=== PATIENT | male | born 1940 | race Caucasian/White ===

== ENCOUNTER → 2017-01-09 | Outpatient (CLI) | payer MEDICARE, OTHER ==
[~2017-01-09] MED LIST: ASPI-892 PO; HYDR-34 PO; HYDR1CAP2 PO; HYDR1TAB66 PO; LORTAB PO; PRAV40TA PO; PRV20T PO; REGADENOSON 0.4 MG/5 ML SYR (LEXISCAN) IV ONE; TRZ100T PO; VENL150C PO
[2017-01-09] MEDS: CATHETER FLUSH 10 ML SYR IV PRN ×2 (07:09→08:26)
[2017-01-09 08:24] VITALS: BP 135/83
--- NOTE | 2017-01-12 01:46 | STRESS TEST ---
PROCEDURE PHYSICIAN: KUN REY DATE OF PROCEDURE: 01/09/2017 MYOCARDIAL PERFUSION IMAGING: PRIMARY PHYSICIAN: Dr. Ian Arauz. DIAGNOSES: I25.10 coronary artery disease. PROCEDURE DETAILS:,: Please referred to Dr. Arauz's note for the stress testing portion. Myocardial perfusion imaging was performed with 10.95 mCi of Myoview for rest and 30.1 mCi of Myoview for stress imaging. TID was 1.09. EF: Is 32%. There is a large moderate intensity lateral infarct with jamaal-infarct ischemia, which is a moderate size. There is global hypokinesis. SSS 26, SRS 22, SDS 2. IMPRESSION/CONCLUSION: 1. Large lateral infarct with jamaal-infarct ischemia. 2. Severe LV systolic dysfunction. 3. Global hypokinesis. Job ID: [id number] Dictated Date: 01/09/2017 17:14:51 Paper Sealer Date: 01/12/2017 01:43:36 / blane
== END ==
LOC: CARD 06:42
PROVIDERS: ATTEND Internal Medicine
DX: I25.10 Atherosclerotic heart disease of native coronary artery without angina pectoris (principal)
CPT/HCPCS: 78452; 93017

== ENCOUNTER → 2017-01-12 | Outpatient (CLI) | payer MEDICARE, OTHER ==
[~2017-01-12] MED LIST changes: -REGADENOSON 0.4 MG/5 ML SYR (LEXISCAN) IV ONE; +RT-ALBUTEROL SULF 2.5 MG/3 ML PRE-MIX VIAL IH ONE
== END ==
LOC: RT 15:17
PROVIDERS: ATTEND Internal Medicine
DX: J44.9 Chronic obstructive pulmonary disease, unspecified (principal)
CPT/HCPCS: 94060; 94640; 94726; 94729

== ENCOUNTER → 2017-01-23 | Outpatient (CLI) | payer MEDICARE, OTHER ==
[~2017-01-23] MED LIST changes: -RT-ALBUTEROL SULF 2.5 MG/3 ML PRE-MIX VIAL IH ONE
[2017-01-23 11:29] LABS: ALBUMIN 3.7 GM/DL (3.2-4.5); ANION GAP 8 MMOL/L (5-14); BLOOD UREA NITROGEN 12 MG/DL (7-18); BUN/CREATININE RATIO 11; CALCIUM 9.3 MG/DL (8.5-10.1); CARBON DIOXIDE 28 MMOL/L (21-32); CHLORIDE 106 MMOL/L (98-107); CREATININE SERUM 1.09 MG/DL (0.60-1.30); GFR ESTIMATED > 60; GLUCOSE 124 MG/DL (70-105); PHOSPHORUS 3.2 MG/DL (2.3-4.7); POTASSIUM 4.1 MMOL/L (3.6-5.0); SODIUM 142 MMOL/L (135-145)
== END ==
LOC: LAB 10:51
PROVIDERS: ATTEND Internal Medicine Cardiovascular Disease
DX: Z79.899 Other long term (current) drug therapy (principal)
CPT/HCPCS: 36415; 80069

== ENCOUNTER 2019-04-01 02:29 | Emergency (ER) | payer MEDICARE, OTHER ==
[~2019-04-01] VITALS: Ht 175 cm; Wt 83.0 kg
[2019-04-01 02:46] LABS: BASOPHILS % (AUTO) 0 % (0-10); EOSINOPHILS # (AUTO) 0.1 10^3/uL (0.0-0.3); EOSINOPHILS % (AUTO) 1 % (0-10); HEMATOCRIT 46 % (40-54); HEMOGLOBIN 14.9 G/DL (13.3-17.7); LYMPHOCYTES # (AUTO) 0.2 X 10^3 (1.0-4.0); LYMPHOCYTES % (AUTO) 2 % (12-44); MEAN CORPUSCULAR HEMOGLOBIN 28 PG (25-34); MEAN CORPUSCULAR HGB CONC 32 G/DL (32-36); MEAN CORPUSCULAR VOLUME 86 FL (80-99); MEAN PLATELET VOLUME 9.5 FL (7.4-10.4); MONOCYTES # (AUTO) 0.1 X 10^3 (0.0-1.0); MONOCYTES % (AUTO) 1 % (0-12); NEUTROPHILS # (AUTO) 9.8 X 10^3 (1.8-7.8); NEUTROPHILS % (AUTO) 96 % (42-75); PLATELET COUNT 192 10^3/uL (130-400); RED CELL DISTRIBUTION WIDTH 13.4 % (10.0-14.5); WHITE BLOOD COUNT 10.2 10^3/uL (4.3-11.0)
[2019-04-01 02:58] LABS: INR 1.1 (0.8-1.4); PROTHROMBIN TIME PATIENT 14.3 SEC (12.2-14.7)
[2019-04-01 03:05] LABS: BAND NEUTROPHILS 5 %; LYMPHOCYTES % (MANUAL) 2 %; MONOCYTES % (MANUAL) 1 %; NEUTROPHILS % (MANUAL) 92 %; RBC MORPH NORMAL
[2019-04-01 03:08] LABS: ALBUMIN 3.5 GM/DL (3.2-4.5); BILIRUBIN,TOTAL 0.6 MG/DL (0.1-1.0); CREATININE SERUM 1.19 MG/DL (0.60-1.30); MAGNESIUM 1.8 MG/DL (1.6-2.4); POTASSIUM 4.5 MMOL/L (3.6-5.0); TOTAL PROTEIN 6.6 GM/DL (6.4-8.2)
--- NOTE | 2019-04-01 03:55 | ED Chest Pain ---
General Chief Complaint: Chest Pain Stated Complaint: CP,DIZZY Source: patient Exam Limitations: no limitations History of Present Illness Date Seen by Provider: Apr 01, 2019 Time Seen by Provider: 02:25 Initial Comments This 79-year-old gentleman presents to the emergency room via EMS with complaints of chest pain and shortness of breath since 23:00. EMS reports his oxygen saturation on room air was 88 percent. Oxygen saturation resuscitated to 95 percent on 4 L nasal cannula. He received 324 mg of aspirin prior to arrival. Chest pain had resolved by the time he was roomed at [facility]. Patient has extensive history of coronary artery disease including CABG and multiple stent placements. He sees Dr. Light in [place]. 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 He was last evaluated with stress test at this hospital in 2017. He had severe LV dysfunction and large lateral infarct noted on the stress test. His primary care providers Dr. Arauz. He denies any cough or fever. Allergies and Home Medications Allergies Coded Allergies: No Known Drug Allergies (Unverified , 04/29/11) Home Medications Aspirin 81 Mg Tabec, 81 MG PO DAILY, (Reported) Hydrocodone Bit/Acetaminophen 1 Ea Tablet, 1-2 EA PO Q 4 - 6 HR PRN PRN, (Reported) NEW PRESCRIPTION CALLED TO [facility] Pravastatin Sodium 20 Mg Tablet, 1 TAB PO DAILY, (Reported) Trazodone Hcl 100 Mg Tablet, 100 MG PO HS, (Reported) Venlafaxine Hcl 150 Mg Cap.sr.24h, 1 EACH PO DAILY, (Reported) Patient Home Medication List Home Medication List Reviewed: Yes Review of Systems Review of Systems Constitutional: no symptoms reported EENTM: No Symptoms Reported Respiratory: See HPI Cardiovascular: See HPI Gastrointestinal: No Symptoms Reported Genitourinary: No Symptoms Reported Musculoskeletal: no symptoms reported Skin: no symptoms reported Psychiatric/Neurological: No Symptoms Reported Endocrine: No Symptoms Reported Hematologic/Lymphatic: No Symptoms Reported Past Uxdefox-Gmchlw-Skuwmk Hx Past Med/Social Hx: Reviewed and Corrections made Patient Social History Recent Foreign Travel: No Contact w/Someone Who Travel: No Immunizations Up To Date Date of Pneumonia Vaccine: Mar 29, 2012 Past Medical History Surgeries: Yes (Fernanda gland resection) CABG, Coronary Stent, Gallbladder Respiratory: Yes (suspected asbestosis) COPD Cardiac: Yes Coronary Artery Disease, High Cholesterol, Hypertension Neurological: No Reproductive Disorders: No Genitourinary: No Gastrointestinal: Yes Gastroesophageal Reflux, Pancreatitis Musculoskeletal: Yes Arthritis, Fractures Endocrine: No HEENT: No Cancer: No Psychosocial: Yes Depression Physical Exam Vital Signs Vital Signs - First Documented 04/01/19 02:30 Temp 38.2 Pulse 91 Resp 18 B/P (MAP) 91/70 (77) Pulse Ox 95 O2 Delivery Nasal Cannula O2 Flow Rate 4.00 FiO2 95 Capillary Refill : Height, Weight, BMI Height: '" Weight: 195lbs. oz. 88.693962mc; BMI Method: General Appearance: No Apparent Distress, WD/WN HEENT: PERRL/EOMI, Normal ENT Inspection Neck: Normal Inspection Respiratory: No Accessory Muscle Use, No Respiratory Distress, Crackles (bibasilar crackles, right greater than left) Cardiovascular: Regular Rate, Rhythm, No Edema, No Murmur, Normal Peripheral Pulses Extremity: Normal Capillary Refill, Normal Inspection, No Calf Tenderness, No Pedal Edema Neurologic/Psychiatric: Alert, Oriented x3, No Motor/Sensory Deficits, Normal Mood/Affect, director stage II-XII Norm as Tested Skin: Normal Color, Warm/Dry Focused Exam Lactate Level 04/01/19 03:40: Lactic Acid Level 2.35*H Lactic Acid Level Laboratory Tests Test 04/01/19 03:40 Lactic Acid Level 2.35 MMOL/L (0.50-2.00) *H Progress/Results/Core Measures Results/Orders Lab Results Laboratory Tests Test 04/01/19 02:35 04/01/19 03:40 04/01/19 04:44 Range/Units White Blood Count 10.2 4.3-11.0 10^3/uL Red Blood Count 5.39 4.35-5.85 10^6/uL Hemoglobin 14.9 13.3-17.7 G/DL Hematocrit 46 40-54 % Mean Corpuscular Volume 86 80-99 FL Mean Corpuscular Hemoglobin 28 25-34 PG Mean Corpuscular Hemoglobin Concent 32 32-36 G/DL Red Cell Distribution Width 13.4 10.0-14.5 % Platelet Count 192 130-400 10^3/uL Mean Platelet Volume 9.5 7.4-10.4 FL Neutrophils (%) (Auto) 96 H 42-75 % Lymphocytes (%) (Auto) 2 L 12-44 % Monocytes (%) (Auto) 1 0-12 % Eosinophils (%) (Auto) 1 0-10 % Basophils (%) (Auto) 0 0-10 % Neutrophils # (Auto) 9.8 H 1.8-7.8 X 10^3 Lymphocytes # (Auto) 0.2 L 1.0-4.0 X 10^3 Monocytes # (Auto) 0.1 0.0-1.0 X 10^3 Eosinophils # (Auto) 0.1 0.0-0.3 10^3/uL Basophils # (Auto) 0.0 0.0-0.1 10^3/uL Neutrophils % (Manual) 92 % Lymphocytes % (Manual) 2 % Monocytes % (Manual) 1 % Band Neutrophils 5 % Blood Morphology Comment NORMAL Prothrombin Time 14.3 12.2-14.7 SEC INR Comment 1.1 0.8-1.4 Activated Partial Thromboplast Time 25 24-35 SEC Sodium Level 139 135-145 MMOL/L Potassium Level 4.5 3.6-5.0 MMOL/L Chloride Level 104 98-107 MMOL/L Carbon Dioxide Level 26 21-32 MMOL/L Anion Gap 9 5-14 MMOL/L Blood Urea Nitrogen 12 7-18 MG/DL Creatinine 1.19 0.60-1.30 MG/DL Estimat Glomerular Filtration Rate 59 BUN/Creatinine Ratio 10 Glucose Level 115 H 70-105 MG/DL Calcium Level 9.0 8.5-10.1 MG/DL Corrected Calcium 9.4 8.5-10.1 MG/DL Magnesium Level 1.8 1.6-2.4 MG/DL Total Bilirubin 0.6 0.1-1.0 MG/DL Aspartate Amino Transf (AST/SGOT) 20 5-34 U/L Alanine Aminotransferase (ALT/SGPT) 14 0-55 U/L Alkaline Phosphatase 114 40-136 U/L Myoglobin 80.2 10.0-92.0 NG/ML Troponin I 0.042 H <0.028 NG/ML C-Reactive Protein High Sensitivity 0.52 H 0.00-0.50 MG/DL B-Type Natriuretic Peptide 347.6 H <100.0 PG/ML Total Protein 6.6 6.4-8.2 GM/DL Albumin 3.5 3.2-4.5 GM/DL Lipase 29 8-78 U/L Lactic Acid Level 2.35 *H 0.50-2.00 MMOL/L Urine Color YELLOW Urine Clarity CLEAR Urine pH 5 5-9 Urine Specific [place] 1.020 1.016-1.022 Urine Protein 2+ H NEGATIVE Urine Glucose (UA) NEGATIVE NEGATIVE Urine Ketones NEGATIVE NEGATIVE Urine Nitrite NEGATIVE NEGATIVE Urine Bilirubin NEGATIVE NEGATIVE Urine Urobilinogen 1 NORMAL MG/DL Urine Leukocyte Esterase 3+ H NEGATIVE Urine RBC (Auto) NEGATIVE NEGATIVE Urine RBC NONE /HPF Urine WBC >100 H /HPF Urine Squamous Epithelial Cells 2-5 /HPF Urine Crystals NONE /LPF Urine Bacteria MODERATE H /HPF Urine Casts NONE /LPF Urine Mucus LARGE H /LPF Urine Culture Indicated CULTURE PENDING My Orders Orders - FABIO HILLS MD Cbc With Automated Diff (04/01/19 02:37) Magnesium (04/01/19 02:37) Chest 1 View, Ap/Pa Only (04/01/19 02:37) Ekg Tracing (04/01/19 02:37) Cardiac Profile 1 (04/01/19 02:37) Comprehensive Metabolic Panel (04/01/19 02:37) Myoglobin Serum (04/01/19 02:37) Protime With Inr (04/01/19 02:37) Partial Thromboplastin Time (04/01/19 02:37) O2 (04/01/19 02:37) Monitor-Rhythm Ecg Trace Only (04/01/19 02:37) Lipid Panel (04/02/19 06:00) Ed Iv/Invasive Line Start (04/01/19 02:37) BNP (04/01/19 02:37) Hs C Reactive Protein (04/01/19 02:37) Manual Differential (04/01/19 02:35) Lipase (04/01/19 02:56) Blood Culture (04/01/19 03:17) Sputum Culture (04/01/19 03:17) Urinalysis (04/01/19 03:17) Urine Culture (04/01/19 03:17) Ed Iv/Invasive Line Start (04/01/19 03:17) Vital Signs Adult Sepsis Patie Q15M (04/01/19 03:17) O2 (04/01/19 03:17) Remove Rings In Anticipation O (04/01/19 03:17) Lactic Acid Analyzer (04/01/19 03:17) Albuterol/Ipra Inhalation Soln (Duoneb I (04/01/19 04:00) Svn Small Volume Nebulizer (04/01/19 03:56) Ed Iv/Invasive Line Start (04/01/19 04:09) Ns Iv 1000 Ml (Sodium Chloride 0.9%) (04/01/19 04:09) Medications Given in ED Current Medications Medications Dose Ordered Sig/Husam Route Start Time Stop Time Status Last Admin Dose Admin Albuterol/ Ipratropium 3 ml ONCE ONCE INH 04/01/19 04:00 04/01/19 04:01 DC 04/01/19 04:05 3 ML Sodium Chloride 1,000 ml @ 0 mls/hr Q0M ONCE IV 04/01/19 04:09 04/01/19 04:10 DC 04/01/19 04:17 1,000 MLS/HR Vital Signs/I&O 04/01/19 04/01/19 04/01/19 02:30 02:30 02:35 Temp 38.2 38.2 Pulse 91 91 Resp 18 18 B/P (MAP) 91/70 (77) 91/70 Pulse Ox 95 93 93 O2 Delivery Nasal Cannula Nasal Cannula O2 Flow Rate 4.00 4.00 FiO2 95 Progress Progress Note #1: Time: 03:58 Progress Note Chest pain had resolved by the time of my assessment. He remains pain-free at this time. Oxygen saturation remains in the upper 90s on 4 L by nasal cannula. We will try a DuoNeb treatment. Troponin returned minimally elevated. Given his extensive cardiac history and the lack of bed availability on the cardiac step down unit and in the ICU, transfer to his primary marketing database consultant in [place] was felt most appropriate. Dr. Light happens to be station cleaning porter and excepts the transfer. Blood pressure has been marginal and bordering on hypotensive. Fluid resuscitation has been cautiously considered given his history of severe LV d ysfunction and crackles on exam. BNP returned only mildly elevated. We will give a liter of IV normal saline. Progress Note #2: Time: 05:02 Progress Note Patient's blood pressures continued to be marginal. He is receiving a liter of IV fluids at present. Patient reassures me that his blood pressures are typically low. He states a normal systolic blood pressure is 85 for him. Initial ECG Impression Date: Apr 01, 2019 Initial ECG Impression Time: 02:44 Initial ECG Rate: 87 Initial ECG Rhythm: Normal Sinus Initial ECG Intervals: Normal Initial ECG Impression: Normal Comment Normal sinus rhythm with no ST elevation or depression. No abnormal intervals or axis deviation. Diagnostic Imaging Diagonstic Imaging: Xray Plain Films/CT/US/NM/MRI: chest Comments X-ray viewed by me. Extensive interstitial markings suggestive of asbestosis, perhaps slightly worse than prior. Report not yet available. Departure Impression Primary Impression: Chest pain Qualified Codes: R07.9 - Chest pain, unspecified Additional Impressions: Hypoxia Elevated troponin Disposition: XFER SHT-TRM HOSP Condition: Improved Transfer Time Spoke to Accepting Phy: 03:35 Transfer Progress Notes Transfer accepted by Dr. Light. Transfer Time: 05:30 Transfer Facility: [facility] Method of Transfer: EMS Departure-Patient Inst. Referrals: LAURA ARAUZ DO (PCP/Family) Primary Care Physician FABIO HILLS MD Apr 01, 2019 03:55
[2019-04-01] MEDS ORDERED: RT-ALBUTEROL/IPRATROPIUM 3 ML (DUONEB) VIAL INH ONE (04:00)
[2019-04-01] MEDS ORDERED: NS IV 1000 ML 1,000 ML IV ONE (04:09)
[2019-04-01 04:55] LABS: BILIRUBIN,URINE NEGATIVE (NEGATIVE); CLARITY,URINE CLEAR; COLOR,URINE YELLOW; GLUCOSE, URINE (UA) NEGATIVE (NEGATIVE); KETONES,URINE NEGATIVE (NEGATIVE); LEUKOCYTE ESTERASE ,URINE 3+ (NEGATIVE); NITRITE,URINE NEGATIVE (NEGATIVE); PH,URINE 5 (5-9); PROTEIN,URINE 2+ (NEGATIVE); UROBILINOGEN,URINE 1 MG/DL (NORMAL)
[2019-04-01 05:02] LABS: BACTERIA,URINE MODERATE /HPF; WBC,URINE >100 /HPF
[2019-04-01 05:30] VITALS: BP 83/58
--- NOTE | 2019-04-01 05:59 | Diagnostic Imaging Report ---
INDICATION: Chest pain. Dizziness. COMPARISON: 12/16/2013 FINDINGS: Single frontal radiographic view of the chest was obtained and demonstrates interval development of patchy and confluent alveolar appearing infiltrates within the bilateral mid and lower lung bustillos concerning for pneumonia. No large effusion or pneumothorax is seen on either side. Cardiac silhouette is heavily obscured, but appears to be within normal limits. Pulmonary vasculature is unremarkable. Sternotomy wires are noted. Osseous structures show no gross acute abnormalities. IMPRESSION: 1. Findings concerning for bibasilar pneumonia. Follow-up to resolution is recommended. Dictated by: Dictated on workstation # [id number]
[2019-04-02] MEDS ORDERED: CEFD300C3 PO (18:27)
== END 2019-04-01 05:34 | disposition short-term general hospital (02) ==
LOC: EDUNIT# 02:29 → ER 02:30
DX: R07.9 Chest pain, unspecified (principal); R09.02 Hypoxemia; R79.89 Other specified abnormal findings of blood chemistry; I25.10 Atherosclerotic heart disease of native coronary artery without angina pectoris; I10 Essential (primary) hypertension; E78.00 Pure hypercholesterolemia, unspecified; J44.9 Chronic obstructive pulmonary disease, unspecified; K21.9 Gastro-esophageal reflux disease without esophagitis; F32.9 Major depressive disorder, single episode, unspecified; Z95.5 Presence of coronary angioplasty implant and graft; Z95.1 Presence of aortocoronary bypass graft; Z79.82 Long term (current) use of aspirin
CPT/HCPCS: 36415; 71045; 80053; 81000; 83605; 83690; 83735; 83874; 83880; 84484; 85007; 85027; 85610; 85730; 86141; 87040; 87077; 87088; 87186; 93005; 93041

== ENCOUNTER 2019-04-02 15:06 | Emergency (ER) | payer MEDICARE, OTHER ==
[~2019-04-02] VITALS: Ht 175 cm; Wt 79.5 kg
--- NOTE | 2019-04-02 15:14 | NUR ---
RT CONTACTED FOR BREATHING TX.
[2019-04-02] MEDS ORDERED: RT-ALBUTEROL/IPRATROPIUM 3 ML (DUONEB) VIAL INH ONE (15:15)
[2019-04-02] MEDS ORDERED: RT-ALBUTEROL/IPRATROPIUM 3 ML (DUONEB) VIAL ONE (15:18)
--- NOTE | 2019-04-02 15:21 | NUR ---
RT IN ROOM AT THIS TIME.
[2019-04-02 15:25] LABS: BASOPHILS % (AUTO) 0 % (0-10); EOSINOPHILS % (AUTO) 0 % (0-10); HEMATOCRIT 45 % (40-54); HEMOGLOBIN 14.8 G/DL (13.3-17.7); LYMPHOCYTES # (AUTO) 0.4 X 10^3 (1.0-4.0); LYMPHOCYTES % (AUTO) 6 % (12-44); MEAN CORPUSCULAR HEMOGLOBIN 28 PG (25-34); MEAN CORPUSCULAR HGB CONC 33 G/DL (32-36); MEAN CORPUSCULAR VOLUME 87 FL (80-99); MEAN PLATELET VOLUME 10.1 FL (7.4-10.4); MONOCYTES # (AUTO) 0.3 X 10^3 (0.0-1.0); MONOCYTES % (AUTO) 4 % (0-12); NEUTROPHILS # (AUTO) 6.3 X 10^3 (1.8-7.8); NEUTROPHILS % (AUTO) 91 % (42-75); PLATELET COUNT 133 10^3/uL (130-400); RED CELL DISTRIBUTION WIDTH 13.6 % (10.0-14.5)
[2019-04-02 15:36] LABS: ALANINE AMINOTRANSFERASE 25 U/L (0-55); ALBUMIN 3.3 GM/DL (3.2-4.5); ALKALINE PHOSPHATASE 130 U/L (40-136); BILIRUBIN,TOTAL 0.7 MG/DL (0.1-1.0); BUN/CREATININE RATIO 11; CALCIUM 8.1 MG/DL (8.5-10.1); CARBON DIOXIDE 26 MMOL/L (21-32); CHLORIDE 107 MMOL/L (98-107); CREATININE SERUM 1.04 MG/DL (0.60-1.30); GFR ESTIMATED > 60; GLUCOSE 125 MG/DL (70-105); SODIUM 141 MMOL/L (135-145); TOTAL PROTEIN 6.3 GM/DL (6.4-8.2)
[2019-04-02 15:44] LABS: BAND NEUTROPHILS 1 %; BASOPHILS % (MANUAL) 0 %; EOSINOPHILS % (MANUAL) 0 %; LYMPHOCYTES % (MANUAL) 5 %; MONOCYTES % (MANUAL) 3 %; NEUTROPHILS % (MANUAL) 89 %; RBC MORPH NORMAL; REACTIVE LYMPHOCYTES 2 %
--- NOTE | 2019-04-02 16:22 | Diagnostic Imaging Report ---
Indication: Dyspnea. Comparison: 04/01/2019. Discussion: Two views of the chest were obtained. Significantly improved aeration of the lungs with decreased consolidation. Some residual opacities are present, bilaterally. Calcified pleural plaques are again noted. Normal heart size. Median sternotomy is present. No pleural fluid or pneumothorax. Impression: Decreasing bilateral consolidation. Dictated by: Dictated on workstation # [id number]
--- NOTE | 2019-04-02 16:34 | NUR ---
IN ROOM TALKING TO PT AT THIS TIME.
[2019-04-02 17:30] LABS: BILIRUBIN,URINE NEGATIVE (NEGATIVE); CLARITY,URINE CLEAR; COLOR,URINE YELLOW; GLUCOSE, URINE (UA) NEGATIVE (NEGATIVE); KETONES,URINE NEGATIVE (NEGATIVE); LEUKOCYTE ESTERASE ,URINE 1+ (NEGATIVE); NITRITE,URINE NEGATIVE (NEGATIVE); PH,URINE 7 (5-9); PROTEIN,URINE 2+ (NEGATIVE); UROBILINOGEN,URINE 12 MG/DL (NORMAL)
[2019-04-02 17:36] LABS: BACTERIA,URINE TRACE /HPF; RBC,URINE 0-2 /HPF; SQUAMOUS EPITHELIAL CELL,UR RARE /HPF; WBC,URINE 0-2 /HPF
[2019-04-02] MEDS ORDERED: RX-ALBUTEROL INHALER (PROAIR) 8.5 GM IH STA (18:05)
--- NOTE | 2019-04-02 18:05 | ED Respiratory ---
General Chief Complaint: Respiratory Problems Stated Complaint: SOB Nursing Triage Note: ARRIVED VIA EMS FROM HOME. STATES HE HAD A HEART STENT PLACED YESTERDAY AT [place] AND AT NOON TODAY HE STARTED HAVING SOME SOA. DENIES CHEST PAIN. Source: patient Exam Limitations: no limitations History of Present Illness Date Seen by Provider: Apr 02, 2019 Time Seen by Provider: 15:07 Initial Comments This 79-year-old gentleman presents to the emergency room with primary complaint of shortness of breath. He presented yesterday with chest pain and had a subtle bump in his troponin. ICU beds were not available at [facility]. 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 Light, at [place]. A stent was placed and he was discharged home. Patient developed shortness of breath this afternoon. On assessment he appears to have accessory muscle involvement with abdominal wall contractions. He is wheezing as well. Patient probably has COPD and appears to have chronic lung disease, possibly asbestosis. He has very prominent chronic findings on his chest x-rays historically. Patient is afebrile at present. He denies having any chest pain at any point after his heart catheter. Blood cultures from yesterday were noted to be positive. Allergies and Home Medications Allergies Coded Allergies: No Known Drug Allergies (Unverified , 04/29/11) Home Medications Aspirin 81 Mg Tabec, 81 MG PO DAILY, (Reported) Cefdinir 300 Mg Capsule, 300 MG PO BID Prescribed by: FABIO ADAME on 04/02/191826 Hydrocodone Bit/Acetaminophen 1 Ea Tablet, 1-2 EA PO Q 4 - 6 HR PRN PRN, (Reported) NEW PRESCRIPTION CALLED TO [facility] Pravastatin Sodium 20 Mg Tablet, 1 TAB PO DAILY, (Reported) Trazodone Hcl 100 Mg Tablet, 100 MG PO HS, (Reported) Venlafaxine Hcl 150 Mg Cap.sr.24h, 1 EACH PO DAILY, (Reported) Patient Home Medication List Home Medication List Reviewed: Yes Review of Systems Review of Systems Constitutional: no symptoms reported EENTM: no symptoms reported Respiratory: see HPI Cardiovascular: see HPI Gastrointestinal: no symptoms reported Genitourinary: see HPI Musculoskeletal: no symptoms reported Skin: no symptoms reported Psychiatric/Neurological: No Symptoms Reported Hematologic/Lymphatic: No Symptoms Reported Past Xqxbary-Tmohmm-Mcgwbd Hx Past Med/Social Hx: Reviewed Nursing Past Med/Soc Hx Patient Social History 2nd Hand Smoke Exposure: No Recent Foreign Travel: No Contact w/Someone Who Travel: No Recent Infectious Disease Expo: No Recent Hopitalizations: No (heart procedures, gall bladder, knee surgery) Immunizations Up To Date Date of Pneumonia Vaccine: Mar 29, 2012 Past Medical History Surgeries: Yes (Fernanda gland resection) CABG, Coronary Stent, Gallbladder Respiratory: Yes (suspected asbestosis) COPD Cardiac: Yes Coronary Artery Disease, High Cholesterol, Hypertension Neurological: No Reproductive Disorders: No Genitourinary: No Gastrointestinal: Yes Gastroesophageal Reflux, Pancreatitis Musculoskeletal: Yes Arthritis, Fractures Endocrine: No HEENT: No Cancer: No Psychosocial: Yes Depression Integumentary: No Blood Disorders: No Physical Exam Vital Signs - First Documented 04/02/19 15:10 Temp 36.7 Pulse 76 Resp 16 B/P (MAP) 112/69 (83) Pulse Ox 94 O2 Delivery Room Air Capillary Refill : Less Than 3 Seconds Height: '" Weight: 195lbs. oz. 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-XII nml as tested, no motor/sensory deficits, alert, normal mood/affect, oriented x 3 Skin: normal color, warm/dry Progress/Results/Core Measures Suspected Sepsis Recent Fever Within 48 Hours: No Infection Criteria Present: Suspected New Infection New/Unexplained Altered Menta: No Sepsis Screen: No Definite Risk SIRS Temperature: Pulse: 76 Respiratory Rate: 16 Laboratory Tests 04/02/19 15:10: White Blood Count 7.0 Blood Pressure 112 /69 Mean: 83 Laboratory Tests 04/02/19 15:10: Creatinine 1.04, Platelet Count 133, Total Bilirubin 0.7 Results/Orders Lab Results Laboratory Tests Test 04/02/19 15:10 04/02/19 16:45 04/02/19 17:12 Range/Units White Blood Count 7.0 4.3-11.0 10^3/uL Red Blood Count 5.22 4.35-5.85 10^6/uL Hemoglobin 14.8 13.3-17.7 G/DL Hematocrit 45 40-54 % Mean Corpuscular Volume 87 80-99 FL Mean Corpuscular Hemoglobin 28 25-34 PG Mean Corpuscular Hemoglobin Concent 33 32-36 G/DL Red Cell Distribution Width 13.6 10.0-14.5 % Platelet Count 133 130-400 10^3/uL Mean Platelet Volume 10.1 7.4-10.4 FL Neutrophils (%) (Auto) 91 H 42-75 % Lymphocytes (%) (Auto) 6 L 12-44 % Monocytes (%) (Auto) 4 0-12 % Eosinophils (%) (Auto) 0 0-10 % Basophils (%) (Auto) 0 0-10 % Neutrophils # (Auto) 6.3 1.8-7.8 X 10^3 Lymphocytes # (Auto) 0.4 L 1.0-4.0 X 10^3 Monocytes # (Auto) 0.3 0.0-1.0 X 10^3 Eosinophils # (Auto) 0.0 0.0-0.3 10^3/uL Basophils # (Auto) 0.0 0.0-0.1 10^3/uL Neutrophils % (Manual) 89 % Lymphocytes % (Manual) 5 % Monocytes % (Manual) 3 % Eosinophils % (Manual) 0 % Basophils % (Manual) 0 % Band Neutrophils 1 % Reactive Lymphocytes 2 % Blood Morphology Comment NORMAL Sodium Level 141 135-145 MMOL/L Potassium Level 4.0 3.6-5.0 MMOL/L Chloride Level 107 98-107 MMOL/L Carbon Dioxide Level 26 21-32 MMOL/L Anion Gap 8 5-14 MMOL/L Blood Urea Nitrogen 11 7-18 MG/DL Creatinine 1.04 0.60-1.30 MG/DL Estimat Glomerular Filtration Rate > 60 BUN/Creatinine Ratio 11 Glucose Level 125 H 70-105 MG/DL Calcium Level 8.1 L 8.5-10.1 MG/DL Corrected Calcium 8.7 8.5-10.1 MG/DL Total Bilirubin 0.7 0.1-1.0 MG/DL Aspartate Amino Transf (AST/SGOT) 32 5-34 U/L Alanine Aminotransferase (ALT/SGPT) 25 0-55 U/L Alkaline Phosphatase 130 40-136 U/L Troponin I 0.252 H 0.223 H <0.028 NG/ML C-Reactive Protein High Sensitivity 7.87 H 0.00-0.50 MG/DL B-Type Natriuretic Peptide 707.8 H <100.0 PG/ML Total Protein 6.3 L 6.4-8.2 GM/DL Albumin 3.3 3.2-4.5 GM/DL Urine Color YELLOW Urine Clarity CLEAR Urine pH 7 5-9 Urine Specific [place] 1.020 1.016-1.022 Urine Protein 2+ H NEGATIVE Urine Glucose (UA) NEGATIVE NEGATIVE Urine Ketones NEGATIVE NEGATIVE Urine Nitrite NEGATIVE NEGATIVE Urine Bilirubin NEGATIVE NEGATIVE Urine Urobilinogen 12 H NORMAL MG/DL Urine Leukocyte Esterase 1+ H NEGATIVE Urine RBC (Auto) 2+ H NEGATIVE Urine RBC 0-2 /HPF Urine WBC 0-2 /HPF Urine Squamous Epithelial Cells RARE /HPF Urine Crystals NONE /LPF Urine Bacteria TRACE /HPF Urine Casts NONE /LPF Urine Mucus SMALL H /LPF Urine Culture Indicated NO My Orders Orders - FABIO HILLS MD Ed Iv/Invasive Line Start (04/02/19 15:15) Ekg Tracing (04/02/19 15:15) Monitor-Rhythm Ecg Trace Only (04/02/19 15:15) Cbc With Automated Diff (04/02/19 15:15) Comprehensive Metabolic Panel (04/02/19 15:15) Hs C Reactive Protein (04/02/19 15:15) Troponin I (04/02/19 15:15) Albuterol/Ipra Inhalation Soln (Duoneb I (04/02/19 15:15) Chest Pa/Lat (2 View) (04/02/19 15:15) Svn Small Volume Nebulizer (04/02/19 15:15) BNP (04/02/19 15:15) Albuterol/Ipra Inhalation Soln (Duoneb I (04/02/19 15:18) Manual Differential (04/02/19 15:10) Troponin I (04/02/19 17:10) Ua Culture If Indicated (04/02/19 17:27) Blood Culture (04/02/19 18:05) Rx-Albuterol Inhaler (Rx-Proair) (04/02/19 18:05) Ceftriaxone For Iv Use (Rocephin For I (04/02/19 18:15) Medications Given in ED Current Medications Medications Dose Ordered Sig/Husam Route Start Time Stop Time Status Last Admin Dose Admin Albuterol/ Ipratropium 3 ml ONCE ONCE INH 04/02/19 15:15 04/02/19 15:17 DC 04/02/19 15:19 3 ML Ceftriaxone Sodium 1000 mg/ Sterile Water 10 ml @ 200 mls/hr ONCE ONCE IV 04/02/19 18:15 04/02/19 18:17 DC 04/02/19 18:37 200 MLS/HR Vital Signs/I&O 04/02/19 04/02/19 15:10 15:47 Temp 36.7 Pulse 76 Resp 16 B/P (MAP) 112/69 (83) Pulse Ox 94 94 O2 Delivery Room Air Room Air Capillary Refill : Less Than 3 Seconds Blood Pressure Mean: 83 Progress Note : Progress Note Multiple issues were addressed during this ER visit. First the shortness of breath was treated with DuoNeb. This completely resolved his symptoms. Troponin and EKG had been drawn due to patient's recent stent. There was no evidence of ischemia on the EKG. Troponin was elevated and was repeated at 2 hours. It was trending downward. Patient denied ever having any chest pain after his stent placement. He felt completely back to baseline after DuoNeb treatment. We will provide him with an albuterol inhaler and spacer with education from respiratory therapy. The second issue addressed was report of positive blood cultures from his workup yesterday. Patient is afebrile today. He has no leukocytosis. He has no tachycardia or hypotension. Today he is presenting aseptic. There is no clear source of infection. Chest x-rays improved from yesterday. Urine does not appear infected. Overall patient looks improved over yesterday. He does not appear ill. I discussed the dilemma of what to do with these positive blood cultures with patient and family. Patient was offered admission for observatio n. He was definitely opposed to admission. He prefers to observe as an outpatient. As a precaution, we will repeat blood cultures and empirically treat with Rocephin followed by outpatient antibiotics. Patient commits to returning to the hospital if he becomes febrile or is otherwise feeling ill. ECG Initial ECG Impression Date: Apr 02, 2019 Initial ECG Impression Time: 15:12 Initial ECG Rate: 74 Initial ECG Rhythm: Normal Sinus Initial ECG Intervals: Normal Initial ECG Impression: Normal Comment Sinus rhythm with no ST elevation or depression. No abnormal intervals or axis deviation. PVCs noted. Diagnostic Imaging Diagonstic Imaging: Xray Plain Films/CT/US/NM/MRI: chest Comments Chest x-ray viewed by me and report reviewed. Compared with prior. See report below: NAME: [facility] REC#: [id number] PT STATUS: REG ER : 1940 PHYSICIAN: FABIO HILLS MD ADMIT DATE: 04/02/19/ER Signed Date of Exam: 04/02/19 CHEST PA/LAT (2 VIEW) Indication: Dyspnea. Comparison: 04/01/2019. Discussion: Two views of the chest were obtained. Significantly improved aeration of the lungs with decreased consolidation. Some residual opacities are present, bilaterally. Calcified pleural plaques are again noted. Normal heart size. Median sternotomy is present. No pleural fluid or pneumothorax. Impression: Decreasing bilateral consolidation. Dictated by: Dictated on workstation # [id number] Dict: 04/02/19 1620 Trans: 04/02/19 170 Interpreted by: DEANDRE PARRA MD Electronically signed by: DEANDRE PARRA MD 04/02/191700 Departure Impression Primary Impression: COPD exacerbation Additional Impression: Coronary artery disease Qualified Codes: I25.10 - Atherosclerotic heart disease of [place] coronary artery without angina pectoris Disposition: HOME, SELF-CARE Condition: Improved Departure-Patient Inst. Referrals: LAURA FRAZIER DO (PCP/Family) Primary Care Physician Patient Instructions: Exacerbation of COPD Add. Discharge Instructions: Use your medications as prescribed. Follow-up with your primary care provider as soon as possible. Take 2-4 puffs of your inhaler with a spacer for shortness of breath or wheezing. Return to the emergency room if you have worsening symptoms including shortness of breath that does not resolve with your inhaler, fevers over 100, chest pain, or any other concerning symptoms. All discharge instructions reviewed with patient and/or family. Voiced understanding. Scripts Cefdinir (Cefdinir) 300 Mg Capsule 300 MG PO BID, #14 CAP Prov: FABIO HILLS MD 04/02/19 Copy Copies To 1: LAURA FRAZIER JOSHUA T MD Apr 02, 2019 18:04
--- NOTE | 2019-04-02 18:10 | NUR ---
RT CONTACTED FOR ALBUTEROL AND SPACER TRAINING.
[2019-04-02] MEDS ORDERED: cefTRIAXone FOR IV USE 1,000 MG in WATER (STERILE) FOR INJECTION 10 ML IV ONE (18:15)
--- NOTE | 2019-04-02 18:24 | NUR ---
RT IN ROOM WITH PT AT THIS TIME.
[2019-04-02] MEDS ORDERED: CEFD300C3 PO (18:27)
[2019-04-02 18:45] VITALS: BP 127/81
== END 2019-04-02 18:45 | disposition home or self-care (01) ==
LOC: EDUNIT# 15:06 → ER 15:07
DX: J44.1 Chronic obstructive pulmonary disease with (acute) exacerbation (principal); I25.10 Atherosclerotic heart disease of native coronary artery without angina pectoris; I10 Essential (primary) hypertension; E78.00 Pure hypercholesterolemia, unspecified; F32.9 Major depressive disorder, single episode, unspecified; K21.9 Gastro-esophageal reflux disease without esophagitis; Z95.5 Presence of coronary angioplasty implant and graft; Z79.82 Long term (current) use of aspirin; Z95.1 Presence of aortocoronary bypass graft
CPT/HCPCS: 36415; 71046; 80053; 81000; 83880; 84484; 85007; 85027; 86141; 87040; 93041; 94640; 94664

== ENCOUNTER 2019-05-30 01:21 | Emergency (ER) | payer MEDICARE, OTHER ==
[~2019-05-30] VITALS: Ht 175 cm; Wt 75.3 kg
[~2019-05-30 01:21] MED LIST changes: +CEFD300C3 PO
[2019-05-30] MEDS ORDERED: CARV6.252 (01:32)
[2019-05-30] MEDS ORDERED: CLOP75TA28 (01:32)
[2019-05-30] MEDS ORDERED: RT-ALBUTEROL/IPRATROPIUM 3 ML (DUONEB) VIAL INH ONE (01:45)
[2019-05-30] MEDS ORDERED: traZODone 100 MG (DESYREL) TAB PO ONE (01:45)
[2019-05-30 01:51] LABS: BASOPHILS # (AUTO) 0.1 10^3/uL (0.0-0.1); BASOPHILS % (AUTO) 1 % (0-10); EOSINOPHILS # (AUTO) 0.4 10^3/uL (0.0-0.3); EOSINOPHILS % (AUTO) 4 % (0-10); HEMATOCRIT 45 % (40-54); HEMOGLOBIN 14.8 G/DL (13.3-17.7); LYMPHOCYTES # (AUTO) 2.4 X 10^3 (1.0-4.0); LYMPHOCYTES % (AUTO) 26 % (12-44); MEAN CORPUSCULAR HEMOGLOBIN 28 PG (25-34); MEAN CORPUSCULAR HGB CONC 33 G/DL (32-36); MEAN CORPUSCULAR VOLUME 85 FL (80-99); MEAN PLATELET VOLUME 10.1 FL (7.4-10.4); MONOCYTES # (AUTO) 0.8 X 10^3 (0.0-1.0); MONOCYTES % (AUTO) 9 % (0-12); NEUTROPHILS # (AUTO) 5.6 X 10^3 (1.8-7.8); NEUTROPHILS % (AUTO) 61 % (42-75); PLATELET COUNT 249 10^3/uL (130-400); RED CELL DISTRIBUTION WIDTH 13.7 % (10.0-14.5); WHITE BLOOD COUNT 9.2 10^3/uL (4.3-11.0)
[2019-05-30 02:10] LABS: CHLORIDE 107 MMOL/L (98-107); POTASSIUM 4.4 MMOL/L (3.6-5.0); SODIUM 143 MMOL/L (135-145)
[2019-05-30 02:11] LABS: ALANINE AMINOTRANSFERASE 11 U/L (0-55); ALBUMIN 3.7 GM/DL (3.2-4.5); ALKALINE PHOSPHATASE 108 U/L (40-136); BILIRUBIN,TOTAL 0.6 MG/DL (0.1-1.0); BUN/CREATININE RATIO 13; CALCIUM 9.1 MG/DL (8.5-10.1); CARBON DIOXIDE 24 MMOL/L (21-32); CREATININE SERUM 1.18 MG/DL (0.60-1.30); GFR ESTIMATED 60; GLUCOSE 102 MG/DL (70-105); MAGNESIUM 2.1 MG/DL (1.6-2.4); TOTAL PROTEIN 7.1 GM/DL (6.4-8.2)
--- NOTE | 2019-05-30 02:23 | ED General ---
General Chief Complaint: Psych/Social Disorder Stated Complaint: INSOMNIA Nursing Triage Note: difficulty sleeping x2 days, anxiety. out of trazadone. Nursing Sepsis Screen: No Definite Risk Source of Information: Patient Exam Limitations: No Limitations History of Present Illness Date Seen by Provider: May 30, 2019 Time Seen by Provider: 01:30 Initial Comments This 79-year-old gentleman presents to the emergency room with primary complaint of insomnia and feeling anxious. He has only been able to sleep in small intervals and estimates only a few hours of sleep over the past 2 nights. He reports running out of trazodone several days ago and has been unable to get it renewed due to the holiday week. He also reports recent history of cardiac stenting for coronary artery disease when he was transferred to [place] in March when [address] [place] was on diversion. He is noted to have an oxygen saturation around 91 percent on assessment. He has wheezing and a much prolonged expiratory phase. He reports history of asbestosis but denies COPD. Allergies and Home Medications Allergies Coded Allergies: No Known Drug Allergies (Unverified , 04/29/11) Home Medications Aspirin 81 Mg Tabec, 81 MG PO DAILY, (Reported) Cefdinir 300 Mg Capsule, 300 MG PO BID Prescribed by: FABIO ADAME on 04/02/197 Pravastatin Sodium 20 Mg Tablet, 1 TAB PO DAILY, (Reported) Trazodone Hcl 100 Mg Tablet, 100 MG PO HS, (Reported) Patient Home Medication List Home Medication List Reviewed: Yes Review of Systems Review of Systems Constitutional: no symptoms reported EENTM: no symptoms reported Respiratory: see HPI Cardiovascular: no symptoms reported Gastrointestinal: no symptoms reported Genitourinary: no symptoms reported Musculoskeletal: no symptoms reported Skin: no symptoms reported Psychiatric/Neurological: See HPI Hematologic/Lymphatic: No Symptoms Reported Immunological/Allergic: no symptoms reported Past Cwxsivk-Tavkga-Cprosk Hx Patient Social History Alcohol Use: Denies Use Recreational Drug Use: No Smoking Status: Former Smoker 2nd Hand Smoke Exposure: No Recent Foreign Travel: No Contact w/Someone Who Travel: No Recent Infectious Disease Expo: No Recent Hopitalizations: No Physical Abuse: No Sexual Abuse: No Mistreated: No Fear: No Immunizations Up To Date Date of Pneumonia Vaccine: Mar 29, 2012 Past Medical History Surgeries: Yes CABG, Coronary Stent, Gallbladder Respiratory: Yes (suspected asbestosis exposure) COPD Cardiac: Yes Coronary Artery Disease, High Cholesterol, Hypertension Neurological: No Reproductive Disorders: No Genitourinary: No Gastrointestinal: Yes Gastroesophageal Reflux, Pancreatitis Musculoskeletal: Yes Arthritis, Fractures Endocrine: No HEENT: No Cancer: No Psychosocial: Yes Sleep Difficulties, Anxiety, Depression Integumentary: No Blood Disorders: No Physical Exam Vital Signs Vital Signs - First Documented 05/30/19 01:28 Temp 36.7 Pulse 63 Resp 18 B/P (MAP) 131/85 (100) Pulse Ox 96 O2 Delivery Nasal Cannula O2 Flow Rate 2.00 Capillary Refill : Less Than 3 Seconds Height, Weight, BMI Height: '" Weight: 195lbs. oz. 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 Skin: Normal Color, Warm/Dry Progress/Results/Core Measures Suspected Sepsis Recent Fever Within 48 Hours: No Infection Criteria Present: None New/Unexplained Altered Menta: No Sepsis Screen: No Definite Risk SIRS Temperature: Pulse: 63 Respiratory Rate: 18 Laboratory Tests 05/30/19 01:40: White Blood Count 9.2 Blood Pressure 131 /85 Mean: 100 Laboratory Tests 05/30/19 01:40: Creatinine 1.18, Platelet Count 249, Total Bilirubin 0.6 Results/Orders Lab Results Laboratory Tests Test 05/30/19 01:40 Range/Units White Blood Count 9.2 4.3-11.0 10^3/uL Red Blood Count 5.25 4.35-5.85 10^6/uL Hemoglobin 14.8 13.3-17.7 G/DL Hematocrit 45 40-54 % Mean Corpuscular Volume 85 80-99 FL Mean Corpuscular Hemoglobin 28 25-34 PG Mean Corpuscular Hemoglobin Concent 33 32-36 G/DL Red Cell Distribution Width 13.7 10.0-14.5 % Platelet Count 249 130-400 10^3/uL Mean Platelet Volume 10.1 7.4-10.4 FL Neutrophils (%) (Auto) 61 42-75 % Lymphocytes (%) (Auto) 26 12-44 % Monocytes (%) (Auto) 9 0-12 % Eosinophils (%) (Auto) 4 0-10 % Basophils (%) (Auto) 1 0-10 % Neutrophils # (Auto) 5.6 1.8-7.8 X 10^3 Lymphocytes # (Auto) 2.4 1.0-4.0 X 10^3 Monocytes # (Auto) 0.8 0.0-1.0 X 10^3 Eosinophils # (Auto) 0.4 H 0.0-0.3 10^3/uL Basophils # (Auto) 0.1 0.0-0.1 10^3/uL Sodium Level 143 135-145 MMOL/L Potassium Level 4.4 3.6-5.0 MMOL/L Chloride Level 107 98-107 MMOL/L Carbon Dioxide Level 24 21-32 MMOL/L Anion Gap 12 5-14 MMOL/L Blood Urea Nitrogen 15 7-18 MG/DL Creatinine 1.18 0.60-1.30 MG/DL Estimat Glomerular Filtration Rate 60 BUN/Creatinine Ratio 13 Glucose Level 102 70-105 MG/DL Calcium Level 9.1 8.5-10.1 MG/DL Corrected Calcium 9.3 8.5-10.1 MG/DL Magnesium Level 2.1 1.6-2.4 MG/DL Total Bilirubin 0.6 0.1-1.0 MG/DL Aspartate Amino Transf (AST/SGOT) 20 5-34 U/L Alanine Aminotransferase (ALT/SGPT) 11 0-55 U/L Alkaline Phosphatase 108 40-136 U/L Troponin I < 0.028 <0.028 NG/ML Total Protein 7.1 6.4-8.2 GM/DL Albumin 3.7 3.2-4.5 GM/DL TSH [place] Testing 1.98 0.35-4.94 UIU/ML My Orders Orders - FABIO HILLS MD Chest Pa/Lat (2 View) (05/30/19 01:36) Ekg Tracing (05/30/19 01:36) Monitor-Rhythm Ecg Trace Only (05/30/19 01:36) Ed Iv/Invasive Line Start (05/30/19 01:36) Cbc With Automated Diff (05/30/19 01:36) Comprehensive Metabolic Panel (05/30/19 01:36) Magnesium (05/30/19 01:36) Thyroid Analyzer (05/30/19 01:36) Troponin I (05/30/19 01:36) Albuterol/Ipra Inhalation Soln (Duoneb I (05/30/19 01:45) Svn Small Volume Nebulizer (05/30/19 01:36) Trazodone Tablet (Desyrel Tablet) (05/30/19 01:45) Medications Given in ED Current Medications Medications Dose Ordered Sig/Husam Route Start Time Stop Time Status Last Admin Dose Admin Albuterol/ Ipratropium 3 ml ONCE ONCE INH 05/30/19 01:45 05/30/19 01:46 DC 05/30/19 02:05 3 ML Trazodone HCl 100 mg ONCE ONCE PO 05/30/19 01:45 05/30/19 01:46 DC 05/30/19 01:50 100 MG Vital Signs/I&O 05/30/19 05/30/19 01:28 02:05 Temp 36.7 Pulse 63 Resp 18 B/P (MAP) 131/85 (100) Pulse Ox 96 100 O2 Delivery Nasal Cannula Nasal Cannula O2 Flow Rate 2.00 2.00 Capillary Refill : Less Than 3 Seconds Blood Pressure Mean: 100 POS Progress Note : Time: 02:24 Progress Note Patient was seen and examined. DuoNeb treatment was ordered for the wheezing. He feels better after the treatment. Trazodone was ordered at his usual dose. EKG showed PVCs. ECG Initial ECG Impression Date: May 30, 2019 Initial ECG Impression Time: 01:43 Initial ECG Rate: 64 Comment Sinus rhythm with no ST elevation or depression. Frequent PVCs. No abnormal intervals or axis deviation. Diagnostic Imaging Diagonstic Imaging: Xray Plain Films/CT/US/NM/MRI: chest Comments Chronic scattered opacity likely secondary to asbestosis. Unchanged from prior. Report not yet available. Departure Impression Primary Impression: Insomnia Qualified Codes: G47.00 - Insomnia, unspecified Additional Impressions: Anxiousness COPD exacerbation Disposition: 01 HOME, SELF-CARE Condition: Improved Departure-Patient Inst. Decision time for Depature: 02:35 Referrals: LAURA FRAZIER DO (PCP/Family) Primary Care Physician Patient Instructions: Insomnia, Exacerbation of COPD Add. Discharge Instructions: Resume taking trazodone as previously prescribed. This will likely greatly improve your ability to sleep. If you are still having trouble sleeping after resuming trazodone, consider add ing a low dose of melatonin purchased [id number]. Use your inhaler as prescribed if you're feeling short of breath and before going to bed. This should improve your breathing and makes sleeping more comfortable. Follow-up with your primary care provider to discuss maintenance treatment of COPD. Return to the emergency room if you have worsening symptoms. All discharge instructions reviewed with patient and/or family. Voiced understanding. Scripts Albuterol Sulfate (PROAIR HFA) 1 Puff Puff 2 PUFF IH Q4H PRN for SHORTNESS OF BREATH, #1 PUFF 1 PUFF = 90 MCG Prov: FABIO HILLS MD 05/30/19 Copy Copies To 1: LAURA FRAZIER JOSHUA T MD May 30, 2019 02:23 POS
[2019-05-30 02:31] LABS: TSH (THYROID ANALYZER) 1.98 UIU/ML (0.35-4.94)
[2019-05-30 02:43] VITALS: BP 115/67
[2019-05-30] MEDS ORDERED: RT-ALBUINH IH (02:44)
--- NOTE | 2019-05-30 05:39 | Diagnostic Imaging Report ---
EXAMINATION: Chest, PA and lateral views INDICATION: Difficulty sleeping. Trouble breathing. History of asbestos exposure. COMPARISON: Multiple priors, most recent performed on 04/02/2019. FINDINGS: There are calcified pleural plaques noted bilaterally. There is mild interstitial prominence and hazy opacities in the mid and lower lungs, similar in appearance to multiple prior exams and felt to be on a chronic basis. There is no new/superimposed airspace disease expected. There is no pneumothorax or large pleural effusion. The cardiomediastinal silhouette is unchanged. There is unchanged discontinuity of the two inferior most median sternotomy wires. No acute osseous abnormality is appreciated. IMPRESSION: Chronic changes in the lungs, as detailed above. No radiographic evidence of acute chest disease. Dictated by: Dictated on workstation # [id number]
== END 2019-05-30 02:45 | disposition home or self-care (01) ==
LOC: EDUNIT# 01:21 → ER 01:24
DX: G47.00 Insomnia, unspecified (principal); F41.9 Anxiety disorder, unspecified; J44.1 Chronic obstructive pulmonary disease with (acute) exacerbation; I25.10 Atherosclerotic heart disease of native coronary artery without angina pectoris; I10 Essential (primary) hypertension; E78.00 Pure hypercholesterolemia, unspecified; K21.9 Gastro-esophageal reflux disease without esophagitis; F32.9 Major depressive disorder, single episode, unspecified; Z95.5 Presence of coronary angioplasty implant and graft; Z79.82 Long term (current) use of aspirin; Z87.891 Personal history of nicotine dependence; Z95.1 Presence of aortocoronary bypass graft
CPT/HCPCS: 36415; 71046; 80053; 83735; 84443; 84484; 85025; 93005; 93041; 94640

== ENCOUNTER 2019-06-25 04:23 | Emergency (ER) | payer MEDICARE, OTHER ==
[~2019-06-25] VITALS: Ht 175 cm; Wt 74.8 kg
[~2019-06-25 04:23] MED LIST changes: +CARV6.252; +CLOP75TA28; +RT-ALBUINH IH
[2019-06-25] MEDS ORDERED: RT-ALBUTEROL/IPRATROPIUM 3 ML (DUONEB) VIAL ONE (04:41)
[2019-06-25] MEDS ORDERED: RT-ALBUTEROL/IPRATROPIUM 3 ML (DUONEB) VIAL INH ONE (04:45)
[2019-06-25 05:10] LABS: BASOPHILS % (AUTO) 0 % (0-10); EOSINOPHILS # (AUTO) 0.3 10^3/uL (0.0-0.3); EOSINOPHILS % (AUTO) 3 % (0-10); HEMATOCRIT 45 % (40-54); HEMOGLOBIN 14.3 G/DL (13.3-17.7); LYMPHOCYTES # (AUTO) 1.7 X 10^3 (1.0-4.0); LYMPHOCYTES % (AUTO) 18 % (12-44); MEAN CORPUSCULAR HEMOGLOBIN 27 PG (25-34); MEAN CORPUSCULAR HGB CONC 32 G/DL (32-36); MEAN CORPUSCULAR VOLUME 87 FL (80-99); MEAN PLATELET VOLUME 9.9 FL (7.4-10.4); MONOCYTES # (AUTO) 0.7 X 10^3 (0.0-1.0); MONOCYTES % (AUTO) 7 % (0-12); NEUTROPHILS # (AUTO) 7.2 X 10^3 (1.8-7.8); NEUTROPHILS % (AUTO) 72 % (42-75); PLATELET COUNT 227 10^3/uL (130-400); RED CELL DISTRIBUTION WIDTH 13.6 % (10.0-14.5)
[2019-06-25 05:28] LABS: BILIRUBIN,TOTAL 0.6 MG/DL (0.1-1.0); CALCIUM 8.9 MG/DL (8.5-10.1); CREATININE SERUM 1.18 MG/DL (0.60-1.30); POTASSIUM 4.1 MMOL/L (3.6-5.0)
[2019-06-25 05:29] LABS: ALBUMIN 3.6 GM/DL (3.2-4.5)
[2019-06-25 05:33] LABS: FIBRIN DEGRADATION PRODUCTS 1.27 UG/ML (0.00-0.49); INR 1.1 (0.8-1.4); PROTHROMBIN TIME PATIENT 14.7 SEC (12.2-14.7)
[2019-06-25] MEDS ORDERED: ASPIRIN 81 MG CHEW (CHILDREN'S ASA) ONE (05:52)
[2019-06-25] MEDS ORDERED: ASPIRIN 81 MG CHEW (CHILDREN'S ASA) PO ONE (06:00)
--- NOTE | 2019-06-25 06:24 | ED Chest Pain ---
General Chief Complaint: Respiratory Problems Stated Complaint: SOB Nursing Triage Note: STARTED HAVING SOB AROUND 2200 LAST EDNA. DENIES COUGH OR COLD SYMPTOMS DENIES PAINWITH SOB Nursing Sepsis Screen: No Definite Risk Source: patient, old records Exam Limitations: no limitations History of Present Illness Date Seen by Provider: Jun 25, 2019 Time Seen by Provider: 04:35 Initial Comments This 79-year-old gentleman with history of coronary artery disease, COPD, and asbestosis presents to the emergency room with dyspnea and chest pain that s tarted around 21:00 last night. He arrives with an oxygen saturation of 70 percent on room air. He reports his chest pain was mild and resolved after starting oxygen therapy. He does not usually use oxygen at home. He was last seen in this ER in March and was transferred to [facility] after having an elevated troponin measurement. His waist cutter is Dr. Light. He reports s tent placement during that admission. Allergies and Home Medications Allergies Coded Allergies: No Known Drug Allergies (Unverified , 04/29/11) Home Medications Albuterol Sulfate 1 Puff Puff, 2 PUFF IH Q4H PRN for SHORTNESS OF BREATH 1 PUFF = 90 MCG Prescribed by: ROBERT CELIS on 05/30/19 0244 Aspirin 81 Mg Tabec, 81 MG PO DAILY, (Reported) Cefdinir 300 Mg Capsule, 300 MG PO BID Prescribed by: ROBERT CELIS on 04/02/19 1827 Pravastatin Sodium 20 Mg Tablet, 1 TAB PO DAILY, (Reported) Trazodone Hcl 100 Mg Tablet, 100 MG PO HS, (Reported) Patient Home Medication List Home Medication List Reviewed: Yes Review of Systems Review of Systems Constitutional: no symptoms reported EENTM: No Symptoms Reported Respiratory: See HPI Cardiovascular: See HPI Gastrointestinal: No Symptoms Reported Genitourinary: No Symptoms Reported Musculoskeletal: no symptoms reported Skin: no symptoms reported Psychiatric/Neurological: No Symptoms Reported Endocrine: No Symptoms Reported Hematologic/Lymphatic: No Symptoms Reported Past [id number]-[id number] Hx Past Med/Social Hx: Reviewed Nursing Past Med/Soc Hx Patient Social History Alcohol Use: Denies Use Recreational Drug Use: No 2nd Hand Smoke Exposure: No Recent Foreign Travel: No Contact w/Someone Who Travel: No Recent Infectious Disease Expo: No Recent Hopitalizations: No Physical Abuse: No Sexual Abuse: No Mistreated: No Fear: No Immunizations Up To Date Date of Pneumonia Vaccine: Mar 29, 2012 Date of Influenza Vaccine: Mar 29, 2019 Past Medical History Surgeries: Yes CABG, Coronary Stent, Gallbladder Respiratory: Yes (suspected asbestosis exposure) COPD Cardiac: Yes ("5 HEART ATTACKS") Coronary Artery Disease, Heart Attack, High Cholesterol, Hypertension Neurological: No Reproductive Disorders: No Genitourinary: No Gastrointestinal: Yes Gastroesophageal Reflux, Pancreatitis Musculoskeletal: Yes Arthritis, Fractures Endocrine: No HEENT: No Cancer: No Psychosocial: Yes Sleep Difficulties, Anxiety, Depression Integumentary: No Blood Disorders: No Physical Exam Vital Signs Vital Signs - First Documented 06/25/19 06/25/19 04:28 04:29 Temp 35.7 Pulse 60 Resp 18 B/P (MAP) 150/81 (104) Pulse Ox 97 O2 Delivery Nasal Cannula O2 Flow Rate 2.00 FiO2 97 Capillary Refill : Less Than 3 Seconds Height, Weight, BMI Height: '" Weight: 195lbs. oz. 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 Norm as Tested Skin: Normal Color, Warm/Dry Progress/Results/Core Measures Results/Orders Lab Results Laboratory Tests Test 06/25/19 04:40 Range/Units White Blood Count 10.0 4.3-11.0 10^3/uL Red Blood Count 5.22 4.35-5.85 10^6/uL Hemoglobin 14.3 13.3-17.7 G/DL Hematocrit 45 40-54 % Mean Corpuscular Volume 87 80-99 FL Mean Corpuscular Hemoglobin 27 25-34 PG Mean Corpuscular Hemoglobin Concent 32 32-36 G/DL Red Cell Distribution Width 13.6 10.0-14.5 % Platelet Count 227 130-400 10^3/uL Mean Platelet Volume 9.9 7.4-10.4 FL Neutrophils (%) (Auto) 72 42-75 % Lymphocytes (%) (Auto) 18 12-44 % Monocytes (%) (Auto) 7 0-12 % Eosinophils (%) (Auto) 3 0-10 % Basophils (%) (Auto) 0 0-10 % Neutrophils # (Auto) 7.2 1.8-7.8 X 10^3 Lymphocytes # (Auto) 1.7 1.0-4.0 X 10^3 Monocytes # (Auto) 0.7 0.0-1.0 X 10^3 Eosinophils # (Auto) 0.3 0.0-0.3 10^3/uL Basophils # (Auto) 0.0 0.0-0.1 10^3/uL Prothrombin Time 14.7 12.2-14.7 SEC INR Comment 1.1 0.8-1.4 Activated Partial Thromboplast Time 32 24-35 SEC D-Dimer 1.27 H 0.00-0.49 UG/ML Sodium Level 144 135-145 MMOL/L Potassium Level 4.1 3.6-5.0 MMOL/L Chloride Level 106 98-107 MMOL/L Carbon Dioxide Level 26 21-32 MMOL/L Anion Gap 12 5-14 MMOL/L Blood Urea Nitrogen 13 7-18 MG/DL Creatinine 1.18 0.60-1.30 MG/DL Estimat Glomerular Filtration Rate 60 BUN/Creatinine Ratio 11 Glucose Level 108 H 70-105 MG/DL Calcium Level 8.9 8.5-10.1 MG/DL Corrected Calcium 9.2 8.5-10.1 MG/DL Magnesium Level 2.0 1.6-2.4 MG/DL Total Bilirubin 0.6 0.1-1.0 MG/DL Aspartate Amino Transf (AST/SGOT) 19 5-34 U/L Alanine Aminotransferase (ALT/SGPT) 20 0-55 U/L Alkaline Phosphatase 105 40-136 U/L Myoglobin 65.7 10.0-92.0 NG/ML Troponin I 0.056 H <0.028 NG/ML C-Reactive Protein High Sensitivity 1.50 H 0.00-0.50 MG/DL B-Type Natriuretic Peptide 1082.4 H <100.0 PG/ML Total Protein 7.0 6.4-8.2 GM/DL Albumin 3.6 3.2-4.5 GM/DL My Orders Orders - ROBERT HILLS MD Cbc With Automated Diff (06/25/19 04:37) Comprehensive Metabolic Panel (06/25/19 04:37) Ed Iv/Invasive Line Start (06/25/19 04:37) Albuterol/Ipra Inhalation Soln (Duoneb I (06/25/19 04:41) Chest Pa/Lat (2 View) (06/25/19 04:44) Ekg Tracing (06/25/19 04:44) Protime With Inr (06/25/19 04:44) Partial Thromboplastin Time (06/25/19 04:44) O2 (06/25/19 04:44) Monitor-Rhythm Ecg Trace Only (06/25/19 04:44) Lipid Panel (06/26/19 06:00) Ed Iv/Invasive Line Start (06/25/19 04:44) BNP (06/25/19 04:44) Troponin I (06/25/19 04:44) Hs C Reactive Protein (06/25/19 04:44) Albuterol/Ipra Inhalation Soln (Duoneb I (06/25/19 04:45) Svn Small Volume Nebulizer (06/25/19 04:44) Fibrin Degradation Products (06/25/19 04:40) Magnesium (06/25/19 04:40) Myoglobin Serum (06/25/19 04:40) Aspirin Chewable Tablet (Baby Aspirin Ch (06/25/19 06:00) Aspirin Chewable Tablet (Baby Aspirin Ch (06/25/19 05:52) Ct Angio Chest W (06/25/19 06:04) Iohexol Injection (Omnipaque 350 Mg/Ml 1 (06/25/19 06:45) Ns (Ivpb) (Sodium Chloride 0.9% Ivpb Bag (06/25/19 06:45) Furosemide Injection (Lasix Injection) (06/25/19 07:00) Heparin Drip 19549 Unit/500ml (Heparin (06/25/19 06:56) Heparin (Bolus Per Protocol) (Heparin (B (06/25/19 06:56) Medications Given in ED Vital Signs/I&O 06/25/19 06/25/19 06/25/1919 04:28 04:29 04:48 09:26 Temp 35.7 Pulse 60 58 Resp 18 18 B/P (MAP) 150/81 (104) 128/78 Pulse Ox 97 97 99 O2 Delivery Nasal Cannula Nasal Cannula Nasal Cannula Nasal Cannula O2 Flow Rate 2.00 2.00 2.00 2.00 FiO2 97 Blood Pressure Mean: 104 Progress Progress Note #1: Time: 06:28 Progress Note Patient's workup was positive for elevated d-dimer and elevated troponin. He was given aspirin 324 mg and a DuoNeb treatment. He has remained chest pain- free since initial evaluation. CT angiogram of the chest is pending. Patient receives his cardiac care at [facility] at last had stent placement at [facility] in March. He reports good compliance with his Plavix. [facility] is on cardiac stepdown and ICU diversion at this time. Patient has requested transfer to [facility]. I am awaiting a call back from the accepting physician. I spoke with Dr. Nicolas who is the waist cutter on-call. He requested admission be accepted by the hospitalist team. Progress Note #2: Time: 06:[address] angiogram demonstrated small pulmonary emboli in the right lower lobe. There is also concern for pulmonary edema. Results were discussed with radiologist. Based on findings a heparin drip and a dose of Lasix have been ordered. Progress Note #3: Time: 07:26 Progress Note Transfer was accepted by Dr. Harper at [facility] with consultation to Dr. Nicolas. EMS will be activated after room number has been assigned. Initial ECG Impression Date: Jun 25, 2019 Initial ECG Impression Time: 04:29 Initial ECG Rate: 58 Initial ECG Rhythm: Normal Sinus Initial ECG Intervals: Normal Initial ECG Impression: Normal Comment Normal sinus rhythm with no ST elevation or depression. No abnormal intervals or axis deviation. PACs noted. Diagnostic Imaging Diagonstic Imaging: Xray Plain Films/CT/US/NM/MRI: chest Comments Chest x-ray viewed by me and report not yet available. Chronic fibrotic changes with no acute changes from prior. Diagonstic Imaging: CT Plain Films/CT/US/NM/MRI: chest Comments CT angiogram of the chest viewed by me and discussed with the radiologist. There is pulmonary edema and advanced fibrotic changes. Small pulmonary emboli are seen in the right lower lobe. NAME: TORBETT,BRITT R [facility] REC#: [id number] PT STATUS: REG ER : 1940 PHYSICIAN: ROBERT HILLS MD ADMIT DATE: 06/25/19/ER Signed Date of Exam:06/25/19 CT ANGIO CHEST W PROCEDURE: CT angiography of the chest with contrast. TECHNIQUE: Multiple contiguous axial images were obtained through the chest after uneventful bolus administration of intravenous contrast. 3D reconstructed CTA MIP acquisitions were also performed. Auto Exposure Controls were utilized during the CT exam to meet ALARA standards for radiation dose reduction. INDICATION: Shortness of air. COMPARISON: CT chest without contrast 07/06/2015. FINDINGS: Nonobstructing pulmonary artery filling defects in the lobar branch of the right lower lobe extending into subsegmental branches. No other pulmonary artery filling defects. Mild cardiomegaly. No evidence for right heart strain. No pericardial effusion. Normal caliber thoracic aorta. No mediastinal, hilar or axillary lymphadenopathy. Diffuse interlobular septal thickening and groundglass opacities throughout both lungs. The background fibrotic changes including honeycombing in the right lower and middle lobes have progressed since the 2016 exam. No endobronchial lesions. Calcified pleural plaques. No pleural effusion. Osseous structures are intact. Cholecystectomy. Calcified granulomas in the spleen. IMPRESSION: 1. Low burden nonocclusive pulmonary emboli in the right lower lobe. 2. Diffuse interlobular septal thickening and groundglass opacities consistent with pulmonary edema. 3. Interval progression of the background fibrotic changes, greatest in the right middle and lower lobes where there is honeycombing present. Findings discussed with Dr. Robert Celis at 6:56 AM on 06/25/2019. Dictated by: Dictated on workstation # [id number] Dict: 06/25/19 0648 Trans: 06/25/19 1142 AVRIL [id number] Interpreted by: LELE RYDER MD Electronically signed by: LELE RYDER MD 06/25/19 1142 Departure Impression Primary Impression: Elevated troponin Additional Impressions: Chest pain Qualified Codes: R07.9 - Chest pain, unspecified Hypoxia Coronary artery disease Qualified Codes: I25.10 - Atherosclerotic heart disease of [place] coronary artery without angina pectoris Pulmonary edema Qualified Codes: J81.0 - Acute pulmonary edema Pulmonary embolism Qualified Codes: I26.99 - Other pulmonary embolism without acute cor pulmonale Disposition: 02 XFER SHT-TRM HOSP Condition: Improved Transfer Transfer Reason: Diversion Time Spoke to Accepting Phy: 06:15 Transfer Progress Notes Transfer accepted by Dr. Harper with consult to Dr. Nicolas Transfer Time: 09:25 Transfer Facility: [facility] Method of Transfer: EMS Departure-Patient Inst. Referrals: LAURA FRAZIER DO (PCP/Family) Primary Care Physician Copy Copies To 1: LAURA FRAZIER JOSHUA T MD Jun 25, 2019 06:24
[2019-06-25] MEDS ORDERED: IOHEXOL 350 MG/ML 150 ML (OMNIPAQUE 350) VIAL IV ONE (06:45)
[2019-06-25] MEDS ORDERED: NS 100 ML (IVPB) BAG IV ONE (06:45)
[2019-06-25] MEDS ORDERED: HEParin DRIP 25000 UNIT/500ML 500 ML IV ONE (06:56)
[2019-06-25] MEDS ORDERED: HEParin 1000 UNIT/ML (10ML VIAL) FOR BOLUS IV ONE (06:56)
[2019-06-25] MEDS ORDERED: FUROSEMIDE 40 MG/4 ML INJ (LASIX) IVP ONE (07:00)
--- NOTE | 2019-06-25 07:30 | Diagnostic Imaging Report ---
PROCEDURE: CT angiography of the chest with contrast. TECHNIQUE: Multiple contiguous axial images were obtained through the chest after uneventful bolus administration of intravenous contrast. 3D reconstructed CTA MIP acquisitions were also performed. Auto Exposure Controls were utilized during the CT exam to meet ALARA standards for radiation dose reduction. INDICATION: Shortness of air. COMPARISON: CT chest without contrast 07/06/2015. FINDINGS: Nonobstructing pulmonary artery filling defects in the lobar branch of the right lower lobe extending into subsegmental branches. No other pulmonary artery filling defects. Mild cardiomegaly. No evidence for right heart strain. No pericardial effusion. Normal caliber thoracic aorta. No mediastinal, hilar or axillary lymphadenopathy. Diffuse interlobular septal thickening and groundglass opacities throughout both lungs. The background fibrotic changes including honeycombing in the right lower and middle lobes have progressed since the 2016 exam. No endobronchial lesions. Calcified pleural plaques. No pleural effusion. Osseous structures are intact. Cholecystectomy. Calcified granulomas in the spleen. IMPRESSION: 1. Low burden nonocclusive pulmonary emboli in the right lower lobe. 2. Diffuse interlobular septal thickening and groundglass opacities consistent with pulmonary edema. 3. Interval progression of the background fibrotic changes, greatest in the right middle and lower lobes where there is honeycombing present. Findings discussed with Dr. Robert Celis at 6:56 AM on 06/25/2019. Dictated by: Dictated on workstation # [id number]
--- NOTE | 2019-06-25 08:15 | Diagnostic Imaging Report ---
EXAMINATION: CHEST (PA AND LATERAL) CLINICAL INDICATION: 79-year-old male, shortness of breath. COMPARISON: May 30, 2019. FINDINGS: There are median sternotomy wires. A stable overall appearance of the cardiomediastinal silhouette. There is no identified pneumothorax. There is no pleural effusion. There are multifocal bilateral interstitial and alveolar opacities. There are bilateral calcified pleural plaques consistent with the sequela of prior asbestos exposure. IMPRESSION: 1. Calcified pleural plaques bilaterally consistent with sequela of prior asbestos exposure. 2. Multifocal interstitial and alveolar opacities with largely unchanged appearance dating back to April 02, 2019. Correlating with prior CT imaging, there are findings of chronic lung disease present. The current opacities could reflect chronic lung changes although a superimposed acute cardiopulmonary process would be difficult to exclude. Dictated by: Dictated on workstation # [id number]
--- NOTE | 2019-06-25 08:15 | NUR ---
UP TO BSC INCREASE IN SOA FROM TRANSFER TO BED TO BSC. SAO2 92%
--- NOTE | 2019-06-25 08:38 | NUR ---
EMS CALLED FOR TRANSFER.
--- NOTE | 2019-06-25 09:23 | NUR ---
VODIED 400CC
--- NOTE | 2019-06-25 09:25 | NUR ---
HERE FOR TRANSFER WILL TAKE HEPARIN DRIP PER PUMP WITH THEM.
[2019-06-25 09:26] VITALS: BP 128/78
== END 2019-06-25 09:26 | disposition short-term general hospital (02) ==
LOC: EDUNIT# 04:23 → ER 04:24
DX: R79.89 Other specified abnormal findings of blood chemistry (principal); I25.10 Atherosclerotic heart disease of native coronary artery without angina pectoris; R09.02 Hypoxemia; J81.1 Chronic pulmonary edema; I26.99 Other pulmonary embolism without acute cor pulmonale; J44.9 Chronic obstructive pulmonary disease, unspecified; I10 Essential (primary) hypertension; E78.00 Pure hypercholesterolemia, unspecified; I25.2 Old myocardial infarction; K21.9 Gastro-esophageal reflux disease without esophagitis; F41.9 Anxiety disorder, unspecified; F32.9 Major depressive disorder, single episode, unspecified; Z79.82 Long term (current) use of aspirin; Z95.1 Presence of aortocoronary bypass graft; Z95.5 Presence of coronary angioplasty implant and graft
CPT/HCPCS: 36415; 71046; 71275; 80053; 83735; 83874; 83880; 84484; 85025; 85379; 85610; 85730; 86141; 93005; 93041; 94640; 96365; 96366; 96375

== ENCOUNTER 2019-07-02 13:50 | Emergency (ER) | payer MEDICARE, OTHER ==
[~2019-07-02] VITALS: Ht 177 cm; Wt 78.0 kg
[2019-07-02] MEDS ORDERED: APIX5TAB PO (14:34)
[2019-07-02] MEDS ORDERED: FURO20TA4 PO (14:34)
[2019-07-02] MEDS ORDERED: VENL25TA2 PO (14:34)
--- NOTE | 2019-07-02 15:19 | ED Abdominal Pain ---
General Chief Complaint: Abdominal/GI Problems Stated Complaint: ABD PAIN Nursing Triage Note: pt presents to ed with complaints of RLQ abdominal pain starting at 0930 today. Pt denies N/V/D. Pt reports last BM yesterday was normal for him. Pt states he was discharged from [facility] on 06/28/19 for a PE. Sepsis Screen: No Definite Risk Source of Information: Patient Exam Limitations: No Limitations History of Present Illness Date Seen by Provider: Jul 02, 2019 Time Seen by Provider: 15:17 Initial Comments To ER with right-sided abdominal pain that began as a mild discomfort this morning and got progressively worse throughout the course of the day. It was 10 out of 10 prior to arrival but at this time is only about 2 out of 10. He states he feels as though if he were to pass gas the pain would get better. He has been unable to do that. No fevers or chills. He was at [facility] in [place] one week ago for pulmonary embolism. Timing/Duration: 4-6 Hours Severity/Quality: Moderate Location: RLQ Radiation: No Radiation Activities at Onset: None Associated Symptoms: Denies Symptoms Allergies and Home Medications Allergies Coded Allergies: No Known Drug Allergies (Unverified , 04/29/11) Home Medications Albuterol Sulfate 1 Puff Puff, 2 PUFF IH Q4H PRN for SHORTNESS OF BREATH 1 PUFF = 90 MCG Prescribed by: FABIO ADAME on 05/30/19 0244 Apixaban 5 Mg Tablet, 5 MG PO BID, (Reported) Cefdinir 300 Mg Capsule, 300 MG PO BID Prescribed by: FABIO ADAME on 04/02/19 1827 Pravastatin Sodium 20 Mg Tablet, 1 TAB PO DAILY, (Reported) Trazodone Hcl 100 Mg Tablet, 100 MG PO HS, (Reported) Patient Home Medication List Home Medication List Reviewed: Yes Review of Systems Review of Systems Constitutional: see HPI EENTM: No Symptoms Reported Respiratory: No Symptoms Reported Cardiovascular: No Symptoms Reported Gastrointestinal: See HPI, Abdominal Pain Genitourinary: No Symptoms Reported Musculoskeletal: no symptoms reported Skin: no symptoms reported Psychiatric/Neurological: No Symptoms Reported Endocrine: No Symptoms Reported Hematologic/Lymphatic: No Symptoms Reported Past Twkxvol-Ugnpvo-Tgtrvj Hx Patient Social History Alcohol Use: Denies Use Recreational Drug Use: No Smoking Status: Former Smoker Former Smoker, Quit: Jul 17, 2003 2nd Hand Smoke Exposure: No Recent Foreign Travel: No Contact w/Someone Who Travel: No Recent Infectious Disease Expo: No Recent Hopitalizations: No Immunizations Up To Date Date of Pneumonia Vaccine: Mar 29, 2012 Date of Influenza Vaccine: Mar 29, 2019 Past Medical History Surgeries: Yes (l knee ) CABG, Coronary Stent, Gallbladder Respiratory: Yes (suspected asbestosis exposure) COPD Cardiac: Yes ("5 HEART ATTACKS") Coronary Artery Disease, Heart Attack, High Cholesterol, Hypotension Neurological: No Reproductive Disorders: No Genitourinary: No Gastrointestinal: Yes Gastroesophageal Reflux, Pancreatitis Musculoskeletal: Yes Arthritis, Fractures Endocrine: No HEENT: No Cancer: No Psychosocial: Yes Sleep Difficulties, Anxiety, Depression Integumentary: No Blood Disorders: No Physical Exam Vital Signs Vital Signs - First Documented 07/02/19 14:24 Temp 36.6 Pulse 51 Resp 16 B/P (MAP) 141/63 (89) Pulse Ox 95 Capillary Refill : Less Than 3 Seconds Height/Weight/BMI Height: '" Weight: 195lbs. oz. 88.578532yt; 24.00 BMI Method: General Appearance: WD/WN, no apparent distress HEENT: PERRL/EOMI, normal ENT inspection Neck: non-tender, full range of motion Respiratory: no respiratory distress, no accessory muscle use Cardiovascular: regular rate, rhythm, no murmur Gastrointestinal: normal bowel sounds, soft, tenderness Extremities: normal range of motion, non-tender Neurologic/Psychiatric: alert, normal mood/affect, oriented x 3 Skin: normal color, warm/dry Progress/Results/Core Measures Results/Orders Lab Results Laboratory Tests Test 07/02/19 15:01 07/02/19 15:24 Range/Units White Blood Count 10.0 4.3-11.0 10^3/uL Red Blood Count 5.13 4.35-5.85 10^6/uL Hemoglobin 14.2 13.3-17.7 G/DL Hematocrit 45 40-54 % Mean Corpuscular Volume 88 80-99 FL Mean Corpuscular Hemoglobin 28 25-34 PG Mean Corpuscular Hemoglobin Concent 32 32-36 G/DL Red Cell Distribution Width 13.9 10.0-14.5 % Platelet Count 247 130-400 10^3/uL Mean Platelet Volume 9.6 7.4-10.4 FL Neutrophils (%) (Auto) 76 H 42-75 % Lymphocytes (%) (Auto) 14 12-44 % Monocytes (%) (Auto) 7 0-12 % Eosinophils (%) (Auto) 2 0-10 % Basophils (%) (Auto) 0 0-10 % Neutrophils # (Auto) 7.6 1.8-7.8 X 10^3 Lymphocytes # (Auto) 1.4 1.0-4.0 X 10^3 Monocytes # (Auto) 0.7 0.0-1.0 X 10^3 Eosinophils # (Auto) 0.2 0.0-0.3 10^3/uL Basophils # (Auto) 0.0 0.0-0.1 10^3/uL Sodium Level 142 135-145 MMOL/L Potassium Level 4.3 3.6-5.0 MMOL/L Chloride Level 103 98-107 MMOL/L Carbon Dioxide Level 29 21-32 MMOL/L Anion Gap 10 5-14 MMOL/L Blood Urea Nitrogen 13 7-18 MG/DL Creatinine 1.23 0.60-1.30 MG/DL Estimat Glomerular Filtration Rate 57 BUN/Creatinine Ratio 11 Glucose Level 96 70-105 MG/DL Calcium Level 8.8 8.5-10.1 MG/DL Corrected Calcium 9.2 8.5-10.1 MG/DL Total Bilirubin 0.5 0.1-1.0 MG/DL Aspartate Amino Transf (AST/SGOT) 18 5-34 U/L Alanine Aminotransferase (ALT/SGPT) 18 0-55 U/L Alkaline Phosphatase 99 40-136 U/L Total Protein 6.8 6.4-8.2 GM/DL Albumin 3.5 3.2-4.5 GM/DL Urine Color KENDRICK H Urine Clarity CLOUDY Urine pH 6.5 5-9 Urine Specific [place] 1.020 1.016-1.022 Urine Protein 2+ H NEGATIVE Urine Glucose (UA) NEGATIVE NEGATIVE Urine Ketones NEGATIVE NEGATIVE Urine Nitrite NEGATIVE NEGATIVE Urine Bilirubin NEGATIVE NEGATIVE Urine Urobilinogen 1.0 < = 1.0 MG/DL Urine Leukocyte Esterase 1+ H NEGATIVE Urine RBC (Auto) 3+ H NEGATIVE Urine RBC TNTC H /HPF Urine WBC 5-10 H /HPF Urine Squamous Epithelial Cells NONE /HPF Urine Crystals NONE /LPF Urine Bacteria TRACE /HPF Urine Casts NONE /LPF Urine Mucus NEGATIVE /LPF Urine Culture Indicated YES My Orders Orders - ABISAI SINGH APRN Cbc With Automated Diff (07/02/19 14:56) Comprehensive Metabolic Panel (07/02/19 14:56) Ua Culture If Indicated (07/02/19 14:56) Ct Abdomen/Pelvis Wo (07/02/19 15:11) Urine Culture (07/02/19 15:24) Ct Abdomen/Pelvis W (07/02/19 15:53) Iohexol Injection (Omnipaque 350 Mg/Ml 1 (07/02/19 16:00) Received Contrast (Hold Metformin- Contr (07/02/19 16:00) Sodium Chloride Flush (Catheter Flush Sy (07/02/19 16:00) Ns (Ivpb) (Sodium Chloride 0.9% Ivpb Bag (07/02/19 16:00) Ns Iv 1000 Ml (Sodium Chloride 0.9%) (07/02/19 16:30) Medications Given in ED Current Medications Medications Dose Ordered Sig/Husam Route Start Time Stop Time Status Last Admin Dose Admin Iohexol 100 ml ONCE ONCE IV 07/02/19 16:00 07/02/19 16:01 DC 07/02/19 16:24 100 ML Sodium Chloride 10 ml NEEDED PRN IV 07/02/19 16:00 07/02/19 16:24 10 ML Sodium Chloride 100 ml ONCE ONCE IV 07/02/19 16:00 07/02/19 16:01 DC 07/02/19 16:24 80 ML Vital Signs/I&O 07/02/19 14:24 Temp 36.6 Pulse 51 Resp 16 B/P (MAP) 141/63 (89) Pulse Ox 95 Blood Pressure Mean: 89 Diagnostic Imaging Diagonstic Imaging: CT Comments NAME: BRITT ELAINE MERRILL REC#: [id number] PT STATUS: REG ER : 1940 PHYSICIAN: ABISAI SINGH APRN ADMIT DATE: 07/02/19/ER Signed Date of Exam:07/02/19 CT ABDOMEN/PELVIS WO PROCEDURE: CT abdomen and pelvis without contrast. TECHNIQUE: Multiple contiguous axial images were obtained through the abdomen and pelvis without the use of intravenous contrast. Auto Exposure Controls were utilized during the CT exam to meet ALARA standards for radiation dose reduction. INDICATION: Right lower quadrant pain. FINDINGS: There are bilateral pleural calcifications present. No acute infiltrates are seen. The gallbladder is absent. The liver and bile ducts are normal. There are granulomatous calcifications of the spleen. Pancreas and adrenals are normal. The kidneys, ureters and bladder are normal. Fat planes around the prostate are well-maintained. There is diverticulosis of the colon with no acute diverticulitis evident. There is fusiform dilatation of the infrarenal abdominal aorta which measures 3.1 cm in greatest dimension. There is no free intraperitoneal air or fluid. There is no acute bony abnormality. IMPRESSION: Diverticulosis of the colon with no convincing evidence of acute diverticulitis. There is fusiform dilatation of the infrarenal abdominal aorta. Dictated by: Dictated on workstation # [id number] Dict: 07/02/19 154 Trans: 07/02/19 154 [facility] [id number] Interpreted by: ALONDRA TORRES MD Electronically signed by: ALONDRA TORRES MD 07/02/19 1547 NAME: BRITT ELAINE [facility] REC#: [id number] PT STATUS: REG ER : 1940 PHYSICIAN: ABISAI SINGH APRN ADMIT DATE: 07/02/19/ER Draft Date of Exam:07/02/19 CT ABDOMEN/PELVIS W PROCEDURE: CT abdomen and pelvis with contrast. TECHNIQUE: Multiple contiguous axial images were obtained through the abdomen and pelvis after administration of intravenous contrast. Auto Exposure Controls were utilized during the CT exam to meet ALARA standards for radiation dose reduction. INDICATION: Pain. COMPARISON: Imaging from the same date as well as December 03, 2009. FINDINGS: Extensive calcified pleural plaques are again noted within the bilateral lung bases. This is associated with advanced interstitial lung disease. Median sternotomy. The heart is mildly enlarged. No significant pericardial effusion. Cholecystectomy. The liver is unremarkable. Calcified splenic granuloma. Otherwise, the spleen is unremarkable. The adrenal glands are unremarkable. The pancreas is unremarkable. The kidneys and bilateral ureters are unremarkable. Mild aneurysmal dilatation of the infrarenal abdominal aorta is present measuring 3.5 cm, slightly increased since 2009 when it measured 2.8 cm. No evidence of abdominal aortic dissection. The celiac artery and superior mesenteric artery are patent. Single bilateral renal arteries are present with mild stenosis seen at the origin of the bilateral renal arteries. Inferior mesenteric artery is patent. High-grade stenosis within the right common iliac artery. Mild stenosis within the left common iliac artery. Small fat-containing left inguinal hernia. The urinary bladder is unremarkable. The prostate gland is mildly enlarged. Advanced colonic diverticulosis without CT evidence of diverticulitis. The appendix is unremarkable. No bowel obstruction or pneumatosis. No significant adenopathy, free air, or free fluid within the abdomen or pelvis. Scattered osseous degenerative changes without acute osseous abnormality. 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 Advanced colonic diverticulosis without CT evidence of diverticulitis. Small fat-containing left inguinal hernia. Evidence of chronic granulomatous disease. Dictated on workstation # [id number] Dict: 07/02/19 1641 Trans: 07/02/19 1653 [facility] [id number] Interpreted by: NIA LEE MD Electronically signed by: Departure Communication (Admissions) 1600-he is completely symptom free at this time despite no pain medication from us. Given the hematuria, pain with complete resolution despite no intervention from us, I would suspect a recently passed kidney stone. He states that he has passed these before but states "I knew it when I pass them". The hematuria is a bit more concerning because of the recent initiation ofEliquis for his pulmonary embolism. He's had orange colored urine for 2 days he states. Impression Primary Impression: Hematuria Qualified Codes: R31.9 - Hematuria, unspecified Additional Impression: RLQ abdominal pain Disposition: HOME, SELF-CARE Condition: Improved Departure-Patient Inst. Decision time for Depature: 16:59 Referrals: LAURA ARAUZ DO (PCP/Family) Primary Care Physician Patient Instructions: Blood in the Urine (Hematuria) in Adults Add. Discharge Instructions: 1. Call Dr. Arauz on Thursday to let him know of the blood in her urine and the need for follow-up. Return to ER in the meantime for any recurrent pain or other concerns. Increase your fluid intake. All discharge instructions reviewed with patient and/or family. Voiced understanding. Copy Copies To 1: LAURA ARAUZ PETER J APRN Jul 02, 2019 15:19
[2019-07-02 15:30] LABS: BASOPHILS % (AUTO) 0 % (0-10); EOSINOPHILS # (AUTO) 0.2 10^3/uL (0.0-0.3); EOSINOPHILS % (AUTO) 2 % (0-10); HEMATOCRIT 45 % (40-54); HEMOGLOBIN 14.2 G/DL (13.3-17.7); LYMPHOCYTES # (AUTO) 1.4 X 10^3 (1.0-4.0); LYMPHOCYTES % (AUTO) 14 % (12-44); MEAN CORPUSCULAR HEMOGLOBIN 28 PG (25-34); MEAN CORPUSCULAR HGB CONC 32 G/DL (32-36); MEAN CORPUSCULAR VOLUME 88 FL (80-99); MEAN PLATELET VOLUME 9.6 FL (7.4-10.4); MONOCYTES # (AUTO) 0.7 X 10^3 (0.0-1.0); MONOCYTES % (AUTO) 7 % (0-12); NEUTROPHILS # (AUTO) 7.6 X 10^3 (1.8-7.8); NEUTROPHILS % (AUTO) 76 % (42-75); PLATELET COUNT 247 10^3/uL (130-400); RED CELL DISTRIBUTION WIDTH 13.9 % (10.0-14.5)
[2019-07-02 15:31] LABS: BILIRUBIN,URINE NEGATIVE (NEGATIVE); CLARITY,URINE CLOUDY; COLOR,URINE AMBER; GLUCOSE, URINE (UA) NEGATIVE (NEGATIVE); KETONES,URINE NEGATIVE (NEGATIVE); LEUKOCYTE ESTERASE ,URINE 1+ (NEGATIVE); NITRITE,URINE NEGATIVE (NEGATIVE); PH,URINE 6.5 (5-9); PROTEIN,URINE 2+ (NEGATIVE)
[2019-07-02 15:39] LABS: BACTERIA,URINE TRACE /HPF; RBC,URINE TNTC /HPF
--- NOTE | 2019-07-02 15:47 | Diagnostic Imaging Report ---
PROCEDURE: CT abdomen and pelvis without contrast. TECHNIQUE: Multiple contiguous axial images were obtained through the abdomen and pelvis without the use of intravenous contrast. Auto Exposure Controls were utilized during the CT exam to meet ALARA standards for radiation dose reduction. INDICATION: Right lower quadrant pain. FINDINGS: There are bilateral pleural calcifications present. No acute infiltrates are seen. The gallbladder is absent. The liver and bile ducts are normal. There are granulomatous calcifications of the spleen. Pancreas and adrenals are normal. The kidneys, ureters and bladder are normal. Fat planes around the prostate are well-maintained. There is diverticulosis of the colon with no acute diverticulitis evident. There is fusiform dilatation of the infrarenal abdominal aorta which measures 3.1 cm in greatest dimension. There is no free intraperitoneal air or fluid. There is no acute bony abnormality. IMPRESSION: Diverticulosis of the colon with no convincing evidence of acute diverticulitis. There is fusiform dilatation of the infrarenal abdominal aorta. Dictated by: Dictated on workstation # [id number]
[2019-07-02 15:52] LABS: ALBUMIN 3.5 GM/DL (3.2-4.5); BILIRUBIN,TOTAL 0.5 MG/DL (0.1-1.0); CALCIUM 8.8 MG/DL (8.5-10.1); CREATININE SERUM 1.23 MG/DL (0.60-1.30); POTASSIUM 4.3 MMOL/L (3.6-5.0); TOTAL PROTEIN 6.8 GM/DL (6.4-8.2)
[2019-07-02] MEDS ORDERED: HOLD METFORMIN - RECEIVED CONTRAST 20 ML VIAL IV SCH (16:00)
[2019-07-02] MEDS ORDERED: NS 100 ML (IVPB) BAG IV ONE (16:00)
[2019-07-02] MEDS ORDERED: CATHETER FLUSH 10 ML SYR IV PRN (16:00)
[2019-07-02] MEDS ORDERED: IOHEXOL 350 MG/ML 100 ML (OMNIPAQUE 350) VIAL IV ONE (16:00)
[2019-07-02] MEDS ORDERED: NS IV 1000 ML 1,000 ML IV SCH (16:30)
--- NOTE | 2019-07-02 16:53 | Diagnostic Imaging Report ---
PROCEDURE: CT abdomen and pelvis with contrast. TECHNIQUE: Multiple contiguous axial images were obtained through the abdomen and pelvis after administration of intravenous contrast. Auto Exposure Controls were utilized during the CT exam to meet ALARA standards for radiation dose reduction. INDICATION: Pain. COMPARISON: Imaging from the same date as well as December 03, 2009. FINDINGS: Extensive calcified pleural plaques are again noted within the bilateral lung bases. This is associated with advanced interstitial lung disease. Median sternotomy. The heart is mildly enlarged. No significant pericardial effusion. Cholecystectomy. The liver is unremarkable. Calcified splenic granuloma. Otherwise, the spleen is unremarkable. The adrenal glands are unremarkable. The pancreas is unremarkable. The kidneys and bilateral ureters are unremarkable. Mild aneurysmal dilatation of the infrarenal abdominal aorta is present measuring 3.5 cm, slightly increased since 2009 when it measured 2.8 cm. No evidence of abdominal aortic dissection. The celiac artery and superior mesenteric artery are patent. Single bilateral renal arteries are present with mild stenosis seen at the origin of the bilateral renal arteries. Inferior mesenteric artery is patent. High-grade stenosis within the right common iliac artery. Mild stenosis within the left common iliac artery. Small fat-containing left inguinal hernia. The urinary bladder is unremarkable. The prostate gland is mildly enlarged. Advanced colonic diverticulosis without CT evidence of diverticulitis. The appendix is unremarkable. No bowel obstruction or pneumatosis. No significant adenopathy, free air, or free fluid within the abdomen or pelvis. Scattered osseous degenerative changes without acute osseous abnormality. 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 Advanced colonic diverticulosis without CT evidence of diverticulitis. Small fat-containing left inguinal hernia. Evidence of chronic granulomatous disease. Dictated by: Dictated on workstation # [id number]
[2019-07-02] MEDS ORDERED: CEPHALEXIN 250 MG (KEFLEX) CAP PO ONE (17:15)
[2019-07-02 17:36] VITALS: BP 145/81
== END 2019-07-02 17:36 | disposition home or self-care (01) ==
LOC: EDUNIT# 13:50 → ER 13:51
DX: R10.31 Right lower quadrant pain (principal); R31.9 Hematuria, unspecified; J44.9 Chronic obstructive pulmonary disease, unspecified; I25.2 Old myocardial infarction; I25.10 Atherosclerotic heart disease of native coronary artery without angina pectoris; I10 Essential (primary) hypertension; E78.00 Pure hypercholesterolemia, unspecified; K21.9 Gastro-esophageal reflux disease without esophagitis; F41.9 Anxiety disorder, unspecified; F32.9 Major depressive disorder, single episode, unspecified; Z87.891 Personal history of nicotine dependence; Z95.1 Presence of aortocoronary bypass graft; Z95.5 Presence of coronary angioplasty implant and graft
CPT/HCPCS: 36415; 74176; 74177; 80053; 81000; 85025; 87088; 96360

== ENCOUNTER → 2019-08-12 | Outpatient (CLI) | payer MEDICARE, OTHER ==
[~2019-08-12] MED LIST changes: +APIX5TAB PO; +FURO20TA4 PO; +VENL25TA2 PO
[2019-08-12 11:01] LABS: HEMOGLOBIN 15.4 G/DL (13.3-17.7); RED CELL DISTRIBUTION WIDTH 13.3 % (10.0-14.5); WHITE BLOOD COUNT 9.1 10^3/uL (4.3-11.0)
[2019-08-12 11:02] LABS: MEAN PLATELET VOLUME 9.1 FL (7.4-10.4)
[2019-08-12 11:29] LABS: ALBUMIN 3.7 GM/DL (3.2-4.5); BILIRUBIN,TOTAL 0.6 MG/DL (0.1-1.0); CALCIUM 9.3 MG/DL (8.5-10.1); CREATININE SERUM 1.23 MG/DL (0.60-1.30); POTASSIUM 4.6 MMOL/L (3.6-5.0); TOTAL PROTEIN 7.7 GM/DL (6.4-8.2)
[2019-08-12 12:02] LABS: CLARITY,URINE CLEAR; COLOR,URINE AMBER; GLUCOSE, URINE (UA) NEGATIVE (NEGATIVE); KETONES,URINE NEGATIVE (NEGATIVE); LEUKOCYTE ESTERASE ,URINE TRACE (NEGATIVE); NITRITE,URINE NEGATIVE (NEGATIVE); PH,URINE 5.5 (5-9); PROTEIN,URINE 1+ (NEGATIVE)
[2019-08-12 12:14] LABS: BACTERIA,URINE MODERATE /HPF; BILIRUBIN,URINE 2+ (NEGATIVE); RBC,URINE 0-2 /HPF; WBC,URINE >100 /HPF
--- NOTE | 2019-08-12 12:18 | Diagnostic Imaging Report ---
EXAMINATION: PA and lateral chest at 11:56 a.m. INDICATION: Respiratory distress. FINDINGS: The cardiomegaly and the sternotomy wires and surgical clips noted on the prior exam of 06/25/2019 are again evident and not significantly changed. The previous study also revealed multifocal interstitial and alveolar infiltrates involving both lung bases. These findings seemed similar to the previous chest exam of 04/02/2019. On this exam, those abnormal parenchymal densities are again evident and no different. There also appear to be calcified pleural and diaphragmatic plaques bilaterally and these to seemed similar to the prior exam. The upper lungs are relatively clear. The mediastinum is not widened. The osseous structures are intact. IMPRESSION: 1. There are persistent diffuse alveolar/interstitial pulmonary infiltrates involving both lung bases. These findings appear to be chronic in nature. There is no acute cardiopulmonary abnormality identified. 2. The calcified pleural and diaphragmatic plaques seen previously are also again evident. These may be a sequela of prior exposure to asbestos. 3. There is cardiomegaly and evidence of prior cardiac surgery. Dictated by: Dictated on workstation # [id number]
== END ==
LOC: CARD 10:37
PROVIDERS: ATTEND Thoracic Surgery (Cardiothoracic Vascular Surgery)
DX: Z01.810 Encounter for preprocedural cardiovascular examination (principal); Z01.811 Encounter for preprocedural respiratory examination; I77.1 Stricture of artery; I51.7 Cardiomegaly; J94.8 Other specified pleural conditions; Z98.890 Other specified postprocedural states
CPT/HCPCS: 36415; 71046; 80053; 81000; 85027; 87088; 93005

== ENCOUNTER 2019-09-29 01:04 | Emergency (ER) | payer MEDICARE, OTHER ==
[~2019-09-29] VITALS: Ht 177.8 cm; Wt 74.8 kg
--- OUTSIDE RECORDS SUMMARY | 2019-09-29 01:11 | XMS REPORT | Continuity of Care Document ---
Author Organization Unknown Address Unknown Phone Unavailable Allergies Active Description Code Type Severity Reaction Onset Reported/Identified Relationship to Patient Clinical Status Yes No Known Drug Allergies [id number] Drug Allergy Unknown N/A 04/29/2011 Medications There is no data. Problems Date Dx Coded Attending Type Code Diagnosis Diagnosed By 04/22/2010 Ot 824.8 04/22/2010 Ot 850.0 04/22/2010 Ot 959.01 04/22/2010 Ot E000.8 04/22/2010 Ot E849.0 04/22/2010 Ot E881.0 06/05/2010 Ot 272.4 06/05/2010 Ot 311 06/05/2010 Ot 414.00 06/05/2010 Ot 427.69 06/05/2010 Ot 496 06/05/2010 Ot 530.81 06/05/2010 Ot 577.0 06/05/2010 Ot 790.6 06/05/2010 Ot V15.82 06/05/2010 Ot V17.3 06/05/2010 Ot V45.77 06/05/2010 Ot V45.81 09/25/2010 Ot 486 04/29/2011 Ot 410.71 04/29/2011 Ot 414.00 04/29/2011 Ot 428.0 04/29/2011 Ot V15.82 04/29/2011 Ot V45.81 04/29/2011 Ot V45.82 04/29/2011 Ot V58.66 04/29/2011 Ot V58.69 08/22/2011 Ot 728.85 SPA SM OF MUSCLE 08/22/2011 Ot V57.1 PHYS ICAL THERAPY NEC 01/27/2013 COSME DAVIS MD Ot 706.2 SEBACEOUS CYST 07/06/2015 Ot 496 07/06/2015 Ot 515 07/06/2015 Ot 486 07/06/2015 Ot 786.2 07/06/2015 Ot 793.1 07/06/2015 Ot 429.3 07/06/2015 Ot 496 07/06/2015 Ot 496 07/06/2015 Ot 455.0 07/06/2015 Ot 562.10 07/06/2015 Ot V12.72 07/06/2015 Ot 716.91 07/06/2015 Ot 704.8 07/06/2015 COSME DAVIS MD Ot 709.9 07/06/2015 COSME DAVIS MD Ot V72.84 07/06/2015 COSME DAVIS MD, Ot V74.8 07/06/2015 LAURA FRAZIER DO Ot 496 07/06/2015 LAURA FRAZIER DO Ot 793.19 07/20/2015 LAURA FRAZIER DO Ot J44.9 01/09/2017 Ot 716.91 ART HROPATHY NOS- SHLDER 01/09/2017 Ot 704.8 HAIR DISEASES NEC 01/09/2017 COSME DAVIS MD Ot 709.9 SKIN DISORDER NOS 01/09/2017 COSME DAVIS MD Ot V72.84 EXAM PRE-OPERATIVE NOS 01/09/2017 COSME DAVIS MD Ot V74.8 SCREEN-BACTERIAL DIS NEC 01/09/2017 LAURA FRAZIER DO Ot 496 CHR AIRWAY OBSTRUCT NEC 01/09/2017 LAURA FRAZIER DO Ot 793.19 OTHER NONSPECIFIC ABNORMAL FINDING OF [place] 01/09/2017 LAURA FRAZIER DO Ot J44.9 CHRONIC OBSTRUCTIVE PULMONARY DISEASE, U 01/12/2017 LAURA FRAZIER DO Ot J44.9 CHRONIC OBSTRUCTIVE PULMONARY DISEASE, U 01/12/2017 LAURA FRAZIER DO Ot I25.10 ATHSCL HEART DISEASE OF [place] CORONARY 01/19/2017 LAURA FRAZIER DO Ot J44.9 CHRONIC OBSTRUCTIVE PULMONARY DISEASE, U 01/19/2017 LAURA FRAZIER DO Ot J44.9 CHRONIC OBSTRUCTIVE PULMONARY DISEASE, U 01/21/2017 LAURA FRAZIER DO, Ot J44.9 CHRONIC OBSTRUCTIVE PULMONARY DISEASE, U 01/26/2017 BRITT BUTLER MD Ot Z79.899 OTHER CARE HOME (CURRENT) DRUG THERAPY 02/02/2017 LAURA FRAZIER DO Ot I25.10 ATHSCL HEART DISEASE OF [place] CORONARY 02/20/2017 BRITT BUTLER MD Ot Z79.899 OTHER CARE HOME (CURRENT) DRUG THERAPY 02/23/2017 LAURA FRAZIER DO Ot J44.9 CHRONIC OBSTRUCTIVE PULMONARY DISEASE, U 04/01/2019 LUKE GLASGOW, BRITT Ot Z79.899 OTHER MAINTENANCE PARTS TECHNICIAN (CURRENT) DRUG THERAPY 04/01/2019 FABIO HILLS MD Ot E78.00 PURE HYPERCHOLESTEROLEMIA, UNSPECIFIED 04/01/2019 FABIO HILLS MD Ot F32.9 MAJOR DEPRESSIVE DISORDER, SINGLE EPISOD 04/01/2019 FABIO HILLS MD Ot I10 ESSENTIAL (PRIMARY) HYPERTENSION 04/01/2019 FABIO HILLS MD Ot I25.10 ATHSCL HEART DISEASE OF [place] CORONARY 04/01/2019 FABIO HILLS MD, Ot J44.9 CHRONIC OBSTRUCTIVE PULMONARY DISEASE, U 04/01/2019 FABIO HILLS MD Ot K21.9 GASTRO-ESOPHAGEAL REFLUX DISEASE WITHOUT 04/01/2019 FABIO HILLS MD Ot R07.9 CHEST PAIN, UNSPECIFIED 04/01/2019 FABIO HILLS MD Ot R09.02 HYPOXEMIA 04/01/2019 FABIO HILLS MD Ot R79.89 OTHER SPECIFIED ABNORMAL FINDINGS OF BLO 04/01/2019 FABIO HILLS MD Ot Z79.82 CARE HOME (CURRENT) USE OF ASPIRIN 04/01/2019 FABIO HILLS MD Ot Z95.1 PRESENCE OF AORTOCORONARY BYPASS GRAFT 04/01/2019 FABIO HILLS MD Ot Z95.5 PRESENCE OF CORONARY ANGIOPLASTY IMPLANT 04/02/2019 FABIO HILLS MD Ot E78.00 PURE HYPERCHOLESTEROLEMIA, UNSPECIFIED 04/02/2019 FABIO HILLS MD Ot F32.9 MAJOR DEPRESSIVE DISORDER, SINGLE EPISOD 04/02/2019 FABIO HILLS MD Ot I10 ESSENTIAL (PRIMARY) HYPERTENSION 04/02/2019 FABIO HILLS MD Ot I25.10 ATHSCL HEART DISEASE OF [place] CORONARY 04/02/2019 FABIO HILLS MD, Ot J44.1 CHRONIC OBSTRUCTIVE PULMONARY DISEASE W 04/02/2019 FABIO HILLS MD Ot K21.9 GASTRO-ESOPHAGEAL REFLUX DISEASE WITHOUT 04/02/2019 FABIO HILLS MD Ot R06.02 SHORTNESS OF BREATH 04/02/2019 FABIO HILLS MD Ot Z79.82 CARE HOME (CURRENT) USE OF ASPIRIN 04/02/2019 FABIO HILLS MD Ot Z95.1 PRESENCE OF AORTOCORONARY BYPASS GRAFT 04/02/2019 FABIO HILLS MD Ot Z95.5 PRESENCE OF CORONARY ANGIOPLASTY IMPLANT 04/06/2019 FABIO HILLS MD Ot E78.00 PURE HYPERCHOLESTEROLEMIA, UNSPECIFIED 04/06/2019 FABIO HILLS MD Ot F32.9 MAJOR DEPRESSIVE DISORDER, SINGLE EPISOD 04/06/2019 FABIO HILLS MD Ot I10 ESSENTIAL (PRIMARY) HYPERTENSION 04/06/2019 FABIO HILLS MD Ot I25.10 ATHSCL HEART DISEASE OF [place] CORONARY 04/06/2019 FABIO HILLS MD Ot J44.9 CHRONIC OBSTRUCTIVE PULMONARY DISEASE, U 04/06/2019 FABIO HILLS MD Ot K21.9 GASTRO-ESOPHAGEAL REFLUX DISEASE WITHOUT 04/06/2019 FABIO HILLS MD Ot R07.9 CHEST PAIN, UNSPECIFIED 04/06/2019 FABIO HILLS MD Ot R09.02 HYPOXEMIA 04/06/2019 FABIO HILLS MD Ot R79.89 OTHER SPECIFIED ABNORMAL FINDINGS OF BLO 04/06/2019 FABIO HILLS MD Ot Z79.82 CARE HOME (CURRENT) USE OF ASPIRIN 04/06/2019 FABIO HILLS MD Ot Z95.1 PRESENCE OF AORTOCORONARY BYPASS GRAFT 04/06/2019 FABIO HILLS MD Ot Z95.5 PRESENCE OF CORONARY ANGIOPLASTY IMPLANT 04/12/2019 FABIO HILLS MD Ot E78.00 PURE HYPERCHOLESTEROLEMIA, UNSPECIFIED 04/12/2019 FABIO HILLS MD Ot F32.9 MAJOR DEPRESSIVE DISORDER, SINGLE EPISOD 04/12/2019 FABIO HILLS MD Ot I10 ESSENTIAL (PRIMARY) HYPERTENSION 04/12/2019 FABIO HILLS MD, Ot I25.10 ATHSCL HEART DISEASE OF [place] CORONARY 04/12/2019 FABIO HILLS MD Ot J44.9 CHRONIC OBSTRUCTIVE PULMONARY DISEASE, U 04/12/2019 FABIO HILLS MD, Ot K21.9 GASTRO-ESOPHAGEAL REFLUX DISEASE WITHOUT 04/12/2019 FABIO HILLS MD Ot R07.9 CHEST PAIN, UNSPECIFIED 04/12/2019 FABIO HILLS MD Ot R09.02 HYPOXEMIA 04/12/2019 FABIO HILLS MD Ot R79.89 OTHER SPECIFIED ABNORMAL FINDINGS OF BLO 04/12/2019 FABIO HILLS MD, Ot Z79.82 MAINTENANCE PARTS TECHNICIAN (CURRENT) USE OF ASPIRIN 04/12/2019 FABIO HILLS MD, Ot Z95.1 PRESENCE OF AORTOCORONARY BYPASS GRAFT 04/12/2019 FABIO HILLS MD Ot Z95.5 PRESENCE OF CORONARY ANGIOPLASTY IMPLANT 04/12/2019 FABIO HILLS MD Ot E78.00 PURE HYPERCHOLESTEROLEMIA, UNSPECIFIED 04/12/2019 FABIO HILLS MD Ot F32.9 MAJOR DEPRESSIVE DISORDER, SINGLE EPISOD 04/12/2019 FABIO HILLS MD Ot I10 ESSENTIAL (PRIMARY) HYPERTENSION 04/12/2019 FABIO HILLS MD, Ot I25.10 ATHSCL HEART DISEASE OF [place] CORONARY 04/12/2019 FABIO HILLS MD, Ot J44.1 CHRONIC OBSTRUCTIVE PULMONARY DISEASE W 04/12/2019 FABIO HILLS MD, Ot K21.9 GASTRO-ESOPHAGEAL REFLUX DISEASE WITHOUT 04/12/2019 FABIO HILLS MD Ot R06.02 SHORTNESS OF BREATH 04/12/2019 FABIO HILLS MD Ot Z79.82 CARE HOME (CURRENT) USE OF ASPIRIN 04/12/2019 FABIO HILLS MD Ot Z95.1 PRESENCE OF AORTOCORONARY BYPASS GRAFT 04/12/2019 FABIO HILLS MD Ot Z95.5 PRESENCE OF CORONARY ANGIOPLASTY IMPLANT 05/30/2019 FABIO HILLS MD Ot E78.00 PURE HYPERCHOLESTEROLEMIA, UNSPECIFIED 05/30/2019 FABIO HILLS MD Ot F32.9 MAJOR DEPRESSIVE DISORDER, SINGLE EPISOD 05/30/2019 FABIO HILLS MD, Ot F41.9 ANXIETY DISORDER, UNSPECIFIED 05/30/2019 FABIO HILLS MD, Ot G47.00 INSOMNIA, UNSPECIFIED 05/30/2019 FABIO HILLS MD Ot I10 ESSENTIAL (PRIMARY) HYPERTENSION 05/30/2019 FABIO HILLS MD, Ot I25.10 ATHSCL HEART DISEASE OF [place] CORONARY 05/30/2019 FABIO HILLS MD, Ot J44.1 CHRONIC OBSTRUCTIVE PULMONARY DISEASE W 05/30/2019 FABIO HILLS MD Ot K21.9 GASTRO-ESOPHAGEAL REFLUX DISEASE WITHOUT 05/30/2019 FABIO HILLS MD Ot Z79.82 CARE HOME (CURRENT) USE OF ASPIRIN 05/30/2019 FABIO HILLS MD Ot Z87.891 PERSONAL HISTORY OF NICOTINE DEPENDENCE 05/30/2019 FABIO HILLS MD Ot Z95.1 PRESENCE OF AORTOCORONARY BYPASS GRAFT 05/30/2019 FABIO HILLS MD, Ot Z95.5 PRESENCE OF CORONARY ANGIOPLASTY IMPLANT 05/30/2019 LAURA FRAZIER DO Ot 496 CHR AIRWAY OBSTRUCT NEC 05/30/2019 LAURA FRAZIER DO Ot 793.19 OTHER NONSPECIFIC ABNORMAL FINDING OF [place] 05/30/2019 LAURA FRAZIER DO Ot J44.9 CHRONIC OBSTRUCTIVE PULMONARY DISEASE, U 05/30/2019 LAURA FRAZIER DO Ot J44.9 CHRONIC OBSTRUCTIVE PULMONARY DISEASE, U 05/30/2019 LAURA FRAZIER DO Ot I25.10 ATHSCL HEART DISEASE OF [place] CORONARY 05/30/2019 LUKE GLASGOW, BRITT Ot Z79.899 OTHER CARE HOME (CURRENT) DRUG THERAPY 06/04/2019 FABIO HILLS MD, Ot E78.00 PURE HYPERCHOLESTEROLEMIA, UNSPECIFIED 06/04/2019 FAIBO HILLS MD, Ot F32.9 MAJOR DEPRESSIVE DISORDER, SINGLE EPISOD 06/04/2019 FABIO HILLS MD, Ot F41.9 ANXIETY DISORDER, UNSPECIFIED 06/04/2019 FABIO HILLS MD Ot G47.00 INSOMNIA, UNSPECIFIED 06/04/2019 FABIO HILLS MD Ot I10 ESSENTIAL (PRIMARY) HYPERTENSION 06/04/2019 FABIO HILLS MD Ot I25.10 ATHSCL HEART DISEASE OF [place] CORONARY 06/04/2019 FABIO HILLS MD Ot J44.1 CHRONIC OBSTRUCTIVE PULMONARY DISEASE W 06/04/2019 FABIO HILLS MD Ot K21.9 GASTRO-ESOPHAGEAL REFLUX DISEASE WITHOUT 06/04/2019 FABIO HILLS MD Ot Z79.82 MAINTENANCE PARTS TECHNICIAN (CURRENT) USE OF ASPIRIN 06/04/2019 FABIO HILLS MD Ot Z87.891 PERSONAL HISTORY OF NICOTINE DEPENDENCE 06/04/2019 FABIO HILLS MD Ot Z95.1 PRESENCE OF AORTOCORONARY BYPASS GRAFT 06/04/2019 FABIO HILLS MD Ot Z95.5 PRESENCE OF CORONARY ANGIOPLASTY IMPLANT 06/07/2019 FABIO HILLS MD Ot E78.00 PURE HYPERCHOLESTEROLEMIA, UNSPECIFIED 06/07/2019 FABIO HILLS MD Ot F32.9 MAJOR DEPRESSIVE DISORDER, SINGLE EPISOD 06/07/2019 FABIO HILLS MD, Ot F41.9 ANXIETY DISORDER, UNSPECIFIED 06/07/2019 FABIO HILLS MD Ot G47.00 INSOMNIA, UNSPECIFIED 06/07/2019 FABIO HILLS MD Ot I10 ESSENTIAL (PRIMARY) HYPERTENSION 06/07/2019 FABIO HILLS MD Ot I25.10 ATHSCL HEART DISEASE OF [place] CORONARY 06/07/2019 FABIO HILLS MD Ot J44.1 CHRONIC OBSTRUCTIVE PULMONARY DISEASE W 06/07/2019 FABIO HILLS MD Ot K21.9 GASTRO-ESOPHAGEAL REFLUX DISEASE WITHOUT 06/07/2019 FABIO HILLS MD Ot Z79.82 MAINTENANCE PARTS TECHNICIAN (CURRENT) USE OF ASPIRIN 06/07/2019 FABIO HILLS MD Ot Z87.891 PERSONAL HISTORY OF NICOTINE DEPENDENCE 06/07/2019 FABIO HILLS MD, Ot Z95.1 PRESENCE OF AORTOCORONARY BYPASS GRAFT 06/07/2019 FABIO HILLS MD Ot Z95.5 PRESENCE OF CORONARY ANGIOPLASTY IMPLANT 06/25/2019 FABIO HILLS MD, Ot E78.00 PURE HYPERCHOLESTEROLEMIA, UNSPECIFIED 06/25/2019 FABIO HILLS MD Ot F32.9 MAJOR DEPRESSIVE DISORDER, SINGLE EPISOD 06/25/2019 FABIO HILLS MD Ot F41.9 ANXIETY DISORDER, UNSPECIFIED 06/25/2019 FABIO HILLS MD Ot I10 ESSENTIAL (PRIMARY) HYPERTENSION 06/25/2019 FABIO HILLS MD Ot I25.10 ATHSCL HEART DISEASE OF [place] CORONARY 06/25/2019 FABIO HILLS MD, Ot I25.2 OLD MYOCARDIAL INFARCTION 06/25/2019 FABIO HILLS MD Ot I26.99 OTHER PULMONARY EMBOLISM WITHOUT ACUTE C 06/25/2019 FABIO HILLS MD, Ot J44.9 CHRONIC OBSTRUCTIVE PULMONARY DISEASE, U 06/25/2019 FABIO HILLS MD, Ot J81.1 CHRONIC PULMONARY EDEMA 06/25/2019 FABIO HILLS MD, Ot K21.9 GASTRO-ESOPHAGEAL REFLUX DISEASE WITHOUT 06/25/2019 FABIO HILLS MD Ot R06.89 OTHER ABNORMALITIES OF BREATHING 06/25/2019 FABIO HILLS MD Ot R09.02 HYPOXEMIA 06/25/2019 FABIO HILLS MD Ot R79.89 OTHER SPECIFIED ABNORMAL FINDINGS OF BLO 06/25/2019 FABIO HILLS MD Ot Z79.82 MAINTENANCE PARTS TECHNICIAN (CURRENT) USE OF ASPIRIN 06/25/2019 FABIO HILLS MD Ot Z95.1 PRESENCE OF AORTOCORONARY BYPASS GRAFT 06/25/2019 FABIO HILLS MD, Ot Z95.5 PRESENCE OF CORONARY ANGIOPLASTY IMPLANT 07/01/2019 FABIO HILLS MD Ot E78.00 PURE HYPERCHOLESTEROLEMIA, UNSPECIFIED 07/01/2019 FABIO HILLS MD Ot F32.9 MAJOR DEPRESSIVE DISORDER, SINGLE EPISOD 07/01/2019 FABIO HILLS MD, Ot F41.9 ANXIETY DISORDER, UNSPECIFIED 07/01/2019 FABIO HILLS MD, Ot I10 ESSENTIAL (PRIMARY) HYPERTENSION 07/01/2019 FABIO HILLS MD Ot I25.10 ATHSCL HEART DISEASE OF [place] CORONARY 07/01/2019 FABIO HILLS MD, Ot I25.2 OLD MYOCARDIAL INFARCTION 07/01/2019 FABIO HILLS MD Ot I26.99 OTHER PULMONARY EMBOLISM WITHOUT ACUTE C 07/01/2019 FABIO HILLS MD, Ot J44.9 CHRONIC OBSTRUCTIVE PULMONARY DISEASE, U 07/01/2019 FABIO HILLS MD, Ot J81.1 CHRONIC PULMONARY EDEMA 07/01/2019 FABIO HILLS MD, Ot K21.9 GASTRO-ESOPHAGEAL REFLUX DISEASE WITHOUT 07/01/2019 FABIO HILLS MD Ot R06.89 OTHER ABNORMALITIES OF BREATHING 07/01/2019 FABIO HILLS MD Ot R09.02 HYPOXEMIA 07/01/2019 FABIO HILLS MD Ot R79.89 OTHER SPECIFIED ABNORMAL FINDINGS OF BLO 07/01/2019 FABIO HILLS MD Ot Z79.82 CARE HOME (CURRENT) USE OF ASPIRIN 07/01/2019 FABIO HILLS MD Ot Z95.1 PRESENCE OF AORTOCORONARY BYPASS GRAFT 07/01/2019 FABIO HILLS MD Ot Z95.5 PRESENCE OF CORONARY ANGIOPLASTY IMPLANT 07/01/2019 FABIO HILLS MD Ot E78.00 PURE HYPERCHOLESTEROLEMIA, UNSPECIFIED 07/01/2019 FABIO HILLS MD Ot F32.9 MAJOR DEPRESSIVE DISORDER, SINGLE EPISOD 07/01/2019 FABIO HILLS MD, Ot F41.9 ANXIETY DISORDER, UNSPECIFIED 07/01/2019 FABIO HILLS MD Ot I10 ESSENTIAL (PRIMARY) HYPERTENSION 07/01/2019 FABIO HILLS MD Ot I25.10 ATHSCL HEART DISEASE OF [place] CORONARY 07/01/2019 FABIO HILLS MD, Ot I25.2 OLD MYOCARDIAL INFARCTION 07/01/2019 FABIO HILLS MD, Ot I26.99 OTHER PULMONARY EMBOLISM WITHOUT ACUTE C 07/01/2019 FABIO HILLS MD, Ot J44.9 CHRONIC OBSTRUCTIVE PULMONARY DISEASE, U 07/01/2019 FABIO HILLS MD, Ot J81.1 CHRONIC PULMONARY EDEMA 07/01/2019 FABIO HILLS MD, Ot K21.9 GASTRO-ESOPHAGEAL REFLUX DISEASE WITHOUT 07/01/2019 FABIO HILLS MD Ot R06.89 OTHER ABNORMALITIES OF BREATHING 07/01/2019 FABIO HILLS MD, Ot R09.02 HYPOXEMIA 07/01/2019 FABIO HILLS MD, Ot R79.89 OTHER SPECIFIED ABNORMAL FINDINGS OF BLO 07/01/2019 FABIO HILLS MD, Ot Z79.82 CARE HOME (CURRENT) USE OF ASPIRIN 07/01/2019 FABIO HILLS MD, Ot Z95.1 PRESENCE OF AORTOCORONARY BYPASS GRAFT 07/01/2019 FABIO HILLS MD, Ot Z95.5 PRESENCE OF CORONARY ANGIOPLASTY IMPLANT 07/02/2019 ABISAI SINGH APRN Ot E78.00 PURE HYPERCHOLESTEROLEMIA, UNSPECIFIED 07/02/2019 ABISAI SINGH APRN Ot F32 .9 MAJOR DEPRESSIVE DISORDER, SINGLE EPISOD 07/02/2019 ABISAI SINGH APRN Ot F41 .9 ANXIETY DISORDER, UNSPECIFIED 07/02/2019 ABISAI SINGH APRN Ot I10 ESSENTIAL (PRIMARY) HYPERTENSION 07/02/2019 ABISAI SINGH APRN Ot I25.10 ATHSCL HEART DISEASE OF [place] CORONARY 07/02/2019 ABISAI SINGH APRN Ot I25 .2 OLD MYOCARDIAL INFARCTION 07/02/2019 ABISAI SINGH APRN, Ot J44 .9 CHRONIC OBSTRUCTIVE PULMONARY DISEASE, U 07/02/2019 ABISAI SINGH APRN Ot K21 .9 GASTRO-ESOPHAGEAL REFLUX DISEASE WITHOUT 07/02/2019 ABISAI SINGH APRN Ot R10.31 RIGHT LOWER QUADRANT PAIN 07/02/2019 ABISAI SINGH APRN Ot R31 .9 HEMATURIA, UNSPECIFIED 07/02/2019 ABISAI SINGH APRN Ot Z87.891 PERSONAL HISTORY OF NICOTINE DEPENDENCE 07/02/2019 ABISAI SINGH APRN Ot Z95 .1 PRESENCE OF AORTOCORONARY BYPASS GRAFT 07/02/2019 ABISAI SINGH APRN Ot Z95 .5 PRESENCE OF CORONARY ANGIOPLASTY IMPLANT 07/11/2019 ABISAI SINGH APRN Ot E78.00 PURE HYPERCHOLESTEROLEMIA, UNSPECIFIED 07/11/2019 ABISAI SINGH APRN Ot F32 .9 MAJOR DEPRESSIVE DISORDER, SINGLE EPISOD 07/11/2019 ABISAI SINGH APRN Ot F41 .9 ANXIETY DISORDER, UNSPECIFIED 07/11/2019 ABISAI SINGH APRN Ot I10 ESSENTIAL (PRIMARY) HYPERTENSION 07/11/2019 ABISAI SINGH APRN Ot I25.10 ATHSCL HEART DISEASE OF [place] CORONARY 07/11/2019 ABISAI SINGH APRN Ot I25 .2 OLD MYOCARDIAL INFARCTION 07/11/2019 ABISAI SINGH APRN Ot J44 .9 CHRONIC OBSTRUCTIVE PULMONARY DISEASE, U 07/11/2019 ABISAI SINGH APRN Ot K21 .9 GASTRO-ESOPHAGEAL REFLUX DISEASE WITHOUT 07/11/2019 ABISAI SINGH APRN Ot R10.31 RIGHT LOWER QUADRANT PAIN 07/11/2019 ABISAI SINGH APRN Ot R31 .9 HEMATURIA, UNSPECIFIED 07/11/2019 ABISAI SINGH APRN Ot Z87.891 PERSONAL HISTORY OF NICOTINE DEPENDENCE 07/11/2019 ABISAI SINGH APRN Ot Z95 .1 PRESENCE OF AORTOCORONARY BYPASS GRAFT 07/11/2019 ABISAI SINGH APRN Ot Z95 .5 PRESENCE OF CORONARY ANGIOPLASTY IMPLANT 08/16/2019 MARIANO DASH MD Ot I51. 7 CARDIOMEGALY 08/16/2019 MARIANO DASH MD Ot I77. 1 STRICTURE OF ARTERY 08/16/2019 MARIANO DASH MD Ot J94. 8 OTHER SPECIFIED PLEURAL CONDITIONS 08/16/2019 MARIANO DASH MD Ot Z01.810 ENCOUNTER FOR PREPROCEDURAL CARDIOVASCUL 08/16/2019 MARIANO DASH MD Ot Z01.811 ENCOUNTER FOR PREPROCEDURAL RESPIRATORY 08/16/2019 MARIANO DASH MD Ot Z98.890 OTHER SPECIFIED POSTPROCEDURAL STATES Procedures There is no data. Results Test Result Range Serum or plasma renal function panel (Na , K, Cl, CO2, BUN, Cr, glucose,Ca, phos, alb) - 01/23/17 11:06 Serum or plasma sodium measurement (moles/volume) 142 mmol/L 135-145 Serum or plasma potassium measurement (moles/volume) 4.1 mmol/L 3.6-5.0 Serum or plasma chloride measurement (moles/volume) 106 mmol/L 98-107 Carbon dioxide 28 mmol/L 21-32 Serum or plasma anion gap determination (moles/volume) 8 mmol/L 5-14 Serum or plasma urea nitrogen measurement (mass/volume ) 12 mg/dL 7-18 Serum or plasma creatinine measurement (mass/volume) 1.09 mg/dL 0.60-1.30 Serum or plasma urea nitrogen/creatinine mass ratio 11 NRG Serum or plasma creatinine measurement w ith calculation of estimated glomerular filtration rate > NRG Serum or plasma glucose measurement (mass/volume) 124 mg/dL 70-105 Serum or plasma calcium measurement (mass/volume) 9.3 mg/dL 8.5-10.1 Serum or plasma albumin measurement (mass/volume) 3.7 g/dL 3.2-4.5 Serum or plasma phosphate measurement (mass/volume) 3.2 mg/dL 2.3-4.7 Complete blood count (CBC) with automate d white blood cell (WBC) differential - 04/01/19 02:35 Blood leukocytes automated count (number/volume) 10.2 10*3/uL 4.3-11.0 Blood erythrocytes automated count (number/volume) 5.39 10*6/uL 4.35-5.85 Venous blood hemoglobin measurement (mass/volume) 14.9 g/dL 13.3-17.7 Blood hematocrit (volume fraction) 46 % 40-54 Automated erythrocyte mean corpuscular volume 86 [ foz_us] 80-99 Automated erythrocyte mean corpuscular h emoglobin (mass per erythrocyte) 28 pg 25-34 Automated erythrocyte mean corpuscular h emoglobin concentration measurement (mass/volume) 32 g/dL 32-36 Automated erythrocyte distribution width ratio 13. 4 % 10.0- 14.5 Automated blood platelet count (count/volume) 192 10*3/uL 130-400 Automated blood platelet mean volume measurement 9.5 [foz_us] 7.4-10.4 Automated blood neutrophils/100 leukocytes 96 % 42-75 Automated blood lymphocytes/100 leukocytes 2 % 12-44 Blood monocytes/100 leukocytes 1 % 0-12 Automated blood eosinophils/100 leukocytes 1 % 0-10 Automated blood basophils/100 leukocytes 0 % 0-10 Blood neutrophils automated count (number/volume) 9.8 10*3 1.8-7.8 Blood lymphocytes automated count (number/volume) 0.2 10*3 1.0-4.0 Blood monocytes automated count (number/volume) 0. 1 10*3 0.0-1.0 Automated eosinophil count 0.1 10*3/uL 0 .0-0.3 Automated blood basophil count (count/volume) 0.0 10*3/uL 0.0-0.1 PT panel in platelet poor plasma by coag ulation assay - 04/01/19 02:35 Prothrombin time (PT) in platelet poor plasma by coagu lation assay 14.3 s 12.2-14.7 INR in platelet poor plasma or blood by coagulation as say 1.1 0.8-1.4 Activated partial thromboplastin time (a PTT) in platelet poor plasma bycoagulation assay - 04/01/19 02:35 Activated partial thromboplastin time (a PTT) in platelet poor plasma bycoagulation assay 25 s 24-35 Manual absolute plasma cell count - 10/15 02:35 Blood monocytes/100 leukocytes 1 % NRG Manual blood segmented neutrophils/100 leukocytes 92 % NRG Blood band neutrophils/100 leukocytes 5 % NRG Manual blood lymphocytes/100 leukocytes 2 % NRG Blood erythrocyte morphology finding identification [facility] Comprehensive metabolic panel - 04/01/19 02:35 Serum or plasma sodium measurement (moles/volume) 139 mmol/L 135-145 Serum or plasma potassium measurement (moles/volume) 4.5 mmol/L 3.6-5.0 Serum or plasma chloride measurement (moles/volume) 104 mmol/L 98-107 Carbon dioxide 26 mmol/L 21-32 Serum or plasma anion gap determination (moles/volume) 9 mmol/L 5-14 Serum or plasma urea nitrogen measurement (mass/volume ) 12 mg/dL 7-18 Serum or plasma creatinine measurement (mass/volume) 1.19 mg/dL 0.60-1.30 Serum or plasma urea nitrogen/creatinine mass ratio 10 NRG Serum or plasma creatinine measurement w ith calculation of estimated glomerular filtration rate 59 NRG Serum or plasma glucose measurement (mass/volume) 115 mg/dL 70-105 Serum or plasma calcium measurement (mass/volume) 9.0 mg/dL 8.5-10.1 Serum or plasma total bilirubin measurement (mass/volu me) 0.6 mg/dL 0.1-1.0 Serum or plasma alkaline phosphatase otilia surement (enzymatic activity/volume) 114 U/L 40-136 Serum or plasma aspartate aminotransfera se measurement (enzymatic activity/volume) 20 U/L 5-34 Serum or plasma alanine aminotransferase measurement (enzymatic activity/volume) 14 U/L 0-55 Serum or plasma protein measurement (mass/volume) 6.6 g/dL 6.4-8.2 Serum or plasma albumin measurement (mass/volume) 3.5 g/dL 3.2-4.5 CALCIUM CORRECTED 9.4 mg/dL 8.5-10.1 Magnesium - 04/01/19 02:35 Magnesium 1.8 mg/dL 1.6-2.4 Serum or plasma C reactive protein measu rement (mass/volume) - 04/01/19 02:35 Serum or plasma C reactive protein measurement (mass/v olume) 0.52 mg/dL 0.00-0.50 Serum or plasma troponin i.cardiac measu rement (mass/volume) - 04/01/19 02:35 Serum or plasma troponin i.cardiac measurement (mass/v olume) 0.042 ng/mL <0.028 Myoglobin, serum - 04/01/19 02:35 Myoglobin, serum 80.2 ng/mL 10.0-92.0 Lipase - 04/01/19 02:35 Lipase 29 U/L 8-78 Serum or plasma lithium measurement (mol es/volume) - 04/01/19 02:35 BNP PT 347.6 pg/mL <100.0 Bacterial blood culture - 04/01/19 03:25 FREE TEXT EXTERNAL SEE COMMENT NRG QUANTITY OF GROWTH Isolated NR Bacterial blood culture [id number] [facility] Blood lactic acid measurement (moles/vol ume) - 04/01/19 03:40 Blood lactic acid measurement (moles/volume) 2.35 mmol/L 0.50-2.00 Bacterial blood culture - 04/01/19 03:40 FREE TEXT EXTERNAL SUSCEPTIBILITY REPORTED 9 13:00 NRG QUANTITY OF GROWTH Isolated NRG Bacterial blood culture [id number] [facility] - 04/01/19 03:4 0 Gentamicin susceptibility test by minimum inhibitory c oncentration <= NRG Levofloxacin susceptibility test by minimum inhibitory concentration 4 NRG Tobramycin susceptibility test by minimum inhibitory c oncentration <= NRG Piperacillin/tazobactam susceptibility t est by minimum inhibitory concentration <= NRG Ciprofloxacin susceptibility test by minimum inhibitor y concentration > NRG Meropenem susceptibility test by minimum inhibitory co ncentration 0.5 NRG Aztreonam susceptibility test by minimum inhibitory co ncentration > NRG Cefepime susceptibility test by minimum inhibitory con centration 4 NRG Imipenem susceptibility test by minimum inhibitory con centration 4 NRG Ceftazidime susceptibility test by minimum inhibitory concentration 16 NRG [facility] - 04/01/19 03:4 0 Gentamicin susceptibility test by minimum inhibitory c oncentration <= NRG Levofloxacin susceptibility test by minimum inhibitory concentration 4 NRG Tobramycin susceptibility test by minimum inhibitory c oncentration <= NRG Piperacillin/tazobactam susceptibility t est by minimum inhibitory concentration <= NRG Ciprofloxacin susceptibility test by minimum inhibitor y concentration > NRG Meropenem susceptibility test by minimum inhibitory co ncentration <= NRG Aztreonam susceptibility test by minimum inhibitory co ncentration <= NRG Cefepime susceptibility test by minimum inhibitory con centration 4 NRG Imipenem susceptibility test by minimum inhibitory con centration 4 NRG Ceftazidime susceptibility test by minimum inhibitory concentration 4 NRG Complete urinalysis with reflex to cultu re - 04/01/19 04:44 Urine color determination YELLOW NRG Urine clarity determination CLEAR NR G Urine pH measurement by test strip 5 5-9 Specific gravity of urine by test strip 1.020 1.016-1.022 Urine protein assay by test strip, semi-quantitative 2+ NEGATIVE Urine glucose detection by automated test strip NE GATIVE NEGATIVE Erythrocytes detection in urine sediment by light micr oscopy NEGATIVE NEGATIVE Urine ketones detection by automated test strip NE GATIVE NEGATIVE Urine nitrite detection by test strip NEGATIVE NEGATIVE Urine total bilirubin detection by test strip NEGA TIVE NEGATIVE Urine urobilinogen measurement by automated test strip (mass/volume) 1 mg/dL NORMAL Urine leukocyte esterase detection by dipstick 3+ NEGATIVE Automated urine sediment erythrocyte cou nt by microscopy (number/high power field) NONE NRG Automated urine sediment leukocyte count by microscopy (number/high power field) > [HPF] NRG Bacteria detection in urine sediment by light microsco py MODERATE NRG Squamous epithelial cells detection in u rine sediment by light microscopy 2-5 NRG Crystals detection in urine sediment by light microsco py NONE NRG Casts detection in urine sediment by light microscopy NONE NRG Mucus detection in urine sediment by light microscopy LARGE NRG Complete urinalysis with reflex to culture CULTURE PENDING NRG Bacterial urine culture - 04/01/19 04:44 Bacterial urine culture 3 OR MORE NRG COLONY COUNT >100,000/ML NRG FTX;REPORTABLE GRAM POSITIVE ISOLATES; SUGGESTING NRG FREE TEXT ENTRY 2 PROBABLE COLLECTION CONTAMINATIO N WITH NRG FREE TEXT ENTRY 3 SKIN GASTON. NO SUSCEPTIBILITY PE RFORMED. NRG Complete blood count (CBC) with automate d white blood cell (WBC) differential - 04/02/19 15:10 Blood leukocytes automated count (number/volume) 7.0 10*3/uL 4.3-11.0 Blood erythrocytes automated count (number/volume) 5.22 10*6/uL 4.35-5.85 Venous blood hemoglobin measurement (mass/volume) 14.8 g/dL 13.3-17.7 Blood hematocrit (volume fraction) 45 % 40-54 Automated erythrocyte mean corpuscular volume 87 [ foz_us] 80-99 Automated erythrocyte mean corpuscular h emoglobin (mass per erythrocyte) 28 pg 25-34 Automated erythrocyte mean corpuscular h emoglobin concentration measurement (mass/volume) 33 g/dL 32-36 Automated erythrocyte distribution width ratio 13. 6 % 10.0- 14.5 Automated blood platelet count (count/volume) 133 10*3/uL 130-400 Automated blood platelet mean volume measurement 10.1 [foz_us] 7.4-10.4 Automated blood neutrophils/100 leukocytes 91 % 42-75 Automated blood lymphocytes/100 leukocytes 6 % 12-44 Blood monocytes/100 leukocytes 4 % 0-12 Automated blood eosinophils/100 leukocytes 0 % 0-10 Automated blood basophils/100 leukocytes 0 % 0-10 Blood neutrophils automated count (number/volume) 6.3 10*3 1.8-7.8 Blood lymphocytes automated count (number/volume) 0.4 10*3 1.0-4.0 Blood monocytes automated count (number/volume) 0. 3 10*3 0.0-1.0 Automated eosinophil count 0.0 10*3/uL 0 .0-0.3 Automated blood basophil count (count/volume) 0.0 10*3/uL 0.0-0.1 Comprehensive metabolic panel - 04/02/19 15:10 Serum or plasma sodium measurement (moles/volume) 141 mmol/L 135-145 Serum or plasma potassium measurement (moles/volume) 4.0 mmol/L 3.6-5.0 Serum or plasma chloride measurement (moles/volume) 107 mmol/L 98-107 Carbon dioxide 26 mmol/L 21-32 Serum or plasma anion gap determination (moles/volume) 8 mmol/L 5-14 Serum or plasma urea nitrogen measurement (mass/volume ) 11 mg/dL 7-18 Serum or plasma creatinine measurement (mass/volume) 1.04 mg/dL 0.60-1.30 Serum or plasma urea nitrogen/creatinine mass ratio 11 NRG Serum or plasma creatinine measurement w ith calculation of estimated glomerular filtration rate > NRG Serum or plasma glucose measurement (mass/volume) 125 mg/dL 70-105 Serum or plasma calcium measurement (mass/volume) 8.1 mg/dL 8.5-10.1 Serum or plasma total bilirubin measurement (mass/volu me) 0.7 mg/dL 0.1-1.0 Serum or plasma alkaline phosphatase otilia surement (enzymatic activity/volume) 130 U/L 40-136 Serum or plasma aspartate aminotransfera se measurement (enzymatic activity/volume) 32 U/L 5-34 Serum or plasma alanine aminotransferase measurement (enzymatic activity/volume) 25 U/L 0-55 Serum or plasma protein measurement (mass/volume) 6.3 g/dL 6.4-8.2 Serum or plasma albumin measurement (mass/volume) 3.3 g/dL 3.2-4.5 CALCIUM CORRECTED 8.7 mg/dL 8.5-10.1 Serum or plasma troponin i.cardiac measu rement (mass/volume) - 04/02/19 15:10 Serum or plasma troponin i.cardiac measurement (mass/v olume) 0.252 ng/mL <0.028 Serum or plasma C reactive protein measu rement (mass/volume) - 04/02/19 15:10 Serum or plasma C reactive protein measurement (mass/v olume) 7.87 mg/dL 0.00-0.50 Manual absolute plasma cell count - 11/14 15:10 Blood monocytes/100 leukocytes 3 % NRG Manual blood segmented neutrophils/100 leukocytes 89 % NRG Blood band neutrophils/100 leukocytes 1 % NRG Manual blood lymphocytes/100 leukocytes 5 % NRG Manual eosinophils/100 leukocytes in nose 0 % NRG Manual blood basophils/100 leukocytes 0 % NRG Blood lymphocytes variant/100 leukocytes 2 % NRG Blood erythrocyte morphology finding identification NORMAL NRG Serum or plasma lithium measurement (mol es/volume) - 04/02/19 15:10 BNP PT 707.8 pg/mL <100.0 Complete urinalysis with reflex to cultu re - 04/02/19 16:45 Urine color determination YELLOW NRG Urine clarity determination CLEAR NR G Urine pH measurement by test strip 7 5-9 Specific gravity of urine by test strip 1.020 1.016-1.022 Urine protein assay by test strip, semi-quantitative 2+ NEGATIVE Urine glucose detection by automated test strip NE GATIVE NEGATIVE Erythrocytes detection in urine sediment by light micr oscopy 2+ NEGATIVE Urine ketones detection by automated test strip NE GATIVE NEGATIVE Urine nitrite detection by test strip NEGATIVE NEGATIVE Urine total bilirubin detection by test strip NEGA TIVE NEGATIVE Urine urobilinogen measurement by automated test strip (mass/volume) 12 mg/dL NORMAL Urine leukocyte esterase detection by dipstick 1+ NEGATIVE Automated urine sediment erythrocyte cou nt by microscopy (number/high power field) [HPF] NRG Automated urine sediment leukocyte count by microscopy (number/high power field) [HPF] NRG Bacteria detection in urine sediment by light microsco py TRACE NRG Squamous epithelial cells detection in u rine sediment by light microscopy RARE NRG Crystals detection in urine sediment by light microsco py NONE NRG Casts detection in urine sediment by light microscopy NONE NRG Mucus detection in urine sediment by light microscopy SMALL NRG Complete urinalysis with reflex to culture NO NRG Serum or plasma troponin i.cardiac measu rement (mass/volume) - 04/02/19 17:12 Serum or plasma troponin i.cardiac measurement (mass/v olume) 0.223 ng/mL <0.028 Bacterial blood culture - 04/02/19 18:15 Bacterial blood culture NG NRG Bacterial blood culture - 04/02/19 18:29 Bacterial blood culture NG NRG Complete blood count (CBC) with automate d white blood cell (WBC) differential - 05/30/19 01:40 Blood leukocytes automated count (number/volume) 9.2 10*3/uL 4.3-11.0 Blood erythrocytes automated count (number/volume) 5.25 10*6/uL 4.35-5.85 Venous blood hemoglobin measurement (mass/volume) 14.8 g/dL 13.3-17.7 Blood hematocrit (volume fraction) 45 % 40-54 Automated erythrocyte mean corpuscular volume 85 [ foz_us] 80-99 Automated erythrocyte mean corpuscular h emoglobin (mass per erythrocyte) 28 pg 25-34 Automated erythrocyte mean corpuscular h emoglobin concentration measurement (mass/volume) 33 g/dL 32-36 Automated erythrocyte distribution width ratio 13. 7 % 10.0- 14.5 Automated blood platelet count (count/volume) 249 10*3/uL 130-400 Automated blood platelet mean volume measurement 10.1 [foz_us] 7.4-10.4 Automated blood neutrophils/100 leukocytes 61 % 42-75 Automated blood lymphocytes/100 leukocytes 26 % 12-44 Blood monocytes/100 leukocytes 9 % 0-12 Automated blood eosinophils/100 leukocytes 4 % 0-10 Automated blood basophils/100 leukocytes 1 % 0-10 Blood neutrophils automated count (number/volume) 5.6 10*3 1.8-7.8 Blood lymphocytes automated count (number/volume) 2.4 10*3 1.0-4.0 Blood monocytes automated count (number/volume) 0. 8 10*3 0.0-1.0 Automated eosinophil count 0.4 10*3/uL 0 .0-0.3 Automated blood basophil count (count/volume) 0.1 10*3/uL 0.0-0.1 Comprehensive metabolic panel - 05/30/19 01:40 Serum or plasma sodium measurement (moles/volume) 143 mmol/L 135-145 Serum or plasma potassium measurement (moles/volume) 4.4 mmol/L 3.6-5.0 Serum or plasma chloride measurement (moles/volume) 107 mmol/L 98-107 Carbon dioxide 24 mmol/L 21-32 Serum or plasma anion gap determination (moles/volume) 12 mmol/L 5-14 Serum or plasma urea nitrogen measurement (mass/volume ) 15 mg/dL 7-18 Serum or plasma creatinine measurement (mass/volume) 1.18 mg/dL 0.60-1.30 Serum or plasma urea nitrogen/creatinine mass ratio 13 NRG Serum or plasma creatinine measurement w ith calculation of estimated glomerular filtration rate 60 NRG Serum or plasma glucose measurement (mass/volume) 102 mg/dL 70-105 Serum or plasma calcium measurement (mass/volume) 9.1 mg/dL 8.5-10.1 Serum or plasma total bilirubin measurement (mass/volu me) 0.6 mg/dL 0.1-1.0 Serum or plasma alkaline phosphatase otilia surement (enzymatic activity/volume) 108 U/L 40-136 Serum or plasma aspartate aminotransfera se measurement (enzymatic activity/volume) 20 U/L 5-34 Serum or plasma alanine aminotransferase measurement (enzymatic activity/volume) 11 U/L 0-55 Serum or plasma protein measurement (mass/volume) 7.1 g/dL 6.4-8.2 Serum or plasma albumin measurement (mass/volume) 3.7 g/dL 3.2-4.5 CALCIUM CORRECTED 9.3 mg/dL 8.5-10.1 Magnesium - 05/30/19 01:40 Magnesium 2.1 mg/dL 1.6-2.4 Serum or plasma troponin i.cardiac measu rement (mass/volume) - 05/30/19 01:40 Serum or plasma troponin i.cardiac measurement (mass/v olume) < ng/mL <0.028 Serum or plasma thyrotropin measurement by detection limit <=0.05 miu/l (units/volume) - 05/30/19 01:40 Serum or plasma thyrotropin measurement by detection limit <=0.05 miu/l (units/volume) 1.98 u[iU]/mL 0.35-4.94 Complete blood count (CBC) with automate d white blood cell (WBC) differential - 06/25/19 04:40 Blood leukocytes automated count (number/volume) 10.0 10*3/uL 4.3-11.0 Blood erythrocytes automated count (number/volume) 5.22 10*6/uL 4.35-5.85 Venous blood hemoglobin measurement (mass/volume) 14.3 g/dL 13.3-17.7 Blood hematocrit (volume fraction) 45 % 40-54 Automated erythrocyte mean corpuscular volume 87 [ foz_us] 80-99 Automated erythrocyte mean corpuscular h emoglobin (mass per erythrocyte) 27 pg 25-34 Automated erythrocyte mean corpuscular h emoglobin concentration measurement (mass/volume) 32 g/dL 32-36 Automated erythrocyte distribution width ratio 13. 6 % 10.0- 14.5 Automated blood platelet count (count/volume) 227 10*3/uL 130-400 Automated blood platelet mean volume measurement 9.9 [foz_us] 7.4-10.4 Automated blood neutrophils/100 leukocytes 72 % 42-75 Automated blood lymphocytes/100 leukocytes 18 % 12-44 Blood monocytes/100 leukocytes 7 % 0-12 Automated blood eosinophils/100 leukocytes 3 % 0-10 Automated blood basophils/100 leukocytes 0 % 0-10 Blood neutrophils automated count (number/volume) 7.2 10*3 1.8-7.8 Blood lymphocytes automated count (number/volume) 1.7 10*3 1.0-4.0 Blood monocytes automated count (number/volume) 0. 7 10*3 0.0-1.0 Automated eosinophil count 0.3 10*3/uL 0 .0-0.3 Automated blood basophil count (count/volume) 0.0 10*3/uL 0.0-0.1 Comprehensive metabolic panel - 06/25/19 04:40 Serum or plasma sodium measurement (moles/volume) 144 mmol/L 135-145 Serum or plasma potassium measurement (moles/volume) 4.1 mmol/L 3.6-5.0 Serum or plasma chloride measurement (moles/volume) 106 mmol/L 98-107 Carbon dioxide 26 mmol/L 21-32 Serum or plasma anion gap determination (moles/volume) 12 mmol/L 5-14 Serum or plasma urea nitrogen measurement (mass/volume ) 13 mg/dL 7-18 Serum or plasma creatinine measurement (mass/volume) 1.18 mg/dL 0.60-1.30 Serum or plasma urea nitrogen/creatinine mass ratio 11 NRG Serum or plasma creatinine measurement w ith calculation of estimated glomerular filtration rate 60 NRG Serum or plasma glucose measurement (mass/volume) 108 mg/dL 70-105 Serum or plasma calcium measurement (mass/volume) 8.9 mg/dL 8.5-10.1 Serum or plasma total bilirubin measurement (mass/volu me) 0.6 mg/dL 0.1-1.0 Serum or plasma alkaline phosphatase otilia surement (enzymatic activity/volume) 105 U/L 40-136 Serum or plasma aspartate aminotransfera se measurement (enzymatic activity/volume) 19 U/L 5-34 Serum or plasma alanine aminotransferase measurement (enzymatic activity/volume) 20 U/L 0-55 Serum or plasma protein measurement (mass/volume) 7.0 g/dL 6.4-8.2 Serum or plasma albumin measurement (mass/volume) 3.6 g/dL 3.2-4.5 CALCIUM CORRECTED 9.2 mg/dL 8.5-10.1 Magnesium - 06/25/19 04:40 Magnesium 2.0 mg/dL 1.6-2.4 Serum or plasma troponin i.cardiac measu rement (mass/volume) - 06/25/19 04:40 Serum or plasma troponin i.cardiac measurement (mass/v olume) 0.056 ng/mL <0.028 Myoglobin, serum - 06/25/19 04:40 Myoglobin, serum 65.7 ng/mL 10.0-92.0 Serum or plasma C reactive protein measu rement (mass/volume) - 06/25/19 04:40 Serum or plasma C reactive protein measurement (mass/v olume) 1.50 mg/dL 0.00-0.50 Serum or plasma lithium measurement (mol es/volume) - 06/25/19 04:40 BNP PT 1082.4 pg/mL <100.0 PT panel in platelet poor plasma by coag ulation assay - 06/25/19 04:40 Prothrombin time (PT) in platelet poor plasma by coagu lation assay 14.7 s 12.2-14.7 INR in platelet poor plasma or blood by coagulation as say 1.1 0.8-1.4 Activated partial thromboplastin time (a PTT) in platelet poor plasma bycoagulation assay - 06/25/19 04:40 Activated partial thromboplastin time (a PTT) in platelet poor plasma bycoagulation assay 32 s 24-35 Fibrin D-dimer FEU measurement in platel et poor plasma (mass/volume) - 06/25/19 04:40 Fibrin D-dimer FEU measurement in platelet poor plasma (mass/volume) 1.27 ug/mL 0.00-0.49 Complete blood count (CBC) with automate d white blood cell (WBC) differential - 07/02/19 15:01 Blood leukocytes automated count (number/volume) 10.0 10*3/uL 4.3-11.0 Blood erythrocytes automated count (number/volume) 5.13 10*6/uL 4.35-5.85 Venous blood hemoglobin measurement (mass/volume) 14.2 g/dL 13.3-17.7 Blood hematocrit (volume fraction) 45 % 40-54 Automated erythrocyte mean corpuscular volume 88 [ foz_us] 80-99 Automated erythrocyte mean corpuscular h emoglobin (mass per erythrocyte) 28 pg 25-34 Automated erythrocyte mean corpuscular h emoglobin concentration measurement (mass/volume) 32 g/dL 32-36 Automated erythrocyte distribution width ratio 13. 9 % 10.0- 14.5 Automated blood platelet count (count/volume) 247 10*3/uL 130-400 Automated blood platelet mean volume measurement 9.6 [foz_us] 7.4-10.4 Automated blood neutrophils/100 leukocytes 76 % 42-75 Automated blood lymphocytes/100 leukocytes 14 % 12-44 Blood monocytes/100 leukocytes 7 % 0-12 Automated blood eosinophils/100 leukocytes 2 % 0-10 Automated blood basophils/100 leukocytes 0 % 0-10 Blood neutrophils automated count (number/volume) 7.6 10*3 1.8-7.8 Blood lymphocytes automated count (number/volume) 1.4 10*3 1.0-4.0 Blood monocytes automated count (number/volume) 0. 7 10*3 0.0-1.0 Automated eosinophil count 0.2 10*3/uL 0 .0-0.3 Automated blood basophil count (count/volume) 0.0 10*3/uL 0.0-0.1 Comprehensive metabolic panel - 07/02/19 15:01 Serum or plasma sodium measurement (moles/volume) 142 mmol/L 135-145 Serum or plasma potassium measurement (moles/volume) 4.3 mmol/L 3.6-5.0 Serum or plasma chloride measurement (moles/volume) 103 mmol/L 98-107 Carbon dioxide 29 mmol/L 21-32 Serum or plasma anion gap determination (moles/volume) 10 mmol/L 5-14 Serum or plasma urea nitrogen measurement (mass/volume ) 13 mg/dL 7-18 Serum or plasma creatinine measurement (mass/volume) 1.23 mg/dL 0.60-1.30 Serum or plasma urea nitrogen/creatinine mass ratio 11 NRG Serum or plasma creatinine measurement w ith calculation of estimated glomerular filtration rate 57 NRG Serum or plasma glucose measurement (mass/volume) 96 mg/dL 70-105 Serum or plasma calcium measurement (mass/volume) 8.8 mg/dL 8.5-10.1 Serum or plasma total bilirubin measurement (mass/volu me) 0.5 mg/dL 0.1-1.0 Serum or plasma alkaline phosphatase otilia surement (enzymatic activity/volume) 99 U/L 40-136 Serum or plasma aspartate aminotransfera se measurement (enzymatic activity/volume) 18 U/L 5-34 Serum or plasma alanine aminotransferase measurement (enzymatic activity/volume) 18 U/L 0-55 Serum or plasma protein measurement (mass/volume) 6.8 g/dL 6.4-8.2 Serum or plasma albumin measurement (mass/volume) 3.5 g/dL 3.2-4.5 CALCIUM CORRECTED 9.2 mg/dL 8.5-10.1 Complete urinalysis with reflex to cultu re - 07/02/19 15:24 Urine color determination KENDRICK NRG Urine clarity determination CLOUDY NR G Urine pH measurement by test strip 6.5 5-9 Specific gravity of urine by test strip 1.020 1.016-1.022 Urine protein assay by test strip, semi-quantitative 2+ NEGATIVE Urine glucose detection by automated test strip NE GATIVE NEGATIVE Erythrocytes detection in urine sediment by light micr oscopy 3+ NEGATIVE Urine ketones detection by automated test strip NE GATIVE NEGATIVE Urine nitrite detection by test strip NEGATIVE NEGATIVE Urine total bilirubin detection by test strip NEGA TIVE NEGATIVE Urine urobilinogen measurement by automated test strip (mass/volume) 1.0 mg/dL < = 1.0 Urine leukocyte esterase detection by dipstick 1+ NEGATIVE Automated urine sediment erythrocyte cou nt by microscopy (number/high power field) TNTC NRG Automated urine sediment leukocyte count by microscopy (number/high power field) [HPF] NRG Bacteria detection in urine sediment by light microsco py TRACE NRG Squamous epithelial cells detection in u rine sediment by light microscopy NONE NRG Crystals detection in urine sediment by light microsco py NONE NRG Casts detection in urine sediment by light microscopy NONE NRG Mucus detection in urine sediment by light microscopy NEGATIVE NRG Complete urinalysis with reflex to culture YES NRG Bacterial urine culture - 07/02/19 15:24 Bacterial urine culture 3 OR MORE NRG COLONY COUNT 20,000 CFU/ML NRG FTX;REPORTABLE GRAM POSITIVE ISOLATES; SUGGESTING NRG FREE TEXT ENTRY 2 SKIN G[place]. NO SUSCEPTIBILITY PE RFORMED. NRG FREE TEXT ENTRY 3 PROBABLE COLLECTION CONTAMINATIO N WITH NRG Automated blood complete blood count (he mogram) panel - 08/12/19 10:50 Blood leukocytes automated count (number/volume) 9.1 10*3/uL 4.3-11.0 Blood erythrocytes automated count (number/volume) 5.66 10*6/uL 4.35-5.85 Venous blood hemoglobin measurement (mass/volume) 15.4 g/dL 13.3-17.7 Blood hematocrit (volume fraction) 49 % 40-54 Automated erythrocyte mean corpuscular volume 86 [ foz_us] 80-99 Automated erythrocyte mean corpuscular h emoglobin (mass per erythrocyte) 27 pg 25-34 Automated erythrocyte mean corpuscular h emoglobin concentration measurement (mass/volume) 32 g/dL 32-36 Automated erythrocyte distribution width ratio 13. 3 % 10.0- 14.5 Automated blood platelet count (count/volume) 293 10*3/uL 130-400 Automated blood platelet mean volume measurement 9.1 [foz_us] 7.4-10.4 Comprehensive metabolic panel - 08/12/19 10:50 Serum or plasma sodium measurement (moles/volume) 139 mmol/L 135-145 Serum or plasma potassium measurement (moles/volume) 4.6 mmol/L 3.6-5.0 Serum or plasma chloride measurement (moles/volume) 100 mmol/L 98-107 Carbon dioxide 29 mmol/L 21-32 Serum or plasma anion gap determination (moles/volume) 10 mmol/L 5-14 Serum or plasma urea nitrogen measurement (mass/volume ) 13 mg/dL 7-18 Serum or plasma creatinine measurement (mass/volume) 1.23 mg/dL 0.60-1.30 Serum or plasma urea nitrogen/creatinine mass ratio 11 NRG Serum or plasma creatinine measurement w ith calculation of estimated glomerular filtration rate 57 NRG Serum or plasma glucose measurement (mass/volume) 119 mg/dL 70-105 Serum or plasma calcium measurement (mass/volume) 9.3 mg/dL 8.5-10.1 Serum or plasma total bilirubin measurement (mass/volu me) 0.6 mg/dL 0.1-1.0 Serum or plasma alkaline phosphatase otilia surement (enzymatic activity/volume) 118 U/L 40-136 Serum or plasma aspartate aminotransfera se measurement (enzymatic activity/volume) 15 U/L 5-34 Serum or plasma alanine aminotransferase measurement (enzymatic activity/volume) 10 U/L 0-55 Serum or plasma protein measurement (mass/volume) 7.7 g/dL 6.4-8.2 Serum or plasma albumin measurement (mass/volume) 3.7 g/dL 3.2-4.5 CALCIUM CORRECTED 9.5 mg/dL 8.5-10.1 Complete urinalysis with reflex to cultu re - 08/12/19 11:58 Urine color determination KENDRICK NRG Urine clarity determination CLEAR NR G Urine pH measurement by test strip 5.5 5-9 Specific gravity of urine by test strip >= 1.016-1.022 Urine protein assay by test strip, semi-quantitative 1+ NEGATIVE Urine glucose detection by automated test strip NE GATIVE NEGATIVE Erythrocytes detection in urine sediment by light micr oscopy TRACE-L NEGATIVE Urine ketones detection by automated test strip NE GATIVE NEGATIVE Urine nitrite detection by test strip NEGATIVE NEGATIVE Urine total bilirubin detection by test strip 2+ NEGATIVE Urine urobilinogen measurement by automated test strip (mass/volume) 1.0 mg/dL < = 1.0 Urine leukocyte esterase detection by dipstick TRA CE NEGATIVE Automated urine sediment erythrocyte cou nt by microscopy (number/high power field) [HPF] NRG Automated urine sediment leukocyte count by microscopy (number/high power field) > [HPF] NRG Bacteria detection in urine sediment by light microsco py MODERATE NRG Squamous epithelial cells detection in u rine sediment by light microscopy 5-10 NRG Crystals detection in urine sediment by light microsco py NONE NRG Casts detection in urine sediment by light microscopy NONE NRG Mucus detection in urine sediment by light microscopy NEGATIVE NRG Complete urinalysis with reflex to culture YES NRG Bacterial urine culture - 08/12/19 11:58 Bacterial urine culture 3 OR MORE NRG COLONY COUNT 60,000 cfu/ml NRG FTX;REPORTABLE GRAM POSITIVE ISOLATES; SUGGESTING NRG FREE TEXT ENTRY 2 PROBABLE COLLECTION CONTAMINATIO N WITH NRG FREE TEXT ENTRY 3 SKIN G[place]. NO SUSCEPTIBILITY PE RFORMED. NRG Encounters ACCT No. Visit Date/Time Discharge Status Pt. Type Provider Facility Loc./Unit Complaint [id number] 08/12/2019 10:37:00 23:59:59 CLS Outpatient MARIANO DASH MD [facility] CARD PREOP: ILIAC ARTERY LIZZIE NOSIS [id number] 07/02/2019 13:51:00 17:36:00 DIS Emergency ABISAI SINGH APRN [facility] ER ABD PAIN [id number] 06/25/2019 04:24:00 09:26:00 DIS Emergency FABIO HILLS MD [facility] ER SOB [id number] 05/30/2019 01:24:00 02:45:00 DIS Emergency FABIO HILLS MD [facility] ER INSOMNIA [id number] 04/02/2019 15:07:00 019 18:45:00 DIS Emergency FABIO HILLS MD [facility] ER SOB [id number] 04/01/2019 02:30:00 05:34:00 DIS Emergency FABIO HILLS MD [facility] ER CP,DIZZY [id number] 01/23/2017 10:51:00 017 23:59:59 CLS Outpatient BRITT BUTLER MD [facility] LAB Z79.84 [id number] 01/12/2017 15:17:00 017 23:59:59 CLS Outpatient LAURA FRAZIER DO [facility] RT I25.10 [id number] 01/09/2017 06:42:00 017 23:59:59 CLS Outpatient KARIN AGGARWALLAURA [facility] CARD I25.10 [id number] 07/06/2015 07:43:00 016 23:59:59 CLS Outpatient KARIN AGGARWAL LAURA Petey [facility] RAD CHRONIC OBSTRUC TIVE PULMONARY DISEASE [id number] 12/16/2013 08:38:00 014 23:59:59 CLS Outpatient KARIN AGGARWAL LAURA Petey [facility] RAD CHRONIC AIRWAY OBSTRUCTION [id number] 01/27/2013 08:21:00 013 12:35:00 DIS Outpatient COSEM DAVIS MD [facility] SDC NECK LESION [id number] 01/24/2013 12:35:00 013 23:59:59 CLS Outpatient COSME DAVIS MD [facility] PREOP NECK LESION [id number] 08/20/2012 10:39:00 Document Registration [id number] 08/28/2011 15:42:00 Document Registration [id number] 08/22/2011 09:17:00 Document Registration [id number] 04/28/2011 22:54:00 Document Registration [id number] 04/18/2011 09:24:00 Document Registration [id number] 10/30/2010 08:19:00 Document Registration [id number] 10/16/2010 07:43:00 Document Registration [id number] 10/10/2010 15:06:00 Document Registration [id number] 09/26/2010 00:00:00 Document Registration [id number] 08/01/2010 10:55:00 Document Registration [id number] 06/27/2010 14:00:00 Document Registration [id number] 06/03/2010 20:55:00 Document Registration [id number] 04/22/2010 12:03:00 Document Registration
[2019-09-29 01:24] LABS: BASOPHILS % (AUTO) 0 % (0-10); EOSINOPHILS # (AUTO) 0.1 10^3/uL (0.0-0.3); EOSINOPHILS % (AUTO) 2 % (0-10); HEMATOCRIT 45 % (40-54); HEMOGLOBIN 14.6 G/DL (13.3-17.7); LYMPHOCYTES # (AUTO) 1.3 X 10^3 (1.0-4.0); LYMPHOCYTES % (AUTO) 16 % (12-44); MEAN CORPUSCULAR HEMOGLOBIN 27 PG (25-34); MEAN CORPUSCULAR HGB CONC 32 G/DL (32-36); MEAN CORPUSCULAR VOLUME 84 FL (80-99); MEAN PLATELET VOLUME 9.2 FL (7.4-10.4); MONOCYTES % (AUTO) 12 % (0-12); NEUTROPHILS # (AUTO) 5.6 X 10^3 (1.8-7.8); NEUTROPHILS % (AUTO) 70 % (42-75); PLATELET COUNT 287 10^3/uL (130-400)
--- NOTE | 2019-09-29 01:27 | ED Respiratory ---
General Chief Complaint: Respiratory Problems Stated Complaint: SOA Source: patient, EMS Exam Limitations: no limitations History of Present Illness Date Seen by Provider: Sep 29, 2019 Time Seen by Provider: 01:05 Initial Comments Patient presents ER by EMS from home with chief complaint of shortness of breath starting yesterday progressively getting worse. He says tonight he was having difficulty getting his aeration and had some mild chest pain in the center of his chest worse with breathing. He's had no fever or productive cough. No sick contacts or travel recently. Patient states he has a long-standing history of asbestos related lung disease and COPD. He quit smoking several decades ago. He has a history of coronary disease with stents and cardiac bypasses followed by Dr. Light. He is followed locally by Dr. Arauz for primary care. He is on Eliquis, Lasix and blood pressure and cholesterol medicines. He says he has been taking his medications as prescribed recently. He is not out of anything. He was struggling to move much air per EMS when they arrived so they gave him a DuoNeb on route and shortly after receiving that his oxygen sats went up to 100% and his work of breathing went down to normal. The patient says he is now no longer having any chest discomfort or shortness of air. Patient does not take daily weights nor has he noticed increased swelling around his abdomen or extremities. Allergies and Home Medications Allergies Coded Allergies: No Known Drug Allergies (Unverified , 04/29/11) Home Medications Albuterol Sulfate 1 Puff Puff, 2 PUFF IH Q4H PRN for SHORTNESS OF BREATH 1 PUFF = 90 MCG Prescribed by: FABIO ADAME on 05/30/19 0244 Apixaban 5 Mg Tablet, 5 MG PO BID, (Reported) Cefdinir 300 Mg Capsule, 300 MG PO BID Prescribed by: FABIO ADAME on 04/02/19 1827 Pravastatin Sodium 20 Mg Tablet, 1 TAB PO DAILY, (Reported) Trazodone Hcl 100 Mg Tablet, 100 MG PO HS, (Reported) Patient Home Medication List Home Medication List Reviewed: Yes Review of Systems Review of Systems Constitutional: No chills, No fever, No malaise EENTM: No ear discharge, No ear pain Respiratory: cough; No phlegm; short of breath, wheezing Cardiovascular: chest pain, Hx of Intervention; No palpitations; vascular heart diseas Gastrointestinal: No abdominal pain, No nausea, No vomiting Genitourinary: No decreased output, No discharge Musculoskeletal: No back pain, No joint pain Skin: No pruritus, No rash All Other Systems Reviewed Negative Unless Noted: Yes Past Jiavixu-Flhynd-Tvfwoz Hx Patient Social History Alcohol Use: Denies Use Recreational Drug Use: No Smoking Status: Former Smoker Former Smoker, Quit: Jul 17, 2003 2nd Hand Smoke Exposure: No Recent Hopitalizations: No Immunizations Up To Date Date of Pneumonia Vaccine: Mar 29, 2012 Date of Influenza Vaccine: Mar 29, 2019 Past Medical History Surgeries: Yes (l knee ) CABG, Coronary Stent, Gallbladder Respiratory: Yes (suspected asbestosis exposure) COPD Cardiac: Yes ("5 HEART ATTACKS") Coronary Artery Disease, Heart Attack, High Cholesterol, Hypotension Neurological: No Reproductive Disorders: No Genitourinary: No Gastrointestinal: Yes Gastroesophageal Reflux, Pancreatitis Musculoskeletal: Yes Arthritis, Fractures Endocrine: No HEENT: No Cancer: No Psychosocial: Yes Sleep Difficulties, Anxiety, Depression Integumentary: No Blood Disorders: No Physical Exam Vital Signs - First Documented 09/29/19 01:07 Temp 36.5 Pulse 70 Resp 20 B/P (MAP) 105/65 (78) Pulse Ox 90 Capillary Refill : Height: '" Weight: 195lbs. oz. [id number]; 24.00 BMI Method: General Appearance: no apparent distress, thin Eyes: Bilateral Eye Normal Inspection, Bilateral Eye PERRL, Bilateral Eye EOMI HEENT: PERRL/EOMI, normal ENT inspection, TMs normal; No pharynx normal (mildly dry) Neck: full range of motion, supple, normal inspection Respiratory: lungs clear, no respiratory distress, no accessory muscle use, decreased breath sounds Cardiovascular: normal peripheral pulses, regular rate, rhythm Gastrointestinal: normal bowel sounds, non tender, soft Extremities: non-tender, normal inspection, no pedal edema, no calf tenderness, normal capillary refill Neurologic/Psychiatric: alert, normal mood/affect, oriented x 3 Skin: normal color, warm/dry Progress/Results/Core Measures Suspected Sepsis SIRS Temperature: Pulse: Respiratory Rate: Laboratory Tests 09/29/19 01:10: White Blood Count 8.0 Blood Pressure / Mean: Laboratory Tests 09/29/19 01:10: Creatinine 1.17, INR Comment 1.5H, Platelet Count 287, Total Bilirubin 0.4 Results/Orders Lab Results Laboratory Tests Test 09/29/19 01:10 09/29/19 01:26 Range/Units White Blood Count 8.0 4.3-11.0 10^3/uL Red Blood Count 5.37 4.35-5.85 10^6/uL Hemoglobin 14.6 13.3-17.7 G/DL Hematocrit 45 40-54 % Mean Corpuscular Volume 84 80-99 FL Mean Corpuscular Hemoglobin 27 25-34 PG Mean Corpuscular Hemoglobin Concent 32 32-36 G/DL Red Cell Distribution Width 14.0 10.0-14.5 % Platelet Count 287 130-400 10^3/uL Mean Platelet Volume 9.2 7.4-10.4 FL Neutrophils (%) (Auto) 70 42-75 % Lymphocytes (%) (Auto) 16 12-44 % Monocytes (%) (Auto) 12 0-12 % Eosinophils (%) (Auto) 2 0-10 % Basophils (%) (Auto) 0 0-10 % Neutrophils # (Auto) 5.6 1.8-7.8 X 10^3 Lymphocytes # (Auto) 1.3 1.0-4.0 X 10^3 Monocytes # (Auto) 1.0 0.0-1.0 X 10^3 Eosinophils # (Auto) 0.1 0.0-0.3 10^3/uL Basophils # (Auto) 0.0 0.0-0.1 10^3/uL Prothrombin Time 18.9 H 12.2-14.7 SEC INR Comment 1.5 H 0.8-1.4 Activated Partial Thromboplast Time 36 H 24-35 SEC Sodium Level 140 135-145 MMOL/L Potassium Level 4.0 3.6-5.0 MMOL/L Chloride Level 103 98-107 MMOL/L Carbon Dioxide Level 25 21-32 MMOL/L Anion Gap 12 5-14 MMOL/L Blood Urea Nitrogen 17 7-18 MG/DL Creatinine 1.17 0.60-1.30 MG/DL Estimat Glomerular Filtration Rate 60 BUN/Creatinine Ratio 15 Glucose Level 133 H 70-105 MG/DL Calcium Level 8.6 8.5-10.1 MG/DL Corrected Calcium 9.2 8.5-10.1 MG/DL Magnesium Level 2.2 1.6-2.4 MG/DL Total Bilirubin 0.4 0.1-1.0 MG/DL Aspartate Amino Transf (AST/SGOT) 15 5-34 U/L Alanine Aminotransferase (ALT/SGPT) 10 0-55 U/L Alkaline Phosphatase 98 40-136 U/L Myoglobin 51.0 10.0-92.0 NG/ML Troponin I < 0.028 <0.028 NG/ML B-Type Natriuretic Peptide 174.4 H <100.0 PG/ML Total Protein 7.1 6.4-8.2 GM/DL Albumin 3.3 3.2-4.5 GM/DL Blood Gas Puncture Site RW Blood Gas Patient Temperature 36.5 Arterial Blood pH 7.41 7.37-7.43 Arterial Blood Partial Pressure CO2 40 35-45 MMHG Arterial Blood Partial Pressure O2 60 L 79-93 MMHG Arterial Blood HCO3 26 23-27 MMOL/L Arterial Blood Total CO2 26.7 21.0-31.0 MMOL/L Arterial Blood Oxygen Saturation 93 L 94-100 % Arterial Blood Base Excess 1.3 -2.5-2.5 MMOL/L Rafi Test YES-POS Blood Gas Ventilator Setting NO Blood Gas Inspired Oxygen RA My Orders Orders - JOSE NEELY Cbc With Automated Diff (09/29/19 01:16) Magnesium (09/29/19 01:16) Chest 1 View, Ap/Pa Only (09/29/19 01:16) Ekg Tracing (09/29/19 01:16) Comprehensive Metabolic Panel (09/29/19 01:16) Myoglobin Serum (09/29/19 01:16) Protime With Inr (09/29/19 01:16) Partial Thromboplastin Time (09/29/19 01:16) O2 (09/29/19 01:16) Monitor-Rhythm Ecg Trace Only (09/29/19 01:16) Lipid Panel (09/30/19 06:00) Ed Iv/Invasive Line Start (09/29/19 01:16) BNP (09/29/19 01:16) Troponin I (09/29/19 01:16) Aspirin Chewable Tablet (Baby Aspirin Ch (09/29/19 01:30) Arterial Blood Gas (09/29/19 01:26) Medications Given in ED Current Medications Medications Dose Ordered Sig/Husam Route Start Time Stop Time Status Last Admin Dose Admin Aspirin 324 mg ONCE ONCE PO 09/29/19 01:30 09/29/19 01:31 DC 09/29/19 01:21 324 MG Vital Signs/I&O 09/29/19 01:07 Temp 36.5 Pulse 70 Resp 20 B/P (MAP) 105/65 (78) Pulse Ox 90 Capillary Refill : Progress Note : Time: 01:22 Progress Note The patient presents in what sounds like a COPD exacerbation with improvement after a single dose of DuoNeb. He does not use a nebulizer at home. He does have an MDI inhaler but as he does not routinely use it for needed. He's not having any overt signs of infection such as fever or productive cough. We'll get a chest x-ray and some basic labs to include an ABG. We'll give him some aspirin to chew and swallow. He does not seem to be in fluid overload so congestive heart failure is less likely. Because he takes Eliquis it would be less likely for him to have a pulmonary embolism. He is not experiencing any distress at this time. ECG Initial ECG Impression Date: Sep 29, 2019 Initial ECG Impression Time: 01:14 Initial ECG Rate: 86 Initial ECG Rhythm: Normal Sinus Initial ECG Intervals: Normal Initial ECG Impression: Normal, Nonspecific Changes Initial ECG Comparisson: Unchanged Comment Normal sinus rhythm with PVC and no clinically relevant ST elevation or depression. Diagnostic Imaging Diagonstic Imaging: Xray Plain Films/CT/US/NM/MRI: chest Comments Persistent, diffuse, alveolar/interstitial pulmonary infiltrates of both lungs that appear to be chronic in nature. Unchanged from 08/12/19. Reviewed: Reviewed by Me Departure Impression Primary Impression: COPD exacerbation Disposition: 01 HOME, SELF-CARE Condition: Improved Departure-Patient Inst. Decision time for Depature: 02:05 Referrals: LAURA ARAUZ DO (PCP/Family) Primary Care Physician Patient Instructions: Exacerbation of COPD (DC) Add. Discharge Instructions: Plan to follow up later this week with Dr. Arauz for reevaluation. Return to the ER immediately if you have shortness of breath that does not resolve with 2 puffs of albuterol every 4 hours through your spacer. All discharge instructions reviewed with patient and/or family. Voiced understanding. JOSE NEELY Sep 29, 2019 01:27
[2019-09-29 01:30] LABS: INR 1.5 (0.8-1.4); PROTHROMBIN TIME PATIENT 18.9 SEC (12.2-14.7)
[2019-09-29] MEDS ORDERED: ASPIRIN 81 MG CHEW (CHILDREN'S ASA) PO ONE (01:30)
[2019-09-29 01:32] LABS: ABG BASE EXCESS 1.3 MMOL/L (-2.5-2.5); ABG OXYGEN SATURATION 93 % (94-100); ABG PCO2 40 MMHG (35-45); ABG PH 7.41 (7.37-7.43); ABG PO2 60 MMHG (79-93); ABG TCO2 26.7 MMOL/L (21.0-31.0); ALLENS TEST YES-POS
[2019-09-29 01:33] LABS: INSPIRED O2 RA; PATIENT TEMP 36.5; VENTILATOR NO
[2019-09-29 01:49] LABS: ALBUMIN 3.3 GM/DL (3.2-4.5); BILIRUBIN,TOTAL 0.4 MG/DL (0.1-1.0); CALCIUM 8.6 MG/DL (8.5-10.1); CREATININE SERUM 1.17 MG/DL (0.60-1.30); MAGNESIUM 2.2 MG/DL (1.6-2.4); TOTAL PROTEIN 7.1 GM/DL (6.4-8.2)
[2019-09-29] MEDS ORDERED: RX-ALBUTEROL INHALER (PROAIR) 8.5 GM IH STA (02:06)
--- NOTE | 2019-09-29 02:07 | NUR ---
spacer given to patient to use with albuterol inhaler per Dr Euceda.
[2019-09-29 02:08] VITALS: BP 130/77
--- NOTE | 2019-09-29 06:50 | Diagnostic Imaging Report ---
CHEST 1 VIEW, AP/PA ONLY Indication: Shortness of air and cough Comparison: 08/12/2019 Findings: Multifocal heterogeneous pulmonary consolidations have mildly progressed since prior examination. Calcified pleural plaques account for some of these opacities. No pleural effusion or pneumothorax. Stable cardiomediastinal silhouette with changes of CABG. Impression: 1. Potential worsening of heterogeneous involving the bilateral hemithoraces. These are in part due to multifocal calcified pleural plaques, although underlying pneumonia and/or exacerbation of interstitial lung disease may be present. Dictated by: Dictated on workstation # [id number]
== END 2019-09-29 02:18 | disposition home or self-care (01) ==
LOC: EDUNIT# 01:04 → ER 01:06
DX: J44.1 Chronic obstructive pulmonary disease with (acute) exacerbation (principal); Z87.891 Personal history of nicotine dependence; I25.10 Atherosclerotic heart disease of native coronary artery without angina pectoris; I25.2 Old myocardial infarction; F41.9 Anxiety disorder, unspecified; F32.9 Major depressive disorder, single episode, unspecified; E78.00 Pure hypercholesterolemia, unspecified; K21.9 Gastro-esophageal reflux disease without esophagitis; M19.91 Primary osteoarthritis, unspecified site; Z95.1 Presence of aortocoronary bypass graft; Z79.01 Long term (current) use of anticoagulants; Z79.899 Other long term (current) drug therapy
CPT/HCPCS: 36415; 71045; 80053; 82805; 83735; 83874; 83880; 84484; 85025; 85610; 85730; 93041

== ENCOUNTER 2019-10-27 11:53 | Observation (INO) | payer MEDICARE, OTHER ==
[~2019-10-27] VITALS: Ht 177 cm; Wt 88.5 kg
[~2019-10-27 11:53] MED LIST changes: -CARV6.252; +CARV6.252 PO; -CLOP75TA28; +CLOP75TA28 PO; +PRD20T PO
[2019-10-27] MEDS ORDERED: LACTATED RINGERS 1,000 ML IV ONE ×2 (12:02→13:37)
[2019-10-27 12:12] LABS: BASOPHILS % (AUTO) 0 % (0-10); EOSINOPHILS # (AUTO) 0.1 10^3/uL (0.0-0.3); EOSINOPHILS % (AUTO) 1 % (0-10); HEMATOCRIT 48 % (40-54); HEMOGLOBIN 15.2 G/DL (13.3-17.7); LYMPHOCYTES # (AUTO) 1.3 X 10^3 (1.0-4.0); LYMPHOCYTES % (AUTO) 10 % (12-44); MEAN CORPUSCULAR HEMOGLOBIN 27 PG (25-34); MEAN CORPUSCULAR HGB CONC 32 G/DL (32-36); MEAN CORPUSCULAR VOLUME 85 FL (80-99); MEAN PLATELET VOLUME 9.6 FL (7.4-10.4); MONOCYTES # (AUTO) 0.8 X 10^3 (0.0-1.0); MONOCYTES % (AUTO) 7 % (0-12); NEUTROPHILS % (AUTO) 82 % (42-75); PLATELET COUNT 218 10^3/uL (130-400); RED CELL DISTRIBUTION WIDTH 14.4 % (10.0-14.5); WHITE BLOOD COUNT 12.2 10^3/uL (4.3-11.0)
--- NOTE | 2019-10-27 12:42 | ED Fall/Injury ---
General Chief Complaint: Trauma-Non Activation Stated Complaint: FALL Nursing Triage Note: Pt to ED via EMS. Pt reports syncopal episode at home. pt has bilateral skin tears to elbows. Pt denies LOC or hitting head. Pt denies pain at this time. Source: patient, EMS, old records Exam Limitations: no limitations History of Present Illness Date Seen by Provider: Oct 27, 2019 Time Seen by Provider: 11:53 Initial Comments This 79-year-old gentleman presents to the emergency room via EMS after having a fall in his home. He was lightheaded and dizzy while walking in his living room. He fell forward onto his elbows. He has abrasions on each elbow/forearm. He denies any significant pain. He denies striking his head. He does take Eliquis. Systolic blood pressures were in the 90s on arrival. He denies any chest pain, shortness of breath, fever, cough, diarrhea, or vomiting. He does have a history of COPD and heart disease status post CABG. He normally wears supplemental oxygen and he cannot recall if he was wearing oxygen at the time of his fall. Fire Department was called to the home for a left assist. They activated EMS. Patient takes Plavix and Eliquis. He reports being up-to-date on his tetanus. His primary care provider is Dr. 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 Light in [place]. Location Injury Occurred: home Allergies and Home Medications Allergies Coded Allergies: No Known Drug Allergies (Unverified , 10/12/19) Home Medications Albuterol Sulfate 1 Puff Puff, 2 PUFF IH Q4H PRN for SHORTNESS OF BREATH 1 PUFF = 90 MCG Prescribed by: FABIO ADAME on 05/30/19 0244 Apixaban 5 Mg Tablet, 5 MG PO BID, (Reported) Pravastatin Sodium 20 Mg Tablet, 1 TAB PO DAILY, (Reported) Prednisone 20 Mg Tab, 40 MG PO DAILY Prescribed by: DO GOMEZ on 10/13/19 0132 Trazodone Hcl 100 Mg Tablet, 100 MG PO HS, (Reported) Patient Home Medication List Home Medication List Reviewed: Yes Review of Systems Review of Systems Constitutional: no symptoms reported Eyes: No Symptoms Reported Ears, Nose, Mouth, Throat: no symptoms reported Respiratory: see HPI Cardiovascular: see HPI Gastrointestinal: no symptoms reported Genitourinary: no symptoms reported Musculoskeletal: no symptoms reported Skin: see HPI Psychiatric/Neurological: No Symptoms Reported Past Qguslmv-[id number]-Ocwqrk Hx Past Med/Social Hx: Reviewed Nursing Past Med/Soc Hx Patient Social History Alcohol Use: Denies Use Recreational Drug Use: No Smoking Status: Former Smoker Type Used: Cigarettes Former Smoker, Quit: Jul 17, 2003 2nd Hand Smoke Exposure: No Recent Foreign Travel: No Contact w/Someone Who Travel: No Recent Infectious Disease Expo: No Recent Hopitalizations: No Immunizations Up To Date Date of Pneumonia Vaccine: Mar 29, 2012 Date of Influenza Vaccine: Mar 29, 2019 Past Medical History Surgeries: Yes (LEFT KNEE SURGERY; CARDIAC CATHS-AT LEAST 5 STENTS, PER PT; 4 VESSEL CABG; ) Cardiac, CABG, Coronary Stent, Gallbladder, Orthopedic Respiratory: Yes (POSS ASBESTOS EXPOSURE-PULMONARY FIBROSIS; STARTED ON HOME O2 10/12/19) COPD Currently Using CPAP: No Currently Using BIPAP: No Cardiac: Yes ("5 HEART ATTACKS" PER PT; 4 VESSEL CABG; AT LEAST 5 STENTS, PER PT) Chronic Edema/Swelling, Coronary Artery Disease (with systolic heart failure), Heart Attack, High Cholesterol, Hypertension, Hypotension, Peripheral Vascular Neurological: No Reproductive Disorders: No Genitourinary: No Gastrointestinal: Yes Gastroesophageal Reflux, Pancreatitis Musculoskeletal: Yes (LEFT KNEE SURGERY) Arthritis, Fractures Endocrine: No HEENT: No Cancer: No Psychosocial: Yes Sleep Difficulties, Anxiety, Depression Integumentary: No Blood Disorders: No Physical Exam Vital Signs Vital Signs - First Documented 10/27/19 11:53 Temp 36.4 Pulse 58 Resp 28 B/P (MAP) 95/61 (72) Pulse Ox 99 O2 Delivery Nasal Cannula O2 Flow Rate 2.00 Capillary Refill : Less Than 3 Seconds Height, Weight, BMI Height: '" Weight: 195lbs. oz. 88.644671ob; 22.00 BMI Method: General Appearance: WD/WN, no apparent distress, thin HEENT: PERRL/EOMI, normal ENT inspection Neck: normal inspection Cardiovascular: regular rate, rhythm, no edema, no murmur, other (PVCs. Radial pulses palpable but weak) Respiratory: no respiratory distress, no accessory muscle use, crackles (bilateral bases, right greater than left) Gastrointestinal: non tender, soft Extremities: non-tender, no pedal edema, other (abrasions to the bilateral elbow/forearms) Neurologic/Psychiatric: blacking wheel tender II-XII nml as tested, no motor/sensory deficits, alert, normal mood/affect, oriented x 3 Skin: normal color, warm/dry Katt Coma Score Best Eye Response: (4) Open Spontaneously Best Verbal Response: (5) Oriented Best Motor Response: (6) Obeys Commands Chambers Total: 15 Progress/Results/Core Measures Results/Orders Lab Results Laboratory Tests Test 10/27/19 12:00 10/27/19 13:30 Range/Units White Blood Count 12.2 H 4.3-11.0 10^3/uL Red Blood Count 5.63 4.35-5.85 10^6/uL Hemoglobin 15.2 13.3-17.7 G/DL Hematocrit 48 40-54 % Mean Corpuscular Volume 85 80-99 FL Mean Corpuscular Hemoglobin 27 25-34 PG Mean Corpuscular Hemoglobin Concent 32 32-36 G/DL Red Cell Distribution Width 14.4 10.0-14.5 % Platelet Count 218 130-400 10^3/uL Mean Platelet Volume 9.6 7.4-10.4 FL Neutrophils (%) (Auto) 82 H 42-75 % Lymphocytes (%) (Auto) 10 L 12-44 % Monocytes (%) (Auto) 7 0-12 % Eosinophils (%) (Auto) 1 0-10 % Basophils (%) (Auto) 0 0-10 % Neutrophils # (Auto) 10.0 H 1.8-7.8 X 10^3 Lymphocytes # (Auto) 1.3 1.0-4.0 X 10^3 Monocytes # (Auto) 0.8 0.0-1.0 X 10^3 Eosinophils # (Auto) 0.1 0.0-0.3 10^3/uL Basophils # (Auto) 0.0 0.0-0.1 10^3/uL Sodium Level 136 135-145 MMOL/L Potassium Level 4.4 3.6-5.0 MMOL/L Chloride Level 96 L 98-107 MMOL/L Carbon Dioxide Level 29 21-32 MMOL/L Anion Gap 11 5-14 MMOL/L Blood Urea Nitrogen 13 7-18 MG/DL Creatinine 0.94 0.60-1.30 MG/DL Estimat Glomerular Filtration Rate > 60 BUN/Creatinine Ratio 14 Glucose Level 107 H 70-105 MG/DL Calcium Level 9.3 8.5-10.1 MG/DL Corrected Calcium 9.8 8.5-10.1 MG/DL Magnesium Level 2.2 1.6-2.4 MG/DL Total Bilirubin 0.7 0.1-1.0 MG/DL Aspartate Amino Transf (AST/SGOT) 22 5-34 U/L Alanine Aminotransferase (ALT/SGPT) 11 0-55 U/L Alkaline Phosphatase 101 40-136 U/L Troponin I < 0.028 <0.028 NG/ML C-Reactive Protein High Sensitivity 7.84 H 0.00-0.50 MG/DL B-Type Natriuretic Peptide 162.2 H <100.0 PG/ML Total Protein 7.2 6.4-8.2 GM/DL Albumin 3.4 3.2-4.5 GM/DL Urine Color YELLOW Urine Clarity SL CLOUDY Urine pH 6.0 5-9 Urine Specific [place] 1.025 H 1.016-1.022 Urine Protein TRACE H NEGATIVE Urine Glucose (UA) NEGATIVE NEGATIVE Urine Ketones NEGATIVE NEGATIVE Urine Nitrite POSITIVE H NEGATIVE Urine Bilirubin 1+ H NEGATIVE Urine Urobilinogen 4.0 < = 1.0 MG/DL Urine Leukocyte Esterase 2+ H NEGATIVE Urine RBC (Auto) 1+ H NEGATIVE Urine RBC 0-2 /HPF Urine WBC 25-50 H /HPF Urine Squamous Epithelial Cells 0-2 /HPF Urine Crystals NONE /LPF Urine Bacteria MODERATE H /HPF Urine Casts NONE /LPF Urine Mucus SMALL H /LPF Urine Culture Indicated YES My Orders Orders - FABIO HILLS MD BNP (10/27/19 12:02) Cbc With Automated Diff (10/27/19 12:02) Comprehensive Metabolic Panel (10/27/19 12:02) Hs C Reactive Protein (10/27/19 12:02) Magnesium (10/27/19 12:02) Ua Culture If Indicated (10/27/19 12:02) Troponin I (10/27/19 12:02) Chest 1 View, Ap/Pa Only (10/27/19 12:02) Ed Iv/Invasive Line Start (10/27/19 12:02) Lactated Ringers (Lr 1000 Ml Iv Solution (10/27/19 12:02) Ekg Tracing (10/27/19 12:02) Monitor-Rhythm Ecg Trace Only (10/27/19 12:02) Ed Iv/Invasive Line Start (10/27/19 13:37) Lactated Ringers (Lr 1000 Ml Iv Solution (10/27/19 13:37) Urine Culture (10/27/19 13:30) Ceftriaxone For Iv Use (Rocephin For I (10/27/19 14:15) Medications Given in ED Current Medications Medications Dose Ordered Sig/Husam Route Start Time Stop Time Status Last Admin Dose Admin Ceftriaxone Sodium 1000 mg/ Sterile Water 10 ml @ 200 mls/hr ONCE ONCE IV 10/27/19 14:15 10/27/19 14:17 DC 10/27/19 14:11 200 MLS/HR Lactated Ringer's 1,000 ml @ 0 mls/hr Q0M ONCE IV 10/27/19 12:02 10/27/19 12:05 DC 10/27/19 12:12 500 MLS/HR Lactated Ringer's 1,000 ml @ 0 mls/hr Q0M ONCE IV 10/27/19 13:37 10/27/19 13:39 DC 10/27/19 13:40 1,000 MLS/HR Vital Signs/I&O 10/27/19 10/27/19 11:53 12:53 Temp 36.4 Pulse 58 66 66 Resp 28 B/P (MAP) 95/61 (72) 117/64 (81) 92/59 (70) Pulse Ox 99 O2 Delivery Nasal Cannula O2 Flow Rate 2.00 Blood Pressure Mean: 72 Progress Progress Note #1: Progress Note Workup has been relatively unremarkable. After a 500 mL saline bolus patient was still unable to stand due to weakness. After he completed a 1 L LR bolus he was able to stand but systolic blood pressure was 72. He reported dizziness resolved. He was eventually able to urinate a small amount of very dark urine. A second liter of LR is being infused now. Progress Note #2: Time: 15:01 Progress Note Patient's blood pressure in the bed seemed to respond well to hydration with systolic blood pressures in the 130s. However, on standing his systolic blood pressure was in the 70s and both arms. He seems to have a hemodynamic intolerance to orthostatic changes. He does take a beta august which he may not be able to tolerate. Labs do not seem to support severe dehydration as his BUN, creatinine, and urine ketones are all normal. Although he was feeling better and dizziness resolved and he was able to stand independently, I do not feel comfortable sending him home with these blood pressure abnormalities. Patient is agreeable to admission for observation. We will hold his beta august and continue to hydrate with fluids at a maintenance rate. He received Rocephin for treatment of urinary tract infection. There is no significant injury found on physical exam. Patient is being admitted for medical reasons, not for trauma. Trauma consult is not necessary. Initial ECG Impression Date: Oct 27, 2019 Initial ECG Impression Time: 12:00 Initial ECG Rate: 61 Initial ECG Rhythm: Normal Sinus Comment Sinus rhythm with no ST elevation or depression. Multiple PVCs noted. Automated read notes nonspecific intraventricular conduction delay. Diagnostic Imaging Diagonstic Imaging: Xray Plain Films/CT/US/NM/MRI: chest Comments Chest x-ray viewed by me and report reviewed. See report below: NAME: [facility] REC#: [id number] PT STATUS: REG ER : 1940 PHYSICIAN: FABIO HILLS MD ADMIT DATE: 10/27/19/ER Signed Date of Exam:10/27/19 CHEST 1 VIEW, AP/PA ONLY INDICATION: Syncopal episode. TIME OF EXAM: 12:42 PM Correlation is made with prior chest from 10/12/2019. Changes of median sternotomy are noted. Heart size is stable. Bilateral opacities consistent with combination of pleural plaquing and parenchymal fibrotic changes is again noted and similar to prior study. No significant effusion is seen. There is no pneumothorax. IMPRESSION: Stable chronic changes when compared to examination from 10/12/2019. Dictated by: Dictated on workstation # [id number] Dict: 10/27/19 1245 Trans: 10/27/19 1458 CVB [id number] Interpreted by: HUI LARSON MD Electronically signed by: HUI LARSON MD 10/27/19 1458 Departure Communication (Admissions) Time/Spoke to Admitting Phy: 14:56 Dr. Palma Impression Primary Impression: Orthostatic hypotension Additional Impressions: Fall on same level Qualified Codes: W18.30XA - Fall on same level, unspecified, initial encounter Hypovolemia Urinary tract infection Qualified Codes: N39.0 - Urinary tract infection, site not specified Abrasion of forearm Qualified Codes: S50.819A - Abrasion of unspecified forearm, initial encounter Disposition: HOME, SELF-CARE Condition: Improved Admissions Decision to Admit Reason: Admit from ER (General) Decision to Admit/Date: Oct 27, 2019 Time/Decision to Admit Time: 14:45 Departure-Patient Inst. Referrals: LAURA ARAUZ DO (PCP/Family) Primary Care Physician Add. Discharge Instructions: All discharge instructions reviewed with patient and/or family. Voiced understanding. Copy Copies To 1: LAURA ARAUZ JOSHUA T MD Oct 27, 2019 12:42
[2019-10-27 12:47] LABS: ALANINE AMINOTRANSFERASE 11 U/L (0-55); ALBUMIN 3.4 GM/DL (3.2-4.5); ALKALINE PHOSPHATASE 101 U/L (40-136); BILIRUBIN,TOTAL 0.7 MG/DL (0.1-1.0); BUN/CREATININE RATIO 14; CALCIUM 9.3 MG/DL (8.5-10.1); CARBON DIOXIDE 29 MMOL/L (21-32); CHLORIDE 96 MMOL/L (98-107); CREATININE SERUM 0.94 MG/DL (0.60-1.30); GFR ESTIMATED > 60; GLUCOSE 107 MG/DL (70-105); MAGNESIUM 2.2 MG/DL (1.6-2.4); POTASSIUM 4.4 MMOL/L (3.6-5.0); SODIUM 136 MMOL/L (135-145); TOTAL PROTEIN 7.2 GM/DL (6.4-8.2)
--- NOTE | 2019-10-27 12:49 | Diagnostic Imaging Report ---
INDICATION: Syncopal episode. TIME OF EXAM: 12:42 PM Correlation is made with prior chest from 10/12/2019. Changes of median sternotomy are noted. Heart size is stable. Bilateral opacities consistent with combination of pleural plaquing and parenchymal fibrotic changes is again noted and similar to prior study. No significant effusion is seen. There is no pneumothorax. IMPRESSION: Stable chronic changes when compared to examination from 10/12/2019. Dictated by: Dictated on workstation # [id number]
[2019-10-27 12:53] VITALS: BP_SYST 117; BP_SYST 92; BP_DIAS 59; BP_DIAS 64
--- NOTE | 2019-10-27 12:54 | NUR ---
Pt could not stand for orthostatic vitals. Pt reports feeling weak, and "I'm just not having a good day."
--- NOTE | 2019-10-27 13:31 | NUR ---
This nurse stood pt up with assistance from Dr. Knight. Pt's BP 72/51 upon standing.
[2019-10-27 13:42] LABS: CLARITY,URINE SL CLOUDY; COLOR,URINE YELLOW; GLUCOSE, URINE (UA) NEGATIVE (NEGATIVE); KETONES,URINE NEGATIVE (NEGATIVE); LEUKOCYTE ESTERASE ,URINE 2+ (NEGATIVE); NITRITE,URINE POSITIVE (NEGATIVE); PROTEIN,URINE TRACE (NEGATIVE)
[2019-10-27 13:50] LABS: BACTERIA,URINE MODERATE /HPF; BILIRUBIN,URINE 1+ (NEGATIVE); RBC,URINE 0-2 /HPF; SQUAMOUS EPITHELIAL CELL,UR 0-2 /HPF; WBC,URINE 25-50 /HPF
[2019-10-27] MEDS ORDERED: cefTRIAXone FOR IV USE 1,000 MG in WATER (STERILE) FOR INJECTION 10 ML IV ONE (14:15)
--- NOTE | 2019-10-27 14:44 | NUR ---
Pt stood with assistance from this nurse and Dr. Knight and blood pressure dropped to the 70's.
--- NOTE | 2019-10-27 16:00 | NUR ---
BRITT ELAINE admitted to room 420-1, with an admitting diagnosis of ORTHOSTATIC HYPERTENSION AND UTI, on 10/27/19 from ED via BED, accompanied by STAFF .BRITT ELAINE introduced to surroundings, call light, bed controls, phone, TV, temperature control, lights, meal times, smoking policy, visitor policy, side rail policy, bathrooms and showers. Patient Rights given to patient in the handbook. BRITT ELAINE verbalizes understanding that [facility] is not responsible for the loss or damage to any personal effects or valuables that are kept in the patients posession during their hospitalization. The following Patient Care Plans were discussed with the PATIENT: Discharge Planning, KNOWLEDGE, PAIN, INJURY, URINARY ELIMINATION. BRITT ELAINE verbalizes understanding of Interdisciplinary Patient Education.
[2019-10-27 16:30] VITALS: BP_SYST 121; BP_SYST 72; BP_SYST 91; BP_DIAS 50; BP_DIAS 56
[2019-10-27 16:33] VITALS: BP 121/56
[2019-10-27] MEDS: MEROPENEM 500 MG/SWFI 10 ML IV PUSH IV SCH ×4 (17:39→23:25)
[2019-10-27] MEDS: LACTATED RINGERS 1,000 ML IV SCH (17:39)
[2019-10-27 19:13] VITALS: BP 95/61
[2019-10-27] MEDS: APIXABAN 5 MG (ELIQUIS) TABLET PO SCH (20:15)
[2019-10-27 20:16] VITALS: BP 93/52
[2019-10-27] MEDS: RT-ALBUTEROL/IPRATROPIUM 3 ML (DUONEB) VIAL INH SCH (22:07)
[2019-10-27 23:45] VITALS: BP 101/60
[2019-10-28] MEDS: LACTATED RINGERS 1,000 ML IV SCH ×2 (00:49→10:11)
[2019-10-28] MEDS: RT-ALBUTEROL/IPRATROPIUM 3 ML (DUONEB) VIAL INH SCH ×3 (03:06→10:26)
[2019-10-28 04:10] VITALS: BP_SYST 77; BP_SYST 92; BP_SYST 93; BP_DIAS 47; BP_DIAS 51; BP_DIAS 58
[2019-10-28 04:15] VITALS: BP 93/58
[2019-10-28] MEDS: MEROPENEM 500 MG/SWFI 10 ML IV PUSH IV SCH ×4 (05:57→12:30)
[2019-10-28 06:28] LABS: BASOPHILS % (AUTO) 0 % (0-10); EOSINOPHILS # (AUTO) 0.2 10^3/uL (0.0-0.3); EOSINOPHILS % (AUTO) 2 % (0-10); HEMATOCRIT 42 % (40-54); HEMOGLOBIN 13.2 G/DL (13.3-17.7); LYMPHOCYTES # (AUTO) 1.3 X 10^3 (1.0-4.0); LYMPHOCYTES % (AUTO) 16 % (12-44); MEAN CORPUSCULAR HEMOGLOBIN 27 PG (25-34); MEAN CORPUSCULAR HGB CONC 31 G/DL (32-36); MEAN CORPUSCULAR VOLUME 87 FL (80-99); MEAN PLATELET VOLUME 9.4 FL (7.4-10.4); MONOCYTES # (AUTO) 0.6 X 10^3 (0.0-1.0); MONOCYTES % (AUTO) 8 % (0-12); NEUTROPHILS # (AUTO) 6.2 X 10^3 (1.8-7.8); NEUTROPHILS % (AUTO) 75 % (42-75); PLATELET COUNT 177 10^3/uL (130-400); RED CELL DISTRIBUTION WIDTH 14.2 % (10.0-14.5); WHITE BLOOD COUNT 8.3 10^3/uL (4.3-11.0)
[2019-10-28 06:52] LABS: ALANINE AMINOTRANSFERASE 8 U/L (0-55); ALBUMIN 2.7 GM/DL (3.2-4.5); ALKALINE PHOSPHATASE 77 U/L (40-136); BILIRUBIN,TOTAL 0.5 MG/DL (0.1-1.0); BUN/CREATININE RATIO 13; CALCIUM 8.3 MG/DL (8.5-10.1); CARBON DIOXIDE 33 MMOL/L (21-32); CHLORIDE 100 MMOL/L (98-107); CREATININE SERUM 0.84 MG/DL (0.60-1.30); GFR ESTIMATED > 60; GLUCOSE 86 MG/DL (70-105); POTASSIUM 4.3 MMOL/L (3.6-5.0); SODIUM 141 MMOL/L (135-145); TOTAL PROTEIN 5.4 GM/DL (6.4-8.2)
[2019-10-28 08:00] VITALS: BP 150/69
[2019-10-28] MEDS ORDERED: CLOPIDOGREL 75 MG (PLAVIX) TABLET PO SCH (09:00)
[2019-10-28] MEDS ORDERED: TRAZ-227 PO (10:00)
[2019-10-28] MEDS ORDERED: VENL150C98 PO (10:00)
[2019-10-28] MEDS: APIXABAN 5 MG (ELIQUIS) TABLET PO SCH (10:11)
--- NOTE | 2019-10-28 10:59 | NUR ---
"RD ASSESSMENT PMHx: CAD; VA; hypercholesterolemia; HTN; GERD; pancreatitis PT INTERACTION: Pt was awake and pleasant during consult for MST score. Pt states current appetite is good. Note avg PO intake of 75% x2meal, per chart review. Pt states following a regular diet at home and has no issues with chewing/swallowing food. Pt states no recent issues with nausea or vomiting. Pt states some recent issues with constipation. Note last BM was 10/26 and pt not currently on bowel regimen per chart review. Pt states recent 30# wt loss x6mon. Note recent 37# wt loss x3mon, per chart review. This is significant wt loss at 21% x3mon. Upon visual assessment, pt appears to be adequately nourished, though has signs of increased wt loss and a BMI of 19.5. Given pt's age, this BMI is classified as Underweight. Given pt's wt hx and visual assessment, pt meets criteria for malnutrition per ASPEN guidelines. ABNORMAL NUTRITION-RELATED LAB VALUES LOW: Ca 8.3; Pro 5.4; alb 2.7 HIGH: Est. kcal needs: 0983-0119 kcal | 30-35 kcal/kg Est. Pro needs: 61-73 g Pro | 1.0-1.2 g Pro/kg PES STATEMENT: Inadequate oral intake (NI-2.1) related to loss of appetite | constipation as evidenced by pt interview INTERVENTION: Continue with current diet order of Regular diet. Continue with current supplementation order of Ensure Enlive (vary) with meals TID, for increased kcal intake. Provides 350 kcal and 13 g Pro per serving. Encouraged pt to eat when able. Will continue to follow and reassess as pt needs, intake, and status change. MONITOR/EVALUATE: PO Intake; Plan of Care; Hydration Status; Weight Status; Lab Values Kavya Brown, MS, RD, LD"
[2019-10-28 11:02] VITALS: BP_SYST 101; BP_SYST 70; BP_SYST 92; BP_DIAS 35; BP_DIAS 55; BP_DIAS 59
[2019-10-28] MEDS ORDERED: PRAV80TA2 PO (11:07)
[2019-10-28] MEDS ORDERED: FURO40TA4 PO (11:09)
[2019-10-28] MEDS ORDERED: FINA5TAB6 PO (11:09)
[2019-10-28] MEDS ORDERED: POTA20TA15 PO (11:11)
--- NOTE | 2019-10-28 11:19 | NUR ---
SPOKE WITH THE PT (HE HAD HIS MEDS IN BAGGIES LABELED WITH THE DAY OF THE WEEK AND TIME TO TAKE THEM) WENT THRU THE EXT MED HISTORY AND CALLED [facility] TO COMPLETE THE MED REC FINASTERIDE 5MG LAST FILLED 07-28-2019 #90/90DS (MED NOT LISTED ON THE EXT MED HISTORY) ELIQUIS 5MG LAST FILLED 08-12-2019 #90/45DS- THE MED IS PAST DUE FOR A REFILL- I DID DOCUMENT THIS ON THE MED REC OTC MEDS: NONE
[2019-10-28 12:00] VITALS: BP 101/59
[2019-10-28] MEDS ORDERED: LACTATED RINGERS 1,000 ML IV SCH (12:15)
--- NOTE | 2019-10-28 12:47 | Physical Therapy Evaluation ---
PT Evaluation-General Medical Diagnosis Admission Date Oct 27, 2019 at 14:59 Medical Diagnosis: Orthostatic hypotension Onset Date: Oct 27, 2019 Therapy Diagnosis Therapy Diagnosis: Impaired mobility Height/Weight Weight (Pounds): 195 Precautions Precautions/Isolations: Fall Prevention, Standard Precautions, Pressure Ulcer Weight Bear Status Right Lower Extremity: Right Weight Bearing/Tolerated Left Lower Extremity: Left Weight Bearing/Tolerated Referral Physician: Gena Palma MD Reason for Referral: Evaluation/Treatment Medical History Pertinent Medical History: CABG, CAD, [place] Additional Medical History former smoker, 5 cardiac stents, pulmonary fibrosis, hypercholesterolemia, PVD, depression, anxiety Current History Pt has had multiple syncope episodes in the past 3 days, with the last one leaving him on the floor unable to get up. Reviewed History: Yes Social History Home: Single Level Current Living Status: Other Family Entry Into Home: Stairs With Railing PT Steps Into Home: 3 At home with granddaughter. Prior Prior Level of Function SCALE: Activities may be completed with or without assistive devices. 5-Cnuxkcyerj-kwtuwgb completes the activity by him/herself with no assistance from a helper. 5-Set-up or Clean-up Assistance-helper sets up or cleans up; patient completes activity. Issue assists only prior to or following the activity. 4-Supervision or Touching Assistance-helper provides verbal cues and/or touching/steadying and/or contact guard assistance as patient completes activity. Assistance may be provided throughout the activity or intermittently. 3-Partial/Moderate Assistance-helper does LESS THAN HALF the effort. Issue lifts, holds or supports trunk or limbs, but provides less than half the effort. 2-Substantial/Maximal Assistance-helper does MORE THAN HALF the effort. Issue lifts or holds trunk or limbs and provides more than half the effort. 9-Uodddumjw-yandmm does ALL the effort. Patient does none of the effort to complete the activity. Or, the assistance of 2 or more helpers is required for the patient to complete the activity. If activity was not attempted, code reason: 7-Patient Refused. 9-Not Applicable-not attempted and the patient did not perform the activity before the current illness, exacerbation or injury. 10-Not Attempted due to Environmental Limitations-(lack of equipment, weather restraints, etc.). 88-Not Attempted due to Medical Conditions or Safety Concerns. Bed Mobility: 6 Transfers (B,C,W/C): 6 Gait: 6 Stairs: 6 Indoor Mobility (Ambulation): Independent Stairs: Independent Prior Devices Use: Other-see list below Prior Device Use: cane PT Evaluation-Current Subjective Pt denies any pain or issues on arrival. He states that he is ready to go home. Objective Patient Orientation: Person, Place, Time, Situation Attachments: Oxygen, IV ROM/Strength ROM Upper Extremities WFL ROM Lower Extremities Pt is unable to fully extend either knee, lacking ~10-15 degrees of extension. Strength Upper Extremities WFL Strength Lower Extremities 4-/5 (B) lower extremity strength Neuromuscular (Tone, Coordination, Reflexes) Intact Sensory Vision: Wears Glasses Hearing: Functional Hand Dominance: Right Sensation Right Upper Extremit: Intact Sensation Left Upper Extremity: Intact Sensation Right Lower Extremit: Intact Sensation Left Lower Extremity: Intact Transfers Roll Left to Right (QC): 5 Sit to Lying (QC): 5 Lying to Sitting/Side of Bed(Q: 5 Sit to Stand (QC): 5 Chair/Rrs-ci-Pkfmc Xfer(QC): 4 Toilet Transfer (QC): 4 Gait Does the Patient Walk?: Yes Mode of Locomotion: Walk Anticipated Mode of Locomotion: Walk Walk 10 feet (QC): 4 Walk 50 ft with 2 Turns(QC): 88 Walk 150 ft (QC): 88 Walking 10ft/uneven surface-QC: 88 Distance: 20ft Gait Assistive Device: FWW Comments/Gait Description On his first attempt he had a syncope episode and had to be helped back to the chair. On the second attempt he was able to walk from the chair to the toilet and back with CGA. Wheelchair Training Does the Pt Use a Wheelchair?: No Balance Sitting Static: Normal Sitting Dynamic: Normal Standing Static: Good Standing Dynamic: Fair Assessment/Needs Pt given exercises to perform prior to standing to reduce the risk of syncope. He was able to perform the exercises (I). The episode of syncope requires him to be assist of 1 with all transfers. Rehab Potential: Good PT Short Term Goals Short Term Goals Time Frame: November 04, 2019 Roll Left & Right: 6 Sit to lyin Lying to sitting on side of be: 6 Sit to stand: 6 Chair/ycu-rz-ifuau transfer: 6 Toilet transfer: 6 Car transfer: 6 Walk 10 feet: 6 Walk 50 feet with two turns: 6 Walk 150 feet: 6 1 step (curb): 6 4 steps: 6 PT Plan Problem List Problem List: Activity Tolerance, Functional Strength, Safety, Balance, Gait, Transfer Treatment/Plan Treatment Plan: Continue Plan of Care Treatment Plan: Education, Functional Activity Nestor, Functional Strength, Gait, Safety, Therapeutic Exercise, Transfers Treatment Duration: November 04, 2019 Frequency: 6 times per week Estimated Hrs Per Day: .25 hour per day Time/GCodes Time In: 1010 Time Out: 1040 Total Billed Treatment Time: 30 Total Billed Treatment 1, [facility] (30) MARIANA JEFFERSON PT October 28, 2019 12:47
[2019-10-28] MEDS ORDERED: CEFD300C3 PO (14:27)
--- NOTE | 2019-10-28 14:34 | Discharge Summary ---
Discharge Summary Reconcile Patient Problems Problems Reviewed?: Yes Instructions for Patient [facility], Assessment/Instructions Take medications as prescribed. Complete your course of antibiotics even if you're feeling better. Stop taking Coreg. Use her cane to assist with ambulation. Participate with physical therapy. Follow up with your primary care physician in 1 to 2 weeks. Physician to follow Patient: Davonte Discharge Diet for Home: No Restrictions Hospital Course Date of Admission: Oct 27, 2019 at 14:59 Admission Diagnosis : Orthostatic hypotension Family Physician/Provider: Ian Arauz DO Date of Discharge: 10/28/19 Discharge Diagnosis: Orthostatic hypotension Hospital Course: Brayan Will is a 79-year-old male with past medical history of hypertension, hyperlipidemia, COPD, coronary artery disease status post CABG, who presented with a fall and was admitted with orthostatic hypotension due to dehydration and urinary tract infection. He was started on IV antibiotics. He was transitioned to oral Omnicef on discharge with urine culture results still pending. He was given IV fluids and his orthostasis improved. He was instructed to transfer slowly when getting out. He should discontinue his Coreg. He was set up with [facility] with physical therapy on discharge. His discharged in stable condition. Labs and Pending Lab Test: Laboratory Tests 10/28/19 06:12: White Blood Count 8.3, Red Blood Count 4.88, Hemoglobin 13.2L, Hematocrit 42, Mean Corpuscular Volume 87, Mean Corpuscular Hemoglobin 27, Mean Corpuscular Hemoglobin Concent 31L, Red Cell Distribution Width 14.2, Platelet Count 177, Mean Platelet Volume 9.4, Neutrophils (%) (Auto) 75, Lymphocytes (%) (Auto) 16, Monocytes (%) (Auto) 8, Eosinophils (%) (Auto) 2, Basophils (%) (Auto) 0, Neutrophils # (Auto) 6.2, Lymphocytes # (Auto) 1.3, Monocytes # (Auto) 0.6, Eosinophils # (Auto) 0.2, Basophils # (Auto) 0.0, Sodium Level 141, Potassium Level 4.3, Chloride Level 100, Carbon Dioxide Level 33H, Anion Gap 8, Blood Urea Nitrogen 11, Creatinine 0.84, Estimat Glomerular Filtration Rate > 60, BUN/Creatinine Ratio 13, Glucose Level 86, Calcium Level 8.3L, Corrected Calcium 9.3, Total Bilirubin 0.5, Aspartate Amino Transf (AST/SGOT) 15, Alanine Aminotransferase (ALT/SGPT) 8, Alkaline Phosphatase 77, C-Reactive Protein High Sensitivity 6.38H, Total Protein 5.4L, Albumin 2.7L Microbiology 10/27/19 Urine Culture - Preliminary, Resulted Gram Pos Mixed Bacterial Jessica Home Meds Active Cefdinir 300 Mg Capsule 300 Mg PO BID 10 Days Reported Potassium Chloride 20 Meq Tab.er.prt 20 Meq PO Q48H PRN TAKES POTASSIUM AND FUROSEMIDE TOGETHER Finasteride 5 Mg Tablet 5 Mg PO HS Furosemide 40 Mg Tablet 40 Mg PO Q48H PRN Pravastatin Sodium 80 Mg Tablet 40 Mg PO HS TAKES OF AN 80MG TAB Trazodone HCl 100 Mg Tablet 100 Mg PO HS Venlafaxine HCl ER (Venlafaxine HCl) 150 Mg Cap.er.24h 150 Mg PO DAILY Eliquis (Apixaban) 5 Mg Tablet 5 Mg PO BID LAST FILLED 08-12-2019 #90/45 DAY SUPPLY Clopidogrel (Clopidogrel Bisulfate) 75 Mg Tablet 75 Mg PO DAILY Carvedilol 6.25 Mg Tablet 6.25 Mg PO BID Patient Allergies: Coded Allergies: No Known Drug Allergies (Unverified , 10/12/19) Weight (Pounds): 195 Home Health Need/Face to Face Date of Face to Face: October 28, 2019 Clinical Findings: Instability, Muscle weakness I have seen Pt [id number]: Yes Discharged To: Home Diagnosis/Conditions: Orthostatic hypotension, urinary tract infection Problems/Diagnosis/Condition: (1) Orthostatic hypotension (2) Urinary tract infection Patient is Homebound due to: [place] fall risk due to instabilty, Muscle weakness Homebound Status Due to the above stated illness, injury or surgical procedure (medical condition or diagnosis) and associated clinical findings, the patient is homebound because of his/her inability to leave home except with aid of a supportive device and/or person AND leaving the home requires a considerable and taxing effort or is medically contraindicated. Pt req the following assistanc: Cane Home Health Nursing Orders Home Health Services Order: Physical Therapy-Evaluate & Treat Eval for nursing services and OT Home Health Infusion Therapy Line Start Date: Oct 27, 2019 Therapy Orders Therapy Orders: Physical Therapy, PT to assess for OT Therapy Specific Orders: Eval assistive deivces, Teach enviro modifications/safety, Gait training, Increase strength/endurance Certify Stmt I certify that this patient is under my care and that I, a nurse practitioner or a physician; a multimedia assistant working with me, had a face to face encounter that - meets the physician face to face encounter requirements with this patient as dated. Discharge Physical Exam General: Alert, Oriented X3, Cooperative, No Acute Distress HEENT: Atraumatic, EOMI, Mucous Memb Moist/[place] Lungs: Clear to Auscultation, Normal Air Movement Heart: Regular Rate, Normal S1, Normal S2, No Murmurs Abdomen: Normal Bowel Sounds, Soft, No Tenderness Extremities: No Edema, No Tenderness/Swelling Skin: No Rashes, No Significant Lesion Neuro: Normal Speech, Other (Motor weakness) Psych/Mental Status: Mental Status NL, Mood NL MANOJ MARTINEZ MD October 28, 2019 14:33
[2019-10-28] MEDS ORDERED: FINASTERIDE (PROSCAR) 5 MG TAB PO SCH (21:00)
[2019-10-28] MEDS ORDERED: SIMvastatin 20 MG (ZOCOR) TAB PO SCH (21:00)
[2019-10-28] MEDS ORDERED: traZODone 100 MG (DESYREL) TAB PO SCH (21:00)
[2019-10-29] MEDS ORDERED: VENlafaxine XR 75 MG (EFFEXOR XR) CAP PO SCH (09:00)
== END 2019-10-28 15:50 | disposition home or self-care (01) ==
LOC: EDUNIT# 11:53 → ER 11:53 → 4TH 14:59
PROVIDERS: ADMIT Internal Medicine; ATTEND Internal Medicine
DX: I95.1 Orthostatic hypotension (principal); S50.819A Abrasion of unspecified forearm, initial encounter; I25.10 Atherosclerotic heart disease of native coronary artery without angina pectoris; I25.2 Old myocardial infarction; I10 Essential (primary) hypertension; E86.1 Hypovolemia; E78.5 Hyperlipidemia, unspecified; E86.0 Dehydration; J44.9 Chronic obstructive pulmonary disease, unspecified; K21.9 Gastro-esophageal reflux disease without esophagitis; M19.90 Unspecified osteoarthritis, unspecified site; G47.9 Sleep disorder, unspecified; N39.0 Urinary tract infection, site not specified; F32.9 Major depressive disorder, single episode, unspecified; F41.9 Anxiety disorder, unspecified; W18.30XA Fall on same level, unspecified, initial encounter; Z95.1 Presence of aortocoronary bypass graft; Z79.02 Long term (current) use of antithrombotics/antiplatelets; Z79.01 Long term (current) use of anticoagulants; Z79.899 Other long term (current) drug therapy; Z87.891 Personal history of nicotine dependence
CPT/HCPCS: 36415; 71045; 80053; 81000; 83735; 83880; 84484; 85025; 86141; 87077; 87088; 87186; 93005; 93041; 94640; G0378

== ENCOUNTER 2019-11-08 17:16 | Emergency (ER) | payer MEDICARE, OTHER ==
[~2019-11-08] VITALS: Ht 177 cm; Wt 61.1 kg
[~2019-11-08 17:16] MED LIST changes: +FINA5TAB6 PO; +FURO40TA4 PO; +POTA20TA15 PO; +PRAV80TA2 PO; +TRAZ-227 PO; +VENL150C98 PO
--- NOTE | 2019-11-08 17:45 | ED Fall/Injury ---
General Chief Complaint: Trauma-Non Activation Stated Complaint: FALL,DIZZINESS Source: patient Exam Limitations: no limitations (KENY VALLE MD) History of Present Illness Date Seen by Provider: November 08, 2019 Time Seen by Provider: 17:22 Initial Comments Here with report of fall at home. States that he had been sitting for quite a while and then stood up. He became dizzy and fell. Similar event 2 weeks ago and was found to have urinary tract infection. Denies hitting his head. States he kind of crumped down on his left leg. Complains of pain to the left lateral hip and left knee. Denies loss of consciousness. Denies other injury. States he is overall doing better currently. Denies recent fever or chills, chest pain, shortness of breath or abdominal complaints. Denies dysuria or diarrhea. Lives at home with his granddaughter Occurred: just prior to arrival (approximately one hour ago) Severity: mild Injuries/Pain Location: pelvis, lower extremity Context: lightheaded Loss of Consciousness: no loss of consciousness Modifying Factors: Worse With Movement Associated Symptoms (Fall): No Abdominal Pain, No Chest Pain, No Confusion, No Headache; Lightheadedness; No Nausea/Vomiting, No Neck Pain, No Shortness of Air, No Vision Changes (KENY VALLE MD) Allergies and Home Medications Allergies Coded Allergies: No Known Drug Allergies (Unverified , 10/12/19) Home Medications Apixaban 5 Mg Tablet, 5 MG PO BID, (Reported) LAST FILLED 08-12-2019 #90/45 DAY SUPPLY Cefdinir 300 Mg Capsule, 300 MG PO BID Prescribed by: MANOJ MARTINEZ on 10/28/19 1427 Cefdinir 300 Mg Capsule, 300 MG PO BID Prescribed by: ABISAI SINGH on 11/08/192007 Clopidogrel Bisulfate 75 Mg Tablet, 75 MG PO DAILY, (Reported) Finasteride 5 Mg Tablet, 5 MG PO HS, (Reported) Furosemide 40 Mg Tablet, 40 MG PO Q48H PRN for SHORTNESS OF BREATH/2LB GAIN, (Reported) Potassium Chloride 20 Meq Tab.er.prt, 20 MEQ PO Q48H PRN for SHORTNESS OF BREATH/2LB GAIN, (Reported) TAKES POTASSIUM AND FUROSEMIDE TOGETHER Pravastatin Sodium 80 Mg Tablet, 40 MG PO HS, (Reported) TAKES OF AN 80MG TAB Trazodone HCl 100 Mg Tablet, 100 MG PO HS, (Reported) Venlafaxine HCl 150 Mg Cap.er.24h, 150 MG PO DAILY, (Reported) Patient Home Medication List Home Medication List Reviewed: Yes (KENY VALLE MD) Review of Systems Review of Systems Constitutional: see HPI; No chills, No fever Eyes: No Symptoms Reported Ears, Nose, Mouth, Throat: no symptoms reported Respiratory: no symptoms reported Cardiovascular: see HPI; No chest pain, No edema Gastrointestinal: no symptoms reported Genitourinary: no symptoms reported Musculoskeletal: see HPI, joint pain, muscle pain Skin: no symptoms reported (KENY VALLE MD) All Other Systems Reviewed Negative Unless Noted: Yes (KENY VALLE MD) Past Rbxdpkk-Cukgpi-Scddnv Hx Past Med/Social Hx: Reviewed Nursing Past Med/Soc Hx (KENY VALLE MD) Patient Social History Alcohol Use: Denies Use Recreational Drug Use: No Smoking Status: Former Smoker Type Used: Cigarettes Former Smoker, Quit: Jul 17, 2003 2nd Hand Smoke Exposure: No Recent Hopitalizations: No (KENY VALLE MD) Immunizations Up To Date Date of Pneumonia Vaccine: Mar 29, 2012 Date of Influenza Vaccine: Mar 29, 2019 (KENY VALLE MD) Past Medical History Surgeries: Yes (LEFT KNEE SURGERY; CARDIAC CATHS-AT LEAST 5 STENTS, PER PT; 4 VESSEL CABG; ) Cardiac, CABG, Coronary Stent, Gallbladder, Orthopedic Respiratory: Yes (POSS ASBESTOS EXPOSURE-PULMONARY FIBROSIS; STARTED ON HOME O2 10/12/19) COPD Currently Using CPAP: No Currently Using BIPAP: No Cardiac: Yes ("5 HEART ATTACKS" PER PT; 4 VESSEL CABG; AT LEAST 5 STENTS, PER PT) Chronic Edema/Swelling, Coronary Artery Disease, Heart Attack, High Cholesterol, Hypertension, Hypotension, Peripheral Vascular Neurological: No Reproductive Disorders: No Genitourinary: No Gastrointestinal: Yes Gastroesophageal Reflux, Pancreatitis Musculoskeletal: Yes (LEFT KNEE SURGERY) Arthritis, Fractures Endocrine: No HEENT: No Cancer: No Psychosocial: Yes Sleep Difficulties, Anxiety, Depression Integumentary: No Blood Disorders: No (KENY VALLE MD) Family Medical History Reviewed Nursing Family Hx (KENY VALLE MD) Colon cancer 19 MOTHER Dementia G8 BROTHER Physical Exam Vital Signs Vital Signs - First Documented 11/08/19 17:20 Temp 36.6 Pulse 74 Resp 18 B/P (MAP) 121/66 (84) Pulse Ox 99 O2 Delivery Nasal Cannula O2 Flow Rate 3.00 (ABISAI SINGH APRN) Vital Signs Capillary Refill : (KENY VALLE MD) Height, Weight, BMI Height: '" Weight: 195lbs. oz. 88.751622hy; 19.50 BMI Method: General Appearance: WD/WN, no apparent distress HEENT: PERRL/EOMI, TMs normal, pharynx normal Neck: non-tender, full range of motion, supple Cardiovascular: regular rate, rhythm, no murmur Respiratory: lungs clear, normal breath sounds Gastrointestinal: non tender, soft Back: normal inspection, no CVA tenderness, no vertebral tenderness Extremities: pelvis stable, other (tender in the area of the left hip and anterior and medial and lateral left knee.) Neurologic/Psychiatric: alert, oriented x 3 Skin: normal color, warm/dry (KENY VALLE MD) [place] Coma Score Best Eye Response: (4) Open Spontaneously Best Verbal Response: (5) Oriented Best Motor Response: (6) Obeys Commands (KENY VALLE MD) Progress/Results/Core Measures Results/Orders Lab Results Laboratory Tests Test 11/08/19 17:55 11/08/19 19:49 Range/Units White Blood Count 8.1 4.3-11.0 10^3/uL Red Blood Count 5.20 4.35-5.85 10^6/uL Hemoglobin 14.0 13.3-17.7 G/DL Hematocrit 45 40-54 % Mean Corpuscular Volume 87 80-99 FL Mean Corpuscular Hemoglobin 27 25-34 PG Mean Corpuscular Hemoglobin Concent 31 L 32-36 G/DL Red Cell Distribution Width 13.8 10.0-14.5 % Platelet Count 350 130-400 10^3/uL Mean Platelet Volume 9.0 7.4-10.4 FL Neutrophils (%) (Auto) 76 H 42-75 % Lymphocytes (%) (Auto) 14 12-44 % Monocytes (%) (Auto) 9 0-12 % Eosinophils (%) (Auto) 1 0-10 % Basophils (%) (Auto) 0 0-10 % Neutrophils # (Auto) 6.1 1.8-7.8 X 10^3 Lymphocytes # (Auto) 1.1 1.0-4.0 X 10^3 Monocytes # (Auto) 0.7 0.0-1.0 X 10^3 Eosinophils # (Auto) 0.1 0.0-0.3 10^3/uL Basophils # (Auto) 0.0 0.0-0.1 10^3/uL Sodium Level 141 135-145 MMOL/L Potassium Level 4.3 3.6-5.0 MMOL/L Chloride Level 99 98-107 MMOL/L Carbon Dioxide Level 33 H 21-32 MMOL/L Anion Gap 9 5-14 MMOL/L Blood Urea Nitrogen 10 7-18 MG/DL Creatinine 0.81 0.60-1.30 MG/DL Estimat Glomerular Filtration Rate > 60 BUN/Creatinine Ratio 12 Glucose Level 114 H 70-105 MG/DL Calcium Level 8.7 8.5-10.1 MG/DL Corrected Calcium 9.3 8.5-10.1 MG/DL Total Bilirubin 0.4 0.1-1.0 MG/DL Aspartate Amino Transf (AST/SGOT) 18 5-34 U/L Alanine Aminotransferase (ALT/SGPT) 6 0-55 U/L Alkaline Phosphatase 100 40-136 U/L C-Reactive Protein High Sensitivity 3.25 H 0.00-0.50 MG/DL Total Protein 6.7 6.4-8.2 GM/DL Albumin 3.2 3.2-4.5 GM/DL Urine Color YELLOW Urine Clarity SL CLOUDY Urine pH 7.0 5-9 Urine Specific [place] 1.015 L 1.016-1.022 Urine Protein NEGATIVE NEGATIVE Urine Glucose (UA) NEGATIVE NEGATIVE Urine Ketones NEGATIVE NEGATIVE Urine Nitrite NEGATIVE NEGATIVE Urine Bilirubin NEGATIVE NEGATIVE Urine Urobilinogen 4.0 < = 1.0 MG/DL Urine Leukocyte Esterase 1+ H NEGATIVE Urine RBC (Auto) NEGATIVE NEGATIVE Urine RBC RARE /HPF Urine WBC 5-10 H /HPF Urine Squamous Epithelial Cells 0-2 /HPF Urine Crystals PRESENT H /LPF Urine Amorphous Sediment MOD PAULA PHOSPHATE H /LPF Urine Bacteria FEW H /HPF Urine Casts NONE /LPF Urine Mucus SMALL H /LPF Urine Culture Indicated YES (ABISAI SINGH APRN) My Orders Orders - ABISAI SINGH APRN Ns Iv 500 Ml (Sodium Chloride 0.9%) (11/08/19 19:00) Cefdinir Capsule (Omnicef Capsule) (11/08/19 20:15) Ct Extremity Lower Left Wo (11/08/19 20:09) Hydrocodone/Apap 5/325 Tablet (Lortab 5 (11/08/19 20:45) (ABISAI SINGH APRN) Medications Given in ED Current Medications Medications Dose Ordered Sig/Husam Route Start Time Stop Time Status Last Admin Dose Admin Acetaminophen/ Hydrocodone Bitart 1 tab ONCE ONCE PO 11/08/19 20:45 11/08/19 20:46 DC 11/08/19 20:42 1 TAB Cefdinir 300 mg ONCE ONCE PO 11/08/19 20:15 11/08/19 20:16 DC 11/08/19 20:42 300 MG (ABISAI SINGH APRN) Vital Signs/I&O 11/08/19 11/08/19 17:20 20:42 Temp 36.6 36.6 Pulse 74 Resp 18 B/P (MAP) 121/66 (84) Pulse Ox 99 O2 Delivery Nasal Cannula O2 Flow Rate 3.00 (ABISAI SINGH APRN) Progress Progress Note : Progress Note Seen and evaluated. Initially ordered pelvic and left hip x-ray and left knee but added labs due to recent hospitalization for orthostasis and urinary tract infection. We will recheck UA as well. Patient declines pain medicine. Monitor patient. (KENY VALLE MD) Diagnostic Imaging Diagonstic Imaging: CT Comments NAME: BRITT ELAINE [facility] REC#: [id number] PT STATUS: REG ER : 1940 PHYSICIAN: ABISAI SINGH APRN ADMIT DATE: 11/08/19/ER Draft Date of Exam:11/08/19 CT EXTREMITY LOWER LEFT WO PROCEDURE: CT left lower extremity without contrast. TECHNIQUE: Multiple contiguous axial images were obtained through the left lower extremity without the use of intravenous contrast. Sagittal and coronal reformations were then performed. Auto Exposure Controls were utilized during the CT exam to meet ALARA standards for radiation dose reduction. INDICATION: Left hip pain. COMPARISON: Pelvis radiograph with left hip radiographs from earlier today. FINDINGS: Moderate degenerative changes in the right hip. No acute fractures identified. Chronic appearing fracture along the posterior rim of the acetabulum may be due to a prior dislocation. Moderate atherosclerotic calcifications. Moderate colonic diverticulosis. Visualized paravertebral soft tissues are otherwise unremarkable. IMPRESSION: 1. No acute fractures in the left hip are identified. If there remains a clinical question, MRI would be more sensitive. 2. Chronic appearing small fracture along the posterior rim of the acetabulum may be due to a prior dislocation. Dictated on workstation # [id number] Dict: 11/08/192036 Trans: 11/08/192042 [facility] [phone] Interpreted by: LELE RYDER MD Electronically signed by: (ABISAI SINGH APRN) Departure Communication (Admissions) 2006-bp 138/91. will discharge to home. (ABISAI SINGH APRN) Impression Primary Impression: Fall Additional Impressions: Lightheaded UTI (urinary tract infection) Disposition: 01 HOME, SELF-CARE Condition: Stable Departure-Patient Inst. Decision time for Depature: 20:08 (ABISAI SINGH APRN) Referrals: LAURA FRAZIER DO (PCP/Family) Primary Care Physician Patient Instructions: Preventing Falls Add. Discharge Instructions: 1. antibiotic as directed. 2. Return to ER for any concerns All discharge instructions reviewed with patient and/or family. Voiced understanding. Scripts Cefdinir (Cefdinir) 300 Mg Capsule 300 MG PO BID, #14 CAP Prov: ABISAI SINGH APRN 11/08/19 KENY VALLE MD November 08, 2019 17:45 ABISAI SINGH APRN November 08, 2019 20:08
[2019-11-08 18:04] LABS: BASOPHILS % (AUTO) 0 % (0-10); EOSINOPHILS # (AUTO) 0.1 10^3/uL (0.0-0.3); EOSINOPHILS % (AUTO) 1 % (0-10); HEMATOCRIT 45 % (40-54); LYMPHOCYTES # (AUTO) 1.1 X 10^3 (1.0-4.0); LYMPHOCYTES % (AUTO) 14 % (12-44); MEAN CORPUSCULAR HEMOGLOBIN 27 PG (25-34); MEAN CORPUSCULAR HGB CONC 31 G/DL (32-36); MEAN CORPUSCULAR VOLUME 87 FL (80-99); MONOCYTES # (AUTO) 0.7 X 10^3 (0.0-1.0); MONOCYTES % (AUTO) 9 % (0-12); NEUTROPHILS # (AUTO) 6.1 X 10^3 (1.8-7.8); NEUTROPHILS % (AUTO) 76 % (42-75); PLATELET COUNT 350 10^3/uL (130-400); RED CELL DISTRIBUTION WIDTH 13.8 % (10.0-14.5); WHITE BLOOD COUNT 8.1 10^3/uL (4.3-11.0)
[2019-11-08 18:15] LABS: ALBUMIN 3.2 GM/DL (3.2-4.5); CHLORIDE 99 MMOL/L (98-107); POTASSIUM 4.3 MMOL/L (3.6-5.0); SODIUM 141 MMOL/L (135-145)
[2019-11-08 18:17] LABS: CALCIUM 8.7 MG/DL (8.5-10.1)
[2019-11-08 18:18] LABS: GLUCOSE 114 MG/DL (70-105); TOTAL PROTEIN 6.7 GM/DL (6.4-8.2)
[2019-11-08 18:19] LABS: CARBON DIOXIDE 33 MMOL/L (21-32)
[2019-11-08 18:20] LABS: BILIRUBIN,TOTAL 0.4 MG/DL (0.1-1.0)
[2019-11-08 18:21] LABS: ALKALINE PHOSPHATASE 100 U/L (40-136)
[2019-11-08 18:22] LABS: CREATININE SERUM 0.81 MG/DL (0.60-1.30); GFR ESTIMATED > 60
[2019-11-08 18:23] LABS: BUN/CREATININE RATIO 12
[2019-11-08 18:24] LABS: ALANINE AMINOTRANSFERASE 6 U/L (0-55)
--- NOTE | 2019-11-08 18:27 | Diagnostic Imaging Report ---
INDICATION: Fall with left knee and hip pain. TIME OF EXAM 6:19 PM 3 views of the left knee were obtained. Alignment is normal. No fracture, dislocation or effusion is detected. There is tricompartmental degenerative change with joint space narrowing and marginal spurring. There is chondrocalcinosis of the medial and lateral compartments. Postsurgical changes with multiple surgical clips in the medial soft tissues as noted. IMPRESSION: Chronic changes. No acute bony abnormality is detected. Dictated by: Dictated on workstation # [id number]
--- NOTE | 2019-11-08 18:34 | Diagnostic Imaging Report ---
INDICATION: Fall with left hip pain and knee pain. Time of Exam: 6:17 PM An AP view of the pelvis and multiple views of the left hip were obtained. Femoral acetabular alignment is normal. There is a lucency extending through the subcapital region of the left hip, suspicious for a fracture line. This is best seen on the AP view. Right hip is intact. Rami appear to be intact. SI joints and symphysis are non-widened. IMPRESSION: There are findings highly suspicious for a subcapital left hip fracture. CT through the left hip may be useful for further evaluation. No other significant abnormality is detected. Dictated by: Dictated on workstation # [id number]
[2019-11-08] MEDS ORDERED: NS IV 500 ML 500 ML IV SCH (19:00)
[2019-11-08 19:54] LABS: BILIRUBIN,URINE NEGATIVE (NEGATIVE); COLOR,URINE YELLOW; GLUCOSE, URINE (UA) NEGATIVE (NEGATIVE); KETONES,URINE NEGATIVE (NEGATIVE); LEUKOCYTE ESTERASE ,URINE 1+ (NEGATIVE); NITRITE,URINE NEGATIVE (NEGATIVE); PROTEIN,URINE NEGATIVE (NEGATIVE)
[2019-11-08 20:01] LABS: AMORPHOUS SEDIMENT,UR MOD AMOR PHOSPHATE /LPF; BACTERIA,URINE FEW /HPF; CLARITY,URINE SL CLOUDY; RBC,URINE RARE /HPF; SQUAMOUS EPITHELIAL CELL,UR 0-2 /HPF
[2019-11-08] MEDS ORDERED: CEFD300C3 PO (20:08)
[2019-11-08] MEDS ORDERED: CEFDINIR 300 MG (OMNICEF) CAP PO ONE (20:15)
--- NOTE | 2019-11-08 20:44 | Diagnostic Imaging Report ---
PROCEDURE: CT left lower extremity without contrast. TECHNIQUE: Multiple contiguous axial images were obtained through the left lower extremity without the use of intravenous contrast. Sagittal and coronal reformations were then performed. Auto Exposure Controls were utilized during the CT exam to meet ALARA standards for radiation dose reduction. INDICATION: Left hip pain. COMPARISON: Pelvis radiograph with left hip radiographs from earlier today. FINDINGS: Moderate degenerative changes in the right hip. No acute fractures identified. Chronic appearing fracture along the posterior rim of the acetabulum may be due to a prior dislocation. Moderate atherosclerotic calcifications. Moderate colonic diverticulosis. Visualized paravertebral soft tissues are otherwise unremarkable. IMPRESSION: 1. No acute fractures in the left hip are identified. If there remains a clinical question, MRI would be more sensitive. 2. Chronic appearing small fracture along the posterior rim of the acetabulum may be due to a prior dislocation. Dictated by: Dictated on workstation # [id number]
[2019-11-08] MEDS ORDERED: HYDROcodone/APAP 5 MG/325 MG (LORTAB) TAB PO ONE (20:45)
[2019-11-08 21:01] VITALS: BP 125/88
== END 2019-11-08 21:01 | disposition home or self-care (01) ==
LOC: EDUNIT# 17:16 → ER 17:19
DX: M25.552 Pain in left hip (principal); M25.562 Pain in left knee; R42 Dizziness and giddiness; N39.0 Urinary tract infection, site not specified; I25.2 Old myocardial infarction; I10 Essential (primary) hypertension; E78.00 Pure hypercholesterolemia, unspecified; I25.10 Atherosclerotic heart disease of native coronary artery without angina pectoris; F41.9 Anxiety disorder, unspecified; F32.9 Major depressive disorder, single episode, unspecified; Z79.02 Long term (current) use of antithrombotics/antiplatelets; Z87.891 Personal history of nicotine dependence; Z95.5 Presence of coronary angioplasty implant and graft; Z95.1 Presence of aortocoronary bypass graft; Z80.0 Family history of malignant neoplasm of digestive organs; W18.39XA Other fall on same level, initial encounter; Y92.009 Unspecified place in unspecified non-institutional (private) residence as the place of occurrence of the external cause
CPT/HCPCS: 36415; 73562; 73700; 80053; 81000; 85025; 86141; 87088

== ENCOUNTER 2019-11-10 17:47 | Emergency (ER) | payer MEDICARE, OTHER ==
[~2019-11-10] VITALS: Ht 172 cm; Wt 61.1 kg
--- NOTE | 2019-11-10 18:09 | ED Fall/Injury ---
General Chief Complaint: Trauma-Non Activation Stated Complaint: FALL Nursing Triage Note: PATIENT FELL AT HOME, COMPLAINT OF HIP/LEG PAIN AND NECK PAIN. History of Present Illness Date Seen by Provider: November 10, 2019 Time Seen by Provider: 17:55 Initial Comments 79-year-old male brought to emergency department via EMS after a fall at home. He had a similar episode yesterday. He is on Eliquis and is reporting head and neck pain. He is in a c-collar. He states he lost his balance while walking in his legs became weak causing him to fall. There is no abrasions or lacerations. He denies nausea or vomiting and there was no loss of consciousness. Patient was seen at this facility for similar incident yesterday, he reports having a cane but he does not use it regularly. Occurred: just prior to arrival Severity: mild Injuries/Pain Location: head, neck Context: lightheaded, lost balance Loss of Consciousness: no loss of consciousness Associated Symptoms (Fall): Denies Symptoms; No Abdominal Pain, No Chest Pain, No Confusion, No Dizziness; Headache; No Lightheadedness, No Muscle Spasms, No Nausea/Vomiting; Neck Pain; No Shortness of Air, No Slurred Speech, No Vision Changes Allergies and Home Medications Allergies Coded Allergies: No Known Drug Allergies (Unverified , 10/12/19) Home Medications Apixaban 5 Mg Tablet, 5 MG PO BID, (Reported) LAST FILLED 08-12-2019 #90/45 DAY SUPPLY Cefdinir 300 Mg Capsule, 300 MG PO BID Prescribed by: MANOJ MARTINEZ on 10/28/19 142 Cefdinir 300 Mg Capsule, 300 MG PO BID Prescribed by: ABISAI SINGH on 11/08/192007 Clopidogrel Bisulfate 75 Mg Tablet, 75 MG PO DAILY, (Reported) Finasteride 5 Mg Tablet, 5 MG PO HS, (Reported) Furosemide 40 Mg Tablet, 40 MG PO Q48H PRN for SHORTNESS OF BREATH/2LB GAIN, (Reported) Potassium Chloride 20 Meq Tab.er.prt, 20 MEQ PO Q48H PRN for SHORTNESS OF BREATH/2LB GAIN, (Reported) TAKES POTASSIUM AND FUROSEMIDE TOGETHER Pravastatin Sodium 80 Mg Tablet, 40 MG PO HS, (Reported) TAKES OF AN 80MG TAB Trazodone HCl 100 Mg Tablet, 100 MG PO HS, (Reported) Venlafaxine HCl 150 Mg Cap.er.24h, 150 MG PO DAILY, (Reported) Patient Home Medication List Home Medication List Reviewed: Yes Review of Systems Review of Systems Constitutional: no symptoms reported, see HPI Musculoskeletal: see HPI, neck pain Psychiatric/Neurological: See HPI, Headache All Other Systems Reviewed Negative Unless Noted: Yes Past Cdjiwgi-Gmrreh-Eerojy Hx Past Med/Social Hx: Reviewed Nursing Past Med/Soc Hx Patient Social History Alcohol Use: Denies Use Recreational Drug Use: No Smoking Status: Former Smoker Type Used: Cigarettes Former Smoker, Quit: Jul 17, 2003 2nd Hand Smoke Exposure: No Recent Foreign Travel: No Contact w/Someone Who Travel: No Recent Infectious Disease Expo: No Recent Hopitalizations: No Immunizations Up To Date Tetanus Booster (TDap): Unknown Date of Pneumonia Vaccine: Mar 29, 2012 Date of Influenza Vaccine: Mar 29, 2019 Past Medical History Surgeries: Yes (LEFT KNEE SURGERY; CARDIAC CATHS-AT LEAST 5 STENTS, PER PT; 4 VESSEL CABG; ) Cardiac, CABG, Coronary Stent, Gallbladder, Orthopedic Respiratory: Yes (POSS ASBESTOS EXPOSURE-PULMONARY FIBROSIS; STARTED ON HOME O2 10/12/19) COPD Currently Using CPAP: No Currently Using BIPAP: No Cardiac: Yes ("5 HEART ATTACKS" PER PT; 4 VESSEL CABG; AT LEAST 5 STENTS, PER PT) Chronic Edema/Swelling, Coronary Artery Disease, Heart Attack, High Cholesterol, Hypertension, Hypotension, Peripheral Vascular Neurological: No Reproductive Disorders: No Genitourinary: No Gastrointestinal: Yes Gastroesophageal Reflux, Pancreatitis Musculoskeletal: Yes (LEFT KNEE SURGERY) Arthritis, Fractures Endocrine: No HEENT: No Cancer: No Psychosocial: Yes Sleep Difficulties, Anxiety, Depression Integumentary: No Blood Disorders: No Family Medical History Colon cancer 19 MOTHER Dementia G8 BROTHER Physical Exam Vital Signs Vital Signs - First Documented 11/10/19 17:55 Temp 36.7 Pulse 77 Resp 20 B/P (MAP) 91/62 (72) Pulse Ox 99 O2 Delivery Room Air Capillary Refill : Less Than 3 Seconds Height, Weight, BMI Height: '" Weight: 195lbs. oz. 88.461828sh; 20.00 BMI Method: General Appearance: WD/WN, no apparent distress HEENT: PERRL/EOMI, normal ENT inspection, TMs normal, pharynx normal Neck: normal inspection, tender lateral, tender midline, other (C collar in place) Cardiovascular: normal peripheral pulses, regular rate, rhythm Respiratory: chest non-tender, lungs clear, normal breath sounds Gastrointestinal: normal bowel sounds, non tender, soft Extremities: normal range of motion, non-tender, normal inspection, normal capillary refill Neurologic/Psychiatric: chainstitch binder II-XII nml as tested, no motor/sensory deficits, alert, normal mood/affect, oriented x 3 Skin: normal color, warm/dry; No ecchymosis [place] Coma Score Best Eye Response: (4) Open Spontaneously Best Verbal Response: (5) Oriented Best Motor Response: (6) Obeys Commands [place] Total: 15 Progress/Results/Core Measures Results/Orders My Orders Orders - TRISTAN MORENO Ct Head/Cervical Spine Wo (11/10/19 17:54) Vital Signs/I&O 11/10/19 17:55 Temp 36.7 Pulse 77 Resp 20 B/P (MAP) 91/62 (72) Pulse Ox 99 O2 Delivery Room Air Blood Pressure Mean: 72 Progress Progress Note : Time: 17:55 Progress Note Patient seen and evaluated, will maintain c-collar obtain CT of the head and neck. 1851 CT results neg for head and neck. C collar removed, gentle range of motion with no pain to cervical spine. No radicular symptoms in either upper extremity. Patient ambulated with assistance to the bathroom, no instability. 1914 spoke to patient's granddaughter who lives with him, stressed the importance of getting him a tran or alert, to prevent falls. She is agreeable. 1929 patient continues to deny pain in his neck or head. He has ambulated to the bathroom again with no instability. Discharge instructions and return precautions reviewed with him. Diagnostic Imaging Diagonstic Imaging: CT Plain Films/CT/US/NM/MRI: c-spine, head Comments NAME: BRITT ELAINE [facility] REC#: [id number] PT STATUS: REG ER : 1940 PHYSICIAN: TRISTAN MORENO ADMIT DATE: 11/10/19/ER Draft Date of Exam:11/10/19 CT HEAD/CERVICAL SPINE WO PROCEDURE: CT head and CT cervical spine without contrast. TECHNIQUE: Multiple contiguous axial images were obtained through the brain and cervical spine without the use of intravenous contrast. Sagittal and coronal reformations through the cervical spine were then performed. Auto Exposure Controls were utilized during the CT exam to meet ALARA standards for radiation dose reduction. INDICATION: Status post fall, hit back of head. Neck pain. CORRELATION STUDY: 04/22/2010 FINDINGS: CT HEAD: Generalized age-appropriate atrophic changes with prominence of the ventricles and sulci. Mild scattered areas of decreased attenuation favoring likely small vessel ischemic disease. No midline shift or mass effect. No intracranial hemorrhage. Basilar cisterns are maintained. Bony calvarium is intact. Visualized paranasal sinuses and mastoid air cells appearing clear. CT CERVICAL SPINE: There is straightening and reversal of the normal cervical lordosis. Alignment relatively anatomic otherwise. There is slight anterior wedging at C5-C6 with slight loss of height superiorly at C7 level appearing chronic. Multilevel disc space narrowing is noted. There is some osseous bridging across the C3-C4 disc space. Moderate narrowing of the disc space at C4-C5, C5-C6, C6-C7, and to a lesser degree C7-T1 levels. Endplate spurring does result in osseous encroachment of the neural foramina and spinal canal most severe at C6-C7 and C5-C6 levels. Asymmetric areas of hypertrophic facet arthropathy present. Bony fusion across the facet joints at C2-C3 on the left. In addition, there is noted incomplete closure of the posterior C1 ring, likely developmental. Emphysematous change about the lung apices. Prominent calcification of the carotid bifurcations. It is noted there is a prominent retropharyngeal course of the carotid arteries greatest on the right. IMPRESSION: CT HEAD: 1. Negative for acute traumatic intracranial abnormality. CT CERVICAL SPINE: 1. Negative for acute fracture or traumatic subluxation. 2. Rather pronounced multilevel cervical spondylosis is present, progressed from previous study. Resultant lower cervical canal and foraminal stenosis is present. Dictated on workstation # [id number] Dict: 11/10/19 1844 Trans: 11/10/19 1854 [facility] [phone] Interpreted by: NIKOLAS WELLS DO Electronically signed by: Reviewed: Reviewed by Me Departure Impression Primary Impression: Fall Qualified Codes: W19.XXXA - Unspecified fall, initial encounter Disposition: HOME, SELF-CARE Condition: Improved Departure-Patient Inst. Decision time for Depature: 19:05 Referrals: LAURA FRAZIER DO (PCP/Family) Primary Care Physician Patient Instructions: Preventing Falls Add. Discharge Instructions: Use cane to prevent falls. Ask for help, before getting up. Sit on side of bed, before getting up. Follow up with your family doctor, in the next 2-3 weeks. Return to Emergency Dept for new, urgent healthcare needs. All discharge instructions reviewed with patient and/or family. Voiced understanding. TRISTAN MORENO November 10, 2019 18:08
--- NOTE | 2019-11-10 18:55 | Diagnostic Imaging Report ---
PROCEDURE: CT head and CT cervical spine without contrast. TECHNIQUE: Multiple contiguous axial images were obtained through the brain and cervical spine without the use of intravenous contrast. Sagittal and coronal reformations through the cervical spine were then performed. Auto Exposure Controls were utilized during the CT exam to meet ALARA standards for radiation dose reduction. INDICATION: Status post fall, hit back of head. Neck pain. CORRELATION STUDY: 04/22/2010 FINDINGS: CT HEAD: Generalized age-appropriate atrophic changes with prominence of the ventricles and sulci. Mild scattered areas of decreased attenuation favoring likely small vessel ischemic disease. No midline shift or mass effect. No intracranial hemorrhage. Basilar cisterns are maintained. Bony calvarium is intact. Visualized paranasal sinuses and mastoid air cells appearing clear. CT CERVICAL SPINE: There is straightening and reversal of the normal cervical lordosis. Alignment relatively anatomic otherwise. There is slight anterior wedging at C5-C6 with slight loss of height superiorly at C7 level appearing chronic. Multilevel disc space narrowing is noted. There is some osseous bridging across the C3-C4 disc space. Moderate narrowing of the disc space at C4-C5, C5-C6, C6-C7, and to a lesser degree C7-T1 levels. Endplate spurring does result in osseous encroachment of the neural foramina and spinal canal most severe at C6-C7 and C5-C6 levels. Asymmetric areas of hypertrophic facet arthropathy present. Bony fusion across the facet joints at C2-C3 on the left. In addition, there is noted incomplete closure of the posterior C1 ring, likely developmental. Emphysematous change about the lung apices. Prominent calcification of the carotid bifurcations. It is noted there is a prominent retropharyngeal course of the carotid arteries greatest on the right. IMPRESSION: CT HEAD: 1. Negative for acute traumatic intracranial abnormality. CT CERVICAL SPINE: 1. Negative for acute fracture or traumatic subluxation. 2. Rather pronounced multilevel cervical spondylosis is present, progressed from previous study. Resultant lower cervical canal and foraminal stenosis is present. Dictated by: Dictated on workstation # [id number]
[2019-11-10 19:45] VITALS: BP 100/62
--- OUTSIDE RECORDS SUMMARY | 2019-11-10 20:29 | XMS REPORT | Continuity of Care Document ---
Author Organization Unknown Address Unknown Phone Unavailable Allergies Active Description Code Type Severity Reaction Onset Reported/Identified Relationship to Patient Clinical Status Yes No Known Drug Allergies [id number] Drug Allergy Unknown N/A 10/12/2019 Medications There is no data. Problems Date [...] DO Ot I25.10 ATHSCL HEART DISEASE OF [place] CORONARY 01/19/2017 LAURA FRAZIER DO Ot J44.9 CHRONIC OBSTRUCTIVE PULMONARY DISEASE, U 01/19/2017 LAURA FRAZIRE DO Ot J44.9 CHRONIC OBSTRUCTIVE PULMONARY DISEASE, U 01/21/2017 LAURA FRAZIER DO, Ot J44.9 CHRONIC OBSTRUCTIVE PULMONARY DISEASE, U 01/26/2017 BRITT BUTLER MD Ot Z79.899 OTHER [facility] (CURRENT) DRUG THERAPY 02/02/2017 LAURA FRAZIER DO Ot I25.10 ATHSCL HEART DISEASE OF [place] CORONARY 02/20/2017 BRITT BUTLER MD Ot Z79.899 OTHER [facility] (CURRENT) DRUG THERAPY 02/23/2017 LAURA FRAZIER DO Ot J44.9 CHRONIC OBSTRUCTIVE PULMONARY DISEASE, U 04/01/2019 LUKE GLASGOW, BRITT Ot Z79.899 OTHER INSTRUCTIONAL SUPPORT ASSISTANT (CURRENT) DRUG THERAPY 04/01/2019 FABIO HILLS MD Ot E78.00 PURE HYPERCHOLESTEROLEMIA, UNSPECIFIED 04/01/2019 FABIO HILLS MD Ot F32.9 MAJOR DEPRESSIVE DISORDER, SINGLE EPISOD 04/01/2019 FABIO HILLS MD Ot I10 ESSENTIAL (PRIMARY) HYPERTENSION 04/01/2019 FABIO HILLS MD Ot I25.10 ATHSCL HEART DISEASE OF [place] CORONARY 04/01/2019 FABIO HILLS MD, Ot J44.9 CHRONIC OBSTRUCTIVE PULMONARY DISEASE, U 04/01/2019 FABIO HILLS MD Ot K21.9 GASTRO-ESOPHAGEAL REFLUX DISEASE WITHOUT 04/01/2019 FABIO HILLS MD Ot R07.9 CHEST PAIN, UNSPECIFIED 04/01/2019 FABIO HILLS MD Ot R09.02 HYPOXEMIA 04/01/2019 FABIO HILLS MD Ot R79.89 OTHER SPECIFIED ABNORMAL FINDINGS OF BLO 04/01/2019 FABIO HILLS MD Ot Z79.82 [facility] (CURRENT) USE OF ASPIRIN 04/01/2019 FABIO HILLS [...] MD Ot I25.10 ATHSCL HEART DISEASE OF [place] CORONARY 04/02/2019 FABIO HILLS MD, Ot J44.1 CHRONIC OBSTRUCTIVE PULMONARY DISEASE W 04/02/2019 FABIO HILLS MD Ot K21.9 GASTRO-ESOPHAGEAL REFLUX DISEASE WITHOUT 04/02/2019 FABIO HILLS MD Ot R06.02 SHORTNESS OF BREATH 04/02/2019 FABIO HILLS MD Ot Z79.82 [facility] (CURRENT) USE OF ASPIRIN 04/02/2019 FABIO HILLS [...] MD Ot I25.10 ATHSCL HEART DISEASE OF [place] CORONARY 04/06/2019 FABIO HILLS MD Ot J44.9 CHRONIC OBSTRUCTIVE PULMONARY DISEASE, U 04/06/2019 FABIO HILLS MD Ot K21.9 GASTRO-ESOPHAGEAL REFLUX DISEASE WITHOUT 04/06/2019 FABIO HILLS MD Ot R07.9 CHEST PAIN, UNSPECIFIED 04/06/2019 FABIO HILLS MD Ot R09.02 HYPOXEMIA 04/06/2019 FABIO HILLS MD Ot R79.89 OTHER SPECIFIED ABNORMAL FINDINGS OF BLO 04/06/2019 FABIO HILLS MD Ot Z79.82 [facility] (CURRENT) USE OF ASPIRIN 04/06/2019 FABIO HILLS [...] MD, Ot I25.10 ATHSCL HEART DISEASE OF [place] CORONARY 04/12/2019 FABIO HILLS MD Ot J44.9 CHRONIC OBSTRUCTIVE PULMONARY DISEASE, U 04/12/2019 FABIO HILLS MD, Ot K21.9 GASTRO-ESOPHAGEAL REFLUX DISEASE WITHOUT 04/12/2019 FABIO HILLS MD Ot R07.9 CHEST PAIN, UNSPECIFIED 04/12/2019 FABIO HILLS MD Ot R09.02 HYPOXEMIA 04/12/2019 FABIO HILLS MD Ot R79.89 OTHER SPECIFIED ABNORMAL FINDINGS OF BLO 04/12/2019 FABIO HILLS MD, Ot Z79.82 INSTRUCTIONAL SUPPORT ASSISTANT (CURRENT) USE OF ASPIRIN 04/12/2019 FABIO HILLS [...] MD, Ot I25.10 ATHSCL HEART DISEASE OF [place] CORONARY 04/12/2019 FABIO HILLS MD, Ot J44.1 CHRONIC OBSTRUCTIVE PULMONARY DISEASE W 04/12/2019 FABIO HILLS MD, Ot K21.9 GASTRO-ESOPHAGEAL REFLUX DISEASE WITHOUT 04/12/2019 FABIO HILLS MD Ot R06.02 SHORTNESS OF BREATH 04/12/2019 FABIO HILLS MD Ot Z79.82 [facility] (CURRENT) USE OF ASPIRIN 04/12/2019 FABIO HILLS [...] MD, Ot I25.10 ATHSCL HEART DISEASE OF [place] CORONARY 05/30/2019 FABIO HILLS MD, Ot J44.1 CHRONIC OBSTRUCTIVE PULMONARY DISEASE W 05/30/2019 FABIO HILLS MD Ot K21.9 GASTRO-ESOPHAGEAL REFLUX DISEASE WITHOUT 05/30/2019 FABIO HILLS MD Ot Z79.82 [facility] (CURRENT) USE OF ASPIRIN 05/30/2019 FABIO HILLS [...] DO Ot I25.10 ATHSCL HEART DISEASE OF [place] CORONARY 05/30/2019 LUKE GLASGOW, BRITT Ot Z79.899 OTHER [facility] (CURRENT) DRUG THERAPY 06/04/2019 FABIO HILLS MD, Ot E78.00 PURE HYPERCHOLESTEROLEMIA, UNSPECIFIED 06/04/2019 FABIO HILLS MD, Ot F32.9 MAJOR DEPRESSIVE DISORDER, SINGLE EPISOD 06/04/2019 FABIO HILLS MD, Ot F41.9 ANXIETY DISORDER, UNSPECIFIED 06/04/2019 FABIO HILLS MD Ot G47.00 INSOMNIA, UNSPECIFIED 06/04/2019 FABIO HILLS MD Ot I10 ESSENTIAL (PRIMARY) HYPERTENSION 06/04/2019 FABIO HILLS MD Ot I25.10 ATHSCL HEART DISEASE OF [place] CORONARY 06/04/2019 FABIO HILLS MD Ot J44.1 CHRONIC OBSTRUCTIVE PULMONARY DISEASE W 06/04/2019 FABIO HILLS MD Ot K21.9 GASTRO-ESOPHAGEAL REFLUX DISEASE WITHOUT 06/04/2019 FABIO HILLS MD Ot Z79.82 INSTRUCTIONAL SUPPORT ASSISTANT (CURRENT) USE OF ASPIRIN 06/04/2019 FABIO HILLS [...] MD Ot I25.10 ATHSCL HEART DISEASE OF [place] CORONARY 06/07/2019 FABIO HILLS MD Ot J44.1 CHRONIC OBSTRUCTIVE PULMONARY DISEASE W 06/07/2019 FABIO HILLS MD Ot K21.9 GASTRO-ESOPHAGEAL REFLUX DISEASE WITHOUT 06/07/2019 FABIO HILLS MD Ot Z79.82 INSTRUCTIONAL SUPPORT ASSISTANT (CURRENT) USE OF ASPIRIN 06/07/2019 FABIO HILLS MD Ot Z87.891 PERSONAL HISTORY OF NICOTINE DEPENDENCE 06/07/2019 FABIO HILLS MD, Ot Z95.1 PRESENCE OF AORTOCORONARY BYPASS GRAFT 06/07/2019 FABIO HILLS MD Ot Z95.5 PRESENCE OF CORONARY ANGIOPLASTY IMPLANT 06/25/2019 FABIO HILLS MD, Ot E78.00 PURE HYPERCHOLESTEROLEMIA, UNSPECIFIED 06/25/2019 FABIO HILLS MD Ot F32.9 MAJOR DEPRESSIVE DISORDER, SINGLE EPISOD 06/25/2019 FABIO HILSL MD Ot F41.9 ANXIETY DISORDER, UNSPECIFIED 06/25/2019 FABIO HILLS MD Ot I10 ESSENTIAL (PRIMARY) HYPERTENSION 06/25/2019 FABIO HILLS MD Ot I25.10 ATHSCL HEART DISEASE OF [place] CORONARY 06/25/2019 FABIO HILLS MD, Ot I25.2 OLD MYOCARDIAL INFARCTION 06/25/2019 FABIO HILLS MD Ot I26.99 OTHER PULMONARY EMBOLISM WITHOUT ACUTE C 06/25/2019 FABIO HILLS MD, Ot J44.9 CHRONIC OBSTRUCTIVE PULMONARY DISEASE, U 06/25/2019 FABIO HILLS MD, Ot J81.1 CHRONIC PULMONARY EDEMA 06/25/2019 FABOI HILLS MD, Ot K21.9 GASTRO-ESOPHAGEAL REFLUX DISEASE WITHOUT 06/25/2019 FABIO HILLS MD Ot R06.89 OTHER ABNORMALITIES OF BREATHING 06/25/2019 FABIO HILLS MD Ot R09.02 HYPOXEMIA 06/25/2019 FABIO HILLS MD Ot R79.89 OTHER SPECIFIED ABNORMAL FINDINGS OF BLO 06/25/2019 FABIO HILLS MD Ot Z79.82 INSTRUCTIONAL SUPPORT ASSISTANT (CURRENT) USE OF ASPIRIN 06/25/2019 FABIO HILLS [...] MD Ot I25.10 ATHSCL HEART DISEASE OF [place] CORONARY 07/01/2019 FABIO HILLS MD, Ot I25.2 [...] BLO 07/01/2019 FABIO HILLS MD Ot Z79.82 [facility] (CURRENT) USE OF ASPIRIN 07/01/2019 FABIO HILLS [...] MD Ot I25.10 ATHSCL HEART DISEASE OF [place] CORONARY 07/01/2019 FABIO HILLS MD, Ot I25.2 [...] BLO 07/01/2019 FABIO HILLS MD, Ot Z79.82 [facility] (CURRENT) USE OF ASPIRIN 07/01/2019 FABIO HILLS [...] APRN Ot I25.10 ATHSCL HEART DISEASE OF [place] CORONARY 07/02/2019 ABISAI SINGH APRN Ot I25 [...] APRN Ot I25.10 ATHSCL HEART DISEASE OF [place] CORONARY 07/11/2019 ABISAI SINGH APRN Ot I25 [...] MD Ot Z98.890 OTHER SPECIFIED POSTPROCEDURAL STATES 09/29/2019 MARIANO DASH MD Ot I51. 7 CARDIOMEGALY 09/29/2019 MARIANO DASH MD Ot I77. 1 STRICTURE OF ARTERY 09/29/2019 MARIANO DASH MD, Ot J94. 8 OTHER SPECIFIED PLEURAL CONDITIONS 09/29/2019 MARIANO DASH MD Ot Z01.810 ENCOUNTER FOR PREPROCEDURAL CARDIOVASCUL 09/29/2019 MARIANO DASH MD, Ot Z01.811 ENCOUNTER FOR PREPROCEDURAL RESPIRATORY 09/29/2019 MARIANO DASH MD Ot Z98.890 OTHER SPECIFIED POSTPROCEDURAL STATES 09/29/2019 JOSE NEELY MD Ot E78. 00 PURE HYPERCHOLESTEROLEMIA, UNSPECIFIED 09/29/2019 JOSE NEELY MD Ot F32. 9 MAJOR DEPRESSIVE DISORDER, SINGLE EPISOD 09/29/2019 JOSE NEELY MD Ot F41. 9 ANXIETY DISORDER, UNSPECIFIED 09/29/2019 JOSE NEELY MD Ot I25. 10 ATHSCL HEART DISEASE OF [place] CORONARY 09/29/2019 JOSE NEELY MD Ot I25. 2 OLD MYOCARDIAL INFARCTION 09/29/2019 JOSE NEELY MD Ot J44. 1 CHRONIC OBSTRUCTIVE PULMONARY DISEASE W 09/29/2019 JOSE NEELY MD Ot K21. 9 GASTRO-ESOPHAGEAL REFLUX DISEASE WITHOUT 09/29/2019 JOSE NEELY MD Ot M19. 91 PRIMARY OSTEOARTHRITIS, UNSPECIFIED SITE 09/29/2019 JOSE NEELY MD Ot R06. 02 SHORTNESS OF BREATH 09/29/2019 JOSE NEELY MD Ot Z79. 01 INSTRUCTIONAL SUPPORT ASSISTANT (CURRENT) USE OF ANTICOAGULANT 09/29/2019 JOSE NEELY MD Ot Z79.899 OTHER [facility] (CURRENT) DRUG THERAPY 09/29/2019 JOSE NEELY MD Ot Z87.891 PERSONAL HISTORY OF NICOTINE DEPENDENCE 09/29/2019 JOSE NEELY MD Ot Z95. 1 PRESENCE OF AORTOCORONARY BYPASS GRAFT 09/30/2019 JOSE NEELY MD Ot E78. 00 PURE HYPERCHOLESTEROLEMIA, UNSPECIFIED 09/30/2019 JOSE NEELY MD Ot F32. 9 MAJOR DEPRESSIVE DISORDER, SINGLE EPISOD 09/30/2019 JOSE NEELY MD Ot F41. 9 ANXIETY DISORDER, UNSPECIFIED 09/30/2019 JOSE NEELY MD Ot I25. 10 ATHSCL HEART DISEASE OF [place] CORONARY 09/30/2019 JOSE NEELY MD Ot I25. 2 OLD MYOCARDIAL INFARCTION 09/30/2019 JOSE NEELY MD Ot J44. 1 CHRONIC OBSTRUCTIVE PULMONARY DISEASE W 09/30/2019 JOSE NEELY MD Ot K21. 9 GASTRO-ESOPHAGEAL REFLUX DISEASE WITHOUT 09/30/2019 JOSE NEELY MD Ot M19. 91 PRIMARY OSTEOARTHRITIS, UNSPECIFIED SITE 09/30/2019 JOSE NEELY MD Ot R06. 02 SHORTNESS OF BREATH 09/30/2019 JOSE NEELY MD Ot Z79. 01 INSTRUCTIONAL SUPPORT ASSISTANT (CURRENT) USE OF ANTICOAGULANT 09/30/2019 JOSE NEELY MD Ot Z79.899 OTHER [facility] (CURRENT) DRUG THERAPY 09/30/2019 JOSE NEELY MD Ot Z87.891 PERSONAL HISTORY OF NICOTINE DEPENDENCE 09/30/2019 JOSE NEELY MD Ot Z95. 1 PRESENCE OF AORTOCORONARY BYPASS GRAFT 10/06/2019 JOSE NEELY MD Ot E78. 00 PURE HYPERCHOLESTEROLEMIA, UNSPECIFIED 10/06/2019 JOSE NEELY MD Ot F32. 9 MAJOR DEPRESSIVE DISORDER, SINGLE EPISOD 10/06/2019 JOSE NEELY MD Ot F41. 9 ANXIETY DISORDER, UNSPECIFIED 10/06/2019 JOSE NEELY MD Ot I25. 10 ATHSCL HEART DISEASE OF [place] CORONARY 10/06/2019 JOSE NEELY MD Ot I25. 2 OLD MYOCARDIAL INFARCTION 10/06/2019 JOSE NEELY MD Ot J44. 1 CHRONIC OBSTRUCTIVE PULMONARY DISEASE W 10/06/2019 JOSE NEELY MD Ot K21. 9 GASTRO-ESOPHAGEAL REFLUX DISEASE WITHOUT 10/06/2019 JOSE NEELY MD Ot M19. 91 PRIMARY OSTEOARTHRITIS, UNSPECIFIED SITE 10/06/2019 JOSE NEELY MD Ot R06. 02 SHORTNESS OF BREATH 10/06/2019 JOSE NEELY MD Ot Z79. 01 INSTRUCTIONAL SUPPORT ASSISTANT (CURRENT) USE OF ANTICOAGULANT 10/06/2019 JOSE NEELY MD Ot Z79.899 OTHER [facility] (CURRENT) DRUG THERAPY 10/06/2019 CHIN MD, JOSE J Ot Z87.891 PERSONAL HISTORY OF NICOTINE DEPENDENCE 10/06/2019 CHIN GLASGOW, JOSE Angelo Ot Z95. 1 PRESENCE OF AORTOCORONARY BYPASS GRAFT 10/13/2019 PATRICIA DO, DO K Ot E78.00 PURE HYPERCHOLESTEROLEMIA, UNSPECIFIED 10/13/2019 PATRICIA DO, DO K Ot 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 10/13/2019 PATRICIA DO, DO K Ot F41.9 ANXIETY DISORDER, UNSPECIFIED 10/13/2019 PATRICIA DO, DO K Ot I10 ESSENTIAL (PRIMARY) HYPERTENSION 10/13/2019 PATRICIA DO, DO K Ot I25.10 ATHSCL HEART DISEASE OF [place] CORONARY 10/13/2019 PATRICIA DO, DO K Ot I25.2 OLD MYOCARDIAL INFARCTION 10/13/2019 PATRICIA DO, DO K Ot I50.9 HEART FAILURE, UNSPECIFIED 10/13/2019 PATRICIA DO, DO K Ot I73.9 PERIPHERAL VASCULAR DISEASE, UNSPECIFIED 10/13/2019 PATRICIA DO, DO K Ot J44.9 CHRONIC OBSTRUCTIVE PULMONARY DISEASE, U 10/13/2019 PATRICIA DO, DO K Ot J84.10 PULMONARY FIBROSIS, UNSPECIFIED 10/13/2019 PATRICIA DO, DO K Ot K21.9 GASTRO-ESOPHAGEAL REFLUX DISEASE WITHOUT 10/13/2019 PATRICIA DO, DO K Ot M19.91 PRIMARY OSTEOARTHRITIS, UNSPECIFIED SITE 10/13/2019 PATRICIA DO, DO K Ot R06.02 SHORTNESS OF BREATH 10/13/2019 PATRICIA DO, DO K Ot R09.02 HYPOXEMIA 10/13/2019 PATRICIA DO, DO K Ot Z79.899 OTHER INSTRUCTIONAL SUPPORT ASSISTANT (CURRENT) DRUG THERAPY 10/13/2019 PATRICIA DO, DO K Ot Z87.19 PERSONAL HISTORY OF OTHER DISEASES OF TH 10/13/2019 PATRICIA DO, DO K Ot Z95.1 PRESENCE OF AORTOCORONARY BYPASS GRAFT 10/13/2019 PATRICIA DO, DO K Ot Z95.5 PRESENCE OF CORONARY ANGIOPLASTY IMPLANT 10/13/2019 PATRICIA DO, DO K Ot Z99.81 DEPENDENCE ON SUPPLEMENTAL OXYGEN 10/13/2019 PATRICIA DO, DO K Ot E78.00 PURE HYPERCHOLESTEROLEMIA, UNSPECIFIED 10/13/2019 PATRICIA DO, DO K Ot 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 10/13/2019 PATRICIA DO, DO K Ot F41.9 ANXIETY DISORDER, UNSPECIFIED 10/13/2019 PATRICIA DO, DO K Ot I10 ESSENTIAL (PRIMARY) HYPERTENSION 10/13/2019 PATRICIA DO, DO K Ot I25.10 ATHSCL HEART DISEASE OF [place] CORONARY 10/13/2019 PATRICIA DO, DO K Ot I25.2 OLD MYOCARDIAL INFARCTION 10/13/2019 PATRICIA DO, DO K Ot I50.9 HEART FAILURE, UNSPECIFIED 10/13/2019 PATRICIA DO, DO K Ot I73.9 PERIPHERAL VASCULAR DISEASE, UNSPECIFIED 10/13/2019 PATRICIA DO, DO K Ot J44.9 CHRONIC OBSTRUCTIVE PULMONARY DISEASE, U 10/13/2019 PATRICIA DO, DO K Ot J84.10 PULMONARY FIBROSIS, UNSPECIFIED 10/13/2019 PATRICIA DO, DO K Ot K21.9 GASTRO-ESOPHAGEAL REFLUX DISEASE WITHOUT 10/13/2019 PATRICIA DO, DO K Ot M19.91 PRIMARY OSTEOARTHRITIS, UNSPECIFIED SITE 10/13/2019 PATRICIA DO, DO K Ot R06.02 SHORTNESS OF BREATH 10/13/2019 PATRICIA DO, DO K Ot R09.02 HYPOXEMIA 10/13/2019 PATRICIA DO, DO K Ot Z79.899 OTHER INSTRUCTIONAL SUPPORT ASSISTANT (CURRENT) DRUG THERAPY 10/13/2019 PATRICIA DO, DO K Ot Z87.19 PERSONAL HISTORY OF OTHER DISEASES OF TH 10/13/2019 PATRICIA DO, DO K Ot Z95.1 PRESENCE OF AORTOCORONARY BYPASS GRAFT 10/13/2019 PATRICIA DO, DO K Ot Z95.5 PRESENCE OF CORONARY ANGIOPLASTY IMPLANT 10/13/2019 PATRICIA DO, DO K Ot Z99.81 DEPENDENCE ON SUPPLEMENTAL OXYGEN 10/14/2019 PATRICIA DO, DO K Ot E78.00 PURE HYPERCHOLESTEROLEMIA, UNSPECIFIED 10/14/2019 PATRICIA DO, DO K Ot 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 10/14/2019 PATRICIA DO, DO K Ot F41.9 ANXIETY DISORDER, UNSPECIFIED 10/14/2019 PATRICIA DO, DO K Ot I10 ESSENTIAL (PRIMARY) HYPERTENSION 10/14/2019 PATRICIA DO, DO K Ot I25.10 ATHSCL HEART DISEASE OF [place] CORONARY 10/14/2019 PATRICIA DO, DO K Ot I25.2 OLD MYOCARDIAL INFARCTION 10/14/2019 PATRICIA DO, DO K Ot I50.9 HEART FAILURE, UNSPECIFIED 10/14/2019 PATRICIA DO, DO K Ot I73.9 PERIPHERAL VASCULAR DISEASE, UNSPECIFIED 10/14/2019 PATRICIA DO, DO K Ot J44.9 CHRONIC OBSTRUCTIVE PULMONARY DISEASE, U 10/14/2019 PATRICIA DO, DO K Ot J84.10 PULMONARY FIBROSIS, UNSPECIFIED 10/14/2019 PATRICIA DO, DO K Ot K21.9 GASTRO-ESOPHAGEAL REFLUX DISEASE WITHOUT 10/14/2019 PATRICIA DO, DO K Ot M19.91 PRIMARY OSTEOARTHRITIS, UNSPECIFIED SITE 10/14/2019 PATRICIA DO, DO K Ot R06.02 SHORTNESS OF BREATH 10/14/2019 PATRICIA DO, DO K Ot R09.02 HYPOXEMIA 10/14/2019 PATRICIA DO, DO K Ot Z79.899 OTHER [facility] (CURRENT) DRUG THERAPY 10/14/2019 PATRICIA DO, DO K Ot Z87.19 PERSONAL HISTORY OF OTHER DISEASES OF TH 10/14/2019 PATRICIA DO, DO K Ot Z95.1 PRESENCE OF AORTOCORONARY BYPASS GRAFT 10/14/2019 PATRICIA DO, DO K Ot Z95.5 PRESENCE OF CORONARY ANGIOPLASTY IMPLANT 10/14/2019 PATRICIA DO, DO K Ot Z99.81 DEPENDENCE ON SUPPLEMENTAL OXYGEN 10/19/2019 PATRICIA DO, DO K Ot E78.00 PURE HYPERCHOLESTEROLEMIA, UNSPECIFIED 10/19/2019 PATRICIA DO, DO K Ot 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 10/19/2019 PATRICIA DO, DO K Ot F41.9 ANXIETY DISORDER, UNSPECIFIED 10/19/2019 PATRICIA DO, DO K Ot I10 ESSENTIAL (PRIMARY) HYPERTENSION 10/19/2019 PATRICIA DO, DO K Ot I25.10 ATHSCL HEART DISEASE OF [place] CORONARY 10/19/2019 PATRICIA DO, DO K Ot I25.2 OLD MYOCARDIAL INFARCTION 10/19/2019 PATRICIA DO, DO K Ot I50.9 HEART FAILURE, UNSPECIFIED 10/19/2019 PATRICIA DO, DO K Ot I73.9 PERIPHERAL VASCULAR DISEASE, UNSPECIFIED 10/19/2019 PATRICIA DO, DO K Ot J44.9 CHRONIC OBSTRUCTIVE PULMONARY DISEASE, U 10/19/2019 PATRICIA DO AGGARWAL Ot J84.10 PULMONARY FIBROSIS, UNSPECIFIED 10/19/2019 PATRICIA DO AGGARWAL Ot K21.9 GASTRO-ESOPHAGEAL REFLUX DISEASE WITHOUT 10/19/2019 PATRICIA DO AGGARWAL Ot M19.91 PRIMARY OSTEOARTHRITIS, UNSPECIFIED SITE 10/19/2019 PATRICIA DO AGGARWAL Ot R06.02 SHORTNESS OF BREATH 10/19/2019 PATRICIA DO AGGARWAL K Ot R09.02 HYPOXEMIA 10/19/2019 PATRICIA DO AGGARWAL Ot Z79.899 OTHER INSTRUCTIONAL SUPPORT ASSISTANT (CURRENT) DRUG THERAPY 10/19/2019 PATRICIA DO AGGARWAL Ot Z87.19 PERSONAL HISTORY OF OTHER DISEASES OF TH 10/19/2019 PATRICIA DO AGGARWAL Ot Z95.1 PRESENCE OF AORTOCORONARY BYPASS GRAFT 10/19/2019 PATRICIA , DO K Ot Z95.5 PRESENCE OF CORONARY ANGIOPLASTY IMPLANT 10/19/2019 PATRICIA DO AGGARWAL Ot Z99.81 DEPENDENCE ON SUPPLEMENTAL OXYGEN 10/28/2019 MANOJ MARTINEZ MD Ot E78. 5 HYPERLIPIDEMIA, UNSPECIFIED 10/28/2019 MANOJ MARTINEZ MD Ot E86. 0 DEHYDRATION 10/28/2019 MNAOJ MARTINEZ MD Ot E86. 1 HYPOVOLEMIA 10/28/2019 MANOJ MARTINEZ MD Ot F32. 9 MAJOR DEPRESSIVE DISORDER, SINGLE EPISOD 10/28/2019 MANOJ MARTINEZ MD Ot F41. 9 ANXIETY DISORDER, UNSPECIFIED 10/28/2019 MANOJ MARTINEZ MD Ot G47. 9 SLEEP DISORDER, UNSPECIFIED 10/28/2019 MANOJ MARTINEZ MD Ot I10 ESSENTIAL (PRIMARY) HYPERTENSION 10/28/2019 MANOJ MARTINEZ MD Ot I25. 10 ATHSCL HEART DISEASE OF [place] CORONARY 10/28/2019 MANOJ MARTINEZ MD Ot I25. 2 OLD MYOCARDIAL INFARCTION 10/28/2019 MANOJ MARTINEZ MD Ot I95. 1 ORTHOSTATIC HYPOTENSION 10/28/2019 MANOJ MARTINEZ MD Ot J44. 9 CHRONIC OBSTRUCTIVE PULMONARY DISEASE, U 10/28/2019 MANOJ MARTINEZ MD Ot K21. 9 GASTRO-ESOPHAGEAL REFLUX DISEASE WITHOUT 10/28/2019 MANOJ MARTINEZ MD, Ot M19. 90 UNSPECIFIED OSTEOARTHRITIS, UNSPECIFIED 10/28/2019 MANOJ MARTINEZ MD, Ot N39. 0 URINARY TRACT INFECTION, SITE NOT SPECIF 10/28/2019 MANOJ MARTINEZ MD, Ot S50.819A ABRASION OF UNSPECIFIED FOREARM, INITIAL 10/28/2019 MANOJ MARTINEZ MD, Ot W18.30XA FALL ON SAME LEVEL, UNSPECIFIED, INITIAL 10/28/2019 MANOJ MARTINEZ MD Ot Z79. 01 INSTRUCTIONAL SUPPORT ASSISTANT (CURRENT) USE OF ANTICOAGULANT 10/28/2019 MANOJ MARTINEZ MD Ot Z79. 02 INSTRUCTIONAL SUPPORT ASSISTANT (CURRENT) USE OF ANTITHROMBOTI 10/28/2019 MANOJ MARTINEZ MD, Ot Z79.899 OTHER [facility] (CURRENT) DRUG THERAPY 10/28/2019 MANOJ MARTINEZ MD, Ot Z87.891 PERSONAL HISTORY OF NICOTINE DEPENDENCE 10/28/2019 MANOJ MARTINEZ MD Ot Z95. 1 PRESENCE OF AORTOCORONARY BYPASS GRAFT 10/28/2019 MANOJ MARTINEZ MD Ot E78. 5 HYPERLIPIDEMIA, UNSPECIFIED 10/28/2019 MANOJ MARTINEZ MD Ot E86. 0 DEHYDRATION 10/28/2019 MANOJ MARTINEZ MD Ot E86. 1 HYPOVOLEMIA 10/28/2019 MANOJ MARTINEZ MD Ot F32. 9 MAJOR DEPRESSIVE DISORDER, SINGLE EPISOD 10/28/2019 MANOJ MARTINEZ MD Ot F41. 9 ANXIETY DISORDER, UNSPECIFIED 10/28/2019 MANOJ MARTINEZ MD Ot G47. 9 SLEEP DISORDER, UNSPECIFIED 10/28/2019 MANOJ MARTINEZ MD Ot I10 ESSENTIAL (PRIMARY) HYPERTENSION 10/28/2019 MANOJ MARTINEZ MD Ot I25. 10 ATHSCL HEART DISEASE OF [place] CORONARY 10/28/2019 MANOJ MARTINEZ MD Ot I25. 2 OLD MYOCARDIAL INFARCTION 10/28/2019 MANOJ MARTINEZ MD Ot I95. 1 ORTHOSTATIC HYPOTENSION 10/28/2019 MANOJ MARTINEZ MD Ot J44. 9 CHRONIC OBSTRUCTIVE PULMONARY DISEASE, U 10/28/2019 MANOJ MARTINEZ MD Ot K21. 9 GASTRO-ESOPHAGEAL REFLUX DISEASE WITHOUT 10/28/2019 MANOJ MARTINEZ MD Ot M19. 90 UNSPECIFIED OSTEOARTHRITIS, UNSPECIFIED 10/28/2019 MANOJ MARTINEZ MD, Ot N39. 0 URINARY TRACT INFECTION, SITE NOT SPECIF 10/28/2019 MANOJ MARTINEZ MD, Ot S50.819A ABRASION OF UNSPECIFIED FOREARM, INITIAL 10/28/2019 MANOJ MARTINEZ MD, Ot W18.30XA FALL ON SAME LEVEL, UNSPECIFIED, INITIAL 10/28/2019 MANOJ MARTINEZ MD, Ot Z79. 01 INSTRUCTIONAL SUPPORT ASSISTANT (CURRENT) USE OF ANTICOAGULANT 10/28/2019 MANOJ MARTINEZ MD, Ot Z79. 02 [facility] (CURRENT) USE OF ANTITHROMBOTI 10/28/2019 MANOJ MARTINEZ MD, Ot Z79.899 OTHER INSTRUCTIONAL SUPPORT ASSISTANT (CURRENT) DRUG THERAPY 10/28/2019 MANOJ MARTINEZ MD, Ot Z87.891 PERSONAL HISTORY OF NICOTINE DEPENDENCE 10/28/2019 MANOJ MARTINEZ MD, Ot Z95. 1 PRESENCE OF AORTOCORONARY BYPASS GRAFT Procedures There is no data. Results Test [...] Blood erythrocyte morphology finding identification NORMAL NRG Comprehensive metabolic panel - 04/01/19 02:35 Serum [...] SEE COMMENT NRG QUANTITY OF GROWTH Isolated NRG Bacterial blood culture [id number] NRG Blood lactic acid measurement (moles/vol ume) - 04/01/19 03:40 Blood lactic acid measurement (moles/volume) 2.35 mmol/L 0.50-2.00 Bacterial blood culture - 04/01/19 03:40 FREE TEXT EXTERNAL SUSCEPTIBILITY REPORTED 9 13:00 NRG QUANTITY OF GROWTH Isolated NRG Bacterial blood culture [id number] NRG [facility] - 04/01/19 [...] d white blood cell (WBC) differential - 09/29/19 01:10 Blood leukocytes automated count (number/volume) 8.0 10*3/uL 4.3-11.0 Blood erythrocytes automated count (number/volume) 5.37 10*6/uL 4.35-5.85 Venous blood hemoglobin measurement (mass/volume) 14.6 g/dL 13.3-17.7 Blood hematocrit (volume fraction) 45 % 40-54 Automated erythrocyte mean corpuscular volume 84 [ foz_us] 80-99 Automated erythrocyte mean corpuscular h emoglobin (mass per erythrocyte) 27 pg 25-34 Automated erythrocyte mean corpuscular h emoglobin concentration measurement (mass/volume) 32 g/dL 32-36 Automated erythrocyte distribution width ratio 14. 0 % 10.0- 14.5 Automated blood platelet count (count/volume) 287 10*3/uL 130-400 Automated blood platelet mean volume measurement 9.2 [foz_us] 7.4-10.4 Automated blood neutrophils/100 leukocytes 70 % 42-75 Automated blood lymphocytes/100 leukocytes 16 % 12-44 Blood monocytes/100 leukocytes 12 % 0-12 Automated blood eosinophils/100 leukocytes 2 % 0-10 Automated blood basophils/100 leukocytes 0 % 0-10 Blood neutrophils automated count (number/volume) 5.6 10*3 1.8-7.8 Blood lymphocytes automated count (number/volume) 1.3 10*3 1.0-4.0 Blood monocytes automated count (number/volume) 1. 0 10*3 0.0-1.0 Automated eosinophil count 0.1 10*3/uL 0 .0-0.3 Automated blood basophil count (count/volume) 0.0 10*3/uL 0.0-0.1 PT panel in platelet poor plasma by coag ulation assay - 09/29/19 01:10 Prothrombin time (PT) in platelet poor plasma by coagu lation assay 18.9 s 12.2-14.7 INR in platelet poor plasma or blood by coagulation as say 1.5 0.8-1.4 Activated partial thromboplastin time (a PTT) in platelet poor plasma bycoagulation assay - 09/29/19 01:10 Activated partial thromboplastin time (a PTT) in platelet poor plasma bycoagulation assay 36 s 24-35 Comprehensive metabolic panel - 09/29/19 01:10 Serum or plasma sodium measurement (moles/volume) 140 mmol/L 135-145 Serum or plasma potassium measurement (moles/volume) 4.0 mmol/L 3.6-5.0 Serum or plasma chloride measurement (moles/volume) 103 mmol/L 98-107 Carbon dioxide 25 mmol/L 21-32 Serum or plasma anion gap determination (moles/volume) 12 mmol/L 5-14 Serum or plasma urea nitrogen measurement (mass/volume ) 17 mg/dL 7-18 Serum or plasma creatinine measurement (mass/volume) 1.17 mg/dL 0.60-1.30 Serum or plasma urea nitrogen/creatinine mass ratio 15 NRG Serum or plasma creatinine measurement w ith calculation of estimated glomerular filtration rate 60 NRG Serum or plasma glucose measurement (mass/volume) 133 mg/dL 70-105 Serum or plasma calcium measurement (mass/volume) 8.6 mg/dL 8.5-10.1 Serum or plasma total bilirubin measurement (mass/volu me) 0.4 mg/dL 0.1-1.0 Serum or plasma alkaline phosphatase otilia surement (enzymatic activity/volume) 98 U/L 40-136 Serum or plasma aspartate aminotransfera se measurement (enzymatic activity/volume) 15 U/L 5-34 Serum or plasma alanine aminotransferase measurement (enzymatic activity/volume) 10 U/L 0-55 Serum or plasma protein measurement (mass/volume) 7.1 g/dL 6.4-8.2 Serum or plasma albumin measurement (mass/volume) 3.3 g/dL 3.2-4.5 CALCIUM CORRECTED 9.2 mg/dL 8.5-10.1 Magnesium - 09/29/19 01:10 Magnesium 2.2 mg/dL 1.6-2.4 Serum or plasma troponin i.cardiac measu rement (mass/volume) - 09/29/19 01:10 Serum or plasma troponin i.cardiac measurement (mass/v olume) < ng/mL <0.028 Myoglobin, serum - 09/29/19 01:10 Myoglobin, serum 51.0 ng/mL 10.0-92.0 Serum or plasma lithium measurement (mol es/volume) - 09/29/19 01:10 BNP PT 174.4 pg/mL <100.0 Arterial blood gas measurement - 0 01:26 Blood pCO2 40 mm[Hg] 35-45 Blood pO2 60 mm[Hg] 79-93 Arterial blood bicarbonate measurement (moles/volume) 26 mmol/L 23-27 Arterial blood base excess by calculation 1.3 mmol /L -2.5-2.5 Arterial blood oxygen saturation measurement 93 % 94-100 * Inhaled oxygen flow rate RA NRG Arterial blood pH measurement with patient temperature correction 7.41 7.37-7.43 Arterial blood carbon dioxide, total measurement (mole s/volume) 26.7 mmol/L 21.0-31.0 Body site RW NRG Assessment of wrist artery patency prior to arterial p uncture YES-POS NRG Setting of ventilation mode NO NR G Measurement of body temperature 36.5 NRG Complete blood count (CBC) with automate d white blood cell (WBC) differential - 10/12/19 23:00 Blood leukocytes automated count (number/volume) 9.2 10*3/uL 4.3-11.0 Blood erythrocytes automated count (number/volume) 5.67 10*6/uL 4.35-5.85 Venous blood hemoglobin measurement (mass/volume) 15.4 g/dL 13.3-17.7 Blood hematocrit (volume fraction) 48 % 40-54 Automated erythrocyte mean corpuscular volume 85 [ foz_us] 80-99 Automated erythrocyte mean corpuscular h emoglobin (mass per erythrocyte) 27 pg 25-34 Automated erythrocyte mean corpuscular h emoglobin concentration measurement (mass/volume) 32 g/dL 32-36 Automated erythrocyte distribution width ratio 14. 2 % 10.0- 14.5 Automated blood platelet count (count/volume) 254 10*3/uL 130-400 Automated blood platelet mean volume measurement 9.7 [foz_us] 7.4-10.4 Automated blood neutrophils/100 leukocytes 73 % 42-75 Automated blood lymphocytes/100 leukocytes 17 % 12-44 Blood monocytes/100 leukocytes 9 % 0-12 Automated blood eosinophils/100 leukocytes 1 % 0-10 Automated blood basophils/100 leukocytes 0 % 0-10 Blood neutrophils automated count (number/volume) 6.7 10*3 1.8-7.8 Blood lymphocytes automated count (number/volume) 1.5 10*3 1.0-4.0 Blood monocytes automated count (number/volume) 0. 8 10*3 0.0-1.0 Automated eosinophil count 0.1 10*3/uL 0 .0-0.3 Automated blood basophil count (count/volume) 0.0 10*3/uL 0.0-0.1 Comprehensive metabolic panel - 10/12/19 23:00 Serum or plasma sodium measurement (moles/volume) 141 mmol/L 135-145 Serum or plasma potassium measurement (moles/volume) 4.4 mmol/L 3.6-5.0 Serum or plasma chloride measurement (moles/volume) 100 mmol/L 98-107 Carbon dioxide 31 mmol/L 21-32 Serum or plasma anion gap determination (moles/volume) 10 mmol/L 5-14 Serum or plasma urea nitrogen measurement (mass/volume ) 14 mg/dL 7-18 Serum or plasma creatinine measurement (mass/volume) 1.03 mg/dL 0.60-1.30 Serum or plasma urea nitrogen/creatinine mass ratio 14 NRG Serum or plasma creatinine measurement w ith calculation of estimated glomerular filtration rate > NRG Serum or plasma glucose measurement (mass/volume) 159 mg/dL 70-105 Serum or plasma calcium measurement (mass/volume) 9.0 mg/dL 8.5-10.1 Serum or plasma total bilirubin measurement (mass/volu me) 0.5 mg/dL 0.1-1.0 Serum or plasma alkaline phosphatase otilia surement (enzymatic activity/volume) 103 U/L 40-136 Serum or plasma aspartate aminotransfera se measurement (enzymatic activity/volume) 19 U/L 5-34 Serum or plasma alanine aminotransferase measurement (enzymatic activity/volume) 8 U/L 0-55 Serum or plasma protein measurement (mass/volume) 7.0 g/dL 6.4-8.2 Serum or plasma albumin measurement (mass/volume) 3.3 g/dL 3.2-4.5 CALCIUM CORRECTED 9.6 mg/dL 8.5-10.1 Magnesium - 10/12/19 23:00 Magnesium 2.2 mg/dL 1.6-2.4 Serum ragweed IgE antibody assay - 10/11 23:00 Serum ragweed IgE antibody assay 189 U/L 125-220 PROCALCITONIN (PCT) - 10/12/19 23:00 PROCALCITONIN (PCT) 0.05 ng/mL <0.10 Serum or plasma creatine kinase measurem ent (enzymatic activity/volume) - 10/12/19 23:00 Serum or plasma creatine kinase measurem ent (enzymatic activity/volume) 60 U/L 30-200 Serum or plasma creatine kinase MB measu rement (enzymatic activity/volume) - 10/12/19 23:00 Serum or plasma creatine kinase MB measu rement (enzymatic activity/volume) 2.4 ng/mL <6.6 Serum or plasma troponin i.cardiac measu rement (mass/volume) - 10/12/19 23:00 Serum or plasma troponin i.cardiac measurement (mass/v olume) < ng/mL <0.028 Influenza virus A and B antigen detectio n - 10/12/19 23:00 FLU RESULT NEGATIVE FOR INFLUENZA A AND B ANTIGENS BY IA NRG Myoglobin, serum - 10/12/19 23:00 Myoglobin, serum 65.7 ng/mL 10.0-92.0 Serum or plasma lithium measurement (mol es/volume) - 10/12/19 23:00 BNP PT 200.0 pg/mL <100.0 Serum or plasma C reactive protein measu rement (mass/volume) - 10/12/19 23:00 Serum or plasma C reactive protein measurement (mass/v olume) 3.11 mg/dL 0.00-0.50 Erythrocyte sedimentation rate by sari gren method - 10/12/19 23:00 Erythrocyte sedimentation rate by westergren method 6 mm 0- 30 PT panel in platelet poor plasma by coag ulation assay - 10/12/19 23:00 Prothrombin time (PT) in platelet poor plasma by coagu lation assay 16.4 s 12.2-14.7 INR in platelet poor plasma or blood by coagulation as say 1.3 0.8-1.4 Activated partial thromboplastin time (a PTT) in platelet poor plasma bycoagulation assay - 10/12/19 23:00 Activated partial thromboplastin time (a PTT) in platelet poor plasma bycoagulation assay 35 s 24-35 Fibrin D-dimer FEU measurement in platel et poor plasma (mass/volume) - 10/12/19 23:00 Fibrin D-dimer FEU measurement in platelet poor plasma (mass/volume) 0.72 ug/mL 0.00-0.49 Coronavirus SARS-CoV-2 So 2018 - 0 23:00 Coronavirus Ab [Units/volume] in Serum Negative Negative ADENOVIRUS DETECTION BY PCR - 10/12/19 2 3:00 Adenovirus detection, CSF, PCR Not Detected Not Detected PARAINFLUENZA VIRUS 1,2,3 PCR - 10/12/19 23:00 Serum or plasma aripiprazole measurement (mass/volume) Not Detected Not Detected PARAINFLU 3 PCR Not Detected Not Detect ed Complete blood count (CBC) with automate d white blood cell (WBC) differential - 10/27/19 12:00 Blood leukocytes automated count (number/volume) 12.2 10*3/uL 4.3-11.0 Blood erythrocytes automated count (number/volume) 5.63 10*6/uL 4.35-5.85 Venous blood hemoglobin measurement (mass/volume) 15.2 g/dL 13.3-17.7 Blood hematocrit (volume fraction) 48 % 40-54 Automated erythrocyte mean corpuscular volume 85 [ foz_us] 80-99 Automated erythrocyte mean corpuscular h emoglobin (mass per erythrocyte) 27 pg 25-34 Automated erythrocyte mean corpuscular h emoglobin concentration measurement (mass/volume) 32 g/dL 32-36 Automated erythrocyte distribution width ratio 14. 4 % 10.0- 14.5 Automated blood platelet count (count/volume) 218 10*3/uL 130-400 Automated blood platelet mean volume measurement 9.6 [foz_us] 7.4-10.4 Automated blood neutrophils/100 leukocytes 82 % 42-75 Automated blood lymphocytes/100 leukocytes 10 % 12-44 Blood monocytes/100 leukocytes 7 % 0-12 Automated blood eosinophils/100 leukocytes 1 % 0-10 Automated blood basophils/100 leukocytes 0 % 0-10 Blood neutrophils automated count (number/volume) 10.0 10*3 1.8-7.8 Blood lymphocytes automated count (number/volume) 1.3 10*3 1.0-4.0 Blood monocytes automated count (number/volume) 0. 8 10*3 0.0-1.0 Automated eosinophil count 0.1 10*3/uL 0 .0-0.3 Automated blood basophil count (count/volume) 0.0 10*3/uL 0.0-0.1 Comprehensive metabolic panel - 10/27/19 12:00 Serum or plasma sodium measurement (moles/volume) 136 mmol/L 135-145 Serum or plasma potassium measurement (moles/volume) 4.4 mmol/L 3.6-5.0 Serum or plasma chloride measurement (moles/volume) 96 mmol/L 98-107 Carbon dioxide 29 mmol/L 21-32 Serum or plasma anion gap determination (moles/volume) 11 mmol/L 5-14 Serum or plasma urea nitrogen measurement (mass/volume ) 13 mg/dL 7-18 Serum or plasma creatinine measurement (mass/volume) 0.94 mg/dL 0.60-1.30 Serum or plasma urea nitrogen/creatinine mass ratio 14 NRG Serum or plasma creatinine measurement w ith calculation of estimated glomerular filtration rate > NRG Serum or plasma glucose measurement (mass/volume) 107 mg/dL 70-105 Serum or plasma calcium measurement (mass/volume) 9.3 mg/dL 8.5-10.1 Serum or plasma total bilirubin measurement (mass/volu me) 0.7 mg/dL 0.1-1.0 Serum or plasma alkaline phosphatase otilia surement (enzymatic activity/volume) 101 U/L 40-136 Serum or plasma aspartate aminotransfera se measurement (enzymatic activity/volume) 22 U/L 5-34 Serum or plasma alanine aminotransferase measurement (enzymatic activity/volume) 11 U/L 0-55 Serum or plasma protein measurement (mass/volume) 7.2 g/dL 6.4-8.2 Serum or plasma albumin measurement (mass/volume) 3.4 g/dL 3.2-4.5 CALCIUM CORRECTED 9.8 mg/dL 8.5-10.1 Magnesium - 10/27/19 12:00 Magnesium 2.2 mg/dL 1.6-2.4 Serum or plasma troponin i.cardiac measu rement (mass/volume) - 10/27/19 12:00 Serum or plasma troponin i.cardiac measurement (mass/v olume) < ng/mL <0.028 Serum or plasma C reactive protein measu rement (mass/volume) - 10/27/19 12:00 Serum or plasma C reactive protein measurement (mass/v olume) 7.84 mg/dL 0.00-0.50 Serum or plasma lithium measurement (mol es/volume) - 10/27/19 12:00 BNP PT 162.2 pg/mL <100.0 Complete urinalysis with reflex to cultu re - 10/27/19 13:30 Urine color determination YELLOW NRG Urine clarity determination SL CLOUDY N RG Urine pH measurement by test strip 6.0 5-9 Specific gravity of urine by test strip 1.025 1.016-1.022 Urine protein assay by test strip, semi-quantitative TRACE NEGATIVE Urine glucose detection by automated test strip NE GATIVE NEGATIVE Erythrocytes detection in urine sediment by light micr oscopy 1+ NEGATIVE Urine ketones detection by automated test strip NE GATIVE NEGATIVE Urine nitrite detection by test strip POSITIVE NEGATIVE Urine total bilirubin detection by test strip 1+ NEGATIVE Urine urobilinogen measurement by automated test strip (mass/volume) 4.0 mg/dL < = 1.0 Urine leukocyte esterase detection by dipstick 2+ NEGATIVE Automated urine sediment erythrocyte cou nt by microscopy (number/high power field) [HPF] NRG Automated urine sediment leukocyte count by microscopy (number/high power field) [HPF] NRG Bacteria detection in urine sediment by light microsco py MODERATE NRG Squamous epithelial cells detection in u rine sediment by light microscopy 0-2 NRG Crystals detection in urine sediment by light microsco py NONE NRG Casts detection in urine sediment by light microscopy NONE NRG Mucus detection in urine sediment by light microscopy SMALL NRG Complete urinalysis with reflex to culture YES NRG Bacterial urine culture - 10/27/19 13:30 Bacterial urine culture [id number] NRG COLONY COUNT 30,000 CFU/ML NRG SUSCEPTIBILITY SUSCEPTIBILITY REPORTED 10/30/19 12:0 0 NRG RAPID ID PRELIM RAPID ID BY VCP NRG ID CONFIRMATION ID CONFIRMED N RG Dirithromycin susceptibility test by dis k diffusion - 10/27/19 13:30 Oxacillin susceptibility test by minimum inhibitory co ncentration <= NRG Vancomycin susceptibility test by minimum inhibitory c oncentration 2 NRG Levofloxacin susceptibility test by minimum inhibitory concentration > NRG Rifampin susceptibility test by minimum inhibitory con centration <= NRG Cefazolin susceptibility test by minimum inhibitory co ncentration <= NRG Nitrofurantoin susceptibility test by mi nimum inhibitory concentration <= NRG Dirithromycin susceptibility test by dis k diffusion - 10/27/19 13:30 Oxacillin susceptibility test by minimum inhibitory co ncentration > NRG Vancomycin susceptibility test by minimum inhibitory c oncentration 1 NRG Levofloxacin susceptibility test by minimum inhibitory concentration > NRG Rifampin susceptibility test by minimum inhibitory con centration <= NRG Cefazolin susceptibility test by minimum inhibitory co ncentration R NRG Nitrofurantoin susceptibility test by mi nimum inhibitory concentration <= NRG Penicillin G susceptibility test by minimum inhibitory concentration 1 NRG Complete blood count (CBC) with automate d white blood cell (WBC) differential - 10/28/19 06:12 Blood leukocytes automated count (number/volume) 8.3 10*3/uL 4.3-11.0 Blood erythrocytes automated count (number/volume) 4.88 10*6/uL 4.35-5.85 Venous blood hemoglobin measurement (mass/volume) 13.2 g/dL 13.3-17.7 Blood hematocrit (volume fraction) 42 % 40-54 Automated erythrocyte mean corpuscular volume 87 [ foz_us] 80-99 Automated erythrocyte mean corpuscular h emoglobin (mass per erythrocyte) 27 pg 25-34 Automated erythrocyte mean corpuscular h emoglobin concentration measurement (mass/volume) 31 g/dL 32-36 Automated erythrocyte distribution width ratio 14. 2 % 10.0- 14.5 Automated blood platelet count (count/volume) 177 10*3/uL 130-400 Automated blood platelet mean volume measurement 9.4 [foz_us] 7.4-10.4 Automated blood neutrophils/100 leukocytes 75 % 42-75 Automated blood lymphocytes/100 leukocytes 16 % 12-44 Blood monocytes/100 leukocytes 8 % 0-12 Automated blood eosinophils/100 leukocytes 2 % 0-10 Automated blood basophils/100 leukocytes 0 % 0-10 Blood neutrophils automated count (number/volume) 6.2 10*3 1.8-7.8 Blood lymphocytes automated count (number/volume) 1.3 10*3 1.0-4.0 Blood monocytes automated count (number/volume) 0. 6 10*3 0.0-1.0 Automated eosinophil count 0.2 10*3/uL 0 .0-0.3 Automated blood basophil count (count/volume) 0.0 10*3/uL 0.0-0.1 Comprehensive metabolic panel - 10/28/19 06:12 Serum or plasma sodium measurement (moles/volume) 141 mmol/L 135-145 Serum or plasma potassium measurement (moles/volume) 4.3 mmol/L 3.6-5.0 Serum or plasma chloride measurement (moles/volume) 100 mmol/L 98-107 Carbon dioxide 33 mmol/L 21-32 Serum or plasma anion gap determination (moles/volume) 8 mmol/L 5-14 Serum or plasma urea nitrogen measurement (mass/volume ) 11 mg/dL 7-18 Serum or plasma creatinine measurement (mass/volume) 0.84 mg/dL 0.60-1.30 Serum or plasma urea nitrogen/creatinine mass ratio 13 NRG Serum or plasma creatinine measurement w ith calculation of estimated glomerular filtration rate > NRG Serum or plasma glucose measurement (mass/volume) 86 mg/dL 70-105 Serum or plasma calcium measurement (mass/volume) 8.3 mg/dL 8.5-10.1 Serum or plasma total bilirubin measurement (mass/volu me) 0.5 mg/dL 0.1-1.0 Serum or plasma alkaline phosphatase otilia surement (enzymatic activity/volume) 77 U/L 40-136 Serum or plasma aspartate aminotransfera se measurement (enzymatic activity/volume) 15 U/L 5-34 Serum or plasma alanine aminotransferase measurement (enzymatic activity/volume) 8 U/L 0-55 Serum or plasma protein measurement (mass/volume) 5.4 g/dL 6.4-8.2 Serum or plasma albumin measurement (mass/volume) 2.7 g/dL 3.2-4.5 CALCIUM CORRECTED 9.3 mg/dL 8.5-10.1 Serum or plasma C reactive protein measu rement (mass/volume) - 10/28/19 06:12 Serum or plasma C reactive protein measurement (mass/v olume) 6.38 mg/dL 0.00-0.50 Complete blood count (CBC) with automate d white blood cell (WBC) differential - 11/08/19 17:55 Blood leukocytes automated count (number/volume) 8.1 10*3/uL 4.3-11.0 Blood erythrocytes automated count (number/volume) 5.20 10*6/uL 4.35-5.85 Venous blood hemoglobin measurement (mass/volume) 14.0 g/dL 13.3-17.7 Blood hematocrit (volume fraction) 45 % 40-54 Automated erythrocyte mean corpuscular volume 87 [ foz_us] 80-99 Automated erythrocyte mean corpuscular h emoglobin (mass per erythrocyte) 27 pg 25-34 Automated erythrocyte mean corpuscular h emoglobin concentration measurement (mass/volume) 31 g/dL 32-36 Automated erythrocyte distribution width ratio 13. 8 % 10.0- 14.5 Automated blood platelet count (count/volume) 350 10*3/uL 130-400 Automated blood platelet mean volume measurement 9.0 [foz_us] 7.4-10.4 Automated blood neutrophils/100 leukocytes 76 % 42-75 Automated blood lymphocytes/100 leukocytes 14 % 12-44 Blood monocytes/100 leukocytes 9 % 0-12 Automated blood eosinophils/100 leukocytes 1 % 0-10 Automated blood basophils/100 leukocytes 0 % 0-10 Blood neutrophils automated count (number/volume) 6.1 10*3 1.8-7.8 Blood lymphocytes automated count (number/volume) 1.1 10*3 1.0-4.0 Blood monocytes automated count (number/volume) 0. 7 10*3 0.0-1.0 Automated eosinophil count 0.1 10*3/uL 0 .0-0.3 Automated blood basophil count (count/volume) 0.0 10*3/uL 0.0-0.1 Comprehensive metabolic panel - 11/08/19 17:55 Serum or plasma sodium measurement (moles/volume) 141 mmol/L 135-145 Serum or plasma potassium measurement (moles/volume) 4.3 mmol/L 3.6-5.0 Serum or plasma chloride measurement (moles/volume) 99 mmol/L 98-107 Carbon dioxide 33 mmol/L 21-32 Serum or plasma anion gap determination (moles/volume) 9 mmol/L 5-14 Serum or plasma urea nitrogen measurement (mass/volume ) 10 mg/dL 7-18 Serum or plasma creatinine measurement (mass/volume) 0.81 mg/dL 0.60-1.30 Serum or plasma urea nitrogen/creatinine mass ratio 12 NRG Serum or plasma creatinine measurement w ith calculation of estimated glomerular filtration rate > NRG Serum or plasma glucose measurement (mass/volume) 114 mg/dL 70-105 Serum or plasma calcium measurement (mass/volume) 8.7 mg/dL 8.5-10.1 Serum or plasma total bilirubin measurement (mass/volu me) 0.4 mg/dL 0.1-1.0 Serum or plasma alkaline phosphatase otliia surement (enzymatic activity/volume) 100 U/L 40-136 Serum or plasma aspartate aminotransfera se measurement (enzymatic activity/volume) 18 U/L 5-34 Serum or plasma alanine aminotransferase measurement (enzymatic activity/volume) 6 U/L 0-55 Serum or plasma protein measurement (mass/volume) 6.7 g/dL 6.4-8.2 Serum or plasma albumin measurement (mass/volume) 3.2 g/dL 3.2-4.5 CALCIUM CORRECTED 9.3 mg/dL 8.5-10.1 Serum or plasma C reactive protein measu rement (mass/volume) - 11/08/19 17:55 Serum or plasma C reactive protein measurement (mass/v olume) 3.25 mg/dL 0.00-0.50 Complete urinalysis with reflex to cultu re - 11/08/19 19:49 Urine color determination YELLOW NRG Urine clarity determination SL CLOUDY N RG Urine pH measurement by test strip 7.0 5-9 Specific gravity of urine by test strip 1.015 1.016-1.022 Urine protein assay by test strip, semi-quantitative NEGATIVE NEGATIVE Urine glucose detection by automated test strip NE GATIVE NEGATIVE Erythrocytes detection in urine sediment by light micr oscopy NEGATIVE NEGATIVE Urine ketones detection by automated test strip NE GATIVE NEGATIVE Urine nitrite detection by test strip NEGATIVE NEGATIVE Urine total bilirubin detection by test strip NEGA TIVE NEGATIVE Urine urobilinogen measurement by automated test strip (mass/volume) 4.0 mg/dL < = 1.0 Urine leukocyte esterase detection by dipstick 1+ NEGATIVE Automated urine sediment erythrocyte cou nt by microscopy (number/high power field) RARE NRG Automated urine sediment leukocyte count by microscopy (number/high power field) [HPF] NRG Bacteria detection in urine sediment by light microsco py FEW NRG Squamous epithelial cells detection in u rine sediment by light microscopy 0-2 NRG Crystals detection in urine sediment by light microsco py PRESENT NRG Casts detection in urine sediment by light microscopy NONE NRG Mucus detection in urine sediment by light microscopy SMALL NRG Complete urinalysis with reflex to culture YES NRG Amorphous sediment detection in urine sediment by ligh t microscopy MOD PAULA PHOSPHATE NRG Bacterial urine culture - 11/08/19 19:49 Bacterial urine culture NG NRG Encounters ACCT No. Visit Date/Time Discharge Status Pt. Type Provider Facility Loc./Unit Complaint [id number] 11/08/2019 17:19:00 21:01:00 DIS Emergency ABISAI SINGH APRN [facility] ER FALL,DIZZINESS [id number] 10/27/2019 14:59:00 15:50:00 DIS Inpatient MICHELLE GLASGOW, MANOJ Collado [facility] 4TH ORTHOSTATIC HYPOTENSION , UTI, WEAKNESS [id number] 10/12/2019 22:40:00 02:16:00 DIS Emergency [facility] SOB [id number] 09/29/2019 01:06:00 02:18:00 DIS Emergency JOSE NEELY MD [facility] ER SOA [id number] 08/12/2019 10:37:00 020 23:59:59 CLS Outpatient MARIANO DASH MD [facility] CARD PREOP: ILIAC ARTERY LIZZIE NOSIS [id number] 07/02/2019 13:51:00 17:36:00 DIS Emergency ABISAI SINGH APRN [facility] ER ABD PAIN [id number] 06/25/2019 04:24:00 019 09:26:00 DIS Emergency JEANA GLASGOW, FABIO T [facility] ER SOB [id number] 05/30/2019 01:24:00 02:45:00 DIS Emergency JEANA GLASGOW, FABIO T [facility] ER INSOMNIA [id number] 04/02/2019 15:07:00 18:45:00 DIS Emergency JEANA GLASGOW, FABIO T [facility] ER SOB [id number] 04/01/2019 02:30:00 05:34:00 DIS Emergency JEANA GLASGOW, FABIO T [facility] ER CP,DIZZY [id number] 01/23/2017 10:51:00 017 23:59:59 CLS Outpatient BRITT BUTLER MD [facility] LAB Z79.84 [id number] 01/12/2017 15:17:00 017 23:59:59 CLS Outpatient LAURA FRAZIER DO [facility] RT I25.10 [id number] 01/09/2017 06:42:00 017 23:59:59 CLS Outpatient LAURA FRAZIER DO [facility] CARD I25.10 [id number] 07/06/2015 07:43:00 016 23:59:59 CLS Outpatient LAURA FRAZIER DO [facility] RAD CHRONIC OBSTRUC TIVE PULMONARY DISEASE [id number] 12/16/2013 08:38:00 014 23:59:59 CLS Outpatient LAURA FRAZIER DO [facility] RAD CHRONIC AIRWAY OBSTRUCTION [id number] 01/27/2013 08:21:00 013 12:35:00 DIS Outpatient COSME DAVIS MD [facility] SDC NECK LESION [id number] 01/24/2013 12:35:00 013 23:59:59 CLS Outpatient COSME DAVIS MD [facility] PREOP NECK LESION [id number] 08/20/2012 10:39:00 Document Registration [id number] 08/28/2011 15:42:00 Document Registration [id number] 08/22/2011 09:17:00 Document Registration [id number] 04/28/2011 22:54:00 Document Registration [id number] 04/18/2011 09:24:00 Document Registration [id number] 10/30/2010 08:19:00 Document Registration [id number] 10/16/2010 07:43:00 Document Registration [id number] 10/10/2010 15:06:00 Document Registration [id number] 09/26/2010 00:00:00 Document Registration [id number] 08/01/2010 10:55:00 Document Registration [id number] 06/27/2010 14:00:00 Document Registration [id number] 06/03/2010 20:55:00 Document Registration [id number] 04/22/2010 12:03:00 Document Registration
== END 2019-11-10 19:45 | disposition home or self-care (01) ==
LOC: EDUNIT# 17:47 → ER 17:49
DX: M54.2 Cervicalgia (principal); R51 Headache; I10 Essential (primary) hypertension; I25.2 Old myocardial infarction; I25.10 Atherosclerotic heart disease of native coronary artery without angina pectoris; E78.00 Pure hypercholesterolemia, unspecified; F41.9 Anxiety disorder, unspecified; F32.9 Major depressive disorder, single episode, unspecified; R40.2142 Coma scale, eyes open, spontaneous, at arrival to emergency department; R40.2252 Coma scale, best verbal response, oriented, at arrival to emergency department; R40.2362 Coma scale, best motor response, obeys commands, at arrival to emergency department; Z79.01 Long term (current) use of anticoagulants; Z79.02 Long term (current) use of antithrombotics/antiplatelets; Z87.891 Personal history of nicotine dependence; Z95.5 Presence of coronary angioplasty implant and graft; Z95.1 Presence of aortocoronary bypass graft; Z80.0 Family history of malignant neoplasm of digestive organs; W18.39XA Other fall on same level, initial encounter
CPT/HCPCS: 70450; 72125

== ENCOUNTER 2019-11-24 19:40 | Emergency (ER) | payer MEDICARE, OTHER ==
[~2019-11-24] VITALS: Ht 175.2 cm; Wt 63.5 kg
[2019-11-24] MEDS ORDERED: NS IV 1000 ML 1,000 ML IV SCH (19:49)
[2019-11-24] MEDS ORDERED: ASPIRIN 81 MG CHEW (CHILDREN'S ASA) PO ONE (20:00)
[2019-11-24 20:01] LABS: BASOPHILS % (AUTO) 0 % (0-10); EOSINOPHILS # (AUTO) 0.1 10^3/uL (0.0-0.3); EOSINOPHILS % (AUTO) 1 % (0-10); HEMATOCRIT 41 % (40-54); HEMOGLOBIN 12.7 G/DL (13.3-17.7); LYMPHOCYTES % (AUTO) 10 % (12-44); MEAN CORPUSCULAR HEMOGLOBIN 27 PG (25-34); MEAN CORPUSCULAR HGB CONC 31 G/DL (32-36); MEAN CORPUSCULAR VOLUME 88 FL (80-99); MEAN PLATELET VOLUME 9.7 FL (7.4-10.4); MONOCYTES # (AUTO) 0.9 X 10^3 (0.0-1.0); MONOCYTES % (AUTO) 9 % (0-12); NEUTROPHILS # (AUTO) 7.5 X 10^3 (1.8-7.8); NEUTROPHILS % (AUTO) 79 % (42-75); PLATELET COUNT 291 10^3/uL (130-400); RED CELL DISTRIBUTION WIDTH 14.5 % (10.0-14.5); WHITE BLOOD COUNT 9.5 10^3/uL (4.3-11.0)
[2019-11-24 20:22] LABS: INR 1.6 (0.8-1.4); PROTHROMBIN TIME PATIENT 19.6 SEC (12.2-14.7)
[2019-11-24 20:29] LABS: ALANINE AMINOTRANSFERASE 7 U/L (0-55); ALKALINE PHOSPHATASE 106 U/L (40-136); AMYLASE 49 U/L (25-125); BILIRUBIN,TOTAL 0.4 MG/DL (0.1-1.0); BUN/CREATININE RATIO 10; CALCIUM 8.5 MG/DL (8.5-10.1); CARBON DIOXIDE 34 MMOL/L (21-32); CHLORIDE 101 MMOL/L (98-107); CREATINE KINASE 22 U/L (30-200); CREATININE SERUM 0.88 MG/DL (0.60-1.30); GFR ESTIMATED > 60; GLUCOSE 104 MG/DL (70-105); LIPASE 15 U/L (8-78); POTASSIUM 3.8 MMOL/L (3.6-5.0); SODIUM 141 MMOL/L (135-145); TOTAL PROTEIN 6.5 GM/DL (6.4-8.2)
--- NOTE | 2019-11-24 20:41 | Diagnostic Imaging Report ---
INDICATION: Chest pain, shortness of air. COMPARISON: 10/27/2019. EXAMINATION: Single view of the chest was obtained. FINDINGS: Five lobe fibrotic appearing interstitial lung disease is unchanged from multiple comparison studies. No acute consolidation effusion or pneumothorax. There are some calcified pleural plaques, chronic. Sternal wires are midline. Upper limits heart size stable. 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 No new abnormality or change from priors. Dictated by: Dictated on workstation # [id number]
[2019-11-24 20:49] LABS: CREATINE KINASE MB 1.2 NG/ML (<6.6); TSH (THYROID ANALYZER) 0.59 UIU/ML (0.35-4.94)
--- NOTE | 2019-11-24 20:51 | ED Cardiac General ---
History of Present Illness General Chief Complaint: Chest Pain Stated Complaint: CHEST PAIN,SOA Nursing Triage Note: chest pain with shortness of air. verbalizes pain started yesterday and had pain earlier but now denies any chest pain. ems reports orthostatic issues when transferring to cot patients bp was 55 systolic. patient uses chronic o2 3 liters at home. 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 Source: patient, EMS, old records History of Present Illness Date Seen by Provider: November 24, 2019 Time Seen by Provider: 19:50 Initial Comments PT ARRIVES VIA EMS FROM HOME--LIVES WITH GRAND DAUGHTER C/O CHEST PAIN SINCE SOMETIME EARLIER TODAY--STATES HE DID NOT WAKE UP WITH IT DOES NOT HAVE ANY PAIN NOW PAIN COMES AND GOES, NOTHING WORSENS OR IMPROVES IT OR BRINGS THE PAIN ON C/O SHORTNESS OF BREATH--CHRONIC PROBLEM--HAS COPD AND PULMONARY FIBROSIS, AND WAS STARTED ON HOME O2 IN SEPTEMBER NO SWEATS NO NAUSEA/VOMITING NO DIZZINESS NO PALPITATIONS NO COUGH NO FEVER EMS REPORT THAT PT WAS ORTHOSTATIC AT THE HOUSE--BP 90 SYSTOLIC, DROPPED TO 50 SYSTOLIC ON TRANSFER TO EMS COT. EMS GAVE IV FLUIDS, BUT NO OTHER MEDICATIONS PT HAS EXTENSIVE CARDIAC HISTORY--CHRONIC ATRIAL FIBRILLATION. 4 VESSEL CABG PLUS AT LEAST 5 STENTS--"5 HEART ATTACKS" PER PT PT TAKES BOTH PLAVIX AND ELIQUIS PT WITH A MULTITUDE OF VISITS FOR VARIOUS COMPLAINTS, BUT MANY FOR CHEST PAIN/SHORTNESS OF BREATH ISSUES--HAS HAD 7 VISITS IN 2019--ALL SINCE 09/29/19 N[facility] GAS WELDER APPRENTICE: No ASA po GAS WELDER APPRENTICE: No PCP: DR. FRAZIER DISABILITY RATER: [facility] Allergies and Home Medications Allergies Coded Allergies: No Known Drug Allergies (Unverified , 10/12/19) Home Medications Apixaban 5 Mg Tablet, 5 MG PO BID, (Reported) LAST FILLED 08-12-2019 #90/45 DAY SUPPLY Cefdinir 300 Mg Capsule, 300 MG PO BID Prescribed by: MANOJ MARTINEZ on 10/28/19 142 Cefdinir 300 Mg Capsule, 300 MG PO BID Prescribed by: ABISAI SINGH on 11/08/192007 Clopidogrel Bisulfate 75 Mg Tablet, 75 MG PO DAILY, (Reported) Finasteride 5 Mg Tablet, 5 MG PO HS, (Reported) Furosemide 40 Mg Tablet, 40 MG PO Q48H PRN for SHORTNESS OF BREATH/2LB GAIN, (Reported) Potassium Chloride 20 Meq Tab.er.prt, 20 MEQ PO Q48H PRN for SHORTNESS OF BREATH/2LB GAIN, (Reported) TAKES POTASSIUM AND FUROSEMIDE TOGETHER Pravastatin Sodium 80 Mg Tablet, 40 MG PO HS, (Reported) TAKES OF AN 80MG TAB Trazodone HCl 100 Mg Tablet, 100 MG PO HS, (Reported) Venlafaxine HCl 150 Mg Cap.er.24h, 150 MG PO DAILY, (Reported) Patient Home Medication List Home Medication List Reviewed: Yes Review of Systems Review of Systems Constitutional: no symptoms reported; No chills, No diaphoresis, No dizziness, No fever, No malaise, No weakness; weight loss (LOST 50 LBS IN LAST YEAR/UNEXPLAINED--WEIGHT 190# DOWN TO 140# NOW. ) EENTM: No Symptoms Reported Respiratory: See HPI; Denies Cough, Denies Orthopnea; Shortness of Air Cardiovascular: See HPI, Chest Pain; Denies Edema, Denies Lightheadedness, Denies Palpitations, Denies Syncope Gastrointestinal: No Symptoms Reported; Denies Abdominal Pain, Denies Nausea, Denies Vomiting Genitourinary: No Symptoms Reported Musculoskeletal: no symptoms reported Skin: no symptoms reported Psychiatric/Neurological: No Symptoms Reported Endocrine: No Symptoms Reported Hematologic/Lymphatic: No Symptoms Reported Past Ljggvle-Vvljji-Adrgko Hx Past Med/Social Hx: Reviewed and Corrections made Patient Social History Alcohol Use: Denies Use Recreational Drug Use: No Smoking Status: Former Smoker Type Used: Cigarettes Former Smoker, Quit: Jul 17, 2003 2nd Hand Smoke Exposure: No Recent Foreign Travel: No Contact w/Someone Who Travel: No Recent Infectious Disease Expo: No Recent Hopitalizations: No Physical Abuse: No Sexual Abuse: No Immunizations Up To Date Tetanus Booster (TDap): Unknown Date of Pneumonia Vaccine: Mar 29, 2012 Date of Influenza Vaccine: Mar 29, 2019 Past Medical History Surgeries: Yes (LEFT KNEE SURGERY; CARDIAC CATHS-AT LEAST 5 STENTS, PER PT; 4 V ESSEL CABG; ) Cardiac, CABG, Coronary Stent, Gallbladder, Orthopedic Respiratory: Yes (POSS ASBESTOS EXPOSURE-PULMONARY FIBROSIS; STARTED ON HOME O2 10/12/19) COPD Currently Using CPAP: No Currently Using BIPAP: No Cardiac: Yes ("5 HEART ATTACKS" PER PT; 4 VESSEL CABG; AT LEAST 5 STENTS, PER PT) Chronic Edema/Swelling, Coronary Artery Disease, Heart Attack, High Cholesterol, Hypertension, Hypotension, Peripheral Vascular Neurological: No Reproductive Disorders: No Genitourinary: No Gastrointestinal: Yes Gastroesophageal Reflux, Pancreatitis Musculoskeletal: Yes (LEFT KNEE SURGERY) Arthritis, Fractures Endocrine: No HEENT: No Cancer: No Psychosocial: Yes Sleep Difficulties, Anxiety, Depression Integumentary: No Blood Disorders: No Family Medical History Colon cancer 19 MOTHER Dementia G8 BROTHER Physical Exam Vital Signs Vital Signs - First Documented 11/24/19 19:40 Temp 36.6 Pulse 83 Resp 20 B/P (MAP) 110/72 (85) Pulse Ox 96 O2 Delivery Nasal Cannula O2 Flow Rate 2.0 Capillary Refill : Less Than 3 Seconds Height, Weight, BMI Height: '" Weight: 195lbs. oz. [id number]; 20.00 BMI Method: General Appearance: No Apparent Distress, Thin, Other (SMILING, TALKATIVE, PLEASANT, DOES NOT APPEAR TO BE IN ANY DISCOMFORT OR DISTRESS WHATSOEVER. STATES HE FEELS FINE. 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 Norm as Tested Skin: Normal Color, Warm/Dry Progress/Results/Core Measures Results/Orders Lab Results Laboratory Tests Test 11/24/19 19:47 11/24/19 21:22 Range/Units White Blood Count 9.5 4.3-11.0 10^3/uL Red Blood Count 4.72 4.35-5.85 10^6/uL Hemoglobin 12.7 L 13.3-17.7 G/DL Hematocrit 41 40-54 % Mean Corpuscular Volume 88 80-99 FL Mean Corpuscular Hemoglobin 27 25-34 PG Mean Corpuscular Hemoglobin Concent 31 L 32-36 G/DL Red Cell Distribution Width 14.5 10.0-14.5 % Platelet Count 291 130-400 10^3/uL Mean Platelet Volume 9.7 7.4-10.4 FL Neutrophils (%) (Auto) 79 H 42-75 % Lymphocytes (%) (Auto) 10 L 12-44 % Monocytes (%) (Auto) 9 0-12 % Eosinophils (%) (Auto) 1 0-10 % Basophils (%) (Auto) 0 0-10 % Neutrophils # (Auto) 7.5 1.8-7.8 X 10^3 Lymphocytes # (Auto) 1.0 1.0-4.0 X 10^3 Monocytes # (Auto) 0.9 0.0-1.0 X 10^3 Eosinophils # (Auto) 0.1 0.0-0.3 10^3/uL Basophils # (Auto) 0.0 0.0-0.1 10^3/uL Prothrombin Time 19.6 H 12.2-14.7 SEC INR Comment 1.6 H 0.8-1.4 Activated Partial Thromboplast Time 43 H 24-35 SEC Sodium Level 141 135-145 MMOL/L Potassium Level 3.8 3.6-5.0 MMOL/L Chloride Level 101 98-107 MMOL/L Carbon Dioxide Level 34 H 21-32 MMOL/L Anion Gap 6 5-14 MMOL/L Blood Urea Nitrogen 9 7-18 MG/DL Creatinine 0.88 0.60-1.30 MG/DL Estimat Glomerular Filtration Rate > 60 BUN/Creatinine Ratio 10 Glucose Level 104 70-105 MG/DL Calcium Level 8.5 8.5-10.1 MG/DL Corrected Calcium 9.3 8.5-10.1 MG/DL Magnesium Level 2.0 1.6-2.4 MG/DL Total Bilirubin 0.4 0.1-1.0 MG/DL Aspartate Amino Transf (AST/SGOT) 15 5-34 U/L Alanine Aminotransferase (ALT/SGPT) 7 0-55 U/L Alkaline Phosphatase 106 40-136 U/L Total Creatine Kinase 22 L 30-200 U/L Creatine Kinase MB 1.2 <6.6 NG/ML Myoglobin 41.6 10.0-92.0 NG/ML Troponin I < 0.028 <0.028 NG/ML B-Type Natriuretic Peptide 234.1 H <100.0 PG/ML Total Protein 6.5 6.4-8.2 GM/DL Albumin 3.0 L 3.2-4.5 GM/DL Amylase Level 49 25-125 U/L Lipase 15 8-78 U/L TSH [place] Testing 0.59 0.35-4.94 UIU/ML Urine Color YELLOW Urine Clarity CLEAR Urine pH 6.0 5-9 Urine Specific [place] >=1.030 1.016-1.022 Urine Protein NEGATIVE NEGATIVE Urine Glucose (UA) NEGATIVE NEGATIVE Urine Ketones NEGATIVE NEGATIVE Urine Nitrite NEGATIVE NEGATIVE Urine Bilirubin NEGATIVE NEGATIVE Urine Urobilinogen 1.0 < = 1.0 MG/DL Urine Leukocyte Esterase NEGATIVE NEGATIVE Urine RBC (Auto) TRACE-I NEGATIVE Urine RBC 0-2 /HPF Urine WBC 2-5 /HPF Urine Crystals PRESENT H /LPF Urine Amorphous Sediment FEW PAULA URATES H /LPF Urine Bacteria TRACE /HPF Urine Casts NONE /LPF Urine Mucus MODERATE H /LPF Urine Culture Indicated NO My Orders Orders - DO GOMEZ DO Ed Iv/Invasive Line Start (11/24/19 19:49) Ekg Tracing (11/24/19 19:49) O2 (11/24/19 19:49) Monitor-Rhythm Ecg Trace Only (11/24/19 19:49) Amylase (11/24/19 19:49) BNP (11/24/19 19:49) Cbc With Automated Diff (11/24/19 19:49) Comprehensive Metabolic Panel (11/24/19 19:49) Creatine Kinase (11/24/19 19:49) Creatine Kinase Mb (11/24/19 19:49) Lipase (11/24/19 19:49) Magnesium (11/24/19 19:49) Protime With Inr (11/24/19 19:49) Partial Thromboplastin Time (11/24/19 19:49) Thyroid Analyzer (11/24/19 19:49) Ua Culture If Indicated (11/24/19 19:49) Myoglobin Serum (11/24/19 19:49) Troponin I (11/24/19 19:49) Chest 1 View, Ap/Pa Only (11/24/19 19:49) Ed Iv/Invasive Line Start (11/24/19 19:49) Ns Iv 1000 Ml (Sodium Chloride 0.9%) (11/24/19 19:49) Lipid Panel (11/25/19 06:00) Aspirin Chewable Tablet (Baby Aspirin Ch (11/24/19 20:00) Furosemide Injection (Lasix Injection) (11/24/19 21:00) Medications Given in ED Current Medications Medications Dose Ordered Sig/Husam Route Start Time Stop Time Status Last Admin Dose Admin Aspirin 324 mg ONCE ONCE PO 11/24/19 20:00 11/24/19 20:01 DC 11/24/19 20:03 324 MG Furosemide 40 mg ONCE ONCE IVP 11/24/19 21:00 11/24/19 21:01 DC 11/24/19 21:06 40 MG Vital Signs/I&O 11/24/19 11/24/19 11/24/19 19:40 19:40 19:41 Temp 36.6 Pulse 83 Resp 20 B/P (MAP) 110/72 (85) Pulse Ox 96 96 O2 Delivery Nasal Cannula Nasal Cannula Nasal Cannula O2 Flow Rate 2.0 2.0 2.00 Blood Pressure Mean: 85 Progress Progress Note : Progress Note NO SYMPTOMS OF ANY KIND DURING ENTIRE ER STAY VITALS STABLE, NO HYPOTENSIVE EPISODES AT ANY TIME O2 SATS 100% ON 2L/NC Initial ECG Impression Date: November 24, 2019 Initial ECG Impression Time: 19:51 Initial ECG Rate: 87 Initial ECG Rhythm: Normal Sinus (PAC'S) Diagnostic Imaging Comments CXR--PER RADIOLOGIST REPORT AT 2041 IMPRESSION: 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 No new abnormality or change from priors. Reviewed: Reviewed by Me Departure Communication (Admissions) PT REQUESTS TO BE TRANSFERRED TO [facility], HIS DISABILITY RATER, DR. BUTLER IS THERE [phone]--CALLED [facility] [phone]--SPOKE WITH DR. PEDERSEN, DISABILITY RATER, ACCEPTS PT FOR TRANSFER/ADMIT Impression Primary Impression: Chest pain Additional Impressions: Mild congestive heart failure Pulmonary fibrosis HX OF CAD WITH CABG AND STENTS History of atrial fibrillation Disposition: XFER SHT-TRM HOSP Condition: Stable Transfer Transfer Reason: Patient preference Transfer Facility: [facility] Method of Transfer: EMS Departure-Patient Inst. Referrals: LAURA FRAZIER DO (PCP/Family) Primary Care Physician DO GOMEZ DO November 24, 2019 20:51
[2019-11-24] MEDS ORDERED: FUROSEMIDE 40 MG/4 ML INJ (LASIX) IVP ONE (21:00)
--- NOTE | 2019-11-24 21:22 | NUR ---
Pt has been accepted to [facility].
--- NOTE | 2019-11-24 21:25 | NUR ---
DISCUSSION WITH PATIENT ABOUT HIS REQUEST TO GO TO [facility] TO BE UNDER HIS INVESTIGATIVE ASSISTANT CARE AND SIGN PAPER TO TRANSFER.
[2019-11-24 21:33] LABS: BILIRUBIN,URINE NEGATIVE (NEGATIVE); CLARITY,URINE CLEAR; COLOR,URINE YELLOW; GLUCOSE, URINE (UA) NEGATIVE (NEGATIVE); KETONES,URINE NEGATIVE (NEGATIVE); LEUKOCYTE ESTERASE ,URINE NEGATIVE (NEGATIVE); NITRITE,URINE NEGATIVE (NEGATIVE); PROTEIN,URINE NEGATIVE (NEGATIVE)
--- NOTE | 2019-11-24 21:38 | NUR ---
Room and report number recieved. Dispatch called for transport to [place]
--- NOTE | 2019-11-24 21:47 | NUR ---
REPORT GIVEN TO RICHARD SNOWDEN RN FOR ROOM NUMBER [id number] BED 1
--- OUTSIDE RECORDS SUMMARY | 2019-11-24 21:55 | XMS REPORT | Continuity of Care Document ---
Author Organization Unknown Address Unknown Phone Unavailable Allergies Active Description Code Type Severity Reaction Onset Reported/Identified Relationship to Patient Clinical Status Yes No Known Drug Allergies [id number] Drug Allergy Unknown N/A 10/12/2019 Medications There [...] DO Ot I25.10 ATHSCL HEART DISEASE OF [place] CORONARY 01/19/2017 LAURA FRAZIER DO Ot J44.9 CHRONIC OBSTRUCTIVE PULMONARY DISEASE, U 01/19/2017 LAURA FRAZIER DO Ot J44.9 CHRONIC OBSTRUCTIVE PULMONARY DISEASE, U 01/21/2017 LAURA FRAZIER DO, Ot J44.9 CHRONIC OBSTRUCTIVE PULMONARY DISEASE, U 01/26/2017 BRITT BUTLER MD Ot Z79.899 OTHER LONGTERM (CURRENT) DRUG THERAPY 02/02/2017 LAURA FRAZIER DO Ot I25.10 ATHSCL HEART DISEASE OF [place] CORONARY 02/20/2017 BRITT BUTLER MD Ot Z79.899 OTHER LONGTERM (CURRENT) DRUG THERAPY 02/23/2017 LAURA FRAZIER DO Ot J44.9 CHRONIC OBSTRUCTIVE PULMONARY DISEASE, U 04/01/2019 LUKE GLASGOW, BRITT Ot Z79.899 OTHER INFORMATION SECURITY RISK ANALYST (CURRENT) DRUG THERAPY 04/01/2019 FABIO HILLS MD Ot E78.00 PURE HYPERCHOLESTEROLEMIA, UNSPECIFIED 04/01/2019 FABIO HILLS MD Ot F32.9 MAJOR DEPRESSIVE DISORDER, SINGLE EPISOD 04/01/2019 FABIO HILLS MD Ot I10 ESSENTIAL (PRIMARY) HYPERTENSION 04/01/2019 FABIO HILLS MD Ot I25.10 ATHSCL HEART DISEASE OF [place] CORONARY 04/01/2019 FABIO HILLS MD, Ot J44.9 CHRONIC OBSTRUCTIVE PULMONARY DISEASE, U 04/01/2019 FABIO HILLS MD Ot K21.9 GASTRO-ESOPHAGEAL REFLUX DISEASE WITHOUT 04/01/2019 FABIO HILLS MD Ot R07.9 CHEST PAIN, UNSPECIFIED 04/01/2019 FABIO HILLS MD Ot R09.02 HYPOXEMIA 04/01/2019 FABIO HILLS MD Ot R79.89 OTHER SPECIFIED ABNORMAL FINDINGS OF BLO 04/01/2019 FABIO HILLS MD Ot Z79.82 LONGTERM (CURRENT) USE OF ASPIRIN 04/01/2019 FABIO HILLS [...] MD Ot I25.10 ATHSCL HEART DISEASE OF [place] CORONARY 04/02/2019 FABIO HILLS MD, Ot J44.1 CHRONIC OBSTRUCTIVE PULMONARY DISEASE W 04/02/2019 FABIO HILLS MD Ot K21.9 GASTRO-ESOPHAGEAL REFLUX DISEASE WITHOUT 04/02/2019 FABIO HILLS MD Ot R06.02 SHORTNESS OF BREATH 04/02/2019 FABIO HILLS MD Ot Z79.82 LONGTERM (CURRENT) USE OF ASPIRIN 04/02/2019 FABIO HILLS [...] MD Ot I25.10 ATHSCL HEART DISEASE OF [place] CORONARY 04/06/2019 FABIO HILLS MD Ot J44.9 CHRONIC OBSTRUCTIVE PULMONARY DISEASE, U 04/06/2019 FABIO HILLS MD Ot K21.9 GASTRO-ESOPHAGEAL REFLUX DISEASE WITHOUT 04/06/2019 FABIO HILLS MD Ot R07.9 CHEST PAIN, UNSPECIFIED 04/06/2019 FABIO HILLS MD Ot R09.02 HYPOXEMIA 04/06/2019 FABIO HILLS MD Ot R79.89 OTHER SPECIFIED ABNORMAL FINDINGS OF BLO 04/06/2019 FABIO HILLS MD Ot Z79.82 LONGTERM (CURRENT) USE OF ASPIRIN 04/06/2019 FABIO HILLS [...] MD, Ot I25.10 ATHSCL HEART DISEASE OF [place] CORONARY 04/12/2019 FABIO HILLS MD Ot J44.9 CHRONIC OBSTRUCTIVE PULMONARY DISEASE, U 04/12/2019 FABIO HILLS MD, Ot K21.9 GASTRO-ESOPHAGEAL REFLUX DISEASE WITHOUT 04/12/2019 FABIO HILLS MD Ot R07.9 CHEST PAIN, UNSPECIFIED 04/12/2019 FABIO HILLS MD Ot R09.02 HYPOXEMIA 04/12/2019 FABIO HILLS MD Ot R79.89 OTHER SPECIFIED ABNORMAL FINDINGS OF BLO 04/12/2019 FABIO HILLS MD, Ot Z79.82 INFORMATION SECURITY RISK ANALYST (CURRENT) USE OF ASPIRIN 04/12/2019 FABIO HILLS [...] MD, Ot I25.10 ATHSCL HEART DISEASE OF [place] CORONARY 04/12/2019 FABIO HILLS MD, Ot J44.1 CHRONIC OBSTRUCTIVE PULMONARY DISEASE W 04/12/2019 FABIO HILLS MD, Ot K21.9 GASTRO-ESOPHAGEAL REFLUX DISEASE WITHOUT 04/12/2019 FABIO HILLS MD Ot R06.02 SHORTNESS OF BREATH 04/12/2019 FABIO HILLS MD Ot Z79.82 LONGTERM (CURRENT) USE OF ASPIRIN 04/12/2019 FABIO HILLS [...] MD, Ot I25.10 ATHSCL HEART DISEASE OF [place] CORONARY 05/30/2019 FABIO HILLS MD, Ot J44.1 CHRONIC OBSTRUCTIVE PULMONARY DISEASE W 05/30/2019 FABIO HILLS MD Ot K21.9 GASTRO-ESOPHAGEAL REFLUX DISEASE WITHOUT 05/30/2019 FABIO HILLS MD Ot Z79.82 LONGTERM (CURRENT) USE OF ASPIRIN 05/30/2019 FABIO HILLS [...] DO Ot I25.10 ATHSCL HEART DISEASE OF [place] CORONARY 05/30/2019 LUKE GLASGOW, BRITT Ot Z79.899 OTHER LONGTERM (CURRENT) DRUG THERAPY 06/04/2019 FABIO HILLS MD, Ot E78.00 PURE HYPERCHOLESTEROLEMIA, UNSPECIFIED 06/04/2019 FABIO HILLS MD, Ot F32.9 MAJOR DEPRESSIVE DISORDER, SINGLE EPISOD 06/04/2019 FABIO HILLS MD, Ot F41.9 ANXIETY DISORDER, UNSPECIFIED 06/04/2019 FABIO HILLS MD Ot G47.00 INSOMNIA, UNSPECIFIED 06/04/2019 FABIO HILLS MD Ot I10 ESSENTIAL (PRIMARY) HYPERTENSION 06/04/2019 FABIO HILLS MD Ot I25.10 ATHSCL HEART DISEASE OF [place] CORONARY 06/04/2019 FABIO HILLS MD Ot J44.1 CHRONIC OBSTRUCTIVE PULMONARY DISEASE W 06/04/2019 FABIO HILLS MD Ot K21.9 GASTRO-ESOPHAGEAL REFLUX DISEASE WITHOUT 06/04/2019 FABIO HILLS MD Ot Z79.82 INFORMATION SECURITY RISK ANALYST (CURRENT) USE OF ASPIRIN 06/04/2019 FABIO HILLS [...] MD Ot I25.10 ATHSCL HEART DISEASE OF [place] CORONARY 06/07/2019 FABIO HILLS MD Ot J44.1 CHRONIC OBSTRUCTIVE PULMONARY DISEASE W 06/07/2019 FABIO HILLS MD Ot K21.9 GASTRO-ESOPHAGEAL REFLUX DISEASE WITHOUT 06/07/2019 FABIO HILLS MD Ot Z79.82 INFORMATION SECURITY RISK ANALYST (CURRENT) USE OF ASPIRIN 06/07/2019 FABIO HILLS [...] MD Ot I25.10 ATHSCL HEART DISEASE OF [place] CORONARY 06/25/2019 FABIO HILLS MD, Ot I25.2 [...] BLO 06/25/2019 FABIO HILLS MD Ot Z79.82 INFORMATION SECURITY RISK ANALYST (CURRENT) USE OF ASPIRIN 06/25/2019 FABIO HILLS [...] MD Ot I25.10 ATHSCL HEART DISEASE OF [place] CORONARY 07/01/2019 FABIO HILLS MD, Ot I25.2 [...] BLO 07/01/2019 FABIO HILLS MD Ot Z79.82 LONGTERM (CURRENT) USE OF ASPIRIN 07/01/2019 FABIO HILLS [...] MD Ot I25.10 ATHSCL HEART DISEASE OF [place] CORONARY 07/01/2019 FABIO HILLS MD, Ot I25.2 OLD MYOCARDIAL INFARCTION 07/01/2019 FABIO HILLS MD, Ot I26.99 OTHER PULMONARY EMBOLISM WITHOUT ACUTE C 07/01/2019 FABIO HILLS MD, Ot J44.9 CHRONIC OBSTRUCTIVE PULMONARY DISEASE, U 07/01/2019 FABIO HILLS MD, Ot J81.1 CHRONIC PULMONARY EDEMA 07/01/2019 FABOI HILLS MD, Ot K21.9 GASTRO-ESOPHAGEAL REFLUX DISEASE WITHOUT 07/01/2019 FABIO HILLS MD Ot R06.89 OTHER ABNORMALITIES OF BREATHING 07/01/2019 FABIO HILLS MD, Ot R09.02 HYPOXEMIA 07/01/2019 FABIO HILLS MD, Ot R79.89 OTHER SPECIFIED ABNORMAL FINDINGS OF BLO 07/01/2019 FABIO HILLS MD, Ot Z79.82 LONGTERM (CURRENT) USE OF ASPIRIN 07/01/2019 FABIO HILLS [...] APRN Ot I25.10 ATHSCL HEART DISEASE OF [place] CORONARY 07/02/2019 ABISAI SINGH APRN Ot I25 [...] APRN Ot I25.10 ATHSCL HEART DISEASE OF [place] CORONARY 07/11/2019 ABISAI SINGH APRN Ot I25 [...] Ot I25. 10 ATHSCL HEART DISEASE OF [place] CORONARY 09/29/2019 JOSE NEELY MD Ot I25. 2 OLD MYOCARDIAL INFARCTION 09/29/2019 JOSE NEELY MD Ot J44. 1 CHRONIC OBSTRUCTIVE PULMONARY DISEASE W 09/29/2019 JOSE NEELY MD Ot K21. 9 GASTRO-ESOPHAGEAL REFLUX DISEASE WITHOUT 09/29/2019 JOSE NEELY MD Ot M19. 91 PRIMARY OSTEOARTHRITIS, UNSPECIFIED SITE 09/29/2019 JOSE NEELY MD Ot R06. 02 SHORTNESS OF BREATH 09/29/2019 JOSE NEELY MD Ot Z79. 01 INFORMATION SECURITY RISK ANALYST (CURRENT) USE OF ANTICOAGULANT 09/29/2019 JOSE NEELY MD Ot Z79.899 OTHER LONGTERM (CURRENT) DRUG THERAPY 09/29/2019 JOSE NEELY MD [...] Ot I25. 10 ATHSCL HEART DISEASE OF [place] CORONARY 09/30/2019 JOSE NEELY MD Ot I25. 2 OLD MYOCARDIAL INFARCTION 09/30/2019 JOSE NEELY MD Ot J44. 1 CHRONIC OBSTRUCTIVE PULMONARY DISEASE W 09/30/2019 JOSE NEELY MD Ot K21. 9 GASTRO-ESOPHAGEAL REFLUX DISEASE WITHOUT 09/30/2019 JOSE NEELY MD Ot M19. 91 PRIMARY OSTEOARTHRITIS, UNSPECIFIED SITE 09/30/2019 JOSE NEELY MD Ot R06. 02 SHORTNESS OF BREATH 09/30/2019 JOSE NEELY MD Ot Z79. 01 INFORMATION SECURITY RISK ANALYST (CURRENT) USE OF ANTICOAGULANT 09/30/2019 JOSE NEELY MD Ot Z79.899 OTHER LONGTERM (CURRENT) DRUG THERAPY 09/30/2019 JOSE NEELY MD [...] Ot I25. 10 ATHSCL HEART DISEASE OF [place] CORONARY 10/06/2019 JOSE NEELY MD Ot I25. 2 OLD MYOCARDIAL INFARCTION 10/06/2019 JOSE NEELY MD Ot J44. 1 CHRONIC OBSTRUCTIVE PULMONARY DISEASE W 10/06/2019 JOSE NEELY MD Ot K21. 9 GASTRO-ESOPHAGEAL REFLUX DISEASE WITHOUT 10/06/2019 JOSE NEELY MD Ot M19. 91 PRIMARY OSTEOARTHRITIS, UNSPECIFIED SITE 10/06/2019 JOSE NEELY MD Ot R06. 02 SHORTNESS OF BREATH 10/06/2019 JOSE NEELY MD Ot Z79. 01 INFORMATION SECURITY RISK ANALYST (CURRENT) USE OF ANTICOAGULANT 10/06/2019 JOSE NEELY MD Ot Z79.899 OTHER LONGTERM (CURRENT) DRUG THERAPY 10/06/2019 CHIN MD, JOSE J Ot Z87.891 PERSONAL HISTORY OF NICOTINE DEPENDENCE 10/06/2019 CHIN GLASGOW, JOSE Angelo Ot Z95. 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.] K Ot I25.10 ATHSCL HEART DISEASE OF [place] CORONARY 10/14/2019 PATRICIA DO, DO K Ot [...] PATRICIA DO, DO K Ot Z79.899 OTHER LONGTERM (CURRENT) DRUG THERAPY 10/14/2019 PATRICIA DO, DO [...] K Ot I25.10 ATHSCL HEART DISEASE OF [place] CORONARY 10/19/2019 PATRICIA DO, DO K Ot [...] 10/19/2019 PATRICIA DO AGGARWAL Ot Z79.899 OTHER INFORMATION SECURITY RISK ANALYST (CURRENT) DRUG THERAPY 10/19/2019 PATRICIA DO AGGARWAL Ot Z87.19 PERSONAL HISTORY OF OTHER DISEASES OF TH 10/19/2019 PATRICIA DO AGGARWAL Ot Z95.1 PRESENCE OF AORTOCORONARY BYPASS GRAFT 10/19/2019 PATRICIA , DO K Ot Z95.5 PRESENCE OF CORONARY ANGIOPLASTY IMPLANT 10/19/2019 PATRICIA DO AGGARWAL Ot Z99.81 DEPENDENCE ON SUPPLEMENTAL OXYGEN 10/28/2019 MANOJ MARTINEZ MD Ot E78. 5 HYPERLIPIDEMIA, UNSPECIFIED 10/28/2019 MANOJ MRATINEZ MD Ot E86. 0 DEHYDRATION 10/28/2019 MANOJ [...] Ot I25. 10 ATHSCL HEART DISEASE OF [place] CORONARY 10/28/2019 MANOJ MARTINEZ MD Ot I25. [...] 10/28/2019 MANOJ MARTINEZ MD Ot Z79. 01 INFORMATION SECURITY RISK ANALYST (CURRENT) USE OF ANTICOAGULANT 10/28/2019 MANOJ MARTINEZ MD Ot Z79. 02 INFORMATION SECURITY RISK ANALYST (CURRENT) USE OF ANTITHROMBOTI 10/28/2019 MANOJ MARTINEZ MD, Ot Z79.899 OTHER LONGTERM (CURRENT) DRUG THERAPY 10/28/2019 MANOJ MARTINEZ MD, [...] Ot I25. 10 ATHSCL HEART DISEASE OF [place] CORONARY 10/28/2019 MANOJ MARTINEZ MD Ot I25. [...] 10/28/2019 MANOJ MARTINEZ MD, Ot Z79. 01 INFORMATION SECURITY RISK ANALYST (CURRENT) USE OF ANTICOAGULANT 10/28/2019 MANOJ MARTINEZ MD, Ot Z79. 02 LONGTERM (CURRENT) USE OF ANTITHROMBOTI 10/28/2019 MANOJ MARTINEZ MD, Ot Z79.899 OTHER INFORMATION SECURITY RISK ANALYST (CURRENT) DRUG THERAPY 10/28/2019 MANOJ MARTINEZ MD, Ot Z87.891 PERSONAL HISTORY OF NICOTINE DEPENDENCE 10/28/2019 MANOJ MARTINEZ MD, Ot Z95. 1 PRESENCE OF AORTOCORONARY BYPASS GRAFT 11/10/2019 ABISAI SINGH APRN Ot E78.00 PURE HYPERCHOLESTEROLEMIA, UNSPECIFIED 11/10/2019 ABISAI SINGH APRN Ot F32 .9 MAJOR DEPRESSIVE DISORDER, SINGLE EPISOD 11/10/2019 ABISAI SINGH APRN Ot F41 .9 ANXIETY DISORDER, UNSPECIFIED 11/10/2019 ABISAI SINGH APRN Ot I10 ESSENTIAL (PRIMARY) HYPERTENSION 11/10/2019 ABISAI SINGH APRN Ot I25.10 ATHSCL HEART DISEASE OF [place] CORONARY 11/10/2019 ABISAI SINGH APRN Ot I25 .2 OLD MYOCARDIAL INFARCTION 11/10/2019 ABISAI SINGH APRN Ot M25.552 PAIN IN LEFT HIP 11/10/2019 ABISAI SINGH APRN Ot M25.562 PAIN IN LEFT KNEE 11/10/2019 ABISAI SINGH APRN Ot N39 .0 URINARY TRACT INFECTION, SITE NOT SPECIF 11/10/2019 ABISAI SINGH APRN Ot R42 DIZZINESS AND GIDDINESS 11/10/2019 ABISAI SINGH APRN Ot W18.39XA OTHER FALL ON SAME LEVEL, INITIAL ENCOUN 11/10/2019 ABISAI SINGH APRN Ot Y92.[address] IN [facility] (PRIVATE 11/10/2019 ABISAI SINGH APRN Ot Z79.02 LONGTERM (CURRENT) USE OF ANTITHROMBOTI 11/10/2019 ABISAI SINGH APRN Ot Z80 .0 FAMILY HISTORY OF MALIGNANT NEOPLASM OF 11/10/2019 ABISAI SINGH APRN Ot Z87.891 PERSONAL HISTORY OF NICOTINE DEPENDENCE 11/10/2019 ABISAI SINGH APRN Ot Z95 .1 PRESENCE OF AORTOCORONARY BYPASS GRAFT 11/10/2019 ABISAI SINGH APRN Ot Z95 .5 PRESENCE OF CORONARY ANGIOPLASTY IMPLANT 11/14/2019 ABISAI SINGH APRN Ot E78.00 PURE HYPERCHOLESTEROLEMIA, UNSPECIFIED 11/14/2019 ABISAI SINGH APRN Ot F32 .9 MAJOR DEPRESSIVE DISORDER, SINGLE EPISOD 11/14/2019 BAISAI SINGH APRN Ot F41 .9 ANXIETY DISORDER, UNSPECIFIED 11/14/2019 ABISAI SINGH APRN Ot I10 ESSENTIAL (PRIMARY) HYPERTENSION 11/14/2019 ABISAI SINGH APRN Ot I25.10 ATHSCL HEART DISEASE OF [place] CORONARY 11/14/2019 ABISAI SINGH APRN Ot I25 .2 OLD MYOCARDIAL INFARCTION 11/14/2019 ABISAI SINGH APRN Ot M25.552 PAIN IN LEFT HIP 11/14/2019 ABISAI SINGH APRN Ot M25.562 PAIN IN LEFT KNEE 11/14/2019 ABISAI SINGH APRN Ot N39 .0 URINARY TRACT INFECTION, SITE NOT SPECIF 11/14/2019 ABISAI SINGH APRN Ot R42 DIZZINESS AND GIDDINESS 11/14/2019 ABISAI SINGH APRN Ot W18.39XA OTHER FALL ON SAME LEVEL, INITIAL ENCOUN 11/14/2019 ABISAI SINGH APRN Ot Y92.[address] [facility] [address] IN [facility] NON[facility] (PRIVATE 11/14/2019 ABISAI SINGH APRN Ot Z79.02 INFORMATION SECURITY RISK ANALYST (CURRENT) USE OF ANTITHROMBOTI 11/14/2019 ABISAI SINGH APRN Ot Z80 .0 FAMILY HISTORY OF MALIGNANT NEOPLASM OF 11/14/2019 ABISAI SINGH APRN Ot Z87.891 PERSONAL HISTORY OF NICOTINE DEPENDENCE 11/14/2019 ABISAI SINGH APRN Ot Z95 .1 PRESENCE OF AORTOCORONARY BYPASS GRAFT 11/14/2019 ABISAI SINGH APRN Ot Z95 .5 PRESENCE OF CORONARY ANGIOPLASTY IMPLANT 11/14/2019 JOSH, TRISTAN DURABLE MEDICAL EQUIPMENT REPAIRER Ot E78.00 PURE HYPERCHOLESTEROLEMIA, UNSPECIFIED 11/14/2019 JOSH, TRISTAN DURABLE MEDICAL EQUIPMENT REPAIRER Ot F32.9 MAJOR DEPRESSIVE DISORDER, SINGLE EPISOD 11/14/2019 JOSH, TRISTAN DURABLE MEDICAL EQUIPMENT REPAIRER Ot F41.9 ANXIETY DISORDER, UNSPECIFIED 11/14/2019 JOSH, TRISTAN DURABLE MEDICAL EQUIPMENT REPAIRER Ot I10 ESSENTIAL (PRIMARY) HYPERTENSION 11/14/2019 JOSH, TRISTAN DURABLE MEDICAL EQUIPMENT REPAIRER Ot I25.10 ATHSCL HEART DISEASE OF [place] CORONARY 11/14/2019 JOSH, TRISTAN DURABLE MEDICAL EQUIPMENT REPAIRER Ot I25.2 OLD MYOCARDIAL INFARCTION 11/14/2019 JOSH, TRISTAN DURABLE MEDICAL EQUIPMENT REPAIRER Ot M54.2 CERVICALGIA 11/14/2019 JOSH, TRISTAN DURABLE MEDICAL EQUIPMENT REPAIRER Ot R40.2142 COMA SCALE, EYES OPEN, SPONTANEOUS, EMR 11/14/2019 JOSH, TRISTAN DURABLE MEDICAL EQUIPMENT REPAIRER Ot R40.2252 COMA SCALE, BEST VERBAL RESPONSE, ORIENT 11/14/2019 JOSH, TRISTAN DURABLE MEDICAL EQUIPMENT REPAIRER Ot R40.2362 COMA SCALE, BEST MOTOR RESPONSE, OBEYS C 11/14/2019 JOSH, TRISTAN DURABLE MEDICAL EQUIPMENT REPAIRER Ot R51 HEADACHE 11/14/2019 JOSH, TRISTAN DURABLE MEDICAL EQUIPMENT REPAIRER Ot W18.39XA OTHER FALL ON SAME LEVEL, INITIAL ENCOUN 11/14/2019 JOSH, TRISTAN DURABLE MEDICAL EQUIPMENT REPAIRER Ot Z79.01 INFORMATION SECURITY RISK ANALYST (CURRENT) USE OF ANTICOAGULANT 11/14/2019 JOSH, TRISTAN DURABLE MEDICAL EQUIPMENT REPAIRER Ot Z79.02 LONGTERM (CURRENT) USE OF ANTITHROMBOTI 11/14/2019 JOSH, TRISTAN DURABLE MEDICAL EQUIPMENT REPAIRER Ot Z80.0 FAMILY HISTORY OF MALIGNANT NEOPLASM OF 11/14/2019 JOSH, TRISTAN DURABLE MEDICAL EQUIPMENT REPAIRER Ot Z87.891 PERSONAL HISTORY OF NICOTINE DEPENDENCE 11/14/2019 JOSH, TRISTAN DURABLE MEDICAL EQUIPMENT REPAIRER Ot Z95.1 PRESENCE OF AORTOCORONARY BYPASS GRAFT 11/14/2019 JOSH, TRISTAN DURABLE MEDICAL EQUIPMENT REPAIRER Ot Z95.5 PRESENCE OF CORONARY ANGIOPLASTY IMPLANT Procedures There is no data. Results Test [...] NRG Blood erythrocyte morphology finding identification NORMAL NR Comprehensive metabolic panel - 04/01/19 02:35 Serum [...] OF GROWTH Isolated NR Bacterial blood culture [id number] [facility] Blood lactic acid measurement (moles/vol ume) - 04/01/19 03:40 Blood lactic acid measurement (moles/volume) 2.35 mmol/L 0.50-2.00 Bacterial blood culture - 04/01/19 03:40 FREE TEXT EXTERNAL SUSCEPTIBILITY REPORTED 9 13:00 NR QUANTITY OF GROWTH Isolated [facility] Bacterial blood culture [id number] [facility] - 04/01/19 03:4 [...] INFLUENZA A AND B ANTIGENS BY IA NR Myoglobin, serum - 10/12/19 23:00 Myoglobin, serum [...] (mass/volume) 0.72 ug/mL 0.00-0.49 Coronavirus SARS-CoV-2 So 2019 - 0 23:00 Coronavirus Ab [Units/volume] in [...] culture - 10/27/19 13:30 Bacterial urine culture [id number] NRG COLONY COUNT 30,000 CFU/ML NRG SUSCEPTIBILITY SUSCEPTIBILITY REPORTED 10/30/19 12:0 0 NRG RAPID ID PRELIM RAPID ID BY [facility] NRG ID CONFIRMATION ID CONFIRMED N RG [...] mg/dL 0.1-1.0 Serum or plasma alkaline phosphatase oitlia surement (enzymatic activity/volume) 100 U/L 40-136 Serum [...] Status Pt. Type Provider Facility Loc./Unit Complaint [id number] 11/10/2019 17:49:00 19:45:00 DIS Outpatient TRISTAN MORENO a [facility] ER FALL [id number] 11/08/2019 17:19:00 21:01:00 DIS Outpatient ABISAI SINGH APRN Via [facility] ER FALL,DIZZINESS [id number] 10/27/2019 14:59:00 15:50:00 DIS Inpatient MICHELLE GLASGOW, MANOJ Collado [facility] 4TH ORTHOSTATIC HYPOTENSION , UTI, WEAKNESS [id number] 10/12/2019 22:40:00 02:16:00 DIS Emergency DO GOMEZ DO a [facility] ER SOB [id number] 09/29/2019 01:06:00 02:18:00 DIS Emergency JOSE NEELY MD [facility] ER SOA [id number] 08/12/2019 10:37:00 23:59:59 CLS Outpatient MARIANO DASH MD Via [facility] CARD PREOP: ILIAC ARTERY LIZZIE NOSIS [id number] 07/02/2019 13:51:00 17:36:00 DIS Emergency ABISAI SINGH APRN Via [facility] ER ABD PAIN [id number] 06/25/2019 04:24:00 09:26:00 DIS Emergency FABIO HILLS MD Via [facility] ER SOB [id number] 05/30/2019 01:24:00 02:45:00 DIS Emergency FABIO HILLS MD Via [facility] ER INSOMNIA [id number] 04/02/2019 15:07:00 18:45:00 DIS Emergency FABIO HILLS MD Via [facility] ER SOB [id number] 04/01/2019 02:30:00 019 05:34:00 DIS Emergency JEANA GLASGOW, FABIO Maza [facility] ER CP,DIZZY [id number] 01/23/2017 10:51:00 017 23:59:59 CLS Outpatient BRITT BUTLER MD [facility] LAB Z79.84 [id number] 01/12/2017 15:17:00 017 23:59:59 CLS Outpatient LAURA FRAZIER DO Via [facility] RT I25.10 [id number] 01/09/2017 06:42:00 017 23:59:59 CLS Outpatient LAURA FRAZIER DO Via [facility] CARD I25.10 [id number] 07/06/2015 07:43:00 016 23:59:59 CLS Outpatient LAURA FRAZIER DO Via [facility] RAD CHRONIC OBSTRUC TIVE PULMONARY DISEASE [id number] 12/16/2013 08:38:00 014 23:59:59 CLS Outpatient LAURA FRAZIER DO Via [facility] RAD CHRONIC AIRWAY OBSTRUCTION [id number] 01/27/2013 08:21:00 013 12:35:00 DIS Outpatient COSME DAVIS MD [facility] SDC NECK LESION [id number] 01/24/2013 12:35:00 013 23:59:59 CLS Outpatient COSME DAVIS MD [facility] PREOP NECK LESION [id number] 08/20/2012 10:39:00 Document Registration [id number] 08/28/2011 15:42:00 Document Registration [id number] 08/22/2011 09:17:00 Document Registration [id number] 04/28/2011 22:54:00 Document Registration [id number] 04/18/2011 09:24:00 Document Registration [id number] 10/30/2010 08:19:00 Document Registration [id number] 10/16/2010 07:43:00 Document Registration [id number] 10/10/2010 15:06:00 Document Registration [id number] 09/26/2010 00:00:00 Document Registration [id number] 08/01/2010 10:55:00 Document Registration [id number] 06/27/2010 14:00:00 Document Registration [id number] 06/03/2010 20:55:00 Document Registration [id number] 04/22/2010 12:03:00 Document Registration
[2019-11-24 22:00] LABS: AMORPHOUS SEDIMENT,UR FEW AMOR URATES /LPF; BACTERIA,URINE TRACE /HPF; RBC,URINE 0-2 /HPF
[2019-11-24 22:15] VITALS: BP 127/69
== END 2019-11-24 22:20 | disposition short-term general hospital (02) ==
LOC: EDUNIT# 19:40 → ER 19:46
DX: I11.0 Hypertensive heart disease with heart failure (principal); I50.9 Heart failure, unspecified; J84.10 Pulmonary fibrosis, unspecified; I25.10 Atherosclerotic heart disease of native coronary artery without angina pectoris; I48.91 Unspecified atrial fibrillation; J44.9 Chronic obstructive pulmonary disease, unspecified; I25.2 Old myocardial infarction; E78.00 Pure hypercholesterolemia, unspecified; F41.9 Anxiety disorder, unspecified; F32.9 Major depressive disorder, single episode, unspecified; Z79.02 Long term (current) use of antithrombotics/antiplatelets; Z79.01 Long term (current) use of anticoagulants; Z95.5 Presence of coronary angioplasty implant and graft; Z95.1 Presence of aortocoronary bypass graft; Z87.891 Personal history of nicotine dependence; Z80.0 Family history of malignant neoplasm of digestive organs
CPT/HCPCS: 36415; 71045; 80053; 81000; 82150; 82550; 82553; 83690; 83735; 83874; 83880; 84443; 84484; 85025; 85610; 85730; 93041

== ENCOUNTER 2020-01-07 22:45 | Emergency (ER) | payer MEDICARE, OTHER ==
[~2020-01-07] VITALS: Ht 175 cm; Wt 63.5 kg
[2020-01-07 23:10] LABS: BASOPHILS % (AUTO) 0 % (0-10); EOSINOPHILS # (AUTO) 0.1 10^3/uL (0.0-0.3); EOSINOPHILS % (AUTO) 1 % (0-10); HEMATOCRIT 40 % (40-54); HEMOGLOBIN 12.7 G/DL (13.3-17.7); LYMPHOCYTES # (AUTO) 1.3 X 10^3 (1.0-4.0); LYMPHOCYTES % (AUTO) 13 % (12-44); MEAN CORPUSCULAR HEMOGLOBIN 27 PG (25-34); MEAN CORPUSCULAR HGB CONC 32 G/DL (32-36); MEAN CORPUSCULAR VOLUME 86 FL (80-99); MEAN PLATELET VOLUME 9.5 FL (7.4-10.4); MONOCYTES # (AUTO) 0.7 X 10^3 (0.0-1.0); MONOCYTES % (AUTO) 7 % (0-12); NEUTROPHILS % (AUTO) 79 % (42-75); PLATELET COUNT 329 10^3/uL (130-400); WHITE BLOOD COUNT 10.1 10^3/uL (4.3-11.0)
[2020-01-07 23:18] LABS: ALBUMIN 3.1 GM/DL (3.2-4.5); INR 1.3 (0.8-1.4); PROTHROMBIN TIME PATIENT 16.6 SEC (12.2-14.7)
[2020-01-07 23:19] LABS: CHLORIDE 100 MMOL/L (98-107); POTASSIUM 4.8 MMOL/L (3.6-5.0); SODIUM 140 MMOL/L (135-145)
[2020-01-07 23:20] LABS: CALCIUM 8.8 MG/DL (8.5-10.1)
[2020-01-07 23:21] LABS: GLUCOSE 101 MG/DL (70-105); TOTAL PROTEIN 7.6 GM/DL (6.4-8.2)
[2020-01-07 23:22] LABS: CARBON DIOXIDE 26 MMOL/L (21-32)
[2020-01-07 23:23] LABS: BILIRUBIN,TOTAL 0.4 MG/DL (0.1-1.0)
[2020-01-07 23:25] LABS: ALKALINE PHOSPHATASE 116 U/L (40-136); CREATININE SERUM 0.77 MG/DL (0.60-1.30); GFR ESTIMATED > 60
[2020-01-07 23:26] LABS: BUN/CREATININE RATIO 17
[2020-01-07 23:28] LABS: ALANINE AMINOTRANSFERASE 8 U/L (0-55); MAGNESIUM 2.2 MG/DL (1.6-2.4)
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
[2020-01-08 01:18] LABS: TRIGLYCERIDES 91 MG/DL (<150); VLDL CHOLESTEROL 18 MG/DL (5-40)
[2020-01-08 01:23] LABS: CHOLESTEROL 137 MG/DL (< 200)
[2020-01-08 01:24] LABS: HDL CHOLESTEROL 34 MG/DL (40-60)
[2020-01-08 01:56] VITALS: BP 118/96
--- NOTE | 2020-01-08 07:28 | Diagnostic Imaging Report ---
Indication: Dyspnea. Comparison: 11/24/2019. Discussion: Single portable upright view of the chest was obtained. Scarring from chronic lung disease and calcified pleural plaques appear stable. No superimposed consolidation identified. Stable normal heart size. Median sternotomy is stable. No osseous abnormality. Impression: 1. Stable changes of chronic lung disease. Dictated by: Dictated on workstation # [id number]
== END 2020-01-08 02:00 | disposition home or self-care (01) ==
LOC: EDUNIT# 22:45 → ER 22:48
DX: R06.00 Dyspnea, unspecified (principal); J61 Pneumoconiosis due to asbestos and other mineral fibers; J44.9 Chronic obstructive pulmonary disease, unspecified; I25.10 Atherosclerotic heart disease of native coronary artery without angina pectoris; E78.00 Pure hypercholesterolemia, unspecified; I10 Essential (primary) hypertension; K21.9 Gastro-esophageal reflux disease without esophagitis; M19.91 Primary osteoarthritis, unspecified site; F41.9 Anxiety disorder, unspecified; F32.9 Major depressive disorder, single episode, unspecified; R79.89 Other specified abnormal findings of blood chemistry; I25.2 Old myocardial infarction; Z95.1 Presence of aortocoronary bypass graft; Z95.5 Presence of coronary angioplasty implant and graft; Z87.891 Personal history of nicotine dependence
CPT/HCPCS: 36415; 71045; 80053; 80061; 83735; 83874; 83880; 84484; 85025; 85610; 85730; 93005; 93041

== ENCOUNTER 2020-01-13 09:22 | Emergency (ER) | payer MEDICARE, OTHER ==
[~2020-01-13] VITALS: Ht 175 cm; Wt 58.9 kg
--- NOTE | 2020-01-13 09:40 | NUR ---
PT TALKING TO BATOOL ON THE PHONE.
[2020-01-13] MEDS ORDERED: RT-ALBUTEROL/IPRATROPIUM 3 ML (DUONEB) VIAL ONE (09:42)
[2020-01-13] MEDS ORDERED: methylPREDNISolone 125 MG (Solu-MEDROL) VIAL IV STA (09:48)
[2020-01-13 09:54] LABS: ABG BASE EXCESS 11.8 MMOL/L (-2.5-2.5); ABG OXYGEN SATURATION 99 % (94-100); ABG PCO2 57 MMHG (35-45); ABG PH 7.42 (7.37-7.43); ABG PO2 120 MMHG (79-93); ABG TCO2 38.6 MMOL/L (21.0-31.0)
[2020-01-13 09:55] LABS: BASOPHILS % (AUTO) 0 % (0-10); EOSINOPHILS # (AUTO) 0.1 10^3/uL (0.0-0.3); EOSINOPHILS % (AUTO) 1 % (0-10); HEMATOCRIT 39 % (40-54); HEMOGLOBIN 11.8 G/DL (13.3-17.7); LYMPHOCYTES # (AUTO) 1.1 X 10^3 (1.0-4.0); LYMPHOCYTES % (AUTO) 12 % (12-44); MEAN CORPUSCULAR HEMOGLOBIN 27 PG (25-34); MEAN CORPUSCULAR HGB CONC 30 G/DL (32-36); MEAN CORPUSCULAR VOLUME 89 FL (80-99); MEAN PLATELET VOLUME 9.3 FL (7.4-10.4); MONOCYTES # (AUTO) 0.6 X 10^3 (0.0-1.0); MONOCYTES % (AUTO) 7 % (0-12); NEUTROPHILS # (AUTO) 7.2 X 10^3 (1.8-7.8); NEUTROPHILS % (AUTO) 80 % (42-75); PLATELET COUNT 308 10^3/uL (130-400)
[2020-01-13 09:56] LABS: ALLENS TEST YES-POS; INSPIRED O2 3L; PATIENT TEMP 98.1; VENTILATOR NO
--- NOTE | 2020-01-13 09:56 | ED Respiratory ---
General Chief Complaint: Respiratory Problems Stated Complaint: COPD;SOA Nursing Triage Note: ARRIVED VIA EMS FROM HOME WITH COMPLAINTS OF INCREASED SOA. PT HAS HX OF COPD AND WAS RECENTLY SEEN IN THE ER. Source: patient Exam Limitations: no limitations History of Present Illness Date Seen by Provider: Jan 13, 2020 Time Seen by Provider: 09:35 Initial Comments Patient presents ER by private conveyance with chief complaint of shortness of breath wheezing versus breathing and increased dependence on oxygen. He was on room air when EMS arrived but uses 3 L at baseline typically. He had a saturation of about 88-89% on room air and 100% on 4 L by nasal cannula. They did not give her breathing treatment but noted his blood pressure below 86/60 and initiated a liter of saline in his left antecubital space. He's not had any fevers chills or productive cough. He has a history of COPD and asbestosis. EMS said they had to run him several times in the past few weeks and this time he decided to come in the hospital area and he has not been on steroids recently. Follows with Dr. Light for cardiac and has a history of stents and CABG. He follows with Dr. Arauz for primary care. Allergies and Home Medications Allergies Coded Allergies: No Known Drug Allergies (Unverified , 10/12/19) Home Medications Clopidogrel Bisulfate 75 Mg Tablet, 75 MG PO DAILY, (Reported) Finasteride 5 Mg Tablet, 5 MG PO HS, (Reported) Pravastatin Sodium 80 Mg Tablet, 40 MG PO HS, (Reported) TAKES OF AN 80MG TAB Trazodone HCl 100 Mg Tablet, 100 MG PO HS, (Reported) Venlafaxine HCl 150 Mg Cap.er.24h, 150 MG PO DAILY, (Reported) Patient Home Medication List Home Medication List Reviewed: Yes Review of Systems Review of Systems Constitutional: No chills, No fever, No malaise EENTM: No ear discharge, No hearing loss, No ear pain Respiratory: cough; No phlegm; short of breath, wheezing Cardiovascular: No chest pain, No edema Gastrointestinal: No abdominal pain, No nausea, No vomiting Genitourinary: No discharge, No dysuria Musculoskeletal: No back pain, No joint pain All Other Systems Reviewed Negative Unless Noted: Yes Past Xqnqgot-Naldpw-Ctzxal Hx Patient Social History Alcohol Use: Denies Use Recreational Drug Use: No Smoking Status: Former Smoker Type Used: Cigarettes Former Smoker, Quit: Jul 17, 2003 2nd Hand Smoke Exposure: No Recent Infectious Disease Expo: No Recent Hopitalizations: No Immunizations Up To Date Tetanus Booster (TDap): Unknown Date of Pneumonia Vaccine: Mar 29, 2012 Date of Influenza Vaccine: Mar 29, 2019 Seasonal Allergies Seasonal Allergies: No Past Medical History Surgeries: Yes (LEFT KNEE SURGERY; CARDIAC CATHS-AT LEAST 5 STENTS, PER PT; 4 VESSEL CABG; ) Cardiac, CABG, Coronary Stent, Gallbladder, Orthopedic Respiratory: Yes (POSS ASBESTOS EXPOSURE-PULMONARY FIBROSIS; STARTED ON HOME O2 10/12/19) COPD Currently Using CPAP: No Currently Using BIPAP: No Cardiac: Yes ("5 HEART ATTACKS" PER PT; 4 VESSEL CABG; AT LEAST 5 STENTS, PER PT) Chronic Edema/Swelling, Coronary Artery Disease, Heart Attack, High Cholesterol, Hypertension, Hypotension, Peripheral Vascular Neurological: No Reproductive Disorders: No Genitourinary: No Gastrointestinal: Yes Gastroesophageal Reflux, Pancreatitis Musculoskeletal: Yes (LEFT KNEE SURGERY) Arthritis, Fractures Endocrine: No HEENT: No Cancer: No Psychosocial: Yes Sleep Difficulties, Anxiety, Depression Integumentary: No Blood Disorders: No Family Medical History Colon cancer 19 MOTHER Dementia G8 BROTHER Physical Exam Vital Signs - First Documented 01/13/20 01/13/20 09:22 09:49 Temp 36.7 Pulse 89 Resp 16 B/P (MAP) 130/72 (91) Pulse Ox 99 O2 Delivery Nasal Cannula O2 Flow Rate 3.00 Capillary Refill : Less Than 3 Seconds Height: '" Weight: 195lbs. oz. 88.643019zb; 19.00 BMI Method: General Appearance: WD/WN, moderate distress Eyes: Bilateral Eye Normal Inspection, Bilateral Eye PERRL, Bilateral Eye EOMI HEENT: PERRL/EOMI, normal ENT inspection, TMs normal, pharynx normal Neck: non-tender, full range of motion Respiratory: respiratory distress (moderate with purse lip breathing and increased work of breathing and respiratory rate of 25-30.), decreased breath sounds, accessory muscle use (mild), wheezing Cardiovascular: normal peripheral pulses, regular rate, rhythm Gastrointestinal: normal bowel sounds, non tender Neurologic/Psychiatric: alert, normal mood/affect, oriented x 3 Skin: normal color, warm/dry Progress/Results/Core Measures Suspected Sepsis Recent Fever Within 48 Hours: No Infection Criteria Present: None New/Unexplained Altered Menta: No Sepsis Screen: No Definite Risk SIRS Temperature: Pulse: 89 Respiratory Rate: 16 Laboratory Tests 01/13/20 09:30: White Blood Count 9.0 Blood Pressure 130 /72 Mean: 91 Laboratory Tests 01/13/20 09:30: Creatinine 0.83, Platelet Count 308, Total Bilirubin 0.5 Results/Orders Lab Results Laboratory Tests Test 01/13/20 09:30 Range/Units White Blood Count 9.0 4.3-11.0 10^3/uL Red Blood Count 4.42 4.35-5.85 10^6/uL Hemoglobin 11.8 L 13.3-17.7 G/DL Hematocrit 39 L 40-54 % Mean Corpuscular Volume 89 80-99 FL Mean Corpuscular Hemoglobin 27 25-34 PG Mean Corpuscular Hemoglobin Concent 30 L 32-36 G/DL Red Cell Distribution Width 14.0 10.0-14.5 % Platelet Count 308 130-400 10^3/uL Mean Platelet Volume 9.3 7.4-10.4 FL Neutrophils (%) (Auto) 80 H 42-75 % Lymphocytes (%) (Auto) 12 12-44 % Monocytes (%) (Auto) 7 0-12 % Eosinophils (%) (Auto) 1 0-10 % Basophils (%) (Auto) 0 0-10 % Neutrophils # (Auto) 7.2 1.8-7.8 X 10^3 Lymphocytes # (Auto) 1.1 1.0-4.0 X 10^3 Monocytes # (Auto) 0.6 0.0-1.0 X 10^3 Eosinophils # (Auto) 0.1 0.0-0.3 10^3/uL Basophils # (Auto) 0.0 0.0-0.1 10^3/uL Blood Gas Puncture Site RR Blood Gas Patient Temperature 98.1 Arterial Blood pH 7.42 7.37-7.43 Arterial Blood Partial Pressure CO2 57 H 35-45 MMHG Arterial Blood Partial Pressure O2 120 H 79-93 MMHG Arterial Blood HCO3 37 H 23-27 MMOL/L Arterial Blood Total CO2 38.6 H 21.0-31.0 MMOL/L Arterial Blood Oxygen Saturation 99 94-100 % Arterial Blood Base Excess 11.8 H -2.5-2.5 MMOL/L Rafi Test YES-POS Blood Gas Ventilator Setting NO Blood Gas Inspired Oxygen 3L Sodium Level 144 135-145 MMOL/L Potassium Level 3.6 3.6-5.0 MMOL/L Chloride Level 100 98-107 MMOL/L Carbon Dioxide Level 35 H 21-32 MMOL/L Anion Gap 9 5-14 MMOL/L Blood Urea Nitrogen 10 7-18 MG/DL Creatinine 0.83 0.60-1.30 MG/DL Estimat Glomerular Filtration Rate > 60 BUN/Creatinine Ratio 12 Glucose Level 107 H 70-105 MG/DL Calcium Level 8.4 L 8.5-10.1 MG/DL Corrected Calcium 9.3 8.5-10.1 MG/DL Total Bilirubin 0.5 0.1-1.0 MG/DL Aspartate Amino Transf (AST/SGOT) 17 5-34 U/L Alanine Aminotransferase (ALT/SGPT) 9 0-55 U/L Alkaline Phosphatase 116 40-136 U/L Troponin I < 0.028 <0.028 NG/ML C-Reactive Protein High Sensitivity 2.36 H 0.00-0.50 MG/DL Total Protein 6.1 L 6.4-8.2 GM/DL Albumin 2.9 L 3.2-4.5 GM/DL My Orders Orders - JOSE NEELY Albuterol/Ipra Inhalation Soln (Duoneb I (01/13/20 09:42) Arterial Blood Gas (01/13/20 09:48) Cbc With Automated Diff (01/13/20 09:48) Comprehensive Metabolic Panel (01/13/20 09:48) Continuous Ekg Monitoring (01/13/20 09:48) Ekg Tracing (01/13/20 09:48) Troponin I (01/13/20 09:48) Chest 1 View, Ap/Pa Only (01/13/20 09:48) Hs C Reactive Protein (01/13/20 09:48) Albuterol/Ipra Inhalation Soln (Duoneb I (01/13/20 10:00) Methylprednisolone Sod Succ (Solu-Medrol (01/13/20 09:48) Svn Small Volume Nebulizer (01/13/20 09:48) Medications Given in ED Current Medications Medications Dose Ordered Sig/Husam Route Start Time Stop Time Status Last Admin Dose Admin Albuterol/ Ipratropium 3 ml STK-MED ONCE .ROUTE 01/13/20 09:42 01/13/20 09:44 DC 01/13/20 09:49 3 ML Vital Signs/I&O 01/13/20 01/13/20 09:22 09:49 Temp 36.7 Pulse 89 Resp 16 B/P (MAP) 130/72 (91) Pulse Ox 99 O2 Delivery Nasal Cannula Nasal Cannula O2 Flow Rate 3.00 3.00 Capillary Refill : Less Than 3 Seconds Blood Pressure Mean: 91 Progress Note : Time: 11:45 Progress Note Appears to be COPD. Respiratory rate has slowed down his oxygen sats are still in the upper 90s and he is not working as hard to breathe anymore. We'll start him on some steroids. ABG is acceptable and does not show change in pH. Did offer the patient observation stay but he would prefer to go home. This is acceptable. We'll set him up to follow-up with Dr. Arauz next week early. Put him on prednisone and make sure he has enough albuterol. He says his nebulizer works. He has family home with him. Return precautions gone over. ECG Initial ECG Impression Date: Jan 13, 2020 Initial ECG Impression Time: 09:59 Initial ECG Rate: 86 Initial ECG Rhythm: Normal Sinus Initial ECG Intervals: QT (576) Initial ECG Impression: Normal, Nonspecific Changes Initial ECG Comparisson: Unchanged Comment Normal sinus rhythm without clinically relevant ST T wave changes. Prolonged QTC interval. Diagnostic Imaging Diagonstic Imaging: Xray Plain Films/CT/US/NM/MRI: chest (1v) Comments [facility]. [place], [place] NAME: BRITT ELAINE Kelli [facility] REC#: [id number] PT STATUS: REG ER : 1940 PHYSICIAN: JOSE NEELY MD ADMIT DATE: 01/13/20/ER Draft Date of Exam:01/13/20 CHEST 1 VIEW, AP/PA ONLY INDICATION: Difficulty breathing. TIME OF EXAM: 10:22 a.m. COMPARISON: Correlation is made with recent chest x-ray from 01/07/2020. FINDINGS: Changes of median sternotomy and CABG are again noted. Parenchymal opacities overlying the mid and lower lung bustillos appear to be stable. This is similar to study dating back to October and it may in large part be owing to calcified pleural plaquing. Underlying chronic parenchymal lung disease is also likely. No effusion is identified. There is no pneumothorax. Heart size is stable. IMPRESSION: Stable chronic changes when compared with prior exams. No new abnormality is detected. Dictated on workstation # [id number] Dict: 01/13/20 1036 Trans: 01/13/20 1041 [id number] [id number] Interpreted by: HUI LARSON MD Electronically signed by: Reviewed: Reviewed by Me Departure Impression Primary Impression: COPD with exacerbation Disposition: HOME, SELF-CARE Condition: Improved Departure-Patient Inst. Decision time for Depature: 11:53 Referrals: LAURA ARAUZ DO (PCP/Family) Primary Care Physician Patient Instructions: Chronic Obstructive Pulmonary Disease (COPD) (DC) Add. Discharge Instructions: Plan to follow-up early next week with Dr. Arauz. Continue to use your albuterol nebulizer every 6 hours on a schedule over the weekend. You can use it more frequently as necessary. Prednisone 2 tablets daily for the next 5 days starting tomorrow, 01/14/20. Encourage increased fluid intake. Return to the ER for worsening symptoms. All discharge instructions reviewed with patient and/or family. Voiced understanding. Scripts Ipratropium/Albuterol Sulfate (Iprat-Albut 0.5-3(2.5) mg/3 ml) 3 Ml Ampul.neb 3 ML IH Q6H PRN for SHORTNESS OF BREATH for 7 Days, #30 EACH 0 Refills Prov: JOSE NEELY 01/13/20 Prednisone (Prednisone) 20 Mg Tab 40 MG PO DAILY for 5 Days, #10 TAB 0 Refills Prov: JOSE NEELY 01/13/20 JOSE NEELY Jan 13, 2020 09:56
[2020-01-13 09:59] LABS: ALBUMIN 2.9 GM/DL (3.2-4.5); CHLORIDE 100 MMOL/L (98-107); POTASSIUM 3.6 MMOL/L (3.6-5.0); SODIUM 144 MMOL/L (135-145)
[2020-01-13 10:00] LABS: CALCIUM 8.4 MG/DL (8.5-10.1)
[2020-01-13] MEDS ORDERED: RT-ALBUTEROL/IPRATROPIUM 3 ML (DUONEB) VIAL INH ONE (10:00)
[2020-01-13 10:01] LABS: GLUCOSE 107 MG/DL (70-105); TOTAL PROTEIN 6.1 GM/DL (6.4-8.2)
[2020-01-13 10:02] LABS: CARBON DIOXIDE 35 MMOL/L (21-32)
[2020-01-13 10:03] LABS: BILIRUBIN,TOTAL 0.5 MG/DL (0.1-1.0)
[2020-01-13 10:05] LABS: ALKALINE PHOSPHATASE 116 U/L (40-136); CREATININE SERUM 0.83 MG/DL (0.60-1.30); GFR ESTIMATED > 60
[2020-01-13 10:06] LABS: BUN/CREATININE RATIO 12
[2020-01-13 10:08] LABS: ALANINE AMINOTRANSFERASE 9 U/L (0-55)
--- OUTSIDE RECORDS SUMMARY | 2020-01-13 10:37 | XMS REPORT | Continuity of Care Document ---
Author Organization Unknown Address Unknown Phone Unavailable Allergies Active Description Code Type Severity Reaction Onset Reported/Identified Relationship to Patient Clinical Status Yes No Known Drug Allergies [id number] Drug Allergy Unknown N/A 10/12/2019 Medications There [...] DO Ot I25.10 ATHSCL HEART DISEASE OF [place] CORONARY 01/19/2017 LAURA FRAZIER DO Ot J44.9 CHRONIC OBSTRUCTIVE PULMONARY DISEASE, U 01/19/2017 LAURA FRAZIER DO Ot J44.9 CHRONIC OBSTRUCTIVE PULMONARY DISEASE, U 01/21/2017 LAURA FRAZIER DO, Ot J44.9 CHRONIC OBSTRUCTIVE PULMONARY DISEASE, U 01/26/2017 BRITT BUTLER MD Ot Z79.899 OTHER [facility] (CURRENT) DRUG THERAPY 02/02/2017 LAURA FRAZIER DO Ot I25.10 ATHSCL HEART DISEASE OF [place] CORONARY 02/20/2017 BRITT BUTLER MD Ot Z79.899 OTHER [facility] (CURRENT) DRUG THERAPY 02/23/2017 LAURA FRAZIER DO Ot J44.9 CHRONIC OBSTRUCTIVE PULMONARY DISEASE, U 04/01/2019 LUKE GLASGOW, BRITT Ot Z79.899 OTHER [employer] (CURRENT) DRUG THERAPY 04/01/2019 FABIO HILLS MD Ot E78.00 PURE HYPERCHOLESTEROLEMIA, UNSPECIFIED 04/01/2019 FABIO HILLS MD Ot F32.9 MAJOR DEPRESSIVE DISORDER, SINGLE EPISOD 04/01/2019 FABIO HILLS MD Ot I10 ESSENTIAL (PRIMARY) HYPERTENSION 04/01/2019 FABIO HILLS MD Ot I25.10 ATHSCL HEART DISEASE OF [place] CORONARY 04/01/2019 FABIO HILLS MD, Ot J44.9 [...] MD Ot I25.10 ATHSCL HEART DISEASE OF [place] CORONARY 04/02/2019 FABIO HILLS MD, Ot J44.1 [...] MD Ot I25.10 ATHSCL HEART DISEASE OF [place] CORONARY 04/06/2019 FABIO HILLS MD Ot J44.9 [...] MD, Ot I25.10 ATHSCL HEART DISEASE OF [place] CORONARY 04/12/2019 FABIO HILLS MD Ot J44.9 CHRONIC OBSTRUCTIVE PULMONARY DISEASE, U 04/12/2019 FABIO HILLS MD, Ot K21.9 GASTRO-ESOPHAGEAL REFLUX DISEASE WITHOUT 04/12/2019 FABIO HILLS MD Ot R07.9 CHEST PAIN, UNSPECIFIED 04/12/2019 FABIO HILLS MD Ot R09.02 HYPOXEMIA 04/12/2019 FABIO HILLS MD Ot R79.89 OTHER SPECIFIED ABNORMAL FINDINGS OF BLO 04/12/2019 FABIO HILLS MD, Ot Z79.82 H[employer] (CURRENT) USE OF ASPIRIN 04/12/2019 FABIO HILLS [...] MD, Ot I25.10 ATHSCL HEART DISEASE OF [place] CORONARY 04/12/2019 FABIO HILLS MD, Ot J44.1 [...] MD Ot E78.00 PURE HYPERCHOLESTEROLEMIA, UNSPECIFIED 05/30/2019 FABOI HILLS MD Ot F32.9 MAJOR DEPRESSIVE DISORDER, SINGLE EPISOD 05/30/2019 FABIO HILLS MD, Ot F41.9 ANXIETY DISORDER, UNSPECIFIED 05/30/2019 FABIO HILLS MD, Ot G47.00 INSOMNIA, UNSPECIFIED 05/30/2019 FABIO HILLS MD Ot I10 ESSENTIAL (PRIMARY) HYPERTENSION 05/30/2019 FABIO HILLS MD, Ot I25.10 ATHSCL HEART DISEASE OF [place] CORONARY 05/30/2019 FABIO HILLS MD, Ot J44.1 [...] DO Ot I25.10 ATHSCL HEART DISEASE OF [place] CORONARY 05/30/2019 LUKE GLASGOW, BRITT Ot Z79.899 [...] MD Ot I25.10 ATHSCL HEART DISEASE OF [place] CORONARY 06/04/2019 FABIO HILLS MD Ot J44.1 CHRONIC OBSTRUCTIVE PULMONARY DISEASE W 06/04/2019 FABOI HILLS MD Ot K21.9 GASTRO-ESOPHAGEAL REFLUX DISEASE WITHOUT 06/04/2019 FABIO HILLS MD Ot Z79.82 [employer] (CURRENT) USE OF ASPIRIN 06/04/2019 FABIO HILLS [...] MD Ot I25.10 ATHSCL HEART DISEASE OF [place] CORONARY 06/07/2019 FABIO HILLS MD Ot J44.1 CHRONIC OBSTRUCTIVE PULMONARY DISEASE W 06/07/2019 FABIO HILLS MD Ot K21.9 GASTRO-ESOPHAGEAL REFLUX DISEASE WITHOUT 06/07/2019 FABIO HILLS MD Ot Z79.82 [employer] (CURRENT) USE OF ASPIRIN 06/07/2019 FABIO HILLS [...] MD Ot I25.10 ATHSCL HEART DISEASE OF [place] CORONARY 06/25/2019 FABIO HILLS MD, Ot I25.2 [...] BLO 06/25/2019 FABIO HILLS MD Ot Z79.82 [employer] (CURRENT) USE OF ASPIRIN 06/25/2019 FABIO HILLS [...] MD Ot I25.10 ATHSCL HEART DISEASE OF [place] CORONARY 07/01/2019 FABIO HILLS MD, Ot I25.2 [...] MD Ot I25.10 ATHSCL HEART DISEASE OF [place] CORONARY 07/01/2019 FABIO HILLS MD, Ot I25.2 [...] APRN Ot I25.10 ATHSCL HEART DISEASE OF [place] CORONARY 07/02/2019 ABISAI SINGH APRN Ot I25 [...] APRN Ot I25.10 ATHSCL HEART DISEASE OF [place] CORONARY 07/11/2019 ABISAI SINGH APRN Ot I25 [...] Ot I25. 10 ATHSCL HEART DISEASE OF [place] CORONARY 09/29/2019 JOSE NEELY MD Ot I25. 2 OLD MYOCARDIAL INFARCTION 09/29/2019 JOSE NEELY MD Ot J44. 1 CHRONIC OBSTRUCTIVE PULMONARY DISEASE W 09/29/2019 JOSE NEELY MD Ot K21. 9 GASTRO-ESOPHAGEAL REFLUX DISEASE WITHOUT 09/29/2019 JOSE NEELY MD Ot M19. 91 PRIMARY OSTEOARTHRITIS, UNSPECIFIED SITE 09/29/2019 JOSE NEELY MD Ot R06. 02 SHORTNESS OF BREATH 09/29/2019 JOSE NEELY MD Ot Z79. 01 [employer] (CURRENT) USE OF ANTICOAGULANT 09/29/2019 JOSE NEELY [...] Ot I25. 10 ATHSCL HEART DISEASE OF [place] CORONARY 09/30/2019 JOSE NEELY MD Ot I25. 2 OLD MYOCARDIAL INFARCTION 09/30/2019 JOSE NEELY MD Ot J44. 1 CHRONIC OBSTRUCTIVE PULMONARY DISEASE W 09/30/2019 JOSE NEELY MD Ot K21. 9 GASTRO-ESOPHAGEAL REFLUX DISEASE WITHOUT 09/30/2019 JOSE NEELY MD Ot M19. 91 PRIMARY OSTEOARTHRITIS, UNSPECIFIED SITE 09/30/2019 JOSE NEELY MD Ot R06. 02 SHORTNESS OF BREATH 09/30/2019 JOSE NEELY MD Ot Z79. 01 [employer] (CURRENT) USE OF ANTICOAGULANT 09/30/2019 JOSE NEELY [...] Ot I25. 10 ATHSCL HEART DISEASE OF [place] CORONARY 10/06/2019 JOSE NEELY MD Ot I25. 2 OLD MYOCARDIAL INFARCTION 10/06/2019 JOSE NEELY MD Ot J44. 1 CHRONIC OBSTRUCTIVE PULMONARY DISEASE W 10/06/2019 JOSE NEELY MD Ot K21. 9 GASTRO-ESOPHAGEAL REFLUX DISEASE WITHOUT 10/06/2019 JOSE NEELY MD Ot M19. 91 PRIMARY OSTEOARTHRITIS, UNSPECIFIED SITE 10/06/2019 JOSE NEELY MD Ot R06. 02 SHORTNESS OF BREATH 10/06/2019 JOSE NEELY MD Ot Z79. 01 [employer] (CURRENT) USE OF ANTICOAGULANT 10/06/2019 JOSE NEELY [...] K Ot I25.10 ATHSCL HEART DISEASE OF [place] CORONARY 10/13/2019 PATRICIA DO, DO K Ot [...] PATRICIA DO, DO K Ot Z79.899 OTHER [employer] (CURRENT) DRUG THERAPY 10/13/2019 PATRICIA DO, DO [...] K Ot I25.10 ATHSCL HEART DISEASE OF [place] CORONARY 10/13/2019 PATRICIA DO, DO K Ot [...] PATRICIA DO, DO K Ot Z79.899 OTHER [employer] (CURRENT) DRUG THERAPY 10/13/2019 PATRICIA DO, DO [...] K Ot I25.10 ATHSCL HEART DISEASE OF [place] CORONARY 10/14/2019 PATRICIA DO, DO K Ot [...] K Ot I25.10 ATHSCL HEART DISEASE OF [place] CORONARY 10/19/2019 PATRICIA DO, DO K Ot [...] 10/19/2019 PATRICIA DO AGGARWAL Ot Z79.899 OTHER [employer] (CURRENT) DRUG THERAPY 10/19/2019 PATRICIA DO AGGARWAL [...] Ot I25. 10 ATHSCL HEART DISEASE OF [place] CORONARY 10/28/2019 MANOJ MARTINEZ MD Ot I25. [...] 10/28/2019 MANOJ MARTINEZ MD Ot Z79. 01 [employer] (CURRENT) USE OF ANTICOAGULANT 10/28/2019 MANOJ MARTINEZ MD Ot Z79. 02 [employer] (CURRENT) USE OF ANTITHROMBOTI 10/28/2019 MANOJ MARTINEZ MD, Ot Z79.899 OTHER [facility] (CURRENT) DRUG THERAPY 10/28/2019 MANOJ MARTINEZ MD, Ot Z87.891 PERSONAL HISTORY OF NICOTINE DEPENDENCE 10/28/2019 MANOJ MARTINEZ MD Ot Z95. 1 PRESENCE OF AORTOCORONARY BYPASS GRAFT 10/28/2019 MANOJ MARTIENZ MD Ot E78. 5 HYPERLIPIDEMIA, UNSPECIFIED 10/28/2019 [...] Ot I25. 10 ATHSCL HEART DISEASE OF [place] CORONARY 10/28/2019 MANOJ MARTINEZ MD Ot I25. [...] 10/28/2019 MANOJ MARTINEZ MD, Ot Z79. 01 [employer] (CURRENT) USE OF ANTICOAGULANT 10/28/2019 MANOJ MARTINEZ MD, Ot Z79. 02 [facility] (CURRENT) USE OF ANTITHROMBOTI 10/28/2019 MANOJ MARTINEZ MD, Ot Z79.899 OTHER [employer] (CURRENT) DRUG THERAPY 10/28/2019 MANOJ MARTINEZ MD, Ot Z87.891 PERSONAL HISTORY OF NICOTINE DEPENDENCE 10/28/2019 MANOJ MARTINEZ MD, Ot Z95. 1 PRESENCE OF AORTOCORONARY BYPASS GRAFT 11/08/2019 ABISAI SINGH APRN Ot E78.00 PURE HYPERCHOLESTEROLEMIA, UNSPECIFIED 11/08/2019 ABISAI SINGH APRN Ot F32 .9 MAJOR DEPRESSIVE DISORDER, SINGLE EPISOD 11/08/2019 ABISAI SINGH APRN Ot F41 .9 ANXIETY DISORDER, UNSPECIFIED 11/08/2019 ABISAI SINGH APRN Ot I10 ESSENTIAL (PRIMARY) HYPERTENSION 11/08/2019 ABISAI SINGH APRN Ot I25.10 ATHSCL HEART DISEASE OF [place] CORONARY 11/08/2019 ABISAI SINGH APRN Ot I25 .2 OLD MYOCARDIAL INFARCTION 11/08/2019 ABISAI SINGH APRN Ot M25.552 PAIN IN LEFT HIP 11/08/2019 ABISAI SINGH APRN Ot M25.562 PAIN IN LEFT KNEE 11/08/2019 ABISAI SINGH APRN Ot N39 .0 URINARY TRACT INFECTION, SITE NOT SPECIF 11/08/2019 ABISAI SINGH APRN Ot R42 DIZZINESS AND GIDDINESS 11/08/2019 ABISAI SINGH APRN Ot W18.39XA OTHER FALL ON SAME LEVEL, INITIAL ENCOUN 11/08/2019 ABISAI SINGH APRN Ot Y92.[address] IN [facility] NON-[facility] (PRIVATE 11/08/2019 ABISAI SINGH APRN Ot Z79.02 [facility] (CURRENT) USE OF ANTITHROMBOTI 11/08/2019 ABISAI SINGH APRN Ot Z80 .0 FAMILY HISTORY OF MALIGNANT NEOPLASM OF 11/08/2019 ABISAI SINGH APRN Ot Z87.891 PERSONAL HISTORY OF NICOTINE DEPENDENCE 11/08/2019 ABISAI SINGH APRN Ot Z95 .1 PRESENCE OF AORTOCORONARY BYPASS GRAFT 11/08/2019 ABISAI SINGH APRN Ot Z95 .5 PRESENCE OF CORONARY ANGIOPLASTY IMPLANT 11/10/2019 ABISAI SINGH APRN Ot E78.00 PURE HYPERCHOLESTEROLEMIA, UNSPECIFIED 11/10/2019 ABISAI SINGH APRN Ot F32 .9 MAJOR DEPRESSIVE DISORDER, SINGLE EPISOD 11/10/2019 ABISAI SINGH APRN Ot F41 .9 ANXIETY DISORDER, UNSPECIFIED 11/10/2019 ABISAI SINGH APRN Ot I10 ESSENTIAL (PRIMARY) HYPERTENSION 11/10/2019 ABISAI SINGH APRN Ot I25.10 ATHSCL HEART DISEASE OF [place] CORONARY 11/10/2019 ABISAI SINGH APRN Ot I25 [...] ENCOUN 11/10/2019 ABISAI SINGH APRN Ot Y92.[address] [facility] PL[address] IN [facility] NON-[facility] (PRIVATE 11/10/2019 ABISAI SINGH APRN Ot Z79.02 [employer] (CURRENT) USE OF ANTITHROMBOTI 11/10/2019 ABISAI SINGH [...] .9 MAJOR DEPRESSIVE DISORDER, SINGLE EPISOD 11/14/2019 ABISAI SINGH APRN Ot F41 .9 ANXIETY DISORDER, UNSPECIFIED 11/14/2019 ABISAI SINGH APRN Ot I10 ESSENTIAL (PRIMARY) HYPERTENSION 11/14/2019 ABISAI SINGH APRN Ot I25.10 ATHSCL HEART DISEASE OF [place] CORONARY 11/14/2019 ABISAI SINGH APRN Ot I25 [...] ENCOUN 11/14/2019 ABISAI SINGH APRN Ot Y92.[address] IN [facility] NON-[facility] (PRIVATE 11/14/2019 ABISAI SINGH APRN Ot Z79.02 [facility] (CURRENT) USE OF ANTITHROMBOTI 11/14/2019 ABISAI SINGH APRN Ot Z80 .0 FAMILY HISTORY OF MALIGNANT NEOPLASM OF 11/14/2019 ABISAI SINGH APRN Ot Z87.891 PERSONAL HISTORY OF NICOTINE DEPENDENCE 11/14/2019 ABISAI SINGH APRN Ot Z95 .1 PRESENCE OF AORTOCORONARY BYPASS GRAFT 11/14/2019 ABISAI SINGH APRN Ot Z95 .5 PRESENCE OF CORONARY ANGIOPLASTY IMPLANT 11/14/2019 TRISTAN MORENOP Ot E78.00 PURE HYPERCHOLESTEROLEMIA, UNSPECIFIED 11/14/2019 TRISTAN MORENOP Ot F32.9 MAJOR DEPRESSIVE DISORDER, SINGLE EPISOD 11/14/2019 TRISTAN MORENOP Ot F41.9 ANXIETY DISORDER, UNSPECIFIED 11/14/2019 JOSH TRISTAN [employer] INS[employer] INSTALLER Ot I10 ESSENTIAL (PRIMARY) HYPERTENSION 11/14/2019 TRISTAN MORENOP Ot I25.10 ATHSCL HEART DISEASE OF [place] CORONARY 11/14/2019 JOSH, TRISTAN DUQUEP Ot I25.2 OLD MYOCARDIAL INFARCTION 11/14/2019 JOSH, TRISTAN [employer] INS[employer] INSTALLER Ot M54.2 CERVICALGIA 11/14/2019 JOSH, TRISTAN [employer] INS[employer] INSTALLER Ot R40.2142 COMA SCALE, EYES OPEN, SPONTANEOUS, EMR 11/14/2019 JOSH, TRISTAN [employer] INS[employer] INSTALLER Ot R40.2252 COMA SCALE, BEST VERBAL RESPONSE, ORIENT 11/14/2019 JOSH, TRISTAN [employer] INS[employer] INSTALLER Ot R40.2362 COMA SCALE, BEST MOTOR RESPONSE, OBEYS C 11/14/2019 JOSH, TRISTAN [employer] INS[employer] INSTALLER Ot R51 HEADACHE 11/14/2019 JOSH, TRISTAN [employer] INS[employer] INSTALLER Ot W18.39XA OTHER FALL ON SAME LEVEL, INITIAL ENCOUN 11/14/2019 JOSH, TRISTAN DUQUEP Ot Z79.01 [facility] (CURRENT) USE OF ANTICOAGULANT 11/14/2019 JOSH, TRISTAN DUQUEP Ot Z79.02 [facility] (CURRENT) USE OF ANTITHROMBOTI 11/14/2019 JOSH, TRISTAN DUQUEP Ot Z80.0 FAMILY HISTORY OF MALIGNANT NEOPLASM OF 11/14/2019 JOSH, TRISTNA CORK INSULATION INSTALLER Ot Z87.891 PERSONAL HISTORY OF NICOTINE DEPENDENCE 11/14/2019 JOSH, TRISTAN C[employer] INSULATION INSTALLER Ot Z95.1 PRESENCE OF AORTOCORONARY BYPASS GRAFT 11/14/2019 JOSH, TRISTAN C[employer] INS[employer]ATION INSTALLER Ot Z95.5 PRESENCE OF CORONARY ANGIOPLASTY IMPLANT 11/24/2019 PATRICIA DO DO K Ot E78.00 PURE HYPERCHOLESTEROLEMIA, UNSPECIFIED 11/24/2019 PATRICIA DO DO K Ot F32.9 MAJOR DEPRESSIVE DISORDER, SINGLE EPISOD 11/24/2019 PATRICIA DO DO K Ot F41.9 ANXIETY DISORDER, UNSPECIFIED 11/24/2019 PATRICIA DO DO K Ot I11.0 HYPERTENSIVE HEART DISEASE WITH HEART FA 11/24/2019 PATRICIA DO DO K Ot I25.10 ATHSCL HEART DISEASE OF [place] CORONARY 11/24/2019 PATRICIA DO DO K Ot I25.2 OLD MYOCARDIAL INFARCTION 11/24/2019 PATRICIA DO DO K Ot I48.91 UNSPECIFIED ATRIAL FIBRILLATION 11/24/2019 PATRICIA DO DO K Ot I50.9 HEART FAILURE, UNSPECIFIED 11/24/2019 PATRICIA DO DO K Ot J44.9 CHRONIC OBSTRUCTIVE PULMONARY DISEASE, U 11/24/2019 PATRICIA DO, DO K Ot J84.10 PULMONARY FIBROSIS, UNSPECIFIED 11/24/2019 PATRICIA DO, DO K Ot R07.9 CHEST PAIN, UNSPECIFIED 11/24/2019 PATRICIA DO, DO K Ot Z79.01 [facility] (CURRENT) USE OF ANTICOAGULANT 11/24/2019 PATRICIA DO, DO K Ot Z79.02 [facility] (CURRENT) USE OF ANTITHROMBOTI 11/24/2019 [facility], DO Silva Ot Z80.0 FAMILY HISTORY OF MALIGNANT NEOPLASM OF 11/24/2019 PATRICIA DO, DO K Ot Z87.891 PERSONAL HISTORY OF NICOTINE DEPENDENCE 11/24/2019 [place] DO, DO K Ot Z95.1 PRESENCE OF AORTOCORONARY BYPASS GRAFT 11/24/2019 [facility], DO Ricardo Ot Z95.5 PRESENCE OF CORONARY ANGIOPLASTY IMPLANT 11/30/2019 [facility], DO K Ot E78.00 PURE HYPERCHOLESTEROLEMIA, UNSPECIFIED 11/30/2019 [place] DO, DO K Ot 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 11/30/2019 PATRICIA DO, DO K Ot F41.9 ANXIETY DISORDER, UNSPECIFIED 11/30/2019 [place] DO, DO K Ot I10 ESSENTIAL (PRIMARY) HYPERTENSION 11/30/2019 [facility] Ot I25.10 ATHSCL HEART DISEASE OF [place] CORONARY 11/30/2019 [facility] K Ot I25.2 OLD MYOCARDIAL INFARCTION 11/30/2019 [place] DOTRISTAA K Ot I50.9 HEART FAILURE, UNSPECIFIED 11/30/2019 PATRICIA DOTRISTAA K Ot I73.9 PERIPHERAL VASCULAR DISEASE, UNSPECIFIED 11/30/2019 PATRICIA DOTRISTAA K Ot J44.9 CHRONIC OBSTRUCTIVE PULMONARY DISEASE, U 11/30/2019 PATRICIA DO, DO K Ot J84.10 PULMONARY FIBROSIS, UNSPECIFIED 11/30/2019 PATRICIA DOTRISTAA K Ot K21.9 GASTRO-ESOPHAGEAL REFLUX DISEASE WITHOUT 11/30/2019 PATRICIA DOTRISTAA K Ot M19.91 PRIMARY OSTEOARTHRITIS, UNSPECIFIED SITE 11/30/2019 PATRICIA DOTRISTAA K Ot R06.02 SHORTNESS OF BREATH 11/30/2019 PATRICIA DOTRISTAA K Ot R09.02 HYPOXEMIA 11/30/2019 PATRICIA AGGARWAL, DO Silva Ot Z20.828 CONTACT W AND EXPOSURE TO OTH VIRAL COMM 11/30/2019 DO GOMEZ DO Ot Z79.899 OTHER H[employer] M[employer] SHE[employer]ER (CURRENT) DRUG THERAPY 11/30/2019 DO GOMEZ DO Ot Z87.19 PERSONAL HISTORY OF OTHER DISEASES OF TH 11/30/2019 DO GOMEZ DO Ot Z95.1 PRESENCE OF AORTOCORONARY BYPASS GRAFT 11/30/2019 PATRICIA AGGARWAL, DO Silva Ot Z95.5 PRESENCE OF CORONARY ANGIOPLASTY IMPLANT 11/30/2019 PATRICIA , DO Silva Ot Z99.81 DEPENDENCE ON SUPPLEMENTAL OXYGEN 01/10/2020 JEANA GLASGOW, FABIO Maza Ot E78.00 PURE HYPERCHOLESTEROLEMIA, UNSPECIFIED 01/10/2020 JEANA GLASGOW, FABIO Maza Ot F32.9 MAJOR DEPRESSIVE DISORDER, SINGLE EPISOD 01/10/2020 FABIO HILLS MD, Ot F41.9 ANXIETY DISORDER, UNSPECIFIED 01/10/2020 FABIO HILLS MD, Ot I10 ESSENTIAL (PRIMARY) HYPERTENSION 01/10/2020 FABIO HILLS MD, Ot I25.10 ATHSCL HEART DISEASE OF [place] CORONARY 01/10/2020 FABIO HILLS MD, Ot I25.2 OLD MYOCARDIAL INFARCTION 01/10/2020 FABIO HILLS MD, Ot J44.9 CHRONIC OBSTRUCTIVE PULMONARY DISEASE, U 01/10/2020 FABIO HILLS MD, Ot 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 01/10/2020 FABIO HILLS MD, Ot K21.9 GASTRO-ESOPHAGEAL REFLUX DISEASE WITHOUT 01/10/2020 FABIO HILLS MD Ot M19.91 PRIMARY OSTEOARTHRITIS, UNSPECIFIED SITE 01/10/2020 FABIO HILLS MD Ot R06.00 DYSPNEA, UNSPECIFIED 01/10/2020 FABIO HILLS MD Ot R06.02 SHORTNESS OF BREATH 01/10/2020 JEANA GLASGOW, FABIO Maza Ot R79.89 OTHER SPECIFIED ABNORMAL FINDINGS OF BLO 01/10/2020 FABIO HILLS MD, Ot Z87.891 PERSONAL HISTORY OF NICOTINE DEPENDENCE 01/10/2020 JEANA GLASGOW, FABIO Maza Ot Z95.1 PRESENCE OF AORTOCORONARY BYPASS GRAFT 01/10/2020 JEANA GLASGOW, FABIO Maza Ot Z95.5 PRESENCE OF CORONARY ANGIOPLASTY IMPLANT [...] 10/15 02:35 Blood monocytes/100 leukocytes 1 % NR Manual blood segmented neutrophils/100 leukocytes 92 % NRG Blood band neutrophils/100 leukocytes 5 % NRG Manual blood lymphocytes/100 leukocytes 2 % NR Blood erythrocyte morphology finding identification [facility] Comprehensive metabolic panel - 04/01/19 02:35 Serum [...] OF GROWTH Isolated NRG Bacterial blood culture [id number] NRG Blood lactic acid measurement (moles/vol ume) - 04/01/19 03:40 Blood lactic acid measurement (moles/volume) 2.35 mmol/L 0.50-2.00 Bacterial blood culture - 04/01/19 03:40 FREE TEXT EXTERNAL SUSCEPTIBILITY REPORTED 9 13:00 NRG QUANTITY OF GROWTH Isolated NRG Bacterial blood culture [id number] NRG [facility]ML [facility] - 04/01/19 [...] culture - 10/27/19 13:30 Bacterial urine culture [id number] NRG COLONY COUNT 30,000 CFU/ML NRG SUSCEPTIBILITY SUSCEPTIBILITY REPORTED 10/30/19 12:0 0 NRG RAPID ID PRELIM RAPID ID BY [facility] NRG ID CONFIRMATION ID CONFIRMED N RG [...] plasma alkaline phosphatase otilia surement (enzymatic activity/volume) 100 U/L 40-136 Serum [...] 11/08/19 19:49 Bacterial urine culture NG NRG Complete blood count (CBC) with automate d white blood cell (WBC) differential - 11/24/19 19:47 Blood leukocytes automated count (number/volume) 9.5 10*3/uL 4.3-11.0 Blood erythrocytes automated count (number/volume) 4.72 10*6/uL 4.35-5.85 Venous blood hemoglobin measurement (mass/volume) 12.7 g/dL 13.3-17.7 Blood hematocrit (volume fraction) 41 % 40-54 Automated erythrocyte mean corpuscular volume 88 [ foz_us] 80-99 Automated erythrocyte mean corpuscular h emoglobin (mass per erythrocyte) 27 pg 25-34 Automated erythrocyte mean corpuscular h emoglobin concentration measurement (mass/volume) 31 g/dL 32-36 Automated erythrocyte distribution width ratio 14. 5 % 10.0- 14.5 Automated blood platelet count (count/volume) 291 10*3/uL 130-400 Automated blood platelet mean volume measurement 9.7 [foz_us] 7.4-10.4 Automated blood neutrophils/100 leukocytes 79 % 42-75 Automated blood lymphocytes/100 leukocytes 10 % 12-44 Blood monocytes/100 leukocytes 9 % 0-12 Automated blood eosinophils/100 leukocytes 1 % 0-10 Automated blood basophils/100 leukocytes 0 % 0-10 Blood neutrophils automated count (number/volume) 7.5 10*3 1.8-7.8 Blood lymphocytes automated count (number/volume) 1.0 10*3 1.0-4.0 Blood monocytes automated count (number/volume) 0. 9 10*3 0.0-1.0 Automated eosinophil count 0.1 10*3/uL 0 .0-0.3 Automated blood basophil count (count/volume) 0.0 10*3/uL 0.0-0.1 PT panel in platelet poor plasma by coag ulation assay - 11/24/19 19:47 Prothrombin time (PT) in platelet poor plasma by coagu lation assay 19.6 s 12.2-14.7 INR in platelet poor plasma or blood by coagulation as say 1.6 0.8-1.4 Activated partial thromboplastin time (a PTT) in platelet poor plasma bycoagulation assay - 11/24/19 19:47 Activated partial thromboplastin time (a PTT) in platelet poor plasma bycoagulation assay 43 s 24-35 Comprehensive metabolic panel - 11/24/19 19:47 Serum or plasma sodium measurement (moles/volume) 141 mmol/L 135-145 Serum or plasma potassium measurement (moles/volume) 3.8 mmol/L 3.6-5.0 Serum or plasma chloride measurement (moles/volume) 101 mmol/L 98-107 Carbon dioxide 34 mmol/L 21-32 Serum or plasma anion gap determination (moles/volume) 6 mmol/L 5-14 Serum or plasma urea nitrogen measurement (mass/volume ) 9 mg/dL 7-18 Serum or plasma creatinine measurement (mass/volume) 0.88 mg/dL 0.60-1.30 Serum or plasma urea nitrogen/creatinine mass ratio 10 NRG Serum or plasma creatinine measurement w ith calculation of estimated glomerular filtration rate > NRG Serum or plasma glucose measurement (mass/volume) 104 mg/dL 70-105 Serum or plasma calcium measurement (mass/volume) 8.5 mg/dL 8.5-10.1 Serum or plasma total bilirubin measurement (mass/volu me) 0.4 mg/dL 0.1-1.0 Serum or plasma alkaline phosphatase otilia surement (enzymatic activity/volume) 106 U/L 40-136 Serum or plasma aspartate aminotransfera se measurement (enzymatic activity/volume) 15 U/L 5-34 Serum or plasma alanine aminotransferase measurement (enzymatic activity/volume) 7 U/L 0-55 Serum or plasma protein measurement (mass/volume) 6.5 g/dL 6.4-8.2 Serum or plasma albumin measurement (mass/volume) 3.0 g/dL 3.2-4.5 CALCIUM CORRECTED 9.3 mg/dL 8.5-10.1 Magnesium - 11/24/19 19:47 Magnesium 2.0 mg/dL 1.6-2.4 Serum or plasma creatine kinase measurem ent (enzymatic activity/volume) - 11/24/19 19:47 Serum or plasma creatine kinase measurem ent (enzymatic activity/volume) 22 U/L 30-200 Serum or plasma creatine kinase MB measu rement (enzymatic activity/volume) - 11/24/19 19:47 Serum or plasma creatine kinase MB measu rement (enzymatic activity/volume) 1.2 ng/mL <6.6 Serum or plasma troponin i.cardiac measu rement (mass/volume) - 11/24/19 19:47 Serum or plasma troponin i.cardiac measurement (mass/v olume) < ng/mL <0.028 Serum or plasma lithium measurement (mol es/volume) - 11/24/19 19:47 BNP PT 234.1 pg/mL <100.0 Myoglobin, serum - 11/24/19 19:47 Myoglobin, serum 41.6 ng/mL 10.0-92.0 Serum or plasma amylase measurement (enz ymatic activity/volume) - 11/24/19 19:47 Serum or plasma amylase measurement (enzymatic activit y/volume) 49 U/L 25-125 Lipase - 11/24/19 19:47 Lipase 15 U/L 8-78 Serum or plasma thyrotropin measurement by detection limit <=0.05 miu/l (units/volume) - 11/24/19 19:47 Serum or plasma thyrotropin measurement by detection limit <=0.05 miu/l (units/volume) 0.59 u[iU]/mL 0.35-4.94 Complete urinalysis with reflex to cultu re - 11/24/19 21:22 Urine color determination YELLOW NRG Urine clarity determination CLEAR NR G Urine pH measurement by test strip 6.0 5-9 Specific gravity of urine by test strip >= 1.016-1.022 Urine protein assay by test strip, semi-quantitative NEGATIVE NEGATIVE Urine glucose detection by automated test strip NE GATIVE NEGATIVE Erythrocytes detection in urine sediment by light micr oscopy TRACE-I NEGATIVE Urine ketones detection by automated test strip NE GATIVE NEGATIVE Urine nitrite detection by test strip NEGATIVE NEGATIVE Urine total bilirubin detection by test strip NEGA TIVE NEGATIVE Urine urobilinogen measurement by automated test strip (mass/volume) 1.0 mg/dL < = 1.0 Urine leukocyte esterase detection by dipstick NEG ATIVE NEGATIVE Automated urine sediment erythrocyte cou nt by microscopy (number/high power field) [HPF] NRG Automated urine sediment leukocyte count by microscopy (number/high power field) [HPF] NRG Bacteria detection in urine sediment by light microsco py TRACE NRG Crystals detection in urine sediment by light microsco py PRESENT NRG Casts detection in urine sediment by light microscopy NONE NRG Mucus detection in urine sediment by light microscopy MODERATE NRG Complete urinalysis with reflex to culture NO NRG Amorphous sediment detection in urine sediment by ligh t microscopy FEW PAULA URATES NRG Complete blood count (CBC) with automate d white blood cell (WBC) differential - 01/07/20 22:57 Blood leukocytes automated count (number/volume) 10.1 10*3/uL 4.3-11.0 Blood erythrocytes automated count (number/volume) 4.66 10*6/uL 4.35-5.85 Venous blood hemoglobin measurement (mass/volume) 12.7 g/dL 13.3-17.7 Blood hematocrit (volume fraction) 40 % 40-54 Automated erythrocyte mean corpuscular volume 86 [ foz_us] 80-99 Automated erythrocyte mean corpuscular h emoglobin (mass per erythrocyte) 27 pg 25-34 Automated erythrocyte mean corpuscular h emoglobin concentration measurement (mass/volume) 32 g/dL 32-36 Automated erythrocyte distribution width ratio 14. 0 % 10.0- 14.5 Automated blood platelet count (count/volume) 329 10*3/uL 130-400 Automated blood platelet mean volume measurement 9.5 [foz_us] 7.4-10.4 Automated blood neutrophils/100 leukocytes 79 % 42-75 Automated blood lymphocytes/100 leukocytes 13 % 12-44 Blood monocytes/100 leukocytes 7 % 0-12 Automated blood eosinophils/100 leukocytes 1 % 0-10 Automated blood basophils/100 leukocytes 0 % 0-10 Blood neutrophils automated count (number/volume) 8.0 10*3 1.8-7.8 Blood lymphocytes automated count (number/volume) 1.3 10*3 1.0-4.0 Blood monocytes automated count (number/volume) 0. 7 10*3 0.0-1.0 Automated eosinophil count 0.1 10*3/uL 0 .0-0.3 Automated blood basophil count (count/volume) 0.0 10*3/uL 0.0-0.1 Comprehensive metabolic panel - 01/07/20 22:57 Serum or plasma sodium measurement (moles/volume) 140 mmol/L 135-145 Serum or plasma potassium measurement (moles/volume) 4.8 mmol/L 3.6-5.0 Serum or plasma chloride measurement (moles/volume) 100 mmol/L 98-107 Carbon dioxide 26 mmol/L 21-32 Serum or plasma anion gap determination (moles/volume) 14 mmol/L 5-14 Serum or plasma urea nitrogen measurement (mass/volume ) 13 mg/dL 7-18 Serum or plasma creatinine measurement (mass/volume) 0.77 mg/dL 0.60-1.30 Serum or plasma urea nitrogen/creatinine mass ratio 17 NRG Serum or plasma creatinine measurement w ith calculation of estimated glomerular filtration rate > NRG Serum or plasma glucose measurement (mass/volume) 101 mg/dL 70-105 Serum or plasma calcium measurement (mass/volume) 8.8 mg/dL 8.5-10.1 Serum or plasma total bilirubin measurement (mass/volu me) 0.4 mg/dL 0.1-1.0 Serum or plasma alkaline phosphatase otilia surement (enzymatic activity/volume) 116 U/L 40-136 Serum or plasma aspartate aminotransfera se measurement (enzymatic activity/volume) 28 U/L 5-34 Serum or plasma alanine aminotransferase measurement (enzymatic activity/volume) 8 U/L 0-55 Serum or plasma protein measurement (mass/volume) 7.6 g/dL 6.4-8.2 Serum or plasma albumin measurement (mass/volume) 3.1 g/dL 3.2-4.5 CALCIUM CORRECTED 9.5 mg/dL 8.5-10.1 PT panel in platelet poor plasma by coag ulation assay - 01/07/20 22:57 Prothrombin time (PT) in platelet poor plasma by coagu lation assay 16.6 s 12.2-14.7 INR in platelet poor plasma or blood by coagulation as say 1.3 0.8-1.4 Activated partial thromboplastin time (a PTT) in platelet poor plasma bycoagulation assay - 01/07/20 22:57 Activated partial thromboplastin time (a PTT) in platelet poor plasma bycoagulation assay 37 s 24-35 Magnesium - 01/07/20 22:57 Magnesium 2.2 mg/dL 1.6-2.4 Myoglobin, serum - 01/07/20 22:57 Myoglobin, serum 51.6 ng/mL 10.0-92.0 Serum or plasma troponin i.cardiac measu rement (mass/volume) - 01/07/20 22:57 Serum or plasma troponin i.cardiac measurement (mass/v olume) 0.034 ng/mL <0.028 Serum or plasma lithium measurement (mol es/volume) - 01/07/20 22:57 BNP PT 306.8 pg/mL <100.0 Lipid 1996 panel - 01/08/20 00:57 Serum or plasma triglyceride measurement (mass/volume) 91 mg/dL <150 Serum or plasma cholesterol measurement (mass/volume) 137 mg/dL < 200 Serum or plasma cholesterol in HDL measurement (mass/v olume) 34 mg/dL 40-60 Cholesterol in LDL [mass/volume] in serum or plasma by direct assay 96 mg/dL 1-129 Serum or plasma cholesterol in VLDL measurement (mass/ volume) 18 mg/dL 5-40 Serum or plasma troponin i.cardiac measu rement (mass/volume) - 01/08/20 00:57 Serum or plasma troponin i.cardiac measurement (mass/v olume) < ng/mL <0.028 Arterial blood gas measurement - 0 09:30 Blood pCO2 57 mm[Hg] 35-45 Blood pO2 120 mm[Hg] 79-93 Arterial blood bicarbonate measurement (moles/volume) 37 mmol/L 23-27 Arterial blood base excess by calculation 11.8 mmo l/L -2.5-2.5 Arterial blood oxygen saturation measurement 99 % 94-100 * Inhaled oxygen flow rate 3L NRG Arterial blood pH measurement with patient temperature correction 7.42 7.37-7.43 Arterial blood carbon dioxide, total measurement (mole s/volume) 38.6 mmol/L 21.0-31.0 Body site RR NRG Assessment of wrist artery patency prior to arterial p uncture YES-POS NRG Setting of ventilation mode NO NR G Measurement of body temperature 98.1 NRG Comprehensive metabolic panel - 01/13/20 09:30 Serum or plasma sodium measurement (moles/volume) 144 mmol/L 135-145 Serum or plasma potassium measurement (moles/volume) 3.6 mmol/L 3.6-5.0 Serum or plasma chloride measurement (moles/volume) 100 mmol/L 98-107 Carbon dioxide 35 mmol/L 21-32 Serum or plasma anion gap determination (moles/volume) 9 mmol/L 5-14 Serum or plasma urea nitrogen measurement (mass/volume ) 10 mg/dL 7-18 Serum or plasma creatinine measurement (mass/volume) 0.83 mg/dL 0.60-1.30 Serum or plasma urea nitrogen/creatinine mass ratio 12 NRG Serum or plasma creatinine measurement w ith calculation of estimated glomerular filtration rate > NRG Serum or plasma glucose measurement (mass/volume) 107 mg/dL 70-105 Serum or plasma calcium measurement (mass/volume) 8.4 mg/dL 8.5-10.1 Serum or plasma total bilirubin measurement (mass/volu me) 0.5 mg/dL 0.1-1.0 Serum or plasma alkaline phosphatase otilia surement (enzymatic activity/volume) 116 U/L 40-136 Serum or plasma aspartate aminotransfera se measurement (enzymatic activity/volume) 17 U/L 5-34 Serum or plasma alanine aminotransferase measurement (enzymatic activity/volume) 9 U/L 0-55 Serum or plasma protein measurement (mass/volume) 6.1 g/dL 6.4-8.2 Serum or plasma albumin measurement (mass/volume) 2.9 g/dL 3.2-4.5 CALCIUM CORRECTED 9.3 mg/dL 8.5-10.1 Serum or plasma troponin i.cardiac measu rement (mass/volume) - 01/13/20 09:30 Serum or plasma troponin i.cardiac measurement (mass/v olume) < ng/mL <0.028 Serum or plasma C reactive protein measu rement (mass/volume) - 01/13/20 09:30 Serum or plasma C reactive protein measurement (mass/v olume) 2.36 mg/dL 0.00-0.50 Encounters ACCT No. Visit Date/Time Discharge Status Pt. Type Provider Facility Loc./Unit Complaint [id number] 01/07/2020 22:48:00 020 02:00:00 DIS Outpatient JEANA GLASGOW, FABIO Méndez [facility] ER SOA [id number] 11/24/2019 19:46:00 22:20:00 DIS Emergency PATRICIADO Alatorre DO a [facility] ER CHEST PAIN,SOA [id number] 11/10/2019 17:49:00 19:45:00 DIS Outpatient TRISTAN MORENO a [facility] ER FALL [id number] 11/08/2019 17:19:00 21:01:00 DIS Emergency ABISAI SINGH APRN [facility] ER FALL,DIZZINESS [id number] 10/27/2019 14:59:00 15:50:00 DIS Inpatient MICHELLE GLASGOW, MANOJ Collado [facility] 4TH ORTHOSTATIC HYPOTENSION , UTI, WEAKNESS [id number] 10/12/2019 22:40:00 02:16:00 DIS Outpatient DO GOMEZ DO, [facility] ER SOB [id number] 09/29/2019 01:06:00 02:18:00 DIS Emergency JOSE NEELY MD [facility] ER SOA [id number] 08/12/2019 10:37:00 23:59:59 CLS Outpatient MARIANO DASH MD [facility] CARD PREOP: ILIAC ARTERY LIZZIE NOSIS [id number] 07/02/2019 13:51:00 17:36:00 DIS Emergency ABISAI SINGH APRN [facility] ER ABD PAIN [id number] 06/25/2019 04:24:00 09:26:00 DIS Emergency FABIO HILLS MD [facility] ER SOB [id number] 05/30/2019 01:24:00 02:45:00 DIS Emergency FABIO HILLS MD [facility] ER INSOMNIA [id number] 04/02/2019 15:07:00 019 18:45:00 DIS Emergency JEANA GLASGOW, FABIO Maza [facility] ER SOB [id number] 04/01/2019 02:30:00 05:34:00 DIS Emergency FABIO HILLS MD [facility] ER CP,DIZZY [id number] 01/23/2017 10:51:00 017 23:59:59 CLS Outpatient BRITT BUTLER MD [facility] LAB Z79.84 [id number] 01/12/2017 15:17:00 017 23:59:59 CLS Outpatient LAURA FRAZIER DO [facility] RT I25.10 [id number] 01/09/2017 06:42:00 017 23:59:59 CLS Outpatient LAURA FRAZIER DO [facility] CARD I25.10 [id number] 07/06/2015 07:43:00 016 23:59:59 CLS Outpatient LAURA FRAZIER DO [facility] RAD CHRONIC OBSTRUC TIVE PULMONARY DISEASE [id number] 12/16/2013 08:38:00 014 23:59:59 CLS Outpatient LAURA FRAZIER DO [facility] RAD CHRONIC AIRWAY OBSTRUCTION [id number] 01/27/2013 08:21:00 013 12:35:00 DIS Outpatient COSME DAVIS MD [facility] SDC NECK LESION [id number] 01/24/2013 12:35:00 013 23:59:59 CLS Outpatient COSME DAVIS MD [facility] PREOP NECK LESION [id number] 01/13/2020 09:57:00 Document Registration [id number] 08/20/2012 10:39:00 Document Registration [id number] 08/28/2011 15:42:00 Document Registration [id number] 08/22/2011 09:17:00 Document Registration [id number] 04/28/2011 22:54:00 Document Registration [id number] 04/18/2011 09:24:00 Document Registration [id number] 10/30/2010 08:19:00 Document Registration [id number] 10/16/2010 07:43:00 Document Registration [id number] 10/10/2010 15:06:00 Document Registration [id number] 09/26/2010 00:00:00 Document Registration [id number] 08/01/2010 10:55:00 Document Registration [id number] 06/27/2010 14:00:00 Document Registration [id number] 06/03/2010 20:55:00 Document Registration [id number] 04/22/2010 12:03:00 Document Registration
--- NOTE | 2020-01-13 10:42 | Diagnostic Imaging Report ---
INDICATION: Difficulty breathing. TIME OF EXAM: 10:22 a.m. COMPARISON: Correlation is made with recent chest x-ray from 01/07/2020. FINDINGS: Changes of median sternotomy and CABG are again noted. Parenchymal opacities overlying the mid and lower lung bustillos appear to be stable. This is similar to study dating back to October and it may in large part be owing to calcified pleural plaquing. Underlying chronic parenchymal lung disease is also likely. No effusion is identified. There is no pneumothorax. Heart size is stable. IMPRESSION: Stable chronic changes when compared with prior exams. No new abnormality is detected. Dictated by: Dictated on workstation # [id number]
[2020-01-13] MEDS ORDERED: PRD20T PO (11:54)
[2020-01-13] MEDS ORDERED: IPRA3AMP31 IH (11:54)
[2020-01-13 12:29] VITALS: BP 140/77
== END 2020-01-13 12:29 | disposition home or self-care (01) ==
LOC: EDUNIT# 09:22 → ER 09:23
DX: J44.1 Chronic obstructive pulmonary disease with (acute) exacerbation (principal); F41.9 Anxiety disorder, unspecified; F32.9 Major depressive disorder, single episode, unspecified; E78.00 Pure hypercholesterolemia, unspecified; I25.10 Atherosclerotic heart disease of native coronary artery without angina pectoris; I25.2 Old myocardial infarction; Z87.891 Personal history of nicotine dependence; Z95.1 Presence of aortocoronary bypass graft; Z95.5 Presence of coronary angioplasty implant and graft; Z80.0 Family history of malignant neoplasm of digestive organs
CPT/HCPCS: 36415; 71045; 80053; 82805; 84484; 85025; 86141; 93005; 94640

== ENCOUNTER 2020-01-16 16:02 | Emergency (ER) | payer MEDICARE, OTHER ==
[~2020-01-16] VITALS: Ht 175.3 cm; Wt 63.5 kg
[~2020-01-16 16:02] MED LIST changes: +IPRA3AMP31 IH
[2020-01-16 16:08] VITALS: BP 108/86
[2020-01-16 16:18] VITALS: BP 114/74
--- NOTE | 2020-01-16 16:35 | ED Chest Pain ---
General Chief Complaint: Chest Pain Stated Complaint: CP Nursing Triage Note: Pt to room CL03 via [facility] cart from home with c/o CP. EMS advise upon arrival on scene, pt reported L sided CP radiating down L arm rated 7/10. Ems accessed 20g iv to L a/c, adm 324mg ASA, 1G nitorpaste (L chest wall), et initiated NS fluid bolus. Upon arrival to ER, pt denies CP or discomfort. Pt reports discomfort began at approx 1300 on this day. A&OX4. Nursing Sepsis Screen: No Definite Risk History of Present Illness Date Seen by Provider: Jan 16, 2020 Time Seen by Provider: 16:07 Initial Comments 79-year-old male seen for chest pain began at 1300 today. He was brought by EMS and given nitro paste and aspirin 324 mg orally. Upon arrival he states that his chest pain has improved. He has long-standing history of COPD and history of CABG in 1992. His second facing baster is in [place], Dr. Light, had heart cath November 26, 2019, no interventions. He wears oxygen at all times. No known COVID-19 risk factors. He was tested in September and Negative. He is home bound, lives with 20 year old granddaughter, she has no recent illness or travel. Timing/Duration: 1-3 hours Severity/Quality: moderate Location: substernal Radiation: no radiation Activities at Onset: rest Prior CP/Workup: cardiac cath, heart attack ASA po MANAGER TREASURY: Yes NTG SL MANAGER TREASURY: Yes Associated Symptoms: denies symptoms Allergies and Home Medications Allergies Coded Allergies: No Known Drug Allergies (Unverified , 10/12/19) Home Medications Clopidogrel Bisulfate 75 Mg Tablet, 75 MG PO DAILY, (Reported) Finasteride 5 Mg Tablet, 5 MG PO HS, (Reported) Ipratropium/Albuterol Sulfate 3 Ml Ampul.neb, 3 ML IH Q6H PRN for SHORTNESS OF BREATH Prescribed by: JOSE NEELY on 01/13/20 1154 Pravastatin Sodium 80 Mg Tablet, 40 MG PO HS, (Reported) TAKES OF AN 80MG TAB Prednisone 20 Mg Tab, 40 MG PO DAILY Prescribed by: JOSE NEELY on 01/13/20 1154 Trazodone HCl 100 Mg Tablet, 100 MG PO HS, (Reported) Venlafaxine HCl 150 Mg Cap.er.24h, 150 MG PO DAILY, (Reported) Patient Home Medication List Home Medication List Reviewed: Yes Review of Systems Review of Systems Constitutional: see HPI; No fever; malaise, weakness Past Airrqzv-Emwaqy-Vhgete Hx Patient Social History Type Used: Cigarettes Former Smoker, Quit: Jul 17, 2003 2nd Hand Smoke Exposure: No Recent Foreign Travel: No Contact w/Someone Who Travel: No Recent Infectious Disease Expo: No Recent Hopitalizations: No Immunizations Up To Date Tetanus Booster (TDap): Unknown Date of Pneumonia Vaccine: Mar 29, 2012 Date of Influenza Vaccine: Mar 29, 2019 Seasonal Allergies Seasonal Allergies: No Past Medical History Surgeries: Yes (LEFT KNEE SURGERY; CARDIAC CATHS-AT LEAST 5 STENTS, PER PT; 4 VESSEL CABG; ) Cardiac, CABG, Coronary Stent, Gallbladder, Orthopedic Respiratory: Yes (POSS ASBESTOS EXPOSURE-PULMONARY FIBROSIS; STARTED ON HOME O2 10/12/19) COPD Currently Using CPAP: No Currently Using BIPAP: No Cardiac: Yes ("5 HEART ATTACKS" PER PT; 4 VESSEL CABG; AT LEAST 5 STENTS, PER PT) Chronic Edema/Swelling, Coronary Artery Disease, Heart Attack, High Cholesterol, Hypertension, Hypotension, Peripheral Vascular Neurological: No Reproductive Disorders: No Genitourinary: No Gastrointestinal: Yes Gastroesophageal Reflux, Pancreatitis Musculoskeletal: Yes (LEFT KNEE SURGERY) Arthritis, Fractures Endocrine: No HEENT: No Cancer: No Psychosocial: Yes Sleep Difficulties, Anxiety, Depression Integumentary: No Blood Disorders: No Family Medical History Colon cancer 19 MOTHER Dementia G8 BROTHER Physical Exam Vital Signs Vital Signs - First Documented Capillary Refill : Less Than 3 Seconds Height, Weight, BMI Height: '" Weight: 195lbs. oz. 88.259376pd; 20.00 BMI Method: General Appearance: WD/WN, Cachetic HEENT: PERRL/EOMI, TMs Normal, Normal ENT Inspection, Pharynx Normal Neck: Full Range of Motion, Normal Inspection, Non Tender, Supple Respiratory: Chest Non Tender, Lungs Clear, Decreased Breath Sounds Cardiovascular: Regular Rate, Rhythm, No Edema, No Murmur, Normal Peripheral Pulses Gastrointestinal: Normal Bowel Sounds, Non Tender, Soft Extremity: Normal Capillary Refill, Normal Inspection, Normal Range of Motion, Non Tender, No Calf Tenderness, No Pedal Edema Neurologic/Psychiatric: Alert, Oriented x3, No Motor/Sensory Deficits, Normal Mood/Affect Skin: Normal Color, Warm/Dry, Pallor Progress/Results/Core Measures Results/Orders Lab Results Laboratory Tests Test 01/16/20 16:20 Range/Units White Blood Count 13.2 H 4.3-11.0 10^3/uL Red Blood Count 5.15 4.35-5.85 10^6/uL Hemoglobin 13.9 13.3-17.7 G/DL Hematocrit 45 40-54 % Mean Corpuscular Volume 87 80-99 FL Mean Corpuscular Hemoglobin 27 25-34 PG Mean Corpuscular Hemoglobin Concent 31 L 32-36 G/DL Red Cell Distribution Width 14.4 10.0-14.5 % Platelet Count 353 130-400 10^3/uL Mean Platelet Volume 9.5 7.4-10.4 FL Neutrophils (%) (Auto) 87 H 42-75 % Lymphocytes (%) (Auto) 6 L 12-44 % Monocytes (%) (Auto) 6 0-12 % Eosinophils (%) (Auto) 0 0-10 % Basophils (%) (Auto) 0 0-10 % Neutrophils # (Auto) 11.5 H 1.8-7.8 X 10^3 Lymphocytes # (Auto) 0.8 L 1.0-4.0 X 10^3 Monocytes # (Auto) 0.8 0.0-1.0 X 10^3 Eosinophils # (Auto) 0.0 0.0-0.3 10^3/uL Basophils # (Auto) 0.0 0.0-0.1 10^3/uL Neutrophils % (Manual) 83 % Lymphocytes % (Manual) 9 % Monocytes % (Manual) 8 % Eosinophils % (Manual) 0 % Basophils % (Manual) 0 % Band Neutrophils 0 % Blood Morphology Comment NORMAL Prothrombin Time 23.5 H 12.2-14.7 SEC INR Comment 2.1 H 0.8-1.4 Activated Partial Thromboplast Time 37 H 24-35 SEC Sodium Level 142 135-145 MMOL/L Potassium Level 4.2 3.6-5.0 MMOL/L Chloride Level 97 L 98-107 MMOL/L Carbon Dioxide Level 32 21-32 MMOL/L Anion Gap 13 5-14 MMOL/L Blood Urea Nitrogen 13 7-18 MG/DL Creatinine 0.81 0.60-1.30 MG/DL Estimat Glomerular Filtration Rate > 60 BUN/Creatinine Ratio 16 Glucose Level 94 70-105 MG/DL Calcium Level 8.6 8.5-10.1 MG/DL Corrected Calcium 9.2 8.5-10.1 MG/DL Magnesium Level 2.1 1.6-2.4 MG/DL Total Bilirubin 0.7 0.1-1.0 MG/DL Aspartate Amino Transf (AST/SGOT) 22 5-34 U/L Alanine Aminotransferase (ALT/SGPT) 10 0-55 U/L Alkaline Phosphatase 117 40-136 U/L Myoglobin 129.1 H 10.0-92.0 NG/ML Troponin I < 0.028 <0.028 NG/ML B-Type Natriuretic Peptide 844.0 H <100.0 PG/ML Total Protein 6.7 6.4-8.2 GM/DL Albumin 3.2 3.2-4.5 GM/DL My Orders Orders - TRISTAN MORENO Ekg Tracing (01/16/20 16:05) Cbc With Automated Diff (01/16/20 16:22) Magnesium (01/16/20 16:22) Chest 1 View, Ap/Pa Only (01/16/20 16:22) Comprehensive Metabolic Panel (01/16/20 16:22) Myoglobin Serum (01/16/20 16:22) Protime With Inr (01/16/20 16:22) Partial Thromboplastin Time (01/16/20 16:22) O2 (01/16/20 16:22) Monitor-Rhythm Ecg Trace Only (01/16/20 16:22) Ed Iv/Invasive Line Start (01/16/20 16:22) Troponin I (01/16/20 16:22) BNP (01/16/20 16:45) Manual Differential (01/16/20 16:20) Vital Signs/I&O 01/16/20 01/16/20 01/16/20 01/16/20 16:07 16:07 16:07 16:08 Temp 36.7 Pulse 96 72 Resp 18 18 B/P (MAP) 108/86 (93) 108/86 (93) Pulse Ox 99 99 99 O2 Delivery Nasal Cannula Nasal Cannula Nasal Cannula Nasal Cannula O2 Flow Rate 2.00 2.0 2.00 2.00 7/20/20 7/20/20 7/20/20 16:18 16:45 18:11 Temp 36.6 Pulse 99 101 99 Resp 18 20 20 B/P (MAP) 114/74 (87) 124/77 (93) 113/78 Pulse Ox 98 99 98 O2 Delivery Nasal Cannula Nasal Cannula Nasal Cannula O2 Flow Rate 2.00 2.00 2.00 Blood Pressure Mean: 93 Progress Progress Note : Time: 16:07 Progress Note Patient seen and evaluated, will obtain chest x-ray, labs and EKG. Potential for cardiac intervention, will have COVID-19 testing. [address] Burkett regarding EKG, recommended discussion with his second facing baster in [place]. [address] Nicolas at [facility]. Reviewed EKG and heart cath. Agreed to accept patient. Patient agreed with plan to transfer 1730 [facility] dispatched to transfer patient. He continues to be free of chest pain. VS stable. 1805 Patient left with [facility]. Initial ECG Impression Date: Jan 16, 2020 Initial ECG Impression Time: 16:07 Initial ECG Rate: 101 Initial ECG Rhythm: S.Tach Initial ECG Intervals: Normal Initial ECG Intervals VA 112, QRSD 108, QT 356, QTc 462. [place] P 69, QRS 63, T -90. Initial ECG Impression: Nonspecific Changes (ST changes from EKG on 01/06 and 01/13/20. ) Initial ECG Comparisson: Changed Comment Reviewed with Dr. Nicolsa, similar EKG from 11/26/19 at time of heart cath. Diagnostic Imaging Diagonstic Imaging: Xray Plain Films/CT/US/NM/MRI: chest Comments NAME: BRTIT ELAINE Kelli [facility] REC#: [id number] PT STATUS: REG ER : 1940 PHYSICIAN: TRISTAN MORENO ADMIT DATE: 01/16/20/ER Draft Date of Exam:01/16/20 CHEST 1 VIEW, AP/PA ONLY EXAMINATION: Portable erect AP chest at 04:51 p.m. INDICATION: Shortness of breath. FINDINGS: There are diffuse alveolar/interstitial pulmonary infiltrates involving the right lung base and chronic pulmonary changes involving both lungs. The abnormal density involving the right lung seems similar to the prior exam of 01/13/2020. Conversely, the left lung does seem better aerated. There is still some residual pneumonia/atelectasis present on the left, however. The lung apices are clear. The heart is enlarged but stable. The sternal wires and surgical clips seen previously are again evident and no different. The mediastinum is not widened. The osseous structures are intact. IMPRESSION: The appearance of the chest has improved somewhat since the prior exam, as the left lung does seem better aerated. There are still alveolar/interstitial pulmonary infiltrates bilaterally, particularly involving the right lung base. A follow-up exam would be recommended for continued evaluation. Dictated on workstation # [id number] Dict: 01/16/201709 Trans: 01/16/201713 [facility] [id number] Interpreted by: DANNI MCCRAY MD Electronically signed by: Reviewed: Reviewed by Me Departure Impression Primary Impression: Chest pain Qualified Codes: R07.89 - Other chest pain Additional Impressions: COPD (chronic obstructive pulmonary disease) Qualified Codes: J44.9 - Chronic obstructive pulmonary disease, unspecified Asbestosis Oxygen dependent Disposition: XFER SHT-TRM HOSP Condition: Stable Transfer Transfer Reason: Exceeds level of care Time Spoke to Accepting Phy: 17:00 Transfer Progress Notes Spoke to Dr. Nicolas, agreed to accept patient for Dr. Light. Transfer Time: 18:00 Transfer Facility: [facility] Method of Transfer: EMS Departure-Patient Inst. Referrals: LAURA FRAZIER DO (PCP/Family) Primary Care Physician TRISTAN MORENO Jan 16, 2020 16:35
--- NOTE | 2020-01-16 16:35 | NUR ---
COVID-19 Swab obtained et sent to lab. Addendum: 01/16/20 at 1643 by MERCEDES KDHE form complete et sent to [place] [facility].
[2020-01-16 16:45] VITALS: BP 124/77
[2020-01-16 16:49] LABS: BASOPHILS % (AUTO) 0 % (0-10); EOSINOPHILS % (AUTO) 0 % (0-10); HEMATOCRIT 45 % (40-54); HEMOGLOBIN 13.9 G/DL (13.3-17.7); LYMPHOCYTES # (AUTO) 0.8 X 10^3 (1.0-4.0); LYMPHOCYTES % (AUTO) 6 % (12-44); MEAN CORPUSCULAR HEMOGLOBIN 27 PG (25-34); MEAN CORPUSCULAR HGB CONC 31 G/DL (32-36); MEAN CORPUSCULAR VOLUME 87 FL (80-99); MEAN PLATELET VOLUME 9.5 FL (7.4-10.4); MONOCYTES # (AUTO) 0.8 X 10^3 (0.0-1.0); MONOCYTES % (AUTO) 6 % (0-12); NEUTROPHILS # (AUTO) 11.5 X 10^3 (1.8-7.8); NEUTROPHILS % (AUTO) 87 % (42-75); PLATELET COUNT 353 10^3/uL (130-400); RED CELL DISTRIBUTION WIDTH 14.4 % (10.0-14.5); WHITE BLOOD COUNT 13.2 10^3/uL (4.3-11.0)
[2020-01-16 16:57] LABS: INR 2.1 (0.8-1.4); PROTHROMBIN TIME PATIENT 23.5 SEC (12.2-14.7)
[2020-01-16 17:03] LABS: ALBUMIN 3.2 GM/DL (3.2-4.5); CHLORIDE 97 MMOL/L (98-107); POTASSIUM 4.2 MMOL/L (3.6-5.0); SODIUM 142 MMOL/L (135-145)
[2020-01-16 17:04] LABS: CALCIUM 8.6 MG/DL (8.5-10.1)
[2020-01-16 17:05] LABS: GLUCOSE 94 MG/DL (70-105)
[2020-01-16 17:06] LABS: TOTAL PROTEIN 6.7 GM/DL (6.4-8.2)
[2020-01-16 17:07] LABS: BILIRUBIN,TOTAL 0.7 MG/DL (0.1-1.0); CARBON DIOXIDE 32 MMOL/L (21-32)
[2020-01-16 17:09] LABS: ALKALINE PHOSPHATASE 117 U/L (40-136); CREATININE SERUM 0.81 MG/DL (0.60-1.30); GFR ESTIMATED > 60
--- NOTE | 2020-01-16 17:09 | NUR ---
Pt signed consent for transfer via ems to [facility].
[2020-01-16 17:10] LABS: BUN/CREATININE RATIO 16
--- NOTE | 2020-01-16 17:11 | NUR ---
NS bolus initiated by [facility] in route to this ER, complete (1000ml intake).
[2020-01-16 17:12] LABS: ALANINE AMINOTRANSFERASE 10 U/L (0-55); MAGNESIUM 2.1 MG/DL (1.6-2.4)
--- NOTE | 2020-01-16 17:15 | Diagnostic Imaging Report ---
EXAMINATION: Portable erect AP chest at 04:51 p.m. INDICATION: Shortness of breath. FINDINGS: There are diffuse alveolar/interstitial pulmonary infiltrates involving the right lung base, the left lung and chronic pulmonary changes involving both lungs. The abnormal density involving the right lung seems similar to the prior exam of 01/13/2020. Conversely, the left lung does seem better aerated. There is still some residual pneumonia/atelectasis present on the left, however. The lung apices are clear. The heart is enlarged but stable. The sternal wires and surgical clips seen previously are again evident and no different. The mediastinum is not widened. The osseous structures are intact. IMPRESSION: The appearance of the chest has improved somewhat since the prior exam, as the left lung does seem better aerated. There are still alveolar/interstitial pulmonary infiltrates bilaterally, particularly involving the right lung base. A follow-up exam would be recommended for continued evaluation. Dictated by: Dictated on workstation # [id number]
[2020-01-16 17:32] LABS: BAND NEUTROPHILS 0 %; BASOPHILS % (MANUAL) 0 %; EOSINOPHILS % (MANUAL) 0 %; LYMPHOCYTES % (MANUAL) 9 %; MONOCYTES % (MANUAL) 8 %; NEUTROPHILS % (MANUAL) 83 %; RBC MORPH NORMAL
--- NOTE | 2020-01-16 17:32 | NUR ---
[facility] DISPATCH NOTIFIED OF NEEDING A TRANSFER TO [place].
--- NOTE | 2020-01-16 17:40 | NUR ---
Pt report called to HEMA Nazario for pt transfer to [facility]. Upon arrival to room #[id number]
[2020-01-16 18:11] VITALS: BP 113/78
== END 2020-01-16 18:11 | disposition short-term general hospital (02) ==
LOC: EDUNIT# 16:02 → ER 16:03
DX: R07.89 Other chest pain (principal); J61 Pneumoconiosis due to asbestos and other mineral fibers; J44.9 Chronic obstructive pulmonary disease, unspecified; I25.2 Old myocardial infarction; I10 Essential (primary) hypertension; E78.00 Pure hypercholesterolemia, unspecified; I25.10 Atherosclerotic heart disease of native coronary artery without angina pectoris; F41.9 Anxiety disorder, unspecified; F32.9 Major depressive disorder, single episode, unspecified; Z80.0 Family history of malignant neoplasm of digestive organs; Z99.81 Dependence on supplemental oxygen; Z20.828 Contact with and (suspected) exposure to other viral communicable diseases; Z95.1 Presence of aortocoronary bypass graft; Z87.891 Personal history of nicotine dependence; Z79.02 Long term (current) use of antithrombotics/antiplatelets; Z95.5 Presence of coronary angioplasty implant and graft
CPT/HCPCS: 71045; 80053; 83735; 83874; 83880; 84484; 85007; 85027; 85610; 85730; 93005; 93041; 99285; U0002; 36415; 87635